=== PATIENT | male | born 1955 | race Caucasian/White ===

== ENCOUNTER 2016-12-25 17:17 | Emergency (ER) | payer MEDICARE, OTHER ==
[2016-12-25] MEDS ORDERED: DIPH,PERTUS(ACELL)TETVAC-LF 0.5 ML VIAL IM ONE (18:16)
--- NOTE | 2016-12-25 19:13 | ED ---
Wound/Laceration HPI - General Chief Complaint: Wound/Laceration Stated Complaint: rt hand, left pinkie finger, rt abdomen laceration Time Seen by Provider: 12/25/16 18:05 Source: patient Mode of arrival: ambulatory Limitations: no limitations - History of Present Illness Initial Comments: Patient is a 7-year-old male with chief complaint of left pinky finger laceration and right hand laceration after trying to catch his drone. Patient reports that he cut his hands over the blade of the wings. Patient denies any other symptoms. Patient reports that his tetanus is not up-to-date. Patient states that he has full range of motion of the hands and denies any foreign bodies within the fingers or lacerations. Patient denies any other symptoms at this time. Patient is right-handed. - Related Data Home Medications Medication Instructions Recorded Confirmed ALPRAZolam [Xanax] 1 mg PO BID PRN 12/25/16 12/25/16 Enalapril [Vasotec] 10 mg PO BID 12/25/16 12/25/16 Ezetimibe/Simvastatin [Vytorin 1 tab PO DAILY 12/25/16 12/25/16 10-80 mg Tablet] Hydrocodone/Acetaminophen [Boissevain 1 tab PO Q6H PRN 12/25/16 12/25/16 10-325] Insulin Glargine [Lantus] 70 unit SQ HS 12/25/16 12/25/16 Insulin Glulisine [Apidra] See Protocol SQ AC-TID 12/25/16 12/25/16 PARoxetine HCL [Paxil Cr] 25 mg PO DAILY 12/25/16 12/25/16 metFORMIN HCL [Glucophage] 1,000 mg PO BID 12/25/16 12/25/16 Previous Rx's Medication Instructions Recorded Cephalexin [Keflex] 500 mg PO Q8HR #21 cap 12/25/16 Allergies Allergy/AdvReac Type Severity Reaction Status Date / Time guinea pigs Allergy Itching Uncoded 12/25/16 18:44 Review of Systems ROS Statement: Those systems with pertinent positive or pertinent negative responses have been documented in the HPI. ROS Other: All systems not noted in ROS Statement are negative. Past Medical History Past Medical History: Diabetes Mellitus History of Any Multi-Drug Resistant Organisms: None Reported Past Surgical History: Joint Replacement, Orthopedic Surgery Additional Past Surgical History / Comment(s): eye surgery Past Psychological History: No Psychological Hx Reported Smoking Status: Never smoker Past Alcohol Use History: None Reported Past Drug Use History: None Reported General Exam - General Exam Comments Initial Comments: Patient is a well-appearing 7-year-old male. Patient does not appear to be in any acute distress. Limitations: no limitations General appearance: alert, in no apparent distress Head exam: Present: atraumatic, normocephalic, normal inspection Eye exam: Present: normal appearance, PERRL, EOMI. Absent: scleral icterus, conjunctival injection, periorbital swelling ENT exam: Present: normal exam, mucous membranes moist Neck exam: Present: normal inspection. Absent: tenderness, meningismus, lymphadenopathy Respiratory exam: Present: normal lung sounds bilaterally. Absent: respiratory distress, wheezes, rales, rhonchi, stridor Cardiovascular Exam: Present: regular rate, normal rhythm, normal heart sounds. Absent: systolic murmur, diastolic murmur, rubs, gallop, clicks GI/Abdominal exam: Present: soft, normal bowel sounds. Absent: distended, tenderness, guarding, rebound, rigid Right Forearm Wrist exam: Present: normal inspection, full ROM Hand Wrist exam: Present: full ROM. Absent: normal inspection, tenderness, swelling, abrasion Hand L/R Front: 1 - laceration (4 cm) Hand L/R Back: 1 - 2cm laceration 2 - 2cm laceration Neuro motor exam: Present: wrist extension intact, thumb opposition intact, thumb IP flexion intact, thumb adduction intact, fingers 2-5 abduction intact Neurosensory exam: Present: 2-point discrimination Vascular: Present: normal capillary refill Back exam: Present: normal inspection Neurological exam: Present: alert, oriented X3, CN II-XII intact Psychiatric exam: Present: normal affect, normal mood Skin exam: Present: warm, dry, intact, normal color. Absent: rash Course Vital Signs 12/25/16 12/25/16 17:23 19:23 Temperature 98.3 F 97.7 F Pulse Rate 96 89 Respiratory 16 18 Rate Blood Pressure 154/89 155/88 O2 Sat by Pulse 98 97 Oximetry Procedures - Laceration Laceration #1 Site: hand (right. 2 locations. medial and lateral dorsum of hand. Lateral dorsum is 2cm in length. medial dorsal is 4 cm in length. No tendon involement. ) Size (cm): 6 Description: linear Depth: simple, single layer Anesthetic Used: benzocaine 0.25% Anesthesia Technique: local infiltration Amount (mls): 5 Pre-repair: wound explored, irrigated extensively Type of Sutures: nylon Size of Sutures: 5-0 Number of Sutures: 6 Technique: simple, interrupted Patient Tolerated Procedure: well, no complications Laceration #2 Site: hand (left 5th digit. ) Size (cm): 2 Description: linear Depth: simple, single layer Anesthetic Used: benzocaine 0.25% Anesthesia Technique: local infiltration Amount (mls): 2 Pre-repair: wound explored, irrigated extensively Type of Sutures: nylon Size of Sutures: 5-0 Number of Sutures: 2 Technique: simple, interrupted Patient Tolerated Procedure: well, no complications Medical Decision Making - Medical Decision Making Patient is a 61 year old male with hand lacerations after catching his drone and was cut on the wings. PAtient given tetanus booster. Lacerations are superficial, no foreign body and no tendon involvement. PAtient soaked hand in soapy iodine wash, and sutures were applied. Patient will be placed on Keflex as his hands are dirty, and patient is diabetic. Patient understands treatment plan and will return for removal. Advised to follow up with pcp and monitor for infection. Disposition Clinical Impression: Laceration of right hand, Laceration of left hand Disposition: HOME SELF-CARE Condition: Good Instructions: Laceration (ED) Additional Instructions: Please return to the emergency room in 8-10 days to have sutures removed. Please leave wound covered for the first 24-48 hours and then leave open to air after that time. Please use clean soap and water to clean the suture area to prevent scabbing over the top of your sutures. Please watch for any signs of infection which may include but not limited to increased pain, swelling, redness , fever or chills. Please return to the emergency room if any signs of infection do occur. Please return to the emergency room for any other concerns or complications. Prescriptions: Cephalexin [Keflex] 500 mg PO Q8HR #21 cap Referrals: Jose Parker MD [Primary Care Provider] - 1-2 days Time of Disposition: 19:12
[2016-12-25 19:24] VITALS: BP 155/88; PULSE 89; RESP 18; TEMP 97.7
== END 2016-12-25 19:24 | disposition home or self-care (01) ==
LOC: EC 17:17
DX: S61.411A Laceration without foreign body of right hand, initial encounter (principal); S61.412A Laceration without foreign body of left hand, initial encounter; E11.9 Type 2 diabetes mellitus without complications; Z79.4 Long term (current) use of insulin; Z79.899 Other long term (current) drug therapy; Z91.048 Other nonmedicinal substance allergy status; W45.8XXA Other foreign body or object entering through skin, initial encounter; W22.8XXA Striking against or struck by other objects, initial encounter; Y93.89 Activity, other specified
CPT/HCPCS: 12004; 90471; 90715; 99283

== ENCOUNTER → 2023-04-30 | Outpatient (CLI) | payer MEDICARE, OTHER | END | disposition home or self-care (01) | LOC: RADPETMAIN 12:03 | PROVIDERS: ATTEND Internal Medicine Hematology & Oncology | DX: Z53.9 Procedure and treatment not carried out, unspecified reason (principal) ==

== ENCOUNTER → 2023-05-07 | Outpatient (CLI) | payer MEDICARE, OTHER ==
--- NOTE | 2023-05-08 22:42 | MR ---
EXAMINATION TYPE: MR Rectal wo con DATE OF EXAM: 05/07/2023 2:03 PM CLINICAL INDICATION:Male, 68 years old with history of C20 MALIGNANT NEOPLASM OF RECTUM; COMPARISON: Pet/CT same day TECHNIQUE: Multiplanar, multisequence imaging was performed on a 3T MR scanner with optimized small f ield of view imaging of the rectum. Orthogonal high resolution T2 weighted imaging was obtained thro ugh the rectal mass with additional sequences including T1 weighted images and diffusion weighted john ging. IV CONTRAST: None. FINDINGS: IMAGE QUALITY: Adequate PRIMARY TUMOR: MORPHOLOGY, LOCATION, AND CHARACTERISTICS: Distance to anal verge: 0.0 cm Distance to top of anal sphincter complex/anorectal junction: 0.0 cm Relationship to the anterior peritoneal reflection: below Craniocaudal length: 9.5 cm Circumferential location (o'clock position): [place] to be nearly annular, however at at the level of th e anus extends 9 o'clock to 2 o'clock. Morphology: Annular Mucinous: No MRI Rectal Cancer T Category: T3c (tumor penetrates >5-15 mm beyond muscularis propria). There is n o invasion of adjacent structures definitively visualized however it does abut the prostate gland ser ies 701 image 18. FOR LOW RECTAL TUMORS - Invasion of anal sphincter complex Invades internal sphincter, interspincteric space and extends into or through external sphincter Level of invasion: Distal anal canal EXTRAMURAL VENOUS INVASION (EMVI): Not definitively visualized AB possibly within the right aspect ne ar extension away from the rectal wall. CIRCUMFERENTIAL RESECTION MARGIN (for T3 only) Shortest distance of tumor to MRF (or anticipated CRM): 12.6 mm on the right series 701 image 27. (Not applicable if tumor at peritonealized portion of the rectum) Is there a separate tumor deposit, lymph node, or EMVI threatening (> 1 mm and < 2 mm) or invading (< 1 mm) the MRF (if yes, note location): No LYMPH NODES: Multiple lymph nodes are seen in the mesorectal fascia, one correlating with PET/CT yaneli uring 8 mm on the right demonstrates mildly increased FDG activity PET/CT and is suspicious. Addition al smaller lymph nodes are present some in the presacral space series 601 image 5. Mesorectal/superior rectal lymph nodes and/or tumor deposits: N3 - Presence of suspicious extra-mesorectal lymph nodes *Suspicious morphologic criteria: (1) round shape, (2) irregular borders, (3) heterogenous signal int ensity Superior most suspicious lymph node/deposit is located: Presacral series 401 image 15. Extra-mesorectal lymph nodes: any suspicious: Yes. Presacral lymph node mentioned above . (mesorectal, superior rectal, middle rectal, inferior rectal, sigmoid mesenteric, inferior mesenteric , lateral sacral, presacral, sacral promontory) Locoregional: internal iliac, obturator M1: external iliac, common iliac, inguinal, retroperitoneal IMPRESSION: T Stage: T3c (tumor penetrates >5-15 mm beyond muscularis propria). N Stage: N3 - Presence of suspicious extra-mesorectal lymph nodes CRM: Clear Sphincter Involvement: Yes Suspicious extramesorectal nodes: Yes ,
== END | disposition home or self-care (01) ==
LOC: RADMRIMAIN 04-28 09:57
PROVIDERS: ATTEND Internal Medicine Hematology & Oncology
DX: C20 Malignant neoplasm of rectum (principal)
CPT/HCPCS: 72195

== ENCOUNTER → 2023-05-08 | Outpatient (CLI) | payer MEDICARE, OTHER ==
--- NOTE | 2023-05-08 22:48 | PE ---
EXAMINATION TYPE: PET CT fusion skull to thigh DATE OF EXAM: 05/08/2023 CLINICAL INDICATION:Male, 68 years old with history of C20 rectal ca TECHNIQUE: Following the intravenous administration of 12.5 mCi of F-18 FDG, whole body images are performed from the skull base to the midthigh. Images are reviewed on the computer in the coronal, a xial, and sagittal planes. Reconstructed rotating images are created on independent workstation and reviewed on the computer. A non-contrast CT is performed in conjunction with the PET scan. Glucose level 56 mg/dL COMPARISON: CT None, PET/CT None, MRI rectal 05/07/2023. FINDINGS: Mediastinal SUV mean is 1.9. Hepatic parenchyma SUV mean is 1.3. SKULL BASE AND NECK: No suspicious radiotracer activity. CHEST, MEDIASTINUM, AND HILAR REGION: No suspicious radiotracer activity. ABDOMEN AND PELVIS: * Circumstantial rectal wall FDG activity max SUV 34. * Right mesorectal lymph node max SUV 2.1 measuring 8 mm in short axis. Additional other mesorectal lymph nodes are present are smaller * An area of uptake near the inferior vena cava near the diaphragm which may be within the liver, th is lesion is hard to localize given streak artifact. Max SUV 11.3. * Left adrenal nodule measuring 16 mm without increased about activity. Physiologic uptake within th e muscles of the back on the left. OSSEOUS STRUCTURES: No suspicious radiotracer activity. OTHER CT: Right aphakia. Atherosclerosis of the carotid bifurcations and coronary arteries. Aortic va lve leaflet calcifications are present. Streak artifact from the patient's arm limits evaluation with CT imaging. IMPRESSION: * Findings compatible with MRI with rectal adenocarcinoma with likely local metastatic disease to th e mesorectal lymph nodes * Area of abnormal radiotracer uptake within the upper abdomen near the IVC is hard to localize give n streak artifact on CT imaging finding could be within the liver. This has max SUV 11.3. Finding may represent metastatic focus. Consider MRI liver mass protocol.
== END | disposition home or self-care (01) ==
LOC: RADPETMAIN 11:35
PROVIDERS: ATTEND Internal Medicine Hematology & Oncology
DX: C20 Malignant neoplasm of rectum (principal)
CPT/HCPCS: 78815; A9552

== ENCOUNTER 2023-05-17 10:26 | Day surgery (SDC) | payer MEDICARE, OTHER ==
[~2023-05-17 10:26] MED LIST: ACETAMINOPHEN TAB 500 MG TAB PO PRN; DEXAMETHASONE SOD PHOSPHATE 4 MG/ML 1 ML VIAL IV ONE; HEPARIN SODIUM,PORCINE/PF 5,000 UNIT/0.5 ML SYRINGE SQ PRN; HYDROmorphone 0.5 MG/0.5 ML SYRINGE IVP PRN; LACTATED RINGERS 1,000 ML IV SCH; MIDAZOLAM 2 MG/2 ML VIAL IV PRN; ONDANSETRON 4 MG/2 ML VIAL IVP ONE; Pre Op ABX Message 1 EACH MISC MISCELLANE ONE
[2023-05-17 11:10] LABS: Glucose,Whole Blood 122 mg/dL (70-110)
[2023-05-17] MEDS ORDERED: fentaNYL (PF) 50 MCG/ML 2 ML AMP ONE (11:19)
[2023-05-17] MEDS ORDERED: PHENYLEPHRINE-0.9% NACL SYG 1,000 MCG/10 ML SYRINGE ONE (11:19)
[2023-05-17] MEDS ORDERED: MIDAZOLAM 2 MG/2 ML VIAL ONE (11:19)
[2023-05-17] MEDS ORDERED: PROPOFOL 10 MG/ML 20 ML VIAL IV ONE (11:19)
[2023-05-17] MEDS ORDERED: HEPARIN SODIUM,PORCINE 100 UNIT/ML 5 ML VIAL IV ONE (11:49)
[2023-05-17] MEDS ORDERED: BUPIVACAINE (PF) 0.25% 30 ML VIAL SQ ONE ×2 (11:50)
[2023-05-17] MEDS ORDERED: IOPAMIDOL-370 100ML BTL MISCELLANE ONE (11:57)
--- NOTE | 2023-05-17 12:09 | P.OP ---
Date of Procedure: 05/17/23 Preoperative Diagnosis: Colorectal cancer Postoperative Diagnosis: Colorectal cancer Procedure(s) Performed: Insertion of right subclavian Port-A-Cath Anesthesia: OSMAN Surgeon: Brandon Quiros Estimated Blood Loss (ml): 5 Pathology: none sent Condition: stable Disposition: PACU Description of Procedure: The patient was placed on the operating table in the supine position. The patient received IV sedation. The patient's chest was prepped and draped in the usual sterile fashion. A roll had been placed between the shoulder blades in a longitudinal fashion. After prepping and draping the skin was anesthetized 1% local Xylocaine. And then using the Seldinger technique the subclavian vein was cannulated. A wire was placed into the vein and fluoroscopy position the wire at the atrial caval junction. Next the dilator sheath was placed over top the wire and the wire was withdrawn. The catheter was positioned at the atriocaval position. The catheter was placed through the sheath after the dilator was withdrawn. The sheath was then withdrawn. Position of the catheter was confirmed with fluoroscopy. The Port-A-Cath was connected to the catheter. The Port-A-Cath was flushed with saline and then heparinized saline. The skin was closed interrupted 3-0 Monocryl suture. Dermabond was applied. Patient tolerated procedure well and was sent to recovery room stable condition.
[2023-05-17 12:19] VITALS: RESP 16; TEMP 97.3
[2023-05-17 12:32] LABS: Glucose,Whole Blood 112 mg/dL (70-110)
--- NOTE | 2023-05-17 13:02 | XR ---
EXAMINATION TYPE: XR chest 1V portable DATE OF EXAM: 05/17/2023 COMPARISON: None INDICATION: Right subclavian catheter TECHNIQUE: Single frontal view of the chest is obtained. FINDINGS: The heart size is normal. The pulmonary vasculature is normal. Some mild increased lung markings are normal left upper lung field. There is placement of a right-sided port with the tip in the proximal superior vena cava region. No p neumothorax is evident. IMPRESSION: 1. No pneumothorax post right sided port placement. Tip is in the proximal superior vena cava region.
--- NOTE | 2023-05-17 13:04 | FL ---
Fluoroscopy INDICATION: Pain FINDINGS: Fluoroscopy time: 19.2 seconds. Total dose area product (DAP) in uGy*m?, mGy*cm? (or similar): 1.9879 Images obtained: 4. IMPRESSIONS: 1. Documentation of fluoroscopy.
[2023-05-17 13:40] VITALS: BP 126/75; PULSE 67
== END 2023-05-17 14:09 | disposition home or self-care (01) ==
LOC: OR 10:26
PROVIDERS: ATTEND Surgery
DX: Z45.2 Encounter for adjustment and management of vascular access device (principal); C19 Malignant neoplasm of rectosigmoid junction; I10 Essential (primary) hypertension; E78.5 Hyperlipidemia, unspecified; E11.9 Type 2 diabetes mellitus without complications; E66.01 Morbid (severe) obesity due to excess calories; Z68.41 Body mass index [BMI] 40.0-44.9, adult; Z79.84 Long term (current) use of oral hypoglycemic drugs; Z79.85 Long-term (current) use of injectable non-insulin antidiabetic drugs; Z79.899 Other long term (current) drug therapy; Z91.048 Other nonmedicinal substance allergy status
CPT/HCPCS: 36561; 77001; 71045; C1788; J2250; J1642; J1100; J2405; J3010; J2370; J2704; Q9967; J1644

== ENCOUNTER → 2023-07-20 | Outpatient (CLI) | payer MEDICARE, OTHER ==
--- NOTE | 2023-07-21 10:06 | CA ---
Transthoracic Echo Report Name: Jimmy Edwards Age: 68 Gender: M : 1955 Exam Date: 07/20/2023 15:56 Exam Location: [facility] Ht (in): 72 Wt (lb): 300 Ordering Physician: Jose Parker MD Attending/Referring Phys: [employer] Operator Deyanira Robledo RDCS Procedure CPT: Indications: I10 HTN Cardiac Hx: Technical Quality: Fair Contrast 1: Total Dose (mL): Contrast 2: Total Dose (mL): MEASUREMENTS (Male / Female) Normal Values 2D ECHO LV Diastolic Diameter PLAX 5.1 cm 4.2 - 5.9 / 3.9 - 5.3 cm LV Systolic Diameter PLAX 3.7 cm IVS Diastolic Thickness 2.2 cm 0.6 - 1.0 / 0.6 - 0.9 cm LVPW Diastolic Thickness 2.2 cm 0.6 - 1.0 / 0.6 - 0.9 cm LV Relative Wall Thickness 0.8 RV Internal Dim ED PLAX 4.5 cm LVOT Diameter 2.0 cm LA Volume 126.1 cm??? 18 - 58 / 22 - 52 cm??? M-MODE Aortic Root Diameter MM 4.1 cm LA Systolic Diameter MM 6.1 cm LA Ao Ratio MM 1.5 AV Cusp Separation MM 2.0 cm DOPPLER AV Peak Velocity 424.0 cm/s AV Peak Gradient 71.9 mmHg AV Mean Velocity 315.1 cm/s AV Mean Gradient 43.5 mmHg AV Velocity Time Integral 90.5 cm LVOT Peak Velocity 125.6 cm/s LVOT Peak Gradient 6.3 mmHg LVOT Velocity Time Integral 30.4 cm LVOT Stroke Volume 91.3 cm??? LVOT Stroke Volume Index 36.1 ml/m??? LVOT Cardiac Index 2990.2 cm???/min???m??? AV Area Cont Eq vti 1.0 cm??? AV Area Cont Eq pk 0.9 cm??? MV Area PHT 2.9 cm??? Mitral E Point Velocity 102.5 cm/s Mitral A Point Velocity 116.9 cm/s Mitral E to A Ratio 0.9 MV Deceleration Time 257.3 ms TR Peak Velocity 251.2 cm/s TR Peak Gradient 25.3 mmHg Right Ventricular Systolic Press 32.1 mmHg FINDINGS Left Ventricle Severely increased left ventricular wall thickness. Left ventricular cavity size normal. Normal left ventricular systolic function with no obvious regional wall motion abnormalities. Left ventricular ejection fraction is estimated at 55 %. Right Ventricle Moderate right ventricular dilatation. Right ventricular systolic pressure within normal limits. Right Atrium Normal right atrial size. Left Atrium Severely increased left atrial volume. Moderately increased left atrial area. Mitral Valve Structurally normal mitral valve. Mitral valve thickened. Moderate mitral annular calcification. [id number]-etztnjry mitral regurgitation. Aortic Valve Severe aortic stenosis with a peak velocity of 4 m/s, peak gradient 72 mmHg, mean gradient 44 mmHg, and estimated aortic valve area of 1 cm???. Trace to mild aortic regurgitation. Tricuspid Valve Mild tricuspid regurgitation. Pulmonic Valve Trace pulmonic regurgitation. Pericardium No pericardial effusion. Aorta Normal size aortic root and proximal ascending aorta. CONCLUSIONS Normal LV systolic function. Aortic sclerosis with severe aortic stenosis and mean gradient of 44 mmHg Thickened mitral valve leaflets with [id number] mitral regurgitation Previewed by: Dr. Nura Mcgowan MD (Electronically Signed) Final Date: 21 July 2023 10:05
== END | disposition home or self-care (01) ==
LOC: RADECHMAIN 15:44
PROVIDERS: ATTEND Family Medicine
DX: I08.0 Rheumatic disorders of both mitral and aortic valves (principal); I10 Essential (primary) hypertension
CPT/HCPCS: 93306

== ENCOUNTER → 2023-08-10 | Outpatient (CLI) | payer MEDICARE, OTHER ==
--- NOTE | 2023-08-11 15:52 | MR ---
EXAMINATION TYPE: MR liver wo/w con DATE OF EXAM: 08/10/2023 9:52 AM CLINICAL INDICATION:Male, 68 years old with history of C20 RECTAL CANCER; Rectal CA, F/U COMPARISON: CT scan abdomen from PET/CT 05/08/2023.. TECHNIQUE: Multiplanar multi-sequence imaging was performed without contrast. Post contrast imaging was performed. Post IV contrast subtraction images were also submitted for review. IV Contrast: 14 cc Gadavist FINDINGS: LOWER CHEST: No gross irregularity. ABDOMEN Liver: There is a 2.9 x 2.7 x 3.5 cm lesion near the caudate lobe of the liver. MRI Artifact extends over this region of the liver and multiple sequences including T2 and DWI this is heterogenous postco ntrast enhancement. Additional lesion seen within the dome of the liver which is low T1 signal with peripheral enhancemen t on delayed imaging measuring up to 19.0 cm. Gallbladder and Bile ducts: No evidence for ductal dilation, or biliary stricture or evidence of chol edocholithiasis. The gallbladder is within normal limits. Pancreas: No ductal dilation. No evidence for solid mass. Spleen: Normal for size. Adrenal glands: Left adrenal nodule measuring 1.9 cm did not have FDG activity on prior PET/CT and de monstrates drop in signal on shift of phase imaging and is most compatible with lipid rich adrenal ad enoma. Kidneys: No evidence for obstructive uropathy. No suspicious renal masses. Multiple high T2 signal re nal cysts are present. Stomach and Bowel: No evidence for bowel wall thickening or evidence for obstruction.. Peritoneum: No evidence of pneumoperitoneum or free fluid. Vasculature: No aortic aneurysm. Musculoskeletal: The osseous structures appear intact. Lymph Nodes: No gross evidence for lymphadenopathy. Abdominal wall: Unremarkable. IMPRESSION: There are at least 2 hepatic lesions which are highly suspicious of metastatic disease. The first in the caudate lobe which is the area of concern on prior PET/CT. A second near the dome is also present . Retrospectively the second may be mildly FDG avid on prior PET/CT. Compared to background liver par enchyma.
== END | disposition home or self-care (01) ==
LOC: RADMRIMAIN 08:40
PROVIDERS: ATTEND Internal Medicine Hematology & Oncology
DX: C20 Malignant neoplasm of rectum (principal); K76.9 Liver disease, unspecified
CPT/HCPCS: 74183; A9585

== ENCOUNTER → 2023-09-23 | Day surgery (SDC) | payer MEDICARE, OTHER ==
[2023-09-23 11:28] VITALS: BP 139/72; PULSE 87; RESP 16; TEMP 98
--- NOTE | 2023-09-23 12:12 | IR ---
Fluoroscopic portogram([facility]). HISTORY: Device malfunction. The patient presented to the CVL with a Fofana needle within the port. Preliminary fluoroscopy demonst rated the catheter to be intact. The DAP is 0.5748 GYCM 2 IMPRESSION: 1. No obstruction or extravasation. See above.
== END ==
LOC: CATHCVL 10:58
PROVIDERS: ATTEND Radiology Diagnostic Radiology
DX: T82.594A Other mechanical complication of infusion catheter, initial encounter (principal); I10 Essential (primary) hypertension; E78.5 Hyperlipidemia, unspecified; E11.9 Type 2 diabetes mellitus without complications; D50.9 Iron deficiency anemia, unspecified; Z79.84 Long term (current) use of oral hypoglycemic drugs; Z79.811 Long term (current) use of aromatase inhibitors; Z79.899 Other long term (current) drug therapy; Z85.048 Personal history of other malignant neoplasm of rectum, rectosigmoid junction, and anus; Y83.8 Other surgical procedures as the cause of abnormal reaction of the patient, or of later complication, without mention of misadventure at the time of the procedure
CPT/HCPCS: 36598

== ENCOUNTER 2023-11-14 15:50 | Emergency (ER) | payer MEDICARE, OTHER ==
--- NOTE | 2023-11-14 16:47 | ED ---
General Adult HPI - General Chief complaint: Skin/Abscess/Foreign Body Stated complaint: left foot injury Time Seen by Provider: 11/14/23 16:12 Source: patient Mode of arrival: ambulatory Limitations: no limitations - History of Present Illness Initial comments: 68-year-old male with a past medical history significant for colon cancer on chemotherapy and type 2 diabetes presenting to the ED with a chief complaint of left foot wound. Patient states approximately 3 days ago accidentally stepped on the prong of electric plug and notes that this punctured the bottom of his foot. Due to history of being on chemotherapy and type 2 diabetes patient states that he wants to ensure that the wound is healing well and does not look infected. Denies increased pain. Denies swelling. There is unsure if it has been more red as he is unable to see the bottom of his foot. Additionally, patient notes he just finished a course of amoxicillin for paronychia of his bilateral great toes. States that redness and pain has improved on the left however states he is still having some redness and pain of the right however significantly improved after finishing amoxicillin. Denies fever or chills. No other complaints. Tetanus status unknown. - Related Data Home Medications Medication Instructions Recorded Confirmed Insulin Glargine [Lantus] 70 unit SQ HS 12/25/16 11/04/23 Insulin Glulisine [Apidra] See Protocol SQ AC-TID 12/25/16 11/04/23 metFORMIN HCL [Glucophage] 1,000 mg PO BID 12/25/16 11/04/23 Dulaglutide [Trulicity] 1.5 mg SQ WEEKLY 03/25/23 11/04/23 Losartan [Cozaar] 25 mg PO DAILY 05/21/23 11/04/23 Previous Rx's Medication Instructions Recorded Amoxic-Pot Clav 875-125Mg 1 tab PO Q12HR #14 tab 11/14/23 [Augmentin 875-125] Allergies Allergy/AdvReac Type Severity Reaction Status Date / Time guinea pigs Allergy Itching Uncoded 11/14/23 15:56 Review of Systems ROS Statement: Those systems with pertinent positive or pertinent negative responses have been documented in the HPI. ROS Other: All systems not noted in ROS Statement are negative. Past Medical History Past Medical History: Cancer, CVA/TIA, Diabetes Mellitus, Hypertension Additional Past Medical History / Comment(s): RECTAL CANCER. History of Any Multi-Drug Resistant Organisms: None Reported Past Surgical History: Joint Replacement, Orthopedic Surgery Additional Past Surgical History / Comment(s): eye surgery,knee replacement, broken fx and calcium deposits removed Past Anesthesia/Blood Transfusion Reactions: No Reported Reaction Past Psychological History: No Psychological Hx Reported Smoking Status: Former smoker General Exam Limitations: no limitations General appearance: alert, in no apparent distress Eye exam: Present: normal appearance Neck exam: Present: normal inspection Respiratory exam: Present: normal lung sounds bilaterally Cardiovascular Exam: Present: regular rate, normal rhythm GI/Abdominal exam: Present: soft Extremities exam: Present: other (Well-healing wound on the plantar surface of the left mid foot. No warmth, erythema, edema, or significant tenderness to the touch. Appears to be some erythema of the medial portion of the left great toe nontender to the touch. Some erythema of the medial aspect of the right great toe with TTP) Neurological exam: Present: alert, oriented X3 Skin exam: Present: warm, dry Course Vital Signs 11/14/23 15:52 Temperature 98 F Pulse Rate 101 H Respiratory 18 Rate Blood Pressure 167/88 O2 Sat by Pulse 99 Oximetry Medical Decision Making - Medical Decision Making Was pt. sent in by a medical professional or institution (, PA, CORPORATE PILOT, urgent care, hospital, or care home...) When possible be specific @ -No Did you speak to anyone other than the patient for history (EMS, parent, family, police, friend...)? What history was obtained from this source @ -No Did you review nursing and triage notes (agree or disagree)? Why? @ -I reviewed and agree with nursing and triage notes Were old charts reviewed (outside hosp., previous admission, EMS record, old EKG, old radiological studies, urgent care reports/EKG's, care home records)? Report findings @ -No old charts were reviewed Differential Diagnosis (chest pain, altered mental status, abdominal pain women, abdominal pain men, vaginal bleeding, weakness, fever, dyspnea, syncope, headache, dizziness, GI bleed, back pain, seizure, CVA, palpatations, mental health, musculoskeletal)? @ -Differential Musculoskeletal Muscular strain, contusion, ligament sprain, fracture, arthritis, septic arthritis, bursitis, cellulitis, muscle spasm, nerve compression, DVT, arterial occlusion, herpes zoster, electrolyte abnormality, tumor.... This is not meant to be in all inclusive list EKG interpreted by me (3pts min.). @ -None X-rays interpreted by me (1pt min.). @ -None done CT interpreted by me (1pt min.). @ -None done U/S interpreted by me (1pt. min.). @ -None done What testing was considered but not performed or refused? (CT, X-rays, U/S, labs)? Why? @ -None What meds were considered but not given or refused? Why? @ -None Did you discuss the management of the patient with other professionals (professionals i.e. DrAlessandra, PA, CORPORATE PILOT, lab, RT, psych nurse, social worker assistant, casing tier, teacher, customs patrol officer, supervisor case loading)? Give summary @ -No Was smoking cessation discussed for >3mins.? @ -No Was critical care preformed (if so, how long)? @ -No Were there social determinants of health that impacted care today? How? (Homele ssness, low income, unemployed, alcoholism, drug addiction, transportation, low edu. Level, literacy, decrease access to med. care, long-term, rehab)? @ -No Was there de-escalation of care discussed even if they declined (Discuss DNR or withdrawal of care, Hospice)? DNR status @ -No What co-morbidities impacted this encounter? (DM, HTN, Smoking, COPD, CAD, Cancer, CVA, ARF, Chemo, Hep., AIDS, mental health diagnosis, sleep apnea, morbid obesity)? @ -Colon cancer on chemotherapy, type 2 diabetes Was patient admitted / discharged? Hospital course, mention meds given and route, prescriptions, significant lab abnormalities, going to OR and other pertinent info. @ -Discharge 78-year-old male with past medical history significant for colon cancer on chemo and type 2 diabetes presenting to the ED to have the wound evaluated on the bilateral left foot. Wound appears to be well healing with no evidence of infection. Additionally notes history of treatment for bilateral paronychia of great toes. There does still appear to be some redness and tenderness to palpa tion of the right great toe however patient reports redness, swelling, pain significantly improved after treatment with amoxicillin. Tetanus updated. Patient provided prescription for Augmentin. At this time vital signs stable afebrile. Discharged home in stable condition. Discussed return precautions with patient who verbalized agreement. Undiagnosed new problem with uncertain prognosis? @ -No Drug Therapy requiring intensive monitoring for toxicity (Heparin, Nitro, Insulin, Cardizem)? @ -No Were any procedures done? @ -No Diagnosis/symptom? @ -Wound evaluation, paronychia bilateral great toes Acute, or Chronic, or Acute on Chronic? @ -Acute Uncomplicated (without systemic symptoms) or Complicated (systemic symptoms)? @ -Uncomplicated Side effects of treatment? @ -No Exacerbation, Progression, or Severe Exacerbation? @ -No Poses a threat to life or bodily function? How? (Chest pain, USA, [place], pneumonia, PE, COPD, DKA, ARF, appy, cholecystitis, CVA, Diverticulitis, Homicidal, Suicidal, threat to staff... and all critical care pts) @ -No Disposition Clinical Impression: Paronychia, Colon cancer Disposition: HOME SELF-CARE Condition: Good Instructions (If sedation given, give patient instructions): Puncture Wound (ED) Additional Instructions: Please return to the Emergency Department if symptoms worsen or any other concerns. Monitor for signs of infection. Please follow up with your primary care provider. Prescriptions: Amoxic-Pot Clav 875-125Mg [Augmentin 875-125] 1 tab PO Q12HR #14 tab Is patient prescribed a controlled substance at d/c from ED?: No Referrals: Jose Parker MD [Primary Care Provider] - 1-2 days Time of Disposition: 16:54
[2023-11-14] MEDS ORDERED: DIPH,PERTUS(ACELL)TETVAC-LF 0.5 ML VIAL IM ONE (16:55)
[2023-11-14] MEDS ORDERED: AMOXIC-POT CLAV 875MG STARTER PACK 2 TAB BTL PO STA (16:55)
[2023-11-14 17:24] VITALS: BP 121/83; PULSE 91; RESP 17; TEMP 98.2
== END 2023-11-14 17:23 | disposition home or self-care (01) ==
LOC: EC 15:50
DX: L03.032 Cellulitis of left toe (principal); C18.9 Malignant neoplasm of colon, unspecified; I10 Essential (primary) hypertension; E11.9 Type 2 diabetes mellitus without complications; Z87.891 Personal history of nicotine dependence; Z91.048 Other nonmedicinal substance allergy status; Z23 Encounter for immunization; Z79.85 Long-term (current) use of injectable non-insulin antidiabetic drugs; Z79.4 Long term (current) use of insulin; Z79.899 Other long term (current) drug therapy
CPT/HCPCS: 90471; 90715; 99283

== ENCOUNTER → 2023-11-25 | Outpatient (CLI) | payer MEDICARE, OTHER ==
--- NOTE | 2023-11-28 12:42 | PE ---
EXAMINATION TYPE: PET CT fusion skull to thigh DATE OF EXAM: 11/25/2023 COMPARISON: MRI liver 08/10/2023 Prior PET/CT: 05/08/2023 HISTORY: Rectal cancer TECHNIQUE: Following the intravenous administration of 12.3 mCi of F-18 FDG, whole body images are p erformed from the skull base to the midthigh. Images are reviewed on the computer in the coronal, ax ial, and sagittal planes. Reconstructed rotating images are created on independent workstation and r eviewed on the computer. A localization and attenuation correction CT is performed in conjunction w ith the PET scan. DLP: 1045.01 mGycm SCAN: Subsequent Blood glucose: 150 mg/dL Average Mediastinum SUV: 2.14 Average Liver SUV: 2.51 FINDINGS: NECK: No abnormal uptake THORAX: No abnormal uptake ABDOMEN: There is an area within the posterior right dome of the liver may be somewhat more focal upt sandip. This has an SUV value of 4.33. Image 109. Metastatic lesion is not excluded. Liver appears somew hat heterogenous. The previous uptake in the caudate lobe may be present, image 125, SUV 6.69. No additional suspicious focal areas identified. No additional suspicious uptake within the abdomen. PELVIS: Increased uptake in the perirectal region. Local recurrence or residual disease may be presen t. There is increased uptake within the left gluteal region appears to be related to muscular activity. OSSEOUS STRUCTURES: There is some mild heterogeneity present. Some focal uptake may be within the cherri tebral pedicle junction on the right of the mid thoracic spine, image 112, SUV average 3.77. LOCALIZATION CT: Suspicious corresponding abnormality is not identified. COMPARISON: Uptake within the caudate lobe is not identified on the current examination. Uptake withi n the perirectal region appears stable. IMPRESSION: 1. Persistent uptake in the perirectal region may be residual disease, similar to prior study. 2. Uptake within the caudate lobe of the liver appears diminished from comparison. 3. Difficult evaluation of the liver given heterogeneous appearance. Focal uptake however may be with in the dome of the liver which would be a change. 4. Possible osseous metastasis mid thoracic spine.
== END | disposition home or self-care (01) ==
LOC: RADPETMAIN 07:07
PROVIDERS: ATTEND Internal Medicine Hematology & Oncology
DX: C20 Malignant neoplasm of rectum (principal)
CPT/HCPCS: 78815; A9552

== ENCOUNTER → 2024-01-01 | Outpatient (CLI) | payer MEDICARE, OTHER ==
--- NOTE | 2024-01-01 09:19 | MR ---
MRI thoracic spine with and without contrast HISTORY: Rectal cancer. COMPARISON: None. TECHNIQUE: Multiecho multiplanar images thoracic spine were obtained with and without contrast FINDINGS: The exam is markedly limited due to involuntary patient motion secondary to the patient's back pain. There is no evidence of compression fracture or abnormality of the thoracic spinal cord. There is no thoracic spinal stenosis. There is a suggestion of small focal disc protrusions in the lower thoracic spine the precise level o f which cannot be determined given the limitations of this technique. The possibility of metastatic disease in the thoracic spine cannot be entirely excluded secondary to limitations. IMPRESSION: Markedly limited study secondary to involuntary patient motion as described. There are no compression fractures and the spinal cord in the thoracic region appears unremarkable. There are posterior disc protrusions in the lower thoracic spine which are poorly evaluated with this technique. Despite the l ack of pathologic extra, possibility of metastatic disease thoracic spine cannot be excluded secondar y to limitations of this technique. Repeat MRI thoracic spine with sedation might be useful for furth er evaluation.
== END | disposition home or self-care (01) ==
LOC: RADMRIMAIN 07:25
PROVIDERS: ATTEND Internal Medicine Hematology & Oncology
DX: M51.24 Other intervertebral disc displacement, thoracic region (principal); C20 Malignant neoplasm of rectum
CPT/HCPCS: 72157; A9585

== ENCOUNTER 2024-02-16 18:27 | Inpatient (IN) | payer MEDICARE, OTHER ==
--- NOTE | 2024-02-16 18:53 | ED ---
General Adult HPI - General Chief complaint: Recheck/Abnormal Lab/Rx Stated complaint: Low magnesium Time Seen by Provider: 02/16/24 18:37 Source: patient, RN notes reviewed Mode of arrival: wheelchair Limitations: no limitations - History of Present Illness Initial comments: Patient is a pleasant 69-year-old male present to the emergency department with concerns for abnormal lab work. Patient states he does have a history of low magnesium. Patient is on chemotherapy for colorectal cancer. Patient states he was at a different facility recently for possible procedure however they would not do it secondary to tachycardia. Patient denies any history of dysrhythmia. No chest pain. - Related Data Home Medications Medication Instructions Recorded Confirmed Insulin Glargine [Lantus] 70 unit SQ HS 12/25/16 12/07/23 Insulin Glulisine [Apidra] See Protocol SQ AC-TID 12/25/16 12/07/23 metFORMIN HCL [Glucophage] 1,000 mg PO BID 12/25/16 12/07/23 Dulaglutide [Trulicity] 1.5 mg SQ WEEKLY 03/25/23 12/07/23 Losartan [Cozaar] 25 mg PO DAILY 05/21/23 12/07/23 Previous Rx's Medication Instructions Recorded Amoxic-Pot Clav 875-125Mg 1 tab PO Q12HR #14 tab 11/14/23 [Augmentin 875-125] Allergies Allergy/AdvReac Type Severity Reaction Status Date / Time guinea pigs Allergy Itching Uncoded 12/07/23 13:06 Review of Systems ROS Statement: Those systems with pertinent positive or pertinent negative responses have been documented in the HPI. ROS Other: All systems not noted in ROS Statement are negative. Constitutional: Denies: fever Eyes: Denies: eye pain ENT: Denies: ear pain Respiratory: Denies: cough Cardiovascular: Denies: palpitations Endocrine: Reports: fatigue Gastrointestinal: Denies: abdominal pain Genitourinary: Denies: dysuria Past Medical History Past Medical History: Cancer, CVA/TIA, Diabetes Mellitus, Hypertension Additional Past Medical History / Comment(s): RECTAL CANCER. History of Any Multi-Drug Resistant Organisms: None Reported Past Surgical History: Joint Replacement, Orthopedic Surgery Additional Past Surgical History / Comment(s): eye surgery,knee replacement, broken fx and calcium deposits removed Past Anesthesia/Blood Transfusion Reactions: No Reported Reaction Past Psychological History: No Psychological Hx Reported Smoking Status: Former smoker General Exam Limitations: no limitations General appearance: alert, in no apparent distress Head exam: Present: normocephalic Eye exam: Present: normal appearance Neck exam: Present: normal inspection Respiratory exam: Present: normal lung sounds bilaterally Cardiovascular Exam: Present: tachycardia, irregular rhythm, systolic murmur Expanded Peripheral pulses: 2+: Radial (R), Radial (L), Dorsalis Pedis (R), Dorsalis Pedis (L) GI/Abdominal exam: Present: soft. Absent: tenderness Extremities exam: Present: normal inspection Neurological exam: Present: alert Psychiatric exam: Present: normal affect, normal mood Skin exam: Present: other (Diffuse erythematous maculopapular rash which patient does attribute to his chemotherapy) Course Vital Signs 02/16/24 02/16/24 18:31 19:25 Temperature 97.7 F Pulse Rate 121 H 141 H Respiratory 18 18 Rate Blood Pressure 119/85 116/73 O2 Sat by Pulse 96 92 L Oximetry EKG Findings - EKG Results: EKG: interpreted by JANE (LVH criteria.), normal axis, normal ST/T EKG shows: tachycardia, atrial fibrillation Medical Decision Making - Medical Decision Making Was pt. sent in by a medical professional or institution (, PA, CUSTOMER TECHNICAL SERVICES MANAGER, urgent care, hospital, or correction...) When possible be specific @ -Patient was sent from lab secondary to low magnesium Did you speak to anyone other than the patient for history (EMS, parent, family, police, friend...)? What history was obtained from this source @ - Did you review nursing and triage notes (agree or disagree)? Why? @ -I reviewed and agree with nursing and triage notes Were old charts reviewed (outside hosp., previous admission, EMS record, old EKG, old radiological studies, urgent care reports/EKG's, correction records)? Report findings @ -Previous labs reviewed Differential Diagnosis (chest pain, altered mental status, abdominal pain women, abdominal pain men, vaginal bleeding, weakness, fever, dyspnea, syncope, headache, dizziness, GI bleed, back pain, seizure, CVA, palpatations, mental health, musculoskeletal)? @ -Differential Palpitations Ventricular arrhythmias, atrial arrhythmias, myocardial infarction, anemia, thyrotoxicosis, electrolyte imbalance, hypokalemia, pulmonary embolism, pulmonary disease, drugs, alcohol, anxiety, stress.... This is not meant to be an all-inclusive list. EKG interpreted by me (3pts min.). @ -As above X-rays interpreted by me (1pt min.). @ -Chest x-ray shows some borderline cardiomegaly and mild increased interstitial change CT interpreted by me (1pt min.). @ -None done U/S interpreted by me (1pt. min.). @ -None done What testing was considered but not performed or refused? (CT, X-rays, U/S, labs)? Why? @ -None What meds were considered but not given or refused? Why? @ -None Did you discuss the management of the patient with other professionals (professionals i.e. , PA, CUSTOMER TECHNICAL SERVICES MANAGER, lab, RT, psych nurse, social sciences lecturer, chlorine cell tender, teacher, chairman and chief executive officer, caser in)? Give summary @ -Case discussed with [facility] physician, Dr. Griffith covering for Dr. Parker who will admit his patient Was smoking cessation discussed for >3mins.? @ -No Was critical care preformed (if so, how long)? @ -31 minutes critical care Were there social determinants of health that impacted care today? How? (Homelessness, low income, unemployed, alcoholism, drug addiction, transportation, low edu. Level, literacy, decrease access to med. care, alf, rehab)? @ -No Was there de-escalation of care discussed even if they declined (Discuss DNR or withdrawal of care, Hospice)? DNR status @ -No What co-morbidities impacted this encounter? (DM, HTN, Smoking, COPD, CAD, Cancer, CVA, ARF, Chemo, Hep., AIDS, mental health diagnosis, sleep apnea, morbid obesity)? @ -None Was patient admitted / discharged? Hospital course, mention meds given and route, prescriptions, significant lab abnormalities, going to OR and other pertinent info. @ -Patient updated on results and plan. Admission orders written. Patient will be admitted with cardiac consult. Magnesium and calcium replaced. Cardizem drip started. Cardiology will be placed on cons Undiagnosed new problem with uncertain prognosis? @ -No Drug Therapy requiring intensive monitoring for toxicity (Heparin, Nitro, Insulin, Cardizem)? @ -Cardizem drip Were any procedures done? @ -No Diagnosis/symptom? @ -New onset A-fib with RVR, hypomagnesemia Acute, or Chronic, or Acute on Chronic? @ -Acute, acute Uncomplicated (without systemic symptoms) or Complicated (systemic symptoms)? @ -Complicated with dysrhythmia Side effects of treatment? @ -No Exacerbation, Progression, or Severe Exacerbation? @ -No Poses a threat to life or bodily function? How? (Chest pain, USA, [place], pneumonia, PE, COPD, DKA, ARF, appy, cholecystitis, CVA, Diverticulitis, Homicidal, Suicidal, threat to staff... and all critical care pts) @ -Potential threat for cardiac dysfunction and life - Lab Data Result diagrams: 02/16/24 19:02/16/24 19: Lab Results 02/16/24 02/16/24 02/16/24 Range/Units 19:01 19: 19:01 WBC 6.1 (3.8-10.6) k/uL RBC 3.59 L (4.30-5.90) m/uL Hgb 10.7 L (13.0-17.5) gm/dL Hct 34.9 L (39.0-53.0) % MCV 97.1 (80.0-100.0) fL MCH 29.9 (25.0-35.0) pg MCHC 30.8 L (31.0-37.0) g/dL RDW 14.7 (11.5-15.5) % Plt Count 244 (150-450) k/uL MPV 8.1 Neutrophils % 56 % Lymphocytes % 29 % Monocytes % 7 % Eosinophils % 6 % Basophils % 0 % Neutrophils # 3.4 (1.3-7.7) k/uL Lymphocytes # 1.8 (1.0-4.8) k/uL Monocytes # 0.4 (0-1.0) k/uL Eosinophils # 0.3 (0-0.7) k/uL Basophils # 0.0 (0-0.2) k/uL Hypochromasia Slight PT 12.1 (10.0-12.5) sec INR 1.1 (<1.2) APTT 27.0 (22.0-30.0) sec Sodium 140 (137-145) mmol/L Potassium 4.0 (3.5-5.1) mmol/L Chloride 107 (98-107) mmol/L Carbon Dioxide 22 (22-30) mmol/L Anion Gap 11 mmol/L BUN 23 H (9-20) mg/dL Creatinine 1.04 (0.66-1.25) mg/dL Est GFR (CKD-EPI)AfAm 85 (>60 ml/min/1.73 sqM) Est GFR (CKD-EPI)NonAf 74 (>60 ml/min/1.73 sqM) Glucose 177 H (74-99) mg/dL Calcium 7.6 L (8.4-10.2) mg/dL Phosphorus 4.3 (2.5-4.5) mg/dL Magnesium 0.7 L* (1.6-2.3) mg/dL Total Bilirubin 0.6 (0.2-1.3) mg/dL AST 27 (17-59) U/L ALT 19 (4-49) U/L Alkaline Phosphatase 90 (38-126) U/L Total Protein 6.6 (6.3-8.2) g/dL Albumin 3.7 (3.5-5.0) g/dL TSH 1.240 (0.465-4.680) mIU/L Free T4 1.47 (0.78-2.19) ng/dL Free T3 pg/mL 3.8 (2.8-5.3) pg/ml Critical Care Time Critical Care Time: Yes Total Critical Care Time: 31 Disposition Clinical Impression: Atrial fibrillation with RVR, Hypomagnesemia Disposition: ADMITTED IP TO THIS HOSP Condition: Serious Is patient prescribed a controlled substance at d/c from ED?: No Time of Disposition: 20:05
[2024-02-16 19:16] LABS: Basophils % (A) 0 %; Eosinophils # (A) 0.3 k/uL (0-0.7); Eosinophils % (A) 6 %; HCT 34.9 % (39.0-53.0); HGB 10.7 gm/dL (13.0-17.5); Hypochromasia Slight; Lymphocytes # (A) 1.8 k/uL (1.0-4.8); Lymphocytes % (A) 29 %; MCH 29.9 pg (25.0-35.0); MCHC 30.8 g/dL (31.0-37.0); MCV 97.1 fL (80.0-100.0); Mean Platelet Volume 8.1; Monocytes # (A) 0.4 k/uL (0-1.0); Monocytes % (A) 7 %; Neutrophils # (A) 3.4 k/uL (1.3-7.7); Neutrophils % (A) 56 %; Platelet Count 244 k/uL (150-450); RBC 3.59 m/uL (4.30-5.90); RDW 14.7 % (11.5-15.5); WBC 6.1 k/uL (3.8-10.6)
[2024-02-16] MEDS: DILTIAZEM 125 MG in SODIUM CHLORIDE 0.9% 100 ML IV SCH (19:22)
[2024-02-16 19:25] LABS: ALT 19 U/L (4-49); AST 27 U/L (17-59); African American GFR (CKD) 85 (>60 ml/min/1.73 sqM); Albumin 3.7 g/dL (3.5-5.0); Alkaline Phosphatase 90 U/L (38-126); Anion Gap 11 mmol/L; Blood Urea Nitrogen 23 mg/dL (9-20); Calcium 7.6 mg/dL (8.4-10.2); Carbon Dioxide 22 mmol/L (22-30); Chloride 107 mmol/L (98-107); Glucose 177 mg/dL (74-99); Non-African American GFR(CKD) 74 (>60 ml/min/1.73 sqM); Phosphorus 4.3 mg/dL (2.5-4.5); Sodium 140 mmol/L (137-145); Total Bilirubin 0.6 mg/dL (0.2-1.3); Total Protein 6.6 g/dL (6.3-8.2)
[2024-02-16 19:42] LABS: INR 1.1 (<1.2); T4, Free (Free Thyroxine) 1.47 ng/dL (0.78-2.19)
[2024-02-16 19:43] LABS: Prothrombin Time 12.1 sec (10.0-12.5)
[2024-02-16 19:50] LABS: Magnesium 0.7 mg/dL (1.6-2.3)
[2024-02-16] MEDS: MAGNESIUM SULFATE-D5W PMX 1 GM in DEXTROSE/WATER 1 100ML.BAG IVPB ONE (19:57)
[2024-02-16] MEDS ORDERED: NALOXONE 0.4 MG/ML 1 ML VIAL IV PRN (20:05)
--- NOTE | 2024-02-16 20:43 | XR ---
EXAM: XR chest 1V portable CLINICAL INDICATION:Male, 69 years old with history of Dysrhythmia; [facility] COMPARISON: 05/17/2023 TECHNIQUE: Chest single view. FINDINGS: Lines/tubes/devices: Right chest [id number] with catheter tip over the region of the brachiocephal ic vein or uppermost SVC, unchanged. Cardiomediastinum: Cardiac silhouette appears mildly to moderately enlarged, stable. Mildly tortuous aorta. Unremarkable mediastinal silhouette. Vasculature: Mild pulmonary vascular congestion and interstitial prominence suggesting edema, not un like the prior study. Lungs/pleura: No focal airspace disease, pleural effusion, or pneumothorax. Bones/soft tissues: Bony thorax appears grossly intact as seen. Regional soft tissues appear unremarkable. IMPRESSION: Cardiomegaly with mild congestive changes.
[2024-02-16] MEDS: MAGNESIUM SULFATE-D5W PMX 1 GM in DEXTROSE/WATER 1 100ML.BAG IVPB SCH (21:39)
[2024-02-16] MEDS: CALCIUM CARB-VIT D 500 MG-5 MCG TAB PO SCH (21:50)
[2024-02-16] MEDS: FAMOTIDINE 20 MG TAB PO SCH (21:50)
[2024-02-16] MEDS: MAGNESIUM OXIDE 400 MG TAB PO SCH (23:18)
[2024-02-17] MEDS: metFORMIN 500 MG TAB PO SCH (08:18)
[2024-02-17] MEDS: DOXYCYCLINE 100 MG CAP PO SCH (08:18)
[2024-02-17] MEDS: HYDROCORTISONE 1% CREAM 30 GM TUBE TOPICAL PRN (08:19)
[2024-02-17 08:24] LABS: Glucose,Whole Blood 113 mg/dL (70-110)
[2024-02-17] MEDS ORDERED: DEXTROSE 50% SYRINGE 50 ML IVP PRN ×2 (08:28)
[2024-02-17 10:27] LABS: Basophils % (A) 0 %; Eosinophils # (A) 0.3 k/uL (0-0.7); Eosinophils % (A) 7 %; HCT 34.7 % (39.0-53.0); HGB 10.5 gm/dL (13.0-17.5); Hypochromasia Moderate; Lymphocytes # (A) 1.3 k/uL (1.0-4.8); Lymphocytes % (A) 29 %; MCH 29.7 pg (25.0-35.0); MCHC 30.2 g/dL (31.0-37.0); MCV 98.2 fL (80.0-100.0); Mean Platelet Volume 7.7; Monocytes # (A) 0.3 k/uL (0-1.0); Monocytes % (A) 7 %; Neutrophils # (A) 2.4 k/uL (1.3-7.7); Neutrophils % (A) 55 %; Platelet Count 223 k/uL (150-450); RBC 3.53 m/uL (4.30-5.90); RDW 14.7 % (11.5-15.5); WBC 4.4 k/uL (3.8-10.6)
[2024-02-17 10:28] LABS: INR 1.1 (<1.2); Partial Thromboplastin Time 27.5 sec (22.0-30.0); Prothrombin Time 11.8 sec (10.0-12.5)
[2024-02-17] MEDS: DILTIAZEM DRIP BOLUS FROM BAG 1 MG SOLN IV ONE (10:29)
[2024-02-17] MEDS: HEPARIN SOD,PORK IN 0.45% NACL 25,000 UNIT in 0.45% NACL 1 250ML.BAG IV SCH (10:29)
[2024-02-17] MEDS: HEPARIN SODIUM 1,000 UN/ML (10ML VL) IV ONE (10:29)
[2024-02-17] MEDS: METOPROLOL TARTRATE 25 MG TAB PO SCH ×2 (10:30→15:03)
[2024-02-17 10:36] LABS: ALT 16 U/L (4-49); AST 21 U/L (17-59); African American GFR (CKD) >90 (>60 ml/min/1.73 sqM); Albumin 3.4 g/dL (3.5-5.0); Alkaline Phosphatase 100 U/L (38-126); Anion Gap 4 mmol/L; Blood Urea Nitrogen 15 mg/dL (9-20); Calcium 7.5 mg/dL (8.4-10.2); Carbon Dioxide 30 mmol/L (22-30); Chloride 108 mmol/L (98-107); Glucose 146 mg/dL (74-99); Non-African American GFR(CKD) >90 (>60 ml/min/1.73 sqM); Phosphorus 3.4 mg/dL (2.5-4.5); Potassium 4.2 mmol/L (3.5-5.1); Sodium 142 mmol/L (137-145); Total Bilirubin 0.8 mg/dL (0.2-1.3); Total Protein 6.4 g/dL (6.3-8.2)
[2024-02-17] MEDS: HEPARIN SODIUM,PORCINE 5,000 UNIT/ML 1 ML VIAL SQ SCH (10:50)
[2024-02-17 11:31] LABS: Glucose,Whole Blood 160 mg/dL (70-110)
[2024-02-17] MEDS: INSULIN ASPART (NovoLOG) 100 UNIT/ML VIAL SQ SCH (12:33)
[2024-02-17] MEDS: MAGNESIUM SULFATE-D5W PMX 1 GM in DEXTROSE/WATER 1 100ML.BAG IVPB SCH (12:49)
--- NOTE | 2024-02-17 13:08 | P.HPIM ---
History of Present Illness H&P Date: 02/17/24 History of present illness; patient is a 69-year-old gentleman past medical history significant for colon cancer, diabetes mellitus, hypertension who presented to ER for abnormal labs. Patient was called by lab for abnormal magnesium level. Patient is being followed outpatient by hematology oncology and they ordered blood work. Patient denies any chest pain or shortness of breath. Denies any complaint of palpitation. There is no complaint of orthopnea or PND. Denies any fever or chills. Because of abnormal labs, patient was noted to the ER Initial lab work done in the ER showed WBC 6.1, hemoglobin 10.7, platelet count 244, sodium 140, potassium 4, BUN 20, creatinine 1.04 glucose 177, calcium 10.6, magnesium 0.7 EKG done in the ER showed heart rate of144, irregular in rate and rhythm, no ST segment elevation or depression seen, no T-wave inversions seen. Chest x-ray done in the ER showed cardiomegaly with mild congestive changes Patient admitted to internal medicine service REVIEW OF SYSTEMS: CONSTITUTIONAL: No fever, no malaise, no fatigue. HEENT: No recent visual problems or hearing problems. Denied any sore throat. CARDIOVASCULAR: No chest pain, orthopnea, PND, no palpitations, no syncope. PULMONARY: No shortness of breath, no cough, no hemoptysis. GASTROINTESTINAL: No diarrhea, no nausea, no vomiting, no abdominal pain. NEUROLOGICAL: No headaches, no weakness, no numbness. HEMATOLOGICAL: Denies any bleeding or petechiae. GENITOURINARY: Denies any burning micturition, frequency, or urgency. MUSCULOSKELETAL/RHEUMATOLOGICAL: Denies any joint pain, swelling, or any muscle pain. ENDOCRINE: Denies any polyuria or polydipsia. The rest of the 14-point review of systems is negative. PHYSICAL EXAMINATION: GENERAL: The patient is alert and oriented x3, not in any acute distress. Well developed, well nourished. HEENT: Pupils are round and equally reacting to light. EOMI. No scleral icterus. No conjunctival pallor. Normocephalic, atraumatic. No pharyngeal erythema. No thyromegaly. CARDIOVASCULAR: S1 and S2 present. No murmurs, rubs, or gallops. Irregular in rate and rhythm PULMONARY: Chest is clear to auscultation, no wheezing or crackles. ABDOMEN: Soft, nontender, nondistended, normoactive bowel sounds. No palpable organomegaly. MUSCULOSKELETAL: No joint swelling or deformity. EXTREMITIES: 1+ pitting edema of lower extremities bilaterally NEUROLOGICAL: Gross neurological examination did not reveal any focal deficits. SKIN: No rashes. Assessment and plan A-fib with RVR Hypomagnesemia Hypertension Colon cancer Monitor vital signs Monitor CBC Monitor CMP Continue telemetry monitoring Trend troponin Continue Cardizem drip Ordered 2D echo Monitor blood sugar levels, continue insulin regimen Replace magnesium levels Consult cardiology Labs and medication were reviewed.. Continue same treatment. Continue with symptomatic treatment. Resume home medication. Monitor labs and vitals. DVT and GI prophylaxis. Further recommendations as per clinical course of the patient Dictation was produced using [employer] dictation software. please excuse any grammatical, word or spelling errors. Past Medical History Past Medical History: Cancer, CVA/TIA, Diabetes Mellitus, Hypertension Additional Past Medical History / Comment(s): RECTAL CANCER. History of Any Multi-Drug Resistant Organisms: None Reported Past Surgical History: Joint Replacement, Orthopedic Surgery Additional Past Surgical History / Comment(s): eye surgery,knee replacement, broken fx and calcium deposits removed Past Anesthesia/Blood Transfusion Reactions: No Reported Reaction Past Psychological History: No Psychological Hx Reported Smoking Status: Former smoker Medications and Allergies Home Medications Medication Instructions Recorded Confirmed Type Insulin Glargine [Lantus] 65 - 70 unit SQ HS 12/25/16 02/16/24 History metFORMIN HCL [Glucophage] 1,000 mg PO BID 12/25/16 02/16/24 History Doxycycline Hyclate 100 mg PO BID 02/16/24 02/16/24 History Dulaglutide [Trulicity] 0.75 mg SQ TU 02/16/24 02/16/24 History Hydrocortisone 1% Lotion 1 applic TOPICAL TID PRN 02/16/24 02/16/24 History INSULIN ASPART (NovoLOG) [NovoLOG 10 - 20 unit SQ HS 02/16/24 02/16/24 History (formulary)] Losartan Potassium [Cozaar] 100 mg PO HS 02/16/24 02/16/24 History Allergies Allergy/AdvReac Type Severity Reaction Status Date / Time guinea pigs Allergy Itching Uncoded 02/16/24 20:34 Physical Exam Vitals: Vital Signs Temp Pulse Pulse Resp BP BP Pulse Ox 02/17/24 09:05 97 02/17/24 08:12 123 H 18 02/17/24 08:11 97.0 F L 123 H 18 111/90 97 02/17/24 06:00 115 H 21 122/94 98 02/17/24 02:00 101 H 18 113/87 96 02/17/24 00:00 118 H 18 107/97 97 02/16/24 22:00 126 H 15 109/87 99 02/16/24 21:00 110 H 18 117/98 97 02/16/24 20:00 137 H 18 111/74 93 L 02/16/24 19:25 141 H 18 116/73 92 L 02/16/24 18:31 97.7 F 121 H 18 119/85 96 Intake and Output 02/16/24 02/17/24 02/17/24 22:59 06:59 14:59 Other: Voiding Method Toilet Weight 131.542 kg Results CBC & Chem 7: 02/17/24 09:36 02/17/24 09:36 Labs: Abnormal Lab Results - Last 24 Hours (Table) 02/16/24 02/16/24 02/17/24 Range/Units 19:01 19:01 08:22 RBC 3.59 L (4.30-5.90) m/uL Hgb 10.7 L (13.0-17.5) gm/dL Hct 34.9 L (39.0-53.0) % MCHC 30.8 L (31.0-37.0) g/dL BUN 23 H (9-20) mg/dL Glucose 177 H (74-99) mg/dL POC Glucose (mg/dL) 113 H (70-110) mg/dL Calcium 7.6 L (8.4-10.2) mg/dL Magnesium 0.7 L* (1.6-2.3) mg/dL
[2024-02-17] MEDS ORDERED: MAGNESIUM SULFATE-D5W PMX 1 GM in DEXTROSE/WATER 1 100ML.BAG IVPB SCH (13:15)
--- NOTE | 2024-02-17 13:15 | CONS ---
CONSULTATION HISTORY OF PRESENT ILLNESS: Jimmy Edwards is a 69-year-old gentleman with a history of apparently colorectal cancer, for which he is currently on chemotherapy. He was at chemotherapy when he complained of generalized weakness, was found to be tachycardic and sent in here. He is in atrial fibrillation, rate is moderately rapid. He has diabetes, hypertension, hyperlipidemia, insulin-requiring diabetes. He is in a new onset atrial fibrillation at this time. He is on a Cardizem drip, hemodynamically stable, resting comfortably. His magnesium level was 0.4 when he arrived. He received intravenous and oral magnesium supplements and a repeat magnesium is 1.0 early this morning. He is getting additional magnesium supplements. His hemoglobin is 10.5, platelet count is 223. The patient at the time of my evaluation is resting comfortably. Denies any chest pain or shortness of breath. Heart rate is in the 120s. PAST MEDICAL HISTORY: 1. Type 2 diabetes, insulin-requiring. 2. History of colorectal cancer, on chemotherapy. 3. Hypertension. 4. History of cerebrovascular accident or transient ischemic attack in the past with good recovery. PAST SURGICAL HISTORY: The patient is status post orthopedic surgery and has had some ophthalmologic surgery as well. ALLERGIES: No known drug allergies. PHYSICAL EXAMINATION: VITAL SIGNS: Blood pressure is 118/70, pulse rate is 120, irregular. HEENT: Unremarkable. Fundus was not examined by me. NECK: Supple. JVD 1 cm. No carotid bruit. HEART: Reveals S1, S2 with irregular rhythm, short systolic murmur. LUNGS: Revealed decent air entry. ABDOMEN: Soft, nontender. LOWER EXTREMITIES: Reveal diminished pulses. CENTRAL NERVOUS SYSTEM: Normal. EKG revealed atrial fibrillation, moderately rapid ventricular rate, nonspecific ST-T changes. IMPRESSION: 1. New onset atrial fibrillation, rapid ventricular rate. 2. Colorectal cancer, on chemotherapy. 3. Diabetes mellitus. 4. Hypomagnesemia. RECOMMENDATIONS: Aggressive supplementation of magnesium is advised. Rate control. We will place him on an oral beta morales and also give him a bolus of Cardizem and drip and hopefully that will optimize rate control. We will assess LV function by echocardiogram. Based on clinical course, I will make further recommendations. Thank you very much for the consult. MMODL / IJN: [id number] /
[2024-02-17 16:34] LABS: Glucose,Whole Blood 179 mg/dL (70-110)
[2024-02-17] MEDS: HEPARIN SODIUM 1,000 UN/ML (10ML VL) IV PRN (18:07)
--- NOTE | 2024-02-17 20:17 | P.CONS ---
History of Present Illness - Reason for Consult Consult date: 02/17/24 colon cancer Requesting physician: Ethan Jasso - Chief Complaint abdnormal labs - History of Present Illness Patient is a 69 year old male with a significant history of colon cancer. He initially presented to his PCP with complaints of passage of blood per rectum. This actually had been ongoing intermittently for about a year. However over 2 months the patient had been having some increasing issues with constipation, and had also noted passage of "small black dots" in the stool. He was referred for GI workup and had a colonoscopy in 03/25/23. A mass was palpated in the distal rectum, close to the anus. There is some bleeding associated with the mass. The colonoscope could only be advanced to the lower colon due to poor prep. Presence of the mass was confirmed, and this was biopsied. This revealed invasive grade 2 adenocarcinoma. Patient was therefore referred here for further evaluation and recommendations. The patient had staging studies ordered with MRI pelvis, and PET scan. MRI revealed a T3 tumor that appeared to be abutting the prostate, but not invading it. There was evidence of viet involvement in the mesorectum, and at least 1 extra mesorectal node involvement in the presacral area. The PET scan showed uptake in the primary site and in a few mesorectal nodes. There was also an area of uptake related to the IVC just below the diaphragm. It was not clear if this was a liver lesion. The patient biomarker testing was negative for PD1, MSI and TMB. Patient had MRI of the liver schedule 2, to evaluate the area of uptake on PET scan. However he missed both those appts. On rescheduling, he ultimately had it done, showing 2 lesions in the liver, consistent with metastasis, in the dome and the caudate lobe. He was started on FOLFOX on 05/19/23, and is status post 12 cycles, completing the same on 12/15/23. He was started on Vectibix during cycle 11 of folfox and completed cycle 4 of single agent vectibix on 02/07/24. PET scan done after cycle 11 showed diminished uptake in the caudate lobe, and questionable uptake in the lesion in the dome. There was mention of possible uptake in the lower T-spine. MRI spine was inconclusive so, MRI with sedation was ordered to be done at [facility], which was negative for malignancy. He was then referred to [facility] to evaluate for surgical resection to primary tumor site. Review of notes from [facility] indicates that, in this situation, he would be considered a candidate for definitive resection, of the primary tumor as well as the liver metastasis. He was scheduled to undergo surgical resection but surgery was canceled due to irregular heart rate. He was seen in clinic on 02/16/24, and was again found to have irregular heart rate, at 100 BPM, but denied associated symptoms. He was referred to cardiology and magnesium was obtained. Magnesium resulted at 0.6 and patient was called instruc ting him to present to the ER for further evaluation. Upon presentation to the emergency room patient was found to be in A-fib with RVR with rate of 144, Cardizem drip was started. Chest x-ray revealed cardiomegaly with mild congestive changes. Magnesium was noted at 0.7, supplementation has been ordered. Potassium 4.0, sodium 140. Serial troponins negative. Coags WNL. Thyroid studies WNL. CBC revealed WBC 6.1, hemoglobin 10.7, platelets 244,000. Creatinine is 1.04, GFR 74. At today's visit patient is denying dizziness, palpitations, chest pain and shortness of breath. Patient does report having intermittent diarrhea with treatment. Had diarrhea yesterday but denies any diarrhea symptoms today. Has been having increased cough with sputum over the last couple weeks that is worse in the morning upon waking. Denies fever and chills. Review of Systems 10 point ROS is negative except as stated in the HPI Past Medical History Past Medical History: Cancer, CVA/TIA, Diabetes Mellitus, Hypertension Additional Past Medical History / Comment(s): RECTAL CANCER. History of Any Multi-Drug Resistant Organisms: None Reported Past Surgical History: Joint Replacement, Orthopedic Surgery Additional Past Surgical History / Comment(s): eye surgery,knee replacement, broken fx and calcium deposits removed Past Anesthesia/Blood Transfusion Reactions: No Reported Reaction Past Psychological History: No Psychological Hx Reported Smoking Status: Former smoker Medications and Allergies Home Medications Medication Instructions Recorded Confirmed Type Insulin Glargine [Lantus] 65 - 70 unit SQ HS 12/25/16 02/16/24 History metFORMIN HCL [Glucophage] 1,000 mg PO BID 12/25/16 02/16/24 History Doxycycline Hyclate 100 mg PO BID 02/16/24 02/16/24 History Dulaglutide [Trulicity] 0.75 mg SQ TU 02/16/24 02/16/24 History Hydrocortisone 1% Lotion 1 applic TOPICAL TID PRN 02/16/24 02/16/24 History INSULIN ASPART (NovoLOG) [NovoLOG 10 - 20 unit SQ HS 02/16/24 02/16/24 History (formulary)] Losartan Potassium [Cozaar] 100 mg PO HS 02/16/24 02/16/24 History Allergies Allergy/AdvReac Type Severity Reaction Status Date / Time guinea pigs Allergy Itching Uncoded 02/16/24 20:34 Physical Exam Vitals: Vital Signs Temp Pulse Pulse Resp BP BP Pulse Ox 02/17/24 12:24 103 H 02/17/24 10:42 91 18 106/89 92 L 02/17/24 09:05 97 02/17/24 08:12 123 H 18 02/17/24 08:11 97.0 F L 123 H 18 111/90 97 02/17/24 06:00 115 H 21 122/94 98 02/17/24 02:00 101 H 18 113/87 96 02/17/24 00:00 118 H 18 107/97 97 02/16/24 22:00 126 H 15 109/87 99 02/16/24 21:00 110 H 18 117/98 97 02/16/24 20:00 137 H 18 111/74 93 L 02/16/24 19:25 141 H 18 116/73 92 L 02/16/24 18:31 97.7 F 121 H 18 119/85 96 Intake and Output 02/16/24 02/17/24 02/17/24 22:59 06:59 14:59 Intake Total 200 Balance 200 Intake: Oral 200 Other: Voiding Method Toilet Weight 131.542 kg - Constitutional General appearance: no acute distress, obese - EENT Eyes: anicteric sclerae, EOMI ENT: hearing grossly normal - Respiratory Respiratory: bilateral: wheezing - Cardiovascular Rhythm: regular Heart sounds: normal: S1, S2 Abnormal Heart Sounds: systolic murmur - Gastrointestinal General gastrointestinal: soft, no tenderness - Integumentary Integumentary: no cyanotic, no jaundiced - Neurologic Neurologic: CNII-XII intact - Musculoskeletal Musculoskeletal: strength equal bilaterally - Psychiatric Psychiatric: A&O x's 3 Results CBC & Chem 7: 02/17/24 09:36 02/17/24 09:36 Labs: Abnormal Lab Results - Last 24 Hours (Table) 02/16/24 02/16/24 02/17/24 Range/Units 19:01 19:01 08:22 RBC 3.59 L (4.30-5.90) m/uL Hgb 10.7 L (13.0-17.5) gm/dL Hct 34.9 L (39.0-53.0) % MCHC 30.8 L (31.0-37.0) g/dL Chloride (98-107) mmol/L BUN 23 H (9-20) mg/dL Glucose 177 H (74-99) mg/dL POC Glucose (mg/dL) 113 H (70-110) mg/dL Calcium 7.6 L (8.4-10.2) mg/dL Magnesium 0.7 L* (1.6-2.3) mg/dL Albumin (3.5-5.0) g/dL 02/17/24 02/17/24 02/17/24 Range/Units 09:36 09:36 11:30 RBC 3.53 L (4.30-5.90) m/uL Hgb 10.5 L (13.0-17.5) gm/dL Hct 34.7 L (39.0-53.0) % MCHC 30.2 L (31.0-37.0) g/dL Chloride 108 H (98-107) mmol/L BUN (9-20) mg/dL Glucose 146 H (74-99) mg/dL POC Glucose (mg/dL) 160 H (70-110) mg/dL Calcium 7.5 L (8.4-10.2) mg/dL Magnesium 1.0 L (1.6-2.3) mg/dL Albumin 3.4 L (3.5-5.0) g/dL Chest x-ray: report reviewed Assessment and Plan (1) Colon adenocarcinoma Current Visit: Yes Status: Acute Priority: High Code(s): C18.9 - MALIGNANT NEOPLASM OF COLON, UNSPECIFIED SNOMED Code(s): 244744430 (2) Atrial fibrillation with RVR Current Visit: Yes Status: Acute Code(s): I48.91 - UNSPECIFIED ATRIAL FIBRILLATION SNOMED Code(s): 083368065880588 (3) Hypomagnesemia Current Visit: Yes Status: Acute Priority: High Code(s): E83.42 - HYPOMAGNESEMIA SNOMED Code(s): 011331359 Plan: Afib RVR: -Upon presentation patient was found to be in A-fib with RVR with rate of 144, Cardizem drip was started. -Rate now controlled. Patient asymptomatic -Defer to cardiology for management Hypomagnesemia: -Heart irregular in clinic on 02/16/24 -Magnesium noted at 0.6, and was refereed to the ER for further evaluation. Ma gnesium on admission was 0.7. Magnesium has been replaced. Repeat magnesium today 1.0 -Likely caused by treatment with vectibix. Oral supplementation was started at last clinic f./u. Will continue oral magnesium and closely monitor magnesium in outpt setting and make adjustment to supplementation as needed Colon adenocarcinoma: -Full oncological history in [facility] -Status post 12 cycles FOLFOX, completing the same on 12/15/23. He was started on Vectibix during cycle 11 of folfox and completed cycle 4 of single agent vectibix on 02/07/24. -PET scan done after cycle 11 showed diminished uptake in the caudate lobe, and questionable uptake in the lesion in the dome. There was mention of possible uptake in the lower T-spine. MRI spine was inconclusive so, MRI with sedation was ordered to be done at [facility], which was negative for malignancy. He was then referred to [facility] to evaluate for surgical resection to primary tumor site. Review of notes from [facility] indicates that, in this situation, he would be considered a candidate for definitive resection, of the primary tumor as well as the liver metastasis. He was scheduled to undergo surgical resection but surgery was canceled due to irregular heart rate. Once acute condition/afib controlled will refer back to [facility] for surgical reevaluation -Will postpone next treatment on 02/20 by 1 week. Has f/u scheduled with Dr. Benitez on 02/27. Will reevaluate prior to proceeding with next cycle Dr attests: I have performed H&P and developed impression and plan of care for patient, discussed with dictator. I agree with dictated note, documented as a scribe
[2024-02-17 20:20] LABS: Glucose,Whole Blood 141 mg/dL (70-110)
[2024-02-17] MEDS: LOSARTAN 50 MG TAB PO SCH (21:20)
[2024-02-17] MEDS: INSULIN DETEMIR (LEVEMIR) 100 UNIT/ML SYR SQ SCH (23:38)
[2024-02-17 23:40] LABS: Glucose,Whole Blood 158 mg/dL (70-110)
[2024-02-18 06:20] LABS: Glucose,Whole Blood 91 mg/dL (70-110)
[2024-02-18] MEDS: DILTIAZEM 125 MG in SODIUM CHLORIDE 0.9% 100 ML IV SCH (08:49)
[2024-02-18] MEDS: DILTIAZEM DRIP BOLUS FROM BAG 1 MG SOLN IV ONE (08:49)
[2024-02-18] MEDS: METOPROLOL TARTRATE 50 MG TAB PO SCH (08:54)
--- NOTE | 2024-02-18 10:22 | CA ---
Transthoracic Echo Report Name: Jimmy Edwards Age: 69 Gender: M : 1955 Exam Date: 02/17/2024 15:19 Exam Location: [facility] Ht (in): 72 Wt (lb): 290 Ordering Physician: Blaine Christianson MD Attending/Referring Phys: Dog Bather Deyanira Robledo RDCS Procedure CPT: Indications: PALPITATION Cardiac Hx: Technical Quality: Technically difficult study Contrast 1: Definity Total Dose (mL): 2 Contrast 2: Total Dose (mL): MEASUREMENTS (Male / Female) Normal Values 2D ECHO LV Diastolic Diameter PLAX 2.6 cm 4.2 - 5.9 / 3.9 - 5.3 cm LV Systolic Diameter PLAX 1.9 cm IVS Diastolic Thickness 2.0 cm 0.6 - 1.0 / 0.6 - 0.9 cm LVPW Diastolic Thickness 2.8 cm 0.6 - 1.0 / 0.6 - 0.9 cm LV Relative Wall Thickness 1.9 RV Internal Dim ED PLAX 4.6 cm LVOT Diameter 2.3 cm LA Volume 148.5 cm??? 18 - 58 / 22 - 52 cm??? LA Volume Index 56.3 cm???/m??? 16 - 28 cm???/m??? M-MODE Aortic Root Diameter MM 3.6 cm LA Systolic Diameter MM 5.5 cm LA Ao Ratio MM 1.6 AV Cusp Separation MM 1.1 cm DOPPLER AV Peak Velocity 307.5 cm/s AV Peak Gradient 37.8 mmHg AV Mean Velocity 225.5 cm/s AV Mean Gradient 23.4 mmHg AV Velocity Time Integral 74.7 cm LVOT Peak Velocity 66.8 cm/s LVOT Peak Gradient 1.8 mmHg LVOT Velocity Time Integral 19.3 cm LVOT Stroke Volume 81.4 cm??? LVOT Stroke Volume Index 32.6 ml/m??? LVOT Cardiac Index 2468.5 cm???/min???m??? AV Area Cont Eq vti 1.1 cm??? AV Area Cont Eq pk 0.9 cm??? MV Area PHT 3.3 cm??? Mitral E Point Velocity 121.7 cm/s Mitral A Point Velocity 1.0 cm/s Mitral E to A Ratio 120.6 MV Deceleration Time 230.3 ms MV E' Velocity 6.4 cm/s Mitral E to MV E' Ratio 19.1 TR Peak Velocity 220.4 cm/s TR Peak Gradient 19.4 mmHg Right Ventricular Systolic Press 24.4 mmHg FINDINGS Left Ventricle Moderate increased left ventricular wall thickness. Left ventricular cavity size normal. Reduced global left ventricular systolic function. Left ventricular ejection fraction is estimated at 35-40 %. Right Ventricle Moderate right ventricular dilatation. Right ventricular systolic pressure within normal limits. Right Atrium Right atrium not well visualized. Left Atrium Severely increased left atrial volume. Moderately increased left atrial area. Mitral Valve Structurally normal mitral valve. Mild mitral annular calcification. Mitral valve thickened. Mild mitral regurgitation. Aortic Valve Moderate aortic stenosis with a peak gradient of 38 mmHg and a mean gradient of 23 mmHg. Trace aortic regurgitation. Tricuspid Valve Structurally normal tricuspid valve. Mild tricuspid regurgitation. Pulmonic Valve Structurally normal pulmonic valve. Pericardium No pericardial effusion. Aorta Normal size aortic root and proximal ascending aorta. CONCLUSIONS Left ventricular ejection fraction is estimated at 35-40 %. Reduced LV systolic function mostly in basal segments. Moderate LVH Moderate LA dilatation with elevated LA pressures Moderate Aortic stenosis with mean gradient 23 mmHg RVSP 25 mmHg Previewed by: Dr Mayo Bautista (Electronically Signed) Final Date: 18 February 2024 10:21
[2024-02-18 11:53] LABS: Glucose,Whole Blood 87 mg/dL (70-110)
[2024-02-18 12:36] LABS: Basophils % (A) 0 %; Eosinophils # (A) 0.2 k/uL (0-0.7); Eosinophils % (A) 4 %; HCT 36.6 % (39.0-53.0); HGB 11.1 gm/dL (13.0-17.5); Hypochromasia Moderate; Lymphocytes # (A) 1.4 k/uL (1.0-4.8); Lymphocytes % (A) 24 %; MCH 29.8 pg (25.0-35.0); MCHC 30.2 g/dL (31.0-37.0); MCV 98.6 fL (80.0-100.0); Mean Platelet Volume 8.6; Monocytes # (A) 0.4 k/uL (0-1.0); Monocytes % (A) 7 %; Neutrophils # (A) 3.8 k/uL (1.3-7.7); Neutrophils % (A) 64 %; Platelet Count 228 k/uL (150-450); RBC 3.71 m/uL (4.30-5.90); RDW 14.4 % (11.5-15.5); WBC 5.9 k/uL (3.8-10.6)
[2024-02-18 12:58] LABS: ALT 17 U/L (4-49); AST 19 U/L (17-59); African American GFR (CKD) >90 (>60 ml/min/1.73 sqM); Albumin 3.3 g/dL (3.5-5.0); Alkaline Phosphatase 97 U/L (38-126); Anion Gap 6 mmol/L; Blood Urea Nitrogen 18 mg/dL (9-20); Calcium 8.4 mg/dL (8.4-10.2); Carbon Dioxide 29 mmol/L (22-30); Chloride 108 mmol/L (98-107); Glucose 83 mg/dL (74-99); INR 1.1 (<1.2); Non-African American GFR(CKD) >90 (>60 ml/min/1.73 sqM); Potassium 4.1 mmol/L (3.5-5.1); Sodium 143 mmol/L (137-145); Total Bilirubin 0.6 mg/dL (0.2-1.3); Total Protein 6.3 g/dL (6.3-8.2)
--- NOTE | 2024-02-18 13:07 | P.PN ---
Subjective Progress Note Date: 02/18/24 patient is a 69-year-old gentleman past medical history significant for colon cancer, diabetes mellitus, hypertension who presented to ER for abnormal labs. Patient was called by lab for abnormal magnesium level. Patient is being followed outpatient by hematology oncology and they ordered blood work. Patient denies any chest pain or shortness of breath. Denies any complaint of palpitation. There is no complaint of orthopnea or PND. Denies any fever or chills. Because of abnormal labs, patient was noted to the ER Initial lab work done in the ER showed WBC 6.1, hemoglobin 10.7, platelet count 244, sodium 140, potassium 4, BUN 20, creatinine 1.04 glucose 177, calcium 10.6, magnesium 0.7 EKG done in the ER showed heart rate of144, irregular in rate and rhythm, no ST segment elevation or depression seen, no T-wave inversions seen. Chest x-ray done in the ER showed cardiomegaly with mild congestive changes Patient admitted to internal medicine service 02/17. Patient seen and examined. Blood work done this morning showed WBC 5.9, hemoglobin 11.1, platelet count 228, sodium 143, potassium 4.1, BUN 18, creatinine 0.83, magnesium 1, magnesium replacement was ordered in the form of 4 g of magnesium sulfate. Denies any palpitations. Denies any chest pain. Patient went into A-fib with RVR overnight and had to be placed back on Cardizem drip, continues to be on heparin drip REVIEW OF SYSTEMS: CONSTITUTIONAL: No fever, no malaise,. CARDIOVASCULAR: No chest pain, no palpitations, no syncope. PULMONARY: No shortness of breath, no cough, GASTROINTESTINAL: No diarrhea, no nausea, no vomiting, no abdominal pain. NEUROLOGICAL: No headaches, no weakness, PHYSICAL EXAMINATION: GENERAL: The patient is alert and oriented x3, not in any acute distress. Well developed, well nourished. HEENT: Pupils are round and equally reacting to light. EOMI. No scleral icterus. No conjunctival pallor. Normocephalic, atraumatic. No pharyngeal erythema. No thyromegaly. CARDIOVASCULAR: S1 and S2 present. No murmurs, rubs, or gallops. PULMONARY: Chest is clear to auscultation, no wheezing or crackles. ABDOMEN: Soft, nontender, nondistended, normoactive bowel sounds. No palpable organomegaly. MUSCULOSKELETAL: No joint swelling or deformity. EXTREMITIES: No cyanosis, clubbing, or pedal edema. NEUROLOGICAL: Gross neurological examination did not reveal any focal deficits. SKIN: No rashes. Assessment and plan A-fib with RVR Hypomagnesemia Hypertension Colon cancer Monitor vital signs Monitor CBC Monitor CMP Continue telemetry monitoring Trend troponin Continue Cardizem drip Continue pharmacy to dose heparin Ordered 2D echo Monitor blood sugar levels, continue insulin regimen Magnesium replacement ordered Cardiology following Hematology oncology following Labs and medication were reviewed.. Continue same treatment. Continue with symptomatic treatment. Resume home medication. Monitor labs and vitals. DVT and GI prophylaxis. Further recommendations as per clinical course of the patient Dictation was produced using [employer] dictation software. please excuse any gr ammatical, word or spelling errors. Objective - Vital Signs Vital signs: Vital Signs Temp 97.6 F 02/18/24 08:45 Pulse 109 H 02/18/24 09:04 Resp 18 02/18/24 08:46 BP 129/89 02/18/24 08:45 Pulse Ox 96 02/18/24 08:45 FiO2 Intake & Output 02/17/24 02/18/24 02/18/24 18:59 06:59 18:59 Intake Total 518.333 174.667 238 Output Total 300 800 300 Balance 218.333 -625.333 -62 Weight 131.542 kg Intake: Intake, IV Titration 200.333 174.667 Amount Diltiazem 125 mg In 125 Sodium Chloride 0.9% 100 ml @ 7.5 MG/HR 7.5 mls/hr IV .[id number] [facility] Rx#: [id number] Heparin Sod,Pork in 0.45% 75.333 174.667 NaCl 25,000 unit In 0.45 % NaCl 1 250ml.bag @ 7. 602 UNITS/KG/HR 10 mls/hr IV .Q24H [facility] Rx#: [id number] Oral 318 238 Output: Urine 300 800 300 Other: Voiding Method Toilet Toilet Toilet # Voids 1 - Labs CBC & Chem 7: 02/18/24 11:28 02/18/24 11:28 Labs: Abnormal Lab Results - Last 24 Hours (Table) 02/17/24 02/17/24 02/17/24 Range/Units 09:36 09:36 11:30 RBC 3.53 L (4.30-5.90) m/uL Hgb 10.5 L (13.0-17.5) gm/dL Hct 34.7 L (39.0-53.0) % MCHC 30.2 L (31.0-37.0) g/dL APTT (22.0-30.0) sec Chloride 108 H (98-107) mmol/L Glucose 146 H (74-99) mg/dL POC Glucose (mg/dL) 160 H (70-110) mg/dL Calcium 7.5 L (8.4-10.2) mg/dL Magnesium 1.0 L (1.6-2.3) mg/dL Albumin 3.4 L (3.5-5.0) g/dL 02/17/24 02/17/24 02/17/24 Range/Units 16:33 20:18 23:37 RBC (4.30-5.90) m/uL Hgb (13.0-17.5) gm/dL Hct (39.0-53.0) % MCHC (31.0-37.0) g/dL APTT (22.0-30.0) sec Chloride (98-107) mmol/L Glucose (74-99) mg/dL POC Glucose (mg/dL) 179 H 141 H 158 H (70-110) mg/dL Calcium (8.4-10.2) mg/dL Magnesium (1.6-2.3) mg/dL Albumin (3.5-5.0) g/dL 02/18/24 Range/Units 00:00 RBC (4.30-5.90) m/uL Hgb (13.0-17.5) gm/dL Hct (39.0-53.0) % MCHC (31.0-37.0) g/dL APTT 32.0 H (22.0-30.0) sec Chloride (98-107) mmol/L Glucose (74-99) mg/dL POC Glucose (mg/dL) (70-110) mg/dL Calcium (8.4-10.2) mg/dL Magnesium (1.6-2.3) mg/dL Albumin (3.5-5.0) g/dL
[2024-02-18] MEDS: MAGNESIUM SULFATE-D5W PMX 1 GM in DEXTROSE/WATER 1 100ML.BAG IVPB SCH (13:17)
--- NOTE | 2024-02-18 14:34 | P.PN ---
Subjective Progress Note Date: 02/18/24 History of present illness: This is a 69-year-old male with past medical history of colorectal cancer in p rocess of chemotherapy. Patient presented with generalized weakness found to be tachycardic and was sent into the hospital. Patient was in atrial fibrillation with rate moderately rapid. He also has a history of diabetes, hypertension, hyperlipidemia. Patient was initially started on a Cardizem bolus followed by drip and oral beta-morales. His initial magnesium was 0.4 and is status post magnesium supplement. His initial heart rate was in the 120s at the time of evaluation. Patient is currently off the Cardizem drip due to low blood pressure but heart rate is in the 140s. Heart rate today is running in the 120s with blood pressure 129/89, pulse ox 96% on 2 L nasal cannula. Repeat blood work today reveals potassium of 4.1. Magnesium 1. IV magnesium replacement has been ordered for today. Echocardiogram reveals EF of 35 to 40%. Reduced LV systolic function mostly in the basal segments. Moderate LVH. Moderate LA dilatation with elevated LA pressures. Moderate aortic stenosis with mean gradient 23 mmHg. RVSP 25 mmHg. Physical examination: Gen: This is a 69-year-old male in no acute distress VS: reviewed HEENT: Head is atraumatic, normocephalic. Pupils equal, round. Sclerae is anicteric. LUNGS: Clear to auscultation. No wheezes or rhonchi. No intercostal retractions . HEART: Irregular rate and rhythm. Short systolic murmur. EXTREMITIES: No pedal edema. Diminished pulses bilaterally. NEUROLOGICAL: Patient is awake, alert and oriented x3. Assessment: New onset of atrial fibrillation with RVR, paroxysmal Colorectal cancer on chemotherapy Diabetes mellitus Hypomagnesemia Moderate aortic stenosis Plan: Continue home cardiac medications Increase Lopressor 50 mg twice daily Resume patient on Cardizem bolus 7.5 mg followed by drip at 7.5 mg/hour If heart rate is controlled by this afternoon, discontinue Cardizem drip Discontinue heparin drip and start patient on Eliquis 5 mg twice daily Further recommendations to follow based upon clinical course Nurse practitioner note has been reviewed, I agree with documented findings and plan of care. Patient was seen and examined. Objective - Vital Signs Vital signs: Vital Signs Temp 97.6 F 02/18/24 08:45 Pulse 107 H 02/18/24 12:02 Resp 18 02/18/24 13:00 BP 119/78 02/18/24 12:02 Pulse Ox 97 02/18/24 12:02 FiO2 Intake & Output 02/17/24 02/18/24 02/18/24 18:59 06:59 18:59 Intake Total 518.333 174.667 596 Output Total 300 800 750 Balance 218.333 -625.333 -154 Weight 131.542 kg Intake: Intake, IV Titration 200.333 174.667 Amount Diltiazem 125 mg In 125 Sodium Chloride 0.9% 100 ml @ 7.5 MG/HR 7.5 mls/hr IV .[id number] [facility] Rx#: [id number] Heparin Sod,Pork in 0.45% 75.333 174.667 NaCl 25,000 unit In 0.45 % NaCl 1 250ml.bag @ 7. 602 UNITS/KG/HR 10 mls/hr IV .Q24H [facility] Rx#: [id number] Oral 318 596 Output: Urine 300 800 750 Other: Voiding Method Toilet Toilet Toilet # Voids 1 1 # Bowel Movements 1 - Labs CBC & Chem 7: 02/18/24 11:28 02/18/24 11:28 Labs: Abnormal Lab Results - Last 24 Hours (Table) 02/17/24 02/17/24 02/17/24 Range/Units 16:33 20:18 23:37 RBC (4.30-5.90) m/uL Hgb (13.0-17.5) gm/dL Hct (39.0-53.0) % MCHC (31.0-37.0) g/dL APTT (22.0-30.0) sec Chloride (98-107) mmol/L POC Glucose (mg/dL) 179 H 141 H 158 H (70-110) mg/dL Magnesium (1.6-2.3) mg/dL Albumin (3.5-5.0) g/dL 02/18/24 02/18/24 02/18/24 Range/Units 00:00 11:28 11:28 RBC 3.71 L (4.30-5.90) m/uL Hgb 11.1 L (13.0-17.5) gm/dL Hct 36.6 L (39.0-53.0) % MCHC 30.2 L (31.0-37.0) g/dL APTT 32.0 H (22.0-30.0) sec Chloride 108 H (98-107) mmol/L POC Glucose (mg/dL) (70-110) mg/dL Magnesium 1.0 L (1.6-2.3) mg/dL Albumin 3.3 L (3.5-5.0) g/dL 02/18/24 Range/Units 11:28 RBC (4.30-5.90) m/uL Hgb (13.0-17.5) gm/dL Hct (39.0-53.0) % MCHC (31.0-37.0) g/dL APTT 47.1 H (22.0-30.0) sec Chloride (98-107) mmol/L POC Glucose (mg/dL) (70-110) mg/dL Magnesium (1.6-2.3) mg/dL Albumin (3.5-5.0) g/dL
[2024-02-18] MEDS: LOPERAMIDE 2 MG CAP PO PRN (16:50)
[2024-02-18 17:01] LABS: Glucose,Whole Blood 110 mg/dL (70-110)
[2024-02-18 19:59] LABS: Glucose,Whole Blood 150 mg/dL (70-110)
[2024-02-18] MEDS: APIXABAN 5 MG TAB PO SCH (20:23)
[2024-02-19 06:08] LABS: Glucose,Whole Blood 98 mg/dL (70-110)
[2024-02-19 11:40] LABS: Glucose,Whole Blood 122 mg/dL (70-110)
[2024-02-19] MEDS: ZINC OXIDE PASTE (Z-GUARD) 1 APPLIC TOPICAL PRN (13:35)
--- NOTE | 2024-02-19 14:50 | P.PN ---
Subjective Progress Note Date: 02/19/24 patient is a 69-year-old gentleman past medical history significant for colon cancer, diabetes mellitus, hypertension who presented to ER for abnormal labs. Patient was called by lab for abnormal magnesium level. Patient is being followed outpatient by hematology oncology and they ordered blood work. Patient denies any chest pain or shortness of breath. Denies any complaint of palpitation. There is no complaint of orthopnea or PND. Denies any fever or chills. Because of abnormal labs, patient was noted to the ER Initial lab work done in the ER showed WBC 6.1, hemoglobin 10.7, platelet count 244, sodium 140, potassium 4, BUN 20, creatinine 1.04 glucose 177, calcium 10.6, magnesium 0.7 EKG done in the ER showed heart rate of144, irregular in rate and rhythm, no ST segment elevation or depression seen, no T-wave inversions seen. Chest x-ray done in the ER showed cardiomegaly with mild congestive changes Patient admitted to internal medicine service 02/17. Patient seen and examined. Blood work done this morning showed WBC 5.9, hemoglobin 11.1, platelet count 228, sodium 143, potassium 4.1, BUN 18, creatinine 0.83, magnesium 1, magnesium replacement was ordered in the form of 4 g of magnesium sulfate. Denies any palpitations. Denies any chest pain. Patient went into A-fib with RVR overnight and had to be placed back on Cardizem drip, continues to be on heparin drip 02/18. Patient seen and examined. No acute events overnight. Denies any shortness of breath.. Denies any chest pain. Currently on 2 L of oxygen. Vital signs this morning were temperature 97.7, heart rate of 96, blood pressure 112/77 REVIEW OF SYSTEMS: CONSTITUTIONAL: No fever, no malaise,. CARDIOVASCULAR: No chest pain, no palpitations, no syncope. PULMONARY: No shortness of breath, no cough, GASTROINTESTINAL: No diarrhea, no nausea, no vomiting, no abdominal pain. NEUROLOGICAL: No headaches, no weakness, PHYSICAL EXAMINATION: GENERAL: The patient is alert and oriented x3, not in any acute distress. Well developed, well nourished. HEENT: Pupils are round and equally reacting to light. EOMI. No scleral icterus. No conjunctival pallor. Normocephalic, atraumatic. No pharyngeal erythema. No thyromegaly. CARDIOVASCULAR: S1 and S2 present. No murmurs, rubs, or gallops. PULMONARY: Chest is clear to auscultation, no wheezing or crackles. ABDOMEN: Soft, nontender, nondistended, normoactive bowel sounds. No palpable organomegaly. MUSCULOSKELETAL: No joint swelling or deformity. EXTREMITIES: No cyanosis, clubbing, or pedal edema. NEUROLOGICAL: Gross neurological examination did not reveal any focal deficits. SKIN: No rashes. Assessment and plan A-fib with RVR Hypomagnesemia Hypertension Colon cancer Monitor vital signs Monitor CBC Monitor CMP Continue telemetry monitoring Trend troponin Continue Cardizem drip Continue pharmacy to dose heparin 2D echo done showed LVEF of 35 to 40%. Reduced LV systolic function mostly in basal segments Monitor blood sugar levels, continue insulin regimen Continue magnesium oxide Cardiology following Hematology oncology following Labs and medication were reviewed.. Continue same treatment. Continue with symptomatic treatment. Resume home medication. Monitor labs and vitals. DVT and GI prophylaxis. Further recommendations as per clinical course of the patient Dictation was produced using [employer] dictation software. please excuse any grammatical, word or spelling errors. Objective - Vital Signs Vital signs: Vital Signs Temp 97.7 F 02/19/24 12:30 Pulse 96 02/19/24 12:30 Resp 18 02/19/24 12:30 BP 112/77 02/19/24 12:30 Pulse Ox 96 02/19/24 12:30 FiO2 Intake & Output 02/18/24 02/19/24 02/19/24 18:59 06:59 18:59 Intake Total 836 242.138 476 Output Total 1050 Balance -214 242.138 476 Intake: Intake, IV Titration 242.138 Amount Heparin Sod,Pork in 0.45% 242.138 NaCl 25,000 unit In 0.45 % NaCl 1 250ml.bag @ 7. 602 UNITS/KG/HR 10 mls/hr IV .Q24H [facility] Rx#: [id number] Oral 836 476 Output: Urine 1050 Other: Voiding Method Toilet Toilet # Voids 1 2 # Bowel Movements 1 0 - Labs CBC & Chem 7: 02/18/24 11:28 02/18/24 11:28 Labs: Abnormal Lab Results - Last 24 Hours (Table) 02/18/24 02/18/24 02/19/24 Range/Units 11:28 19:57 11:36 POC Glucose (mg/dL) 150 H 122 H (70-110) mg/dL Hemoglobin A1c 6.9 H (<=6.0) %
[2024-02-19] MEDS: DAPAGLIFLOZIN PROPANEDIOL 10 MG TABLET PO SCH (15:51)
[2024-02-19 16:40] LABS: Glucose,Whole Blood 113 mg/dL (70-110)
--- NOTE | 2024-02-19 19:18 | P.PN ---
Subjective Progress Note Date: 02/19/24 History of present illness: This is a 69-year-old male with past medical history of [facility]. Patient presented with generalized weakness found to be tachycardic and was sent into the hospital. Patient was in atrial fibrillation with rate moderately rapid. He also has a history of diabetes, hypertension, hyperlipidemia. Patient was initially started on a Cardizem bolus followed by drip and oral beta-morales. His initial magnesium was 0.4 and is status post magnesium supplement. His initial heart rate was in the 120s at the time of evaluation. Patient is currently off the Cardizem drip due to low blood pressure but heart rate is in the 140s. Heart rate today is running in the 120s with blood pressure 129/89, pulse ox 96% on 2 L nasal cannula. Repeat blood work today reveals potassium of 4.1. Magnesium 1. IV magnesium replacement has been ordered for today. Echocardiogram reveals EF of 35 to 40%. Reduced LV systolic function mostly in the basal segments. Moderate LVH. Moderate LA dilatation with elevated LA pressures. Moderate aortic stenosis with mean gradient 23 mmHg. RVSP 25 mmHg. February 19, 2024 BP 130/66, heart rate 118 bpm, continues to have paroxysms of atrial fibrillation with RVR. Labs shows hemoglobin of 11.1, potassium of 4.1, creatinine 0.8, HbA1c 6.9, magnesium is still low at 1. TSH was normal at 1.2 Physical examination: LUNGS: Diminished breath sounds, poor inspiratory effort HEART: Irregular rate and rhythm. Systolic murmur audible radiating to carotids EXTREMITIES: No pedal edema. NEUROLOGICAL: Patient is awake, alert and oriented x3. Assessment: New onset of atrial fibrillation with RVR, paroxysmal Moderate aortic stenosis Cardiomyopathy with LVEF 35 to 40% Colorectal cancer on chemotherapy Diabetes mellitus Hypomagnesemia Plan: Change metoprolol to 100 mg twice daily Add Entresto 24/26 mg twice daily. Discontinue losartan Add Farxiga 10 mg daily Continue Eliquis 5 mg twice daily, Monitor electrolytes. Replace magnesium. Keep magnesium near 2 Objective - Vital Signs Vital signs: Vital Signs Temp 97.8 F 02/19/24 16:20 Pulse 118 H 02/19/24 16:20 Resp 18 02/19/24 16:20 BP 130/66 02/19/24 16:20 Pulse Ox 94 L 02/19/24 16:20 FiO2 Intake & Output 02/19/24 02/19/24 02/20/24 06:59 18:59 06:59 Intake Total 242.138 834 Balance 242.138 834 Intake: Intake, IV Titration 242.138 Amount Heparin Sod,Pork in 0.45% 242.138 NaCl 25,000 unit In 0.45 % NaCl 1 250ml.bag @ 7. 602 UNITS/KG/HR 10 mls/hr IV .Q24H [facility] Rx#: [id number] Oral 834 Other: Voiding Method Toilet # Voids 2 2 # Bowel Movements 1 - Labs CBC & Chem 7: 02/18/24 11:28 02/18/24 11:28 Labs: Abnormal Lab Results - Last 24 Hours (Table) 02/18/24 02/19/24 02/19/24 Range/Units 19:57 11:36 16:38 POC Glucose (mg/dL) 150 H 122 H 113 H (70-110) mg/dL
[2024-02-19 19:58] LABS: Glucose,Whole Blood 97 mg/dL (70-110)
[2024-02-19] MEDS: METOPROLOL TARTRATE 50 MG TAB PO SCH (20:41)
[2024-02-19 21:28] LABS: Basophils % (A) 0 %; Eosinophils # (A) 0.2 k/uL (0-0.7); Eosinophils % (A) 3 %; HCT 38.2 % (39.0-53.0); HGB 11.7 gm/dL (13.0-17.5); Hypochromasia Slight; Lymphocytes # (A) 1.2 k/uL (1.0-4.8); Lymphocytes % (A) 20 %; MCH 29.6 pg (25.0-35.0); MCHC 30.5 g/dL (31.0-37.0); MCV 97.1 fL (80.0-100.0); Mean Platelet Volume 7.8; Monocytes # (A) 0.4 k/uL (0-1.0); Monocytes % (A) 7 %; Neutrophils # (A) 4.1 k/uL (1.3-7.7); Neutrophils % (A) 69 %; Platelet Count 236 k/uL (150-450); RBC 3.93 m/uL (4.30-5.90); RDW 14.3 % (11.5-15.5); WBC 5.9 k/uL (3.8-10.6)
[2024-02-20 06:02] LABS: Glucose,Whole Blood 71 mg/dL (70-110)
[2024-02-20] MEDS: SACUBITRIL/VALSARTAN 24 MG-26 MG TABLET PO SCH (08:59)
[2024-02-20 10:11] LABS: Basophils % (A) 0 %; Eosinophils # (A) 0.2 k/uL (0-0.7); Eosinophils % (A) 4 %; HCT 41.4 % (39.0-53.0); Hypochromasia Moderate; Lymphocytes # (A) 0.7 k/uL (1.0-4.8); Lymphocytes % (A) 12 %; MCH 28.5 pg (25.0-35.0); MCHC 29.1 g/dL (31.0-37.0); MCV 97.9 fL (80.0-100.0); Mean Platelet Volume 9.2; Monocytes # (A) 0.3 k/uL (0-1.0); Monocytes % (A) 5 %; Neutrophils # (A) 4.8 k/uL (1.3-7.7); Neutrophils % (A) 78 %; Platelet Count 255 k/uL (150-450); RBC 4.23 m/uL (4.30-5.90); RDW 14.3 % (11.5-15.5); WBC 6.1 k/uL (3.8-10.6)
--- NOTE | 2024-02-20 10:19 | P.PN ---
Subjective Progress Note Date: 02/20/24 History of present illness: This is a 69-year-old male with past medical history of colorectal cancer in p rocess of chemotherapy. Patient presented with generalized weakness found to be tachycardic and was sent into the hospital. Patient was in atrial fibrillation with rate moderately rapid. He also has a history of diabetes, hypertension, hyperlipidemia. Patient was initially started on a Cardizem bolus followed by drip and oral beta-morales. His initial magnesium was 0.4 and is status post magnesium supplement. His initial heart rate was in the 120s at the time of evaluation. Patient is currently off the Cardizem drip due to low blood pressure but heart rate is in the 140s. Heart rate today is running in the 120s with blood pressure 129/89, pulse ox 96% on 2 L nasal cannula. Repeat blood work today reveals potassium of 4.1. Magnesium 1. IV magnesium replacement has been ordered for today. Echocardiogram reveals EF of 35 to 40%. Reduced LV systolic function mostly in the basal segments. Moderate LVH. Moderate LA dilatation with elevated LA pressures. Moderate aortic stenosis with mean gradient 23 mmHg. RVSP 25 mmHg. February 19, 2024 BP 130/66, heart rate 118 bpm, continues to have paroxysms of atrial fibrillation with RVR. Labs shows hemoglobin of 11.1, potassium of 4.1, creatinine 0.8, HbA1c 6.9, magnesium is still low at 1. TSH was normal at 1.2 February 20, 2024 Patient is resting comfortably in bed. He was sleeping when I arrived to evaluate him. He is arousable with verbal stimuli. He denies any chest pain or chest pressure but reports feeling very fatigued. On telemetry he was noticed to be in atrial fibrillation with rapid ventricular response with average heart rate around 130s beats per minute. His systolic blood pressure is 100-110 mmHg. Today I increased his metoprolol to 100 mg twice daily. Physical examination: LUNGS: Diminished breath sounds, poor inspiratory effort HEART: Irregular rate and rhythm. Systolic murmur audible radiating to carotids EXTREMITIES: No pedal edema. NEUROLOGICAL: Patient is awake, alert and oriented x3. Assessment: New onset of atrial fibrillation with RVR, paroxysmal Moderate aortic stenosis Cardiomyopathy with LVEF 35 to 40% Colorectal cancer on chemotherapy Diabetes mellitus Hypomagnesemia Plan: Continue metoprolol to 100 mg twice daily Add Entresto 24/26 mg twice daily. Discontinue losartan Add Farxiga 10 mg daily Continue Eliquis 5 mg twice daily Start amiodarone IV drip for atrial fibrillation control due to low blood pressure and inability to add more AV viet blocking agent specially in the setting of cardiomyopathy Monitor electrolytes. Replace magnesium. Keep magnesium near 2 Objective - Vital Signs Vital signs: Vital Signs Temp 98.1 F 02/20/24 08:00 Pulse 125 H 02/20/24 08:00 Resp 20 02/20/24 08:00 BP 103/71 02/20/24 08:00 Pulse Ox 97 02/20/24 08:00 FiO2 Intake & Output 02/19/24 02/20/24 02/20/24 18:59 06:59 18:59 Intake Total 834 540 598 Balance 834 540 598 Intake: Oral 834 540 598 Other: Voiding Method Toilet # Voids 2 1 1 # Bowel Movements 1 1 - Labs CBC & Chem 7: 02/20/24 09:02 02/18/24 11:28 Labs: Abnormal Lab Results - Last 24 Hours (Table) 02/19/24 02/19/24 02/19/24 Range/Units 11:36 16:38 21:04 RBC 3.93 L (4.30-5.90) m/uL Hgb 11.7 L (13.0-17.5) gm/dL Hct 38.2 L (39.0-53.0) % MCHC 30.5 L (31.0-37.0) g/dL Lymphocytes # (1.0-4.8) k/uL POC Glucose (mg/dL) 122 H 113 H (70-110) mg/dL 02/20/24 Range/Units 09:02 RBC 4.23 L (4.30-5.90) m/uL Hgb 12.0 L (13.0-17.5) gm/dL Hct (39.0-53.0) % MCHC 29.1 L (31.0-37.0) g/dL Lymphocytes # 0.7 L (1.0-4.8) k/uL POC Glucose (mg/dL) (70-110) mg/dL
[2024-02-20 10:37] LABS: ALT 13 U/L (4-49); AST 17 U/L (17-59); African American GFR (CKD) >90 (>60 ml/min/1.73 sqM); Albumin 3.5 g/dL (3.5-5.0); Alkaline Phosphatase 93 U/L (38-126); Anion Gap 7 mmol/L; Blood Urea Nitrogen 18 mg/dL (9-20); Carbon Dioxide 25 mmol/L (22-30); Chloride 108 mmol/L (98-107); Glucose 127 mg/dL (74-99); Non-African American GFR(CKD) >90 (>60 ml/min/1.73 sqM); Potassium 4.1 mmol/L (3.5-5.1); Sodium 140 mmol/L (137-145); Total Bilirubin 0.8 mg/dL (0.2-1.3); Total Protein 6.5 g/dL (6.3-8.2)
[2024-02-20] MEDS: DEXTROSE 5% IN WATER 100 ML with AMIODARONE 150 MG IV ONE (11:00)
[2024-02-20] MEDS: AMIODARONE 360 MG in DEXTROSE 5% IN WATER 200 ML IV ONE (11:11)
[2024-02-20 11:33] LABS: Glucose,Whole Blood 187 mg/dL (70-110)
[2024-02-20 11:59] LABS: Magnesium 0.8 mg/dL (1.6-2.3)
[2024-02-20] MEDS ORDERED: Magnesium Replacement Protocol 1 EACH MISC MISCELLANE PRN (12:02)
[2024-02-20] MEDS: MAGNESIUM SULFATE-D5W PMX 1 GM in DEXTROSE/WATER 1 100ML.BAG IVPB SCH (12:18)
--- NOTE | 2024-02-20 13:16 | P.PN ---
Subjective Progress Note Date: 02/20/24 patient is a 69-year-old gentleman past medical history significant for colon cancer, diabetes mellitus, hypertension who presented to ER for abnormal labs. Patient was called by lab for abnormal magnesium level. Patient is being followed outpatient by hematology oncology and they ordered blood work. Patient denies any chest pain or shortness of breath. Denies any complaint of palpitation. There is no complaint of orthopnea or PND. Denies any fever or chills. Because of abnormal labs, patient was noted to the ER Initial lab work done in the ER showed WBC 6.1, hemoglobin 10.7, platelet count 244, sodium 140, potassium 4, BUN 20, creatinine 1.04 glucose 177, calcium 10.6, magnesium 0.7 EKG done in the ER showed heart rate of144, irregular in rate and rhythm, no ST segment elevation or depression seen, no T-wave inversions seen. Chest x-ray done in the ER showed cardiomegaly with mild congestive changes Patient admitted to internal medicine service 02/17. Patient seen and examined. Blood work done this morning showed WBC 5.9, hemoglobin 11.1, platelet count 228, sodium 143, potassium 4.1, BUN 18, creatinine 0.83, magnesium 1, magnesium replacement was ordered in the form of 4 g of magnesium sulfate. Denies any palpitations. Denies any chest pain. Patient went into A-fib with RVR overnight and had to be placed back on Cardizem drip, continues to be on heparin drip 02/18. Patient seen and examined. No acute events overnight. Denies any shortness of breath.. Denies any chest pain. Currently on 2 L of oxygen. Vital signs this morning were temperature 97.7, heart rate of 96, blood pressure 112/77 02/19. Patient seen and examined. Cardiology added Entresto and discontinue losartan, dose of Lopressor was increased to 100 mg twice daily and added Farxiga. Currently on amiodarone drip REVIEW OF SYSTEMS: CONSTITUTIONAL: No fever, no malaise,. CARDIOVASCULAR: No chest pain, no palpitations, no syncope. PULMONARY: No shortness of breath, no cough, GASTROINTESTINAL: No diarrhea, no nausea, no vomiting, no abdominal pain. NEUROLOGICAL: No headaches, no weakness, PHYSICAL EXAMINATION: GENERAL: The patient is alert and oriented x3, not in any acute distress. Well developed, well nourished. HEENT: Pupils are round and equally reacting to light. EOMI. No scleral icterus. No conjunctival pallor. Normocephalic, atraumatic. No pharyngeal erythema. No thyromegaly. CARDIOVASCULAR: S1 and S2 present. No murmurs, rubs, or gallops. PULMONARY: Chest is clear to auscultation, no wheezing or crackles. ABDOMEN: Soft, nontender, nondistended, normoactive bowel sounds. No palpable organomegaly. MUSCULOSKELETAL: No joint swelling or deformity. EXTREMITIES: No cyanosis, clubbing, or pedal edema. NEUROLOGICAL: Gross neurological examination did not reveal any focal deficits. SKIN: No rashes. Assessment and plan A-fib with RVR Hypomagnesemia Hypertension Colon cancer Monitor vital signs Monitor CBC Monitor CMP Continue telemetry monitoring Heparin discontinued, started on Eliquis Continue amiodarone drip Started on Entresto Continue Lopressor 100 mg twice daily Farxiga added 2D echo done showed LVEF of 35 to 40%. Reduced LV systolic function mostly in basal segments Monitor blood sugar levels, continue insulin regimen Continue magnesium oxide Cardiology following Hematology oncology following Labs and medication were reviewed.. Continue same treatment. Continue with symptomatic treatment. Resume home medication. Monitor labs and vitals. DVT and GI prophylaxis. Further recommendations as per clinical course of the patient Dictation was produced using [employer] dictation software. please excuse any grammatical, word or spelling errors. Objective - Vital Signs Vital signs: Vital Signs Temp 97.7 F 02/20/24 03:49 Pulse 94 02/20/24 03:49 Resp 18 02/20/24 03:49 BP 108/67 02/20/24 03:49 Pulse Ox 95 02/20/24 03:49 FiO2 Intake & Output 02/19/24 02/20/24 02/20/24 18:59 06:59 18:59 Intake Total 834 540 358 Balance 834 540 358 Intake: Oral 834 540 358 Other: Voiding Method Toilet # Voids 2 1 # Bowel Movements 1 - Labs CBC & Chem 7: 02/20/24 09:02 02/20/24 09:02 Labs: Abnormal Lab Results - Last 24 Hours (Table) 02/19/24 02/19/24 02/19/24 Range/Units 11:36 16:38 21:04 RBC 3.93 L (4.30-5.90) m/uL Hgb 11.7 L (13.0-17.5) gm/dL Hct 38.2 L (39.0-53.0) % MCHC 30.5 L (31.0-37.0) g/dL POC Glucose (mg/dL) 122 H 113 H (70-110) mg/dL
[2024-02-20] MEDS: AMIODARONE 450 MG in DEXTROSE 5% IN WATER 250 ML IV SCH (16:03)
[2024-02-20 16:49] LABS: Glucose,Whole Blood 133 mg/dL (70-110)
[2024-02-20 19:56] LABS: Glucose,Whole Blood 128 mg/dL (70-110)
[2024-02-21 06:08] LABS: Glucose,Whole Blood 84 mg/dL (70-110)
[2024-02-21] MEDS: AMIODARONE 200 MG TAB PO SCH (10:16)
[2024-02-21 10:28] LABS: Basophils % (A) 0 %; Eosinophils # (A) 0.2 k/uL (0-0.7); Eosinophils % (A) 5 %; HCT 40.4 % (39.0-53.0); Hypochromasia Slight; Lymphocytes % (A) 26 %; MCH 28.8 pg (25.0-35.0); MCHC 29.8 g/dL (31.0-37.0); MCV 96.6 fL (80.0-100.0); Mean Platelet Volume 8.1; Monocytes # (A) 0.3 k/uL (0-1.0); Monocytes % (A) 9 %; Neutrophils # (A) 2.1 k/uL (1.3-7.7); Neutrophils % (A) 59 %; Platelet Count 232 k/uL (150-450); RBC 4.18 m/uL (4.30-5.90); WBC 3.6 k/uL (3.8-10.6)
[2024-02-21 10:34] LABS: ALT 12 U/L (4-49); AST 18 U/L (17-59); African American GFR (CKD) >90 (>60 ml/min/1.73 sqM); Albumin 3.3 g/dL (3.5-5.0); Alkaline Phosphatase 87 U/L (38-126); Anion Gap 7 mmol/L; Blood Urea Nitrogen 17 mg/dL (9-20); Calcium 8.2 mg/dL (8.4-10.2); Carbon Dioxide 25 mmol/L (22-30); Chloride 107 mmol/L (98-107); Glucose 89 mg/dL (74-99); Magnesium 1.2 mg/dL (1.6-2.3); Non-African American GFR(CKD) >90 (>60 ml/min/1.73 sqM); Potassium 3.9 mmol/L (3.5-5.1); Sodium 139 mmol/L (137-145); Total Bilirubin 0.6 mg/dL (0.2-1.3); Total Protein 6.2 g/dL (6.3-8.2)
[2024-02-21 11:35] LABS: Glucose,Whole Blood 66 mg/dL (70-110)
[2024-02-21 11:54] LABS: Glucose,Whole Blood 78 mg/dL (70-110)
[2024-02-21 12:12] LABS: Glucose,Whole Blood 63 mg/dL (70-110)
[2024-02-21 12:32] LABS: Glucose,Whole Blood 68 mg/dL (70-110)
[2024-02-21 12:50] LABS: Glucose,Whole Blood 88 mg/dL (70-110)
--- NOTE | 2024-02-21 12:59 | P.PN ---
Subjective HISTORY OF PRESENT ILLNESS: 02/18/2024 History of present illness: This is a 69-year-old male with past medical history of colorectal cancer in pro cess of chemotherapy. Patient presented with generalized weakness found to be tachycardic and was sent into the hospital. Patient was in atrial fibrillation with rate moderately rapid. He also has a history of diabetes, hypertension, hyperlipidemia. Patient was initially started on a Cardizem bolus followed by drip and oral beta-morales. His initial magnesium was 0.4 and is status post magnesium supplement. His initial heart rate was in the 120s at the time of evaluation. Patient is currently off the Cardizem drip due to low blood pressure but heart rate is in the 140s. Heart rate today is running in the 120s with blood pressure 129/89, pulse ox 96% on 2 L nasal cannula. Repeat blood work today reveals potassium of 4.1. Magnesium 1. IV magnesium replacement has been ordered for today. Echocardiogram reveals EF of 35 to 40%. Reduced LV systolic function mostly in the basal segments. Moderate LVH. Moderate LA dilatation with elevated LA pressures. Moderate aortic stenosis with mean gradient 23 mmHg. RVSP 25 mmHg. February 19, 2024 BP 130/66, heart rate 118 bpm, continues to have paroxysms of atrial fibrillation with RVR. Labs shows hemoglobin of 11.1, potassium of 4.1, creatinine 0.8, HbA1c 6.9, magnesium is still low at 1. TSH was normal at 1.2 February 20, 2024 Patient is resting comfortably in bed. He was sleeping when I arrived to evaluate him. He is arousable with verbal stimuli. He denies any chest pain or chest pressure but reports feeling very fatigued. On telemetry he was noticed to be in atrial fibrillation with rapid ventricular response with average heart rate around 130s beats per minute. His systolic blood pressure is 100-110 mmHg. Today I increased his metoprolol to 100 mg twice daily. February 21, 2024 Patient examined this morning at the bedside. Patient denies any chest pain or pressure. He denies any shortness of breath. Denies any dizziness or lightheadedness. Denies any palpitations. Telemetry reveals sinus mechanism with a heart rate in the 50s. He is anticoagulated with Eliquis. He remains on IV amiodarone. PHYSICAL EXAM: VITAL SIGNS: Reviewed. GENERAL: Well-developed in no acute distress. NECK: Supple. No JVD or thyromegaly LUNGS: Respirations even and unlabored. Lungs essentially clear to auscultation bilaterally. HEART: Regular rate and rhythm. S1 and S2 heard. Systolic murmur noted. EXTREMITIES: Normal range of motion. No clubbing or cyanosis. Peripheral pulses intact. No lower extremity edema ASSESSMENT: New onset atrial fibrillation with RVR, paroxysmal Colorectal cancer on chemotherapy Moderate aortic stenosis Cardiomyopathy, ejection fraction 35 to 40%, ischemic versus nonischemic Diabetes mellitus Hypomagnesemia PLAN: Continue anticoagulation with Eliquis Discontinue IV amiodarone. Begin oral amiodarone 400 mg twice a day Decrease metoprolol to 75 mg twice a day as patient is bradycardic in sinus mechanism Continue telemetry monitoring Further recommendations pending patient course Nurse practitioner note has been reviewed by physician. Signing provider agrees with the documented findings, assessment, and plan of care documented by INDUSTRIAL RECRUITER as a scribe. Objective - Vital Signs Vital signs: Vital Signs Temp 97.8 F 02/21/24 11:57 Pulse 54 L 02/21/24 11:57 Resp 20 02/21/24 11:57 BP 119/68 02/21/24 11:57 Pulse Ox 100 02/21/24 11:57 FiO2 Intake & Output 02/20/24 02/21/24 02/21/24 18:59 06:59 18:59 Intake Total 834 245.005 Balance 834 245.005 Intake: Intake, IV Titration 245.005 Amount Amiodarone 450 mg In 245.005 Dextrose 5% in Water 250 ml @ 0.5 MG/MIN 16.667 mls/hr IV .Q15H [facility] Rx#: [id number] Oral 834 Other: Voiding Method Toilet Toilet # Voids 1 1 1 # Bowel Movements 1 1 - Labs CBC & Chem 7: 02/21/24 09:50 02/21/24 09:50 Labs: Abnormal Lab Results - Last 24 Hours (Table) 02/20/24 02/20/24 02/21/24 Range/Units 16:47 19:54 09:50 WBC 3.6 L (3.8-10.6) k/uL RBC 4.18 L (4.30-5.90) m/uL Hgb 12.0 L (13.0-17.5) gm/dL MCHC 29.8 L (31.0-37.0) g/dL POC Glucose (mg/dL) 133 H 128 H (70-110) mg/dL Calcium (8.4-10.2) mg/dL Magnesium (1.6-2.3) mg/dL Total Protein (6.3-8.2) g/dL Albumin (3.5-5.0) g/dL 02/21/24 02/21/24 02/21/24 Range/Units 09:50 11:33 12:10 WBC (3.8-10.6) k/uL RBC (4.30-5.90) m/uL Hgb (13.0-17.5) gm/dL MCHC (31.0-37.0) g/dL POC Glucose (mg/dL) 66 L 63 L (70-110) mg/dL Calcium 8.2 L (8.4-10.2) mg/dL Magnesium 1.2 L (1.6-2.3) mg/dL Total Protein 6.2 L (6.3-8.2) g/dL Albumin 3.3 L (3.5-5.0) g/dL 02/21/24 Range/Units 12:30 WBC (3.8-10.6) k/uL RBC (4.30-5.90) m/uL Hgb (13.0-17.5) gm/dL MCHC (31.0-37.0) g/dL POC Glucose (mg/dL) 68 L (70-110) mg/dL Calcium (8.4-10.2) mg/dL Magnesium (1.6-2.3) mg/dL Total Protein (6.3-8.2) g/dL Albumin (3.5-5.0) g/dL
[2024-02-21 13:06] LABS: Glucose,Whole Blood 81 mg/dL (70-110)
--- NOTE | 2024-02-21 14:29 | P.PN ---
Subjective Progress Note Date: 02/21/24 Principal diagnosis: colon adenocarcinoma, hypomagnesemia At today's visit patient is resting comfortably in bed. No acute events. Continues on magnesium replacement, magnesium improved today at 1.2. Counts stable. Diarrhea persisting with some improvement with Imodium, will also add questran for additional support. C. difficile testing ordered Objective - Vital Signs Vital signs: Vital Signs Temp 97.8 F 02/21/24 11:57 Pulse 54 L 02/21/24 11:57 Resp 20 02/21/24 11:57 BP 119/68 02/21/24 11:57 Pulse Ox 100 02/21/24 11:57 FiO2 Intake & Output 02/20/24 02/21/24 02/21/24 18:59 06:59 18:59 Intake Total 834 245.005 Balance 834 245.005 Intake: Intake, IV Titration 245.005 Amount Amiodarone 450 mg In 245.005 Dextrose 5% in Water 250 ml @ 0.5 MG/MIN 16.667 mls/hr IV .Q15H [facility] Rx#: [id number] Oral 834 Other: Voiding Method Toilet Toilet # Voids 1 1 # Bowel Movements 1 - Constitutional General appearance: Present: no acute distress, obese - EENT Eyes: Present: anicteric sclerae, EOMI ENT: Present: hearing grossly normal - Respiratory Details: Breathing is even and unlabored - Cardiovascular Details: Skin warm and dry - Gastrointestinal General gastrointestinal: Present: soft. Absent: tenderness - Integumentary Integumentary: Absent: cyanotic, jaundiced - Neurologic Neurologic: Present: CNII-XII intact - Musculoskeletal Musculoskeletal: Present: strength equal bilaterally - Psychiatric Psychiatric: Present: A&O x's 3 - Labs CBC & Chem 7: 02/21/24 09:50 02/21/24 09:50 Labs: Abnormal Lab Results - Last 24 Hours (Table) 02/20/24 02/20/24 02/21/24 Range/Units 16:47 19:54 09:50 WBC 3.6 L (3.8-10.6) k/uL RBC 4.18 L (4.30-5.90) m/uL Hgb 12.0 L (13.0-17.5) gm/dL MCHC 29.8 L (31.0-37.0) g/dL POC Glucose (mg/dL) 133 H 128 H (70-110) mg/dL Calcium (8.4-10.2) mg/dL Magnesium (1.6-2.3) mg/dL Total Protein (6.3-8.2) g/dL Albumin (3.5-5.0) g/dL 02/21/24 02/21/24 02/21/24 Range/Units 09:50 11:33 12:10 WBC (3.8-10.6) k/uL RBC (4.30-5.90) m/uL Hgb (13.0-17.5) gm/dL MCHC (31.0-37.0) g/dL POC Glucose (mg/dL) 66 L 63 L (70-110) mg/dL Calcium 8.2 L (8.4-10.2) mg/dL Magnesium 1.2 L (1.6-2.3) mg/dL Total Protein 6.2 L (6.3-8.2) g/dL Albumin 3.3 L (3.5-5.0) g/dL Assessment and Plan (1) Colon adenocarcinoma Current Visit: Yes Status: Acute Priority: High Code(s): C18.9 - MALIGNANT NEOPLASM OF COLON, UNSPECIFIED SNOMED Code(s): 665099430 (2) Atrial fibrillation with RVR Current Visit: Yes Status: Acute Code(s): I48.91 - UNSPECIFIED ATRIAL FIBRILLATION SNOMED Code(s): 285594009582380 (3) Hypomagnesemia Current Visit: Yes Status: Acute Priority: High Code(s): E83.42 - HYPOMAGNESEMIA SNOMED Code(s): 451578729 Plan: Afib RVR: -Upon presentation patient was found to be in A-fib with RVR with rate of 144, Cardizem drip was started. -Rate now controlled. Patient asymptomatic -Defer to cardiology for management Hypomagnesemia: -Heart irregular in clinic on 02/16/24 -Magnesium noted at 0.6, and was refereed to the ER for further evaluation. Magnesium on admission was 0.7. Magnesium has been replaced. Repeat magnesium today 1.2 -Likely caused by treatment with vectibix and diarrhea sx. Oral supplementation was started at last clinic f./u. Will continue oral magnesium and closely monitor magnesium in outpt setting and make adjustment to supplementation as needed -Diarrhea persisting, continue imodium prn, will add questran for additional support. C-diff testing ordered Colon adenocarcinoma: -Full oncological history in consult HPI -Status post 12 cycles FOLFOX, completing the same on 12/15/23. He was started on Vectibix during cycle 11 of folfox and completed cycle 4 of single agent vectibix on 02/07/24. -PET scan done after cycle 11 showed diminished uptake in the caudate lobe, and questionable uptake in the lesion in the dome. There was mention of possible uptake in the lower T-spine. MRI spine was inconclusive so, MRI with sedation was ordered to be done at [facility], which was negative for malignancy. He was then referred to [facility] to evaluate for surgical resection to primary tumor site. Review of notes from [facility] indicates that, in this situation, he would be considered a ca ndidate for definitive resection, of the primary tumor as well as the liver metastasis. He was scheduled to undergo surgical resection but surgery was canceled due to irregular heart rate. Once acute condition/afib controlled will refer back to [facility] for surgical reevaluation -Will postpone next treatment on 02/20 by 1 week. Has f/u scheduled with Dr. Benitez on 02/27. Will reevaluate prior to proceeding with next cycle attests: I have performed H&P and developed impression and plan of care for patient, discussed with dictator. I agree with dictated note, documented as a scribe
[2024-02-21 17:00] LABS: Glucose,Whole Blood 106 mg/dL (70-110)
[2024-02-21] MEDS: CHOLESTYRAMINE (WITH SUGAR) 4 GM PACKET PO SCH (17:20)
[2024-02-21 19:57] LABS: Glucose,Whole Blood 110 mg/dL (70-110)
[2024-02-21] MEDS: METOPROLOL TARTRATE 25 MG TAB PO SCH (21:39)
[2024-02-21] MEDS ORDERED: MAGNESIUM SULFATE-D5W PMX 1 GM in DEXTROSE/WATER 1 100ML.BAG IVPB SCH (23:00)
--- NOTE | 2024-02-21 23:04 | P.PN ---
Subjective patient is a 69-year-old gentleman past medical history significant for colon cancer, diabetes mellitus, hypertension who presented to ER for abnormal labs. Patient was called by lab for abnormal magnesium level. Patient is being followed outpatient by hematology oncology and they ordered blood work. Patient denies any chest pain or shortness of breath. Denies any complaint of palpitation. There is no complaint of orthopnea or PND. Denies any fever or chills. Because of abnormal labs, patient was noted to the ER Initial lab work done in the ER showed WBC 6.1, hemoglobin 10.7, platelet count 244, sodium 140, potassium 4, BUN 20, creatinine 1.04 glucose 177, calcium 10.6, magnesium 0.7 EKG done in the ER showed heart rate of144, irregular in rate and rhythm, no ST segment elevation or depression seen, no T-wave inversions seen. Chest x-ray done in the ER showed cardiomegaly with mild congestive changes Patient admitted to internal medicine service 02/17. Patient seen and examined. Blood work done this morning showed WBC 5.9, hemoglobin 11.1, platelet count 228, sodium 143, potassium 4.1, BUN 18, creatinine 0.83, magnesium 1, magnesium replacement was ordered in the form of 4 g of magnesium sulfate. Denies any palpitations. Denies any chest pain. Patient went into A-fib with RVR overnight and had to be placed back on Cardizem drip, continues to be on heparin drip 02/18. Patient seen and examined. No acute events overnight. Denies any shortness of breath.. Denies any chest pain. Currently on 2 L of oxygen. V ital signs this morning were temperature 97.7, heart rate of 96, blood pressure 112/77 02/19. Patient seen and examined. Cardiology added Entresto and discontinue losartan, dose of Lopressor was increased to 100 mg twice daily and added Farxiga. Currently on amiodarone drip 02/21/2024 Patient awake and alert feels comfortable and asking when he can go home. States he currently does not have symptom Patient initially presents because of abnormal lab of hypomagnesemia, magnesium level on admission was 0.8, today 1.2. Currently evaluated by chef passenger vessel for A-fib and is rate controlled with amiodarone 400 mg, metoprolol 75 mg, he is also on Farxiga, Entresto and Eliquis We are going to check the co-pay for his Tate[place] He is mildly hypoglycemic will lower the dose of Levemir 50 units down to 45 units Possible discharge 24 to 48 hours if he keeps improving Objective - Vital Signs Vital signs: Vital Signs Temp 97.8 F 02/21/24 11:57 Pulse 54 L 02/21/24 11:57 Resp 20 02/21/24 11:57 BP 119/68 02/21/24 11:57 Pulse Ox 100 02/21/24 11:57 FiO2 Intake & Output 02/20/24 02/21/24 02/21/24 18:59 06:59 18:59 Intake Total 834 245.005 240 Balance 834 245.005 240 Intake: Intake, IV Titration 245.005 Amount Amiodarone 450 mg In 245.005 Dextrose 5% in Water 250 ml @ 0.5 MG/MIN 16.667 mls/hr IV .Q15H [facility] Rx#: [id number] Oral 834 240 Other: Voiding Method Toilet Toilet # Voids 1 1 1 # Bowel Movements 1 1 - Exam GENERAL: The patient is alert and oriented x3, not in any acute distress. Well developed, well nourished. HEENT: Pupils are round and equally reacting to light. EOMI. No scleral icterus. No conjunctival pallor. Normocephalic, atraumatic. No pharyngeal erythema. No thyromegaly. CARDIOVASCULAR: S1 and S2 present. No murmurs, rubs, or gallops. PULMONARY: Chest is clear to auscultation, no wheezing , no crackles. ABDOMEN: Soft, nontender, nondistended, normoactive bowel sounds. No palpable organomegaly. MUSCULOSKELETAL: No joint swelling or deformity. EXTREMITIES: No cyanosis, clubbing, or pedal edema. NEUROLOGICAL: Gross neurological examination did not reveal any focal deficits. SKIN: No rashes. no petechiae. - Labs CBC & Chem 7: 02/21/24 09:50 02/21/24 09:50 Labs: Abnormal Lab Results - Last 24 Hours (Table) 02/20/24 02/20/24 02/21/24 Range/Units 16:47 19:54 09:50 WBC 3.6 L (3.8-10.6) k/uL RBC 4.18 L (4.30-5.90) m/uL Hgb 12.0 L (13.0-17.5) gm/dL MCHC 29.8 L (31.0-37.0) g/dL POC Glucose (mg/dL) 133 H 128 H (70-110) mg/dL Calcium (8.4-10.2) mg/dL Magnesium (1.6-2.3) mg/dL Total Protein (6.3-8.2) g/dL Albumin (3.5-5.0) g/dL 02/21/24 02/21/24 02/21/24 Range/Units 09:50 11:33 12:10 WBC (3.8-10.6) k/uL RBC (4.30-5.90) m/uL Hgb (13.0-17.5) gm/dL MCHC (31.0-37.0) g/dL POC Glucose (mg/dL) 66 L 63 L (70-110) mg/dL Calcium 8.2 L (8.4-10.2) mg/dL Magnesium 1.2 L (1.6-2.3) mg/dL Total Protein 6.2 L (6.3-8.2) g/dL Albumin 3.3 L (3.5-5.0) g/dL 02/21/24 Range/Units 12:30 WBC (3.8-10.6) k/uL RBC (4.30-5.90) m/uL Hgb (13.0-17.5) gm/dL MCHC (31.0-37.0) g/dL POC Glucose (mg/dL) 68 L (70-110) mg/dL Calcium (8.4-10.2) mg/dL Magnesium (1.6-2.3) mg/dL Total Protein (6.3-8.2) g/dL Albumin (3.5-5.0) g/dL Assessment and Plan Assessment: A-fib with RVR Ischemic cardiomyopathy with ejection fraction 35 to 40% Moderate aortic stenosis Hypomagnesemia Hypertension Colon cancer Diabetes mellitus with hypoglycemia Plan: Continue with Eliquis Continue with Farxiga and Entresto Continue with metoprolol and amiodarone Cardiology team recommendation We lowered the dose of Levemir from 50 units down to 45 units GI and DVT prophylaxis Possible discharge 24 to 48 hours
[2024-02-21] MEDS: MAGNESIUM SULFATE-D5W PMX 1 GM in DEXTROSE/WATER 1 100ML.BAG IVPB ONE (23:19)
[2024-02-22] MEDS: MAGNESIUM SULFATE-D5W PMX 1 GM in DEXTROSE/WATER 1 100ML.BAG IVPB ONE (00:30)
[2024-02-22 06:05] LABS: Glucose,Whole Blood 72 mg/dL (70-110)
[2024-02-22 11:44] LABS: Glucose,Whole Blood 65 mg/dL (70-110)
[2024-02-22 11:52] LABS: Glucose,Whole Blood 66 mg/dL (70-110)
[2024-02-22 11:59] LABS: Glucose,Whole Blood 176 mg/dL (70-110)
[2024-02-22 12:06] VITALS: PULSE 56; RESP 16
[2024-02-22 12:24] LABS: Glucose,Whole Blood 120 mg/dL (70-110)
--- NOTE | 2024-02-22 12:49 | P.PN ---
Subjective HISTORY OF PRESENT ILLNESS: 02/18/2024 History of present illness: This is a 69-year-old male with past medical history of colorectal cancer in pro cess of chemotherapy. Patient presented with generalized weakness found to be tachycardic and was sent into the hospital. Patient was in atrial fibrillation with rate moderately rapid. He also has a history of diabetes, hypertension, hyperlipidemia. Patient was initially started on a Cardizem bolus followed by drip and oral beta-morales. His initial magnesium was 0.4 and is status post magnesium supplement. His initial heart rate was in the 120s at the time of evaluation. Patient is currently off the Cardizem drip due to low blood pressure but heart rate is in the 140s. Heart rate today is running in the 120s with blood pressure 129/89, pulse ox 96% on 2 L nasal cannula. Repeat blood work today reveals potassium of 4.1. Magnesium 1. IV magnesium replacement has been ordered for today. Echocardiogram reveals EF of 35 to 40%. Reduced LV systolic function mostly in the basal segments. Moderate LVH. Moderate LA dilatation with elevated LA pressures. Moderate aortic stenosis with mean gradient 23 mmHg. RVSP 25 mmHg. February 19, 2024 BP 130/66, heart rate 118 bpm, continues to have paroxysms of atrial fibrillation with RVR. Labs shows hemoglobin of 11.1, potassium of 4.1, creatinine 0.8, HbA1c 6.9, magnesium is still low at 1. TSH was normal at 1.2 February 20, 2024 Patient is resting comfortably in bed. He was sleeping when I arrived to evaluate him. He is arousable with verbal stimuli. He denies any chest pain or chest pressure but reports feeling very fatigued. On telemetry he was noticed to be in atrial fibrillation with rapid ventricular response with average heart rate around 130s beats per minute. His systolic blood pressure is 100-110 mmHg. Today I increased his metoprolol to 100 mg twice daily. February 21, 2024 Patient examined this morning at the bedside. Patient denies any chest pain or pressure. He denies any shortness of breath. Denies any dizziness or lightheadedness. Denies any palpitations. Telemetry reveals sinus mechanism with a heart rate in the 50s. He is anticoagulated with Eliquis. He remains on IV amiodarone. February 22, 2024 Patient examined this morning at the bedside. Patient denies chest pain or pressure. He denies shortness of breath. He remains in sinus mechanism. Vital signs are stable. PHYSICAL EXAM: VITAL SIGNS: Reviewed. GENERAL: Well-developed in no acute distress. NECK: Supple. No JVD or thyromegaly LUNGS: Respirations even and unlabored. Lungs essentially clear to auscultation bilaterally. HEART: Regular rate and rhythm. S1 and S2 heard. Systolic murmur noted. EXTREMITIES: Normal range of motion. No clubbing or cyanosis. Peripheral pulses intact. No lower extremity edema ASSESSMENT: New onset atrial fibrillation with RVR, paroxysmal Colorectal cancer on chemotherapy Moderate aortic stenosis Cardiomyopathy, ejection fraction 35 to 40%, ischemic versus nonischemic Diabetes mellitus Hypomagnesemia PLAN: Continue anticoagulation with Eliquis Continue current dose of metoprolol Continue amiodarone. Taper at discharge: 400 mg twice a day for 1 week then decrease to 200 mg twice a day for 1 week, then decrease to 200 mg daily Continue telemetry monitoring Further recommendations pending patient course Nurse practitioner note has been reviewed by physician. Signing provider agrees with the documented findings, assessment, and plan of care documented by ZIPPER JOINER as a scribe. Objective - Vital Signs Vital signs: Vital Signs Temp 98 F 02/22/24 11:15 Pulse 56 L 02/22/24 11:15 Resp 16 02/22/24 11:15 BP 113/56 02/22/24 11:15 Pulse Ox 97 02/22/24 11:15 FiO2 Intake & Output 02/21/24 02/22/24 02/22/24 18:59 06:59 18:59 Intake Total 358 237 Balance 358 237 Intake: Oral 358 237 Other: Voiding Method Toilet Toilet # Voids 1 2 2 # Bowel Movements 1 1 - Labs CBC & Chem 7: 02/21/24 09:50 02/21/24 09:50 Labs: Abnormal Lab Results - Last 24 Hours (Table) 02/22/24 02/22/24 02/22/24 Range/Units 09:14 11:41 11:51 POC Glucose (mg/dL) 65 L 66 L (70-110) mg/dL Magnesium 1.2 L (1.6-2.3) mg/dL 02/22/24 02/22/24 Range/Units 11:58 12:22 POC Glucose (mg/dL) 176 H 120 H (70-110) mg/dL Magnesium (1.6-2.3) mg/dL
[2024-02-22] MEDS: MAGNESIUM SULFATE-D5W PMX 1 GM in DEXTROSE/WATER 1 100ML.BAG IVPB SCH (13:07)
[2024-02-22 14:22] VITALS: BMI 39.3
--- NOTE | 2024-02-22 15:14 | P.PN ---
Subjective Progress Note Date: 02/22/24 Principal diagnosis: colon adenocarcinoma, hypomagnesemia At today's visit patient is resting comfortably in bed. No acute events. Continues on magnesium replacement, magnesium 1.2 today. Diarrhea improved, had 3 epsiodes in the last 24 hours. Continues on questran and imodium. C. difficile testing ordered Objective - Vital Signs Vital signs: Vital Signs Temp 98 F 02/22/24 11:15 Pulse 56 L 02/22/24 11:15 Resp 16 02/22/24 11:15 BP 113/56 02/22/24 11:15 Pulse Ox 97 02/22/24 11:15 FiO2 Intake & Output 02/21/24 02/22/24 02/22/24 18:59 06:59 18:59 Intake Total 358 237 Balance 358 237 Intake: Oral 358 237 Other: Voiding Method Toilet Toilet # Voids 1 2 2 # Bowel Movements 1 1 - Constitutional General appearance: Present: no acute distress, obese - EENT Eyes: Present: anicteric sclerae, EOMI ENT: Present: hearing grossly normal - Respiratory Details: Breathing is even and unlabored - Cardiovascular Details: Well-perfused - Gastrointestinal General gastrointestinal: Present: tenderness. Absent: soft - Integumentary Integumentary: Absent: cyanotic - Neurologic Neurologic Comment(s): No focal deficit - Psychiatric Psychiatric: Present: A&O x's 3 - Labs CBC & Chem 7: 02/21/24 09:50 02/21/24 09:50 Labs: Abnormal Lab Results - Last 24 Hours (Table) 02/21/24 02/21/24 02/22/24 Range/Units 12:10 12:30 09:14 POC Glucose (mg/dL) 63 L 68 L (70-110) mg/dL Magnesium 1.2 L (1.6-2.3) mg/dL 02/22/24 02/22/24 Range/Units 11:41 11:51 POC Glucose (mg/dL) 65 L 66 L (70-110) mg/dL Magnesium (1.6-2.3) mg/dL Assessment and Plan (1) Colon adenocarcinoma Current Visit: Yes Status: Acute Priority: High Code(s): C18.9 - MALIGNANT NEOPLASM OF COLON, UNSPECIFIED SNOMED Code(s): 605960869 (2) Atrial fibrillation with RVR Current Visit: Yes Status: Acute Code(s): I48.91 - UNSPECIFIED ATRIAL FIBRILLATION SNOMED Code(s): 844478808353921 (3) Hypomagnesemia Current Visit: Yes Status: Acute Priority: High Code(s): E83.42 - HYPOMAGNESEMIA SNOMED Code(s): 275539667 Plan: Afib RVR: -Upon presentation patient was found to be in A-fib with RVR with rate of 144, Cardizem drip was started. -Rate now controlled. Patient asymptomatic -Defer to cardiology for management Hypomagnesemia: -Heart irregular in clinic on 02/16/24 -Magnesium noted at 0.6 in clinic, and was refereed to the ER for further evaluation. Magnesium on admission was 0.7. Magnesium Supplementation ordered. Repeat magnesium today 1.2 -Likely caused by treatment with vectibix and persisting diarrhea sx. Oral supplementation was started at last clinic f./u. Will continue oral magnesium and closely monitor magnesium in outpt setting. Will increase oral magnesium to 800mg TID upon discharge, and clinic lab encounter has been scheduled for 02/23. Will make adjustment to oral supplementation and will schedule IV magnesium in clinic as needed -Diarrhea has shown improvement, continues imodium prn and questran. C-diff testing ordered. Bowel regimen discussed in detail with patient and importance of controlling diarrhea symptoms to avoid electrolyte imbalances Colon adenocarcinoma: -Full oncological history in consult HPI -Status post 12 cycles FOLFOX, completing the same on 12/15/23. He was started on Vectibix during cycle 11 of folfox and completed cycle 4 of single agent vectibix on 02/07/24. -PET scan done after cycle 11 showed diminished uptake in the caudate lobe, and questionable uptake in the lesion in the dome. There was mention of possible uptake in the lower T-spine. MRI spine was inconclusive so, MRI with sedation was ordered to be done at [facility], which was negative for malignancy. He was then referred to [facility] to evaluate for surgical resection to primary tumor site. Review of notes from [facility] indicates that, in this situation, he would be considered a candidate for definitive resection, of the primary tumor as well as the liver metastasis. He was scheduled to undergo surgical resection but surgery was can celed due to irregular heart rate. Once acute condition/afib controlled will refer back to [facility] for surgical reevaluation -Will postpone next treatment on 02/20 by 1 week. Has f/u scheduled with Dr. Benitez on 02/27. Will reevaluate prior to proceeding with next cycle
[2024-02-22 16:39] LABS: Glucose,Whole Blood 116 mg/dL (70-110)
[2024-02-22 17:12] VITALS: BP 113/61; TEMP 97.9
[2024-02-22] MEDS ORDERED: INSULIN DETEMIR (LEVEMIR) 100 UNIT/ML SYR SQ SCH (21:00)
--- NOTE | 2024-02-22 23:20 | P.DS ---
Providers Date of admission: 02/16/24 20:06 Attending physician: Jose Parker Consults: 02/16/24 20:05 Consult Physician Routine Consulting Provider: Wallace Benitez Consult Reason/Comments: Oncological care Do you want consulting provider notified?: Yes Consult Physician Urgent Consulting Provider: Solis Sandy Consult Reason/Comments: a fib w rvr Do you want consulting provider notified?: Yes Primary care physician: Jose Parker Hospital Course: Diagnoses: A-fib with RVR, new onset Ischemic cardiomyopathy with ejection fraction 35 to 40% Moderate aortic stenosis Hypomagnesemia Hypertension Colon cancer Diabetes mellitus with hypoglycemia Hospital course: patient is a 69-year-old gentleman past medical history significant for colon cancer, diabetes mellitus, hypertension who presented to ER for abnormal labs. Patient was called by lab for abnormal magnesium level. Patient is being followed outpatient by hematology oncology and they ordered blood work. Patient denies any chest pain or shortness of breath. Denies any complaint of palpitation. Patient magnesium was 0.7 on admission, he received several doses that improved to 1.6 upon discharge and he was provided with a prescription and is going to follow-up with his PCP in 2 days to check his magnesium level, appointment made for the patient and he was informed and agreeable. Patient admitted with cardiology following closely for his moderate aortic stenosis cardiomyopathy with ejection fraction. Patient has new onset A-fib and his rate was controlled with amiodarone. Also he is on metoprolol 75 mg. He was started on Eliquis risk and benefit explained for him. Patient agreeable to the treatment plan. On the day of discharge patient denies any other symptoms and he is eager to go home Patient was cleared for discharge by cardiology team. Problems and management plan were discussed with the patient and he verbalized understanding and acceptance Patient was found stable and can be discharged home in guarded prognosis however he needs follow-up as an outpatient. Patient was instructed to follow up with PCP Dr. Parker/LILIAN Villalobos within one week and patient agrees appointment made for him and/for that he states he will follow-up Patient was instructed to follow-up with his fire extinguisher repairer LILIAN Queen, he thinks he has appointment tomorrow that he did test to follow-up patient was instructed to follow-up with plaster model and mold maker Dr. Simpson in 1 to 2 weeks and he agrees To call and make appointment Physical exam Gen: patient is a AAOx3, no distress CVS: S1-S2, RRR, no murmur Lungs: B/L CTA, no wheezing Abdomen: soft, no distention, no tenderness, positive bowel sounds Extremity: no leg edema or induration Time spent more than 35 minutes Patient Condition at Discharge: Serious Plan - Discharge Summary Discharge Rx Participant: Yes New Discharge Prescriptions: New Amiodarone [Cordarone] 400 mg PO DIRECTED #60 tab Dapagliflozin Propanediol [Farxiga] 10 mg PO DAILY #30 tab Metoprolol Tartrate [Lopressor] 75 mg PO BID 30 Days #200 tab Magnesium Oxide [Mag-Ox] 400 mg PO TID 7 Days #21 tab Apixaban [Eliquis] 5 mg PO BID #60 tab Loperamide [Imodium] 2 mg PO QID PRN #10 cap PRN Reason: Diarrhea Calcium Carb-Vit D 500Mg-5Mcg [Oscal 500+D 5 Mcg (200 Iu)] 1 each PO BID- W/MEALS #30 tab Famotidine [Pepcid] 20 mg PO BID #14 tab Sacubitril/Valsartan [Entresto 24 mg-26 mg Tablet] 1 each PO BID #60 tab Continue metFORMIN HCL [Glucophage] 1,000 mg PO BID Losartan Potassium [Cozaar] 100 mg PO HS Hydrocortisone 1% Lotion 1 applic TOPICAL TID PRN PRN Reason: Itching INSULIN ASPART (NovoLOG) [NovoLOG (formulary)] 10 - 20 unit SQ HS Dulaglutide [Trulicity] 0.75 mg SQ TU Doxycycline Hyclate 100 mg PO BID Changed Insulin Glargine [Lantus Vial] 45 unit SQ HS #0 Discharge Medication List metFORMIN HCL [Glucophage] 1,000 mg PO BID 12/25/16 [History] Doxycycline Hyclate 100 mg PO BID 02/16/24 [History] Dulaglutide [Trulicity] 0.75 mg SQ TU 02/16/24 [History] Hydrocortisone 1% Lotion 1 applic TOPICAL TID PRN 02/16/24 [History] INSULIN ASPART (NovoLOG) [NovoLOG (formulary)] 10 - 20 unit SQ HS 02/16/24 [History] Losartan Potassium [Cozaar] 100 mg PO HS 02/16/24 [History] Apixaban [Eliquis] 5 mg PO BID #60 tab 02/21/24 [Rx] Amiodarone [Cordarone] 400 mg PO DIRECTED #60 tab 02/22/24 [Rx] Calcium Carb-Vit D 500Mg-5Mcg [Oscal 500+D 5 Mcg (200 Iu)] 1 each PO BID-W/MEALS #30 tab 02/22/24 [Rx] Dapagliflozin Propanediol [Farxiga] 10 mg PO DAILY #30 tab 02/22/24 [Rx] Famotidine [Pepcid] 20 mg PO BID #14 tab 02/22/24 [Rx] Insulin Glargine [Lantus Vial] 45 unit SQ HS #0 02/22/24 [Rx] Loperamide [Imodium] 2 mg PO QID PRN #10 cap 02/22/24 [Rx] Magnesium Oxide [Mag-Ox] 400 mg PO TID 7 Days #21 tab 02/22/24 [Rx] Metoprolol Tartrate [Lopressor] 75 mg PO BID 30 Days #200 tab 02/22/24 [Rx] Sacubitril/Valsartan [Entresto 24 mg-26 mg Tablet] 1 each PO BID #60 tab 02/22/24 [Rx] Follow up Appointment(s)/Referral(s): Selena Simpson MD [STAFF PHYSICIAN] - 1 Week (please call office when open to make follow up appointment) Jose Parker MD [Primary Care Provider] - 02/24/24 1:00 pm (we recommend to check your electrolytes and magnesium level with your doctor in 2-3 days) Ambulatory/Diagnostic Orders: Magnesium [LAB.AMB] Time Frame: 3 Days, Location: None Selected Patient Instructions/Handouts: Heart Healthy Diet (DC) Activity/Diet/Wound Care/Special Instructions: heart healthy diet activity is restricted till you see your doctor we recommend to check your glucose 4 times a day before each meal and at bed time, keep the results in a log book and bring it ot your doctor on your appointment date if your glucose is less than 70 or more than 400 then call 911 and come to em ergency room Continue amiodarone. Taper at discharge: 400 mg twice a day for 1 week then decrease to 200 mg twice a day for 1 week, then decrease to 200 mg daily Discharge Disposition: HOME SELF-CARE
== END 2024-02-22 18:36 | disposition home or self-care (01) | DRG 309 ==
LOC: EC 18:27 → 3SCARD 20:06
PROVIDERS: ADMIT Family Medicine; ATTEND Family Medicine
PROC: 3E033RZ Introduction of Antiarrhythmic into Peripheral Vein, Percutaneous Approach (ICD-10-PCS; principal; 2024-02-16)
DX: I48.0 Paroxysmal atrial fibrillation (principal); C19 Malignant neoplasm of rectosigmoid junction; C78.7 Secondary malignant neoplasm of liver and intrahepatic bile duct; E11.649 Type 2 diabetes mellitus with hypoglycemia without coma; I95.9 Hypotension, unspecified; I35.0 Nonrheumatic aortic (valve) stenosis; I10 Essential (primary) hypertension; Z66 Do not resuscitate; Z79.4 Long term (current) use of insulin; E83.42 Hypomagnesemia; I25.5 Ischemic cardiomyopathy; E78.5 Hyperlipidemia, unspecified; R19.7 Diarrhea, unspecified; Z79.84 Long term (current) use of oral hypoglycemic drugs; Z79.85 Long-term (current) use of injectable non-insulin antidiabetic drugs; Z79.899 Other long term (current) drug therapy; Z86.73 Personal history of transient ischemic attack (TIA), and cerebral infarction without residual deficits; Z96.659 Presence of unspecified artificial knee joint; Z87.891 Personal history of nicotine dependence
CPT/HCPCS: 36415; 71045; 80053; 83036; 83735; 84100; 84439; 84443; 84481; 84484; 85025; 85610; 85730; 87324; 93005; 93306; 94760; 96365; 96366; 96367; 96368; 99291

== ENCOUNTER → 2024-09-21 | Outpatient (CLI) | payer MEDICARE, OTHER ==
--- NOTE | 2024-09-22 16:20 | PE ---
EXAMINATION TYPE: PET CT fusion skull to thigh DATE OF EXAM: 09/21/2024 COMPARISON: No recent pertinent CT Prior PET/CT: 11/25/2023 HISTORY: Colorectal cancer TECHNIQUE: Following the intravenous administration of 13.55 mCi of F-18 FDG, whole body images are performed from the skull base to the midthigh. Images are reviewed on the computer in the coronal, a xial, and sagittal planes. Reconstructed rotating images are created on independent workstation and reviewed on the computer. A localization and attenuation correction CT is performed in conjunction with the PET scan. DLP: 1378.01 mGycm SCAN: Subsequent Blood glucose: 171 mg/dL Average Mediastinum SUV: 1.95 Average Liver SUV: 1.81 FINDINGS: NECK: No abnormal uptake THORAX: No abnormal uptake ABDOMEN: Some minimal residual uptake may be within the caudate lobe, example image 133, SUV 3.96. Th is is smaller than comparison, previous SUV is 8.01. PELVIS: Focal uptake in the rectal region remains present. This has an SUV of 9.65, example image 251 . Residual neoplasm may be present. This is significantly diminished from comparison, previous SUV 12 .6 and more extensive and current visualization. Diffuse uptake is within the gluteal muscles. This extends into the left paraspinal muscles. OSSEOUS STRUCTURES: No suspicious uptake. LOCALIZATION CT: Some soft tissue densities in the subcutaneous tissues anterior right mid pelvis, ex ample image 203 sequence 3. No suspicious perirectal nodes. COMPARISON: Radiotracer uptake within the caudate lobe and within the perirectal region is diminished over the interval. Volume likewise appears diminished over the interval. No suspicious uptake within osseous structures is evident on the current exam. IMPRESSION: 1. Improving appearance of radiotracer uptake. 2. Residual may be within caudate lobe of the liver and in the perirectal regions both of which are d iminished in volume of involvement and SUV. [facility], , 09/22/2024 4:18 PM
== END | disposition home or self-care (01) ==
LOC: RADPETMAIN 08:37
PROVIDERS: ATTEND Internal Medicine Hematology & Oncology
DX: C20 Malignant neoplasm of rectum (principal); K66.8 Other specified disorders of peritoneum
CPT/HCPCS: 78815; A9552

== ENCOUNTER 2025-03-07 13:31 | Inpatient (IN) | payer MEDICARE, OTHER ==
--- NOTE | 2025-03-07 13:56 | ED ---
General Adult HPI - General Chief complaint: Recheck/Abnormal Lab/Rx Stated complaint: abn labs Time Seen by Provider: 03/07/25 13:36 Source: patient, RN/MD, RN notes reviewed Mode of arrival: wheelchair Limitations: no limitations - History of Present Illness Initial comments: Patient is a 70-year-old male present to the emergency department with concerns for dehydration. Patient did see practitioner Bernice washington with oncology and was sent to emergency department. Patient has been having diarrhea for the past 1 to 2 weeks. Patient has decreased appetite and decreased oral intake. Patient was found in office to have hyperglycemia, hypokalemia and hyponatremia. Patient also had ANGELA. Patient admits to feeling dry and dehydrated. Patient is on dual therapy for metastatic rectal cancer - Related Data Home Medications Medication Instructions Recorded Confirmed metFORMIN HCL [Glucophage] 1,000 mg PO BID 12/25/16 03/07/25 Doxycycline Hyclate 100 mg PO BID 02/16/24 03/07/25 Amiodarone [Cordarone] 200 mg PO DAILY 03/07/25 03/07/25 Capecitabine 500mg 2,500 mg PO DIRECTED 03/07/25 03/07/25 Cholestyramine (with Sugar) 4 gm PO Q6H PRN 03/07/25 03/07/25 [Cholestyramine Packet] Hydrocortisone Lotion [Hytone 2.5% 1 applic TOPICAL QID 03/07/25 03/07/25 Lotion] Insulin Aspart [NovoLOG Flexpen] 10 - 20 units SQ TID-W/MEALS 03/07/25 03/07/25 Insulin Glargine (Lantus) [Lantus 50 unit SQ HS 03/07/25 03/07/25 Vial] Loperamide [Imodium] 2 - 4 mg PO QID PRN MDD 16mg 03/07/25 03/07/25 Metoprolol Tartrate [Lopressor] 25 mg PO BID 03/07/25 03/07/25 Sacubitril/Valsartan [Entresto 24 1 tab PO BID 03/07/25 03/07/25 mg-26 mg Tablet] Previous Rx's Medication Instructions Recorded Apixaban [Eliquis] 5 mg PO BID #60 tab 02/21/24 Magnesium Oxide [Mag-Ox] 400 mg PO TID 7 Days #21 tab 02/22/24 Allergies Allergy/AdvReac Type Severity Reaction Status Date / Time guinea pigs Allergy Itching Uncoded 03/07/25 14:34 Review of Systems ROS Statement: Those systems with pertinent positive or pertinent negative responses have been documented in the HPI. ROS Other: All systems not noted in ROS Statement are negative. Constitutional: Denies: fever, chills Eyes: Denies: eye pain ENT: Denies: ear pain Cardiovascular: Denies: chest pain Gastrointestinal: Reports: as per HPI, abdominal pain, nausea, diarrhea Genitourinary: Denies: dysuria Musculoskeletal: Denies: back pain Past Medical History Past Medical History: Cancer, CVA/TIA, Diabetes Mellitus, Hypertension Additional Past Medical History / Comment(s): RECTAL CANCER. History of Any Multi-Drug Resistant Organisms: None Reported Past Surgical History: Joint Replacement, Orthopedic Surgery Additional Past Surgical History / Comment(s): eye surgery,knee replacement, b roken fx and calcium deposits removed Past Anesthesia/Blood Transfusion Reactions: No Reported Reaction Past Psychological History: No Psychological Hx Reported Smoking Status: Former smoker Past Alcohol Use History: None Reported Past Drug Use History: None Reported General Exam Limitations: no limitations General appearance: alert, in no apparent distress Head exam: Present: normocephalic Eye exam: Present: normal appearance ENT exam: Present: mucous membranes dry Neck exam: Present: normal inspection Respiratory exam: Present: normal lung sounds bilaterally Cardiovascular Exam: Present: tachycardia, irregular rhythm GI/Abdominal exam: Present: soft. Absent: tenderness Extremities exam: Present: normal inspection Neurological exam: Present: alert Psychiatric exam: Present: normal affect, normal mood Skin exam: Present: rash (Diffuse maculopapular rash that patient attributes to chemotherapy) Course Vital Signs 03/07/25 03/07/25 03/07/25 13:41 13:52 14:45 Temperature 98.1 F Pulse Rate 53 L 120 H 116 H Respiratory 16 20 18 Rate Blood Pressure 125/103 112/62 120/74 O2 Sat by Pulse 98 95 96 Oximetry EKG Findings - EKG Results: EKG: interpreted by ERMD (Left axis. LVH. Nonspecific ST-T) EKG shows: tachycardia, atrial fibrillation Medical Decision Making - Medical Decision Making Was pt. sent in by a medical professional or institution (, PA, DOCUMENTATION CLERK, urgent care, hospital, or alf...) When possible be specific @ -Patient was sent in by Bernice washington with the oncology office Did you speak to anyone other than the patient for history (EMS, parent, family, police, friend...)? What history was obtained from this source @ -I did speak with Bernice washington prior to transfer for outpatient to the emergency department Did you review nursing and triage notes (agree or disagree)? Why? @ -I reviewed and agree with nursing and triage notes Were old charts reviewed (outside hosp., previous admission, EMS record, old EKG, old radiological studies, urgent care reports/EKG's, alf records)? Report findings @ -Previous labs reviewed including creatinine as discussed with outpatient labs previous creatinine was 1.2 Differential Diagnosis (chest pain, altered mental status, abdominal pain women, abdominal pain men, vaginal bleeding, weakness, fever, dyspnea, syncope, headache, dizziness, GI bleed, back pain, seizure, CVA, palpatations, mental health, musculoskeletal)? @ -Differential Weakness: Hypoglycemia, shock, sepsis, hyponatremia, anemia, infection, DC, ETOH, adverse medicine reaction, overdose, stroke, this is not meant to be an all-inclusive list. EKG interpreted by me (3pts min.). @ -As above X-rays interpreted by me (1pt min.). @ -Chest x-ray shows no acute process CT interpreted by me (1pt min.). @ -None done U/S interpreted by me (1pt. min.). @ -None done What testing was considered but not performed or refused? (CT, X-rays, U/S, labs)? Why? @ -None What meds were considered but not given or refused? Why? @ -None Did you discuss the management of the patient with other professionals (professionals i.e. , PA, DOCUMENTATION CLERK, lab, RT, psych nurse, certified social workers in health care, electric accounting machine operator, teacher, security officer supervisor, assistant case manager)? Give summary @ -Dr. Parker to admit his patient Was smoking cessation discussed for >3mins.? @ -No Was critical care preformed (if so, how long)? @ -No Were there social determinants of health that impacted care today? How? (Homelessness, low income, unemployed, alcoholism, drug addiction, transportation, low edu. Level, literacy, decrease access to med. care, intermediate, rehab)? @ -No Was there de-escalation of care discussed even if they declined (Discuss DNR or withdrawal of care, Hospice)? DNR status @ -No What co-morbidities impacted this encounter? (DM, HTN, Smoking, COPD, CAD, Cancer, CVA, ARF, Chemo, Hep., AIDS, mental health diagnosis, sleep apnea, morbid obesity)? @ -History of diabetes. History of metastatic rectal cancer Was patient admitted / discharged? Hospital course, mention meds given and route, prescriptions, significant lab abnormalities, going to OR and other pertinent info. @ -Patient presents with concerns for dehydration. Patient on chemotherapy for metastatic rectal cancer. Patient is having diarrhea and dehydrated. Blood sugar high. Patient will be admitted with continued fluids and continued monitoring. Admission orders written. Patient updated. Consults placed Undiagnosed new problem with uncertain prognosis? @ -No Drug Therapy requiring intensive monitoring for toxicity (Heparin, Nitro, Insulin, Cardizem)? @ -No Were any procedures done? @ -No Diagnosis/symptom? @ -Dehydration, hyperglycemia, acute kidney injury Acute, or Chronic, or Acute on Chronic? @ -Acute, acute, acute Uncomplicated (without systemic symptoms) or Complicated (systemic symptoms)? @ -Complicated with hyperglycemia and underlying metastatic rectal cancer Side effects of treatment? @ -No Exacerbation, Progression, or Severe Exacerbation? @ -No Poses a threat to life or bodily function? How? (Chest pain, USA, DC, pneumonia, PE, COPD, DKA, ARF, appy, cholecystitis, CVA, Diverticulitis, Homicidal, S uicidal, threat to staff... and all critical care pts) @ -Threat to renal function - Lab Data Result diagrams: 03/07/25 13:52 03/07/25 13:52 Lab Results 03/07/25 03/07/25 03/07/25 Range/Units 13:52 13:52 13:52 WBC 6.07 (4.50-10.00) 10*3/uL RBC 2.90 L (4.40-5.60) 10*6/uL Hgb 8.5 L (13.0-17.0) g/dL Hct 25.0 L (39.6-50.0) % MCV 86.2 (80.0-97.0) fL MCH 29.3 (27.0-32.0) pg MCHC 34.0 (32.0-37.0) g/dL Plt Count 427 (140-440) 10*3/uL MPV 10.0 (9.5-12.2) fL Immature Gran % (Auto) 9.1 % Immature Gran # 0.55 H (0.00-0.04) 10*3/uL PT 13.6 H (10.0-12.5) sec INR 1.3 H (<1.2) APTT 26.0 (22.0-30.0) sec Sodium 129 L (137-145) mmol/L Potassium 4.1 (3.5-5.1) mmol/L Chloride 97 L (98-107) mmol/L Carbon Dioxide 25 (22-30) mmol/L Anion Gap 7 mmol/L BUN 62 H (9-20) mg/dL Creatinine 2.16 H (0.66-1.25) mg/dL Est GFR (CKD-EPI)AfAm 35 (>60 ml/min/1.73 sqM) Est GFR (CKD-EPI)NonAf 30 (>60 ml/min/1.73 sqM) Glucose 435 H (74-99) mg/dL Plasma Lactic Acid Denzel (0.7-2.0) mmol/L Calcium 7.6 L (8.4-10.2) mg/dL Magnesium 2.8 H (1.6-2.3) mg/dL Total Bilirubin 0.4 (0.2-1.3) mg/dL AST 14 L (17-59) U/L ALT 14 (4-49) U/L Alkaline Phosphatase 90 (38-126) U/L Total Protein 5.5 L (6.3-8.2) g/dL Albumin 2.7 L (3.5-5.0) g/dL Acetone, Qual Negative (Negative) 03/07/25 Range/Units 13:52 WBC (4.50-10.00) 10*3/uL RBC (4.40-5.60) 10*6/uL Hgb (13.0-17.0) g/dL Hct (39.6-50.0) % MCV (80.0-97.0) fL MCH (27.0-32.0) pg MCHC (32.0-37.0) g/dL Plt Count (140-440) 10*3/uL MPV (9.5-12.2) fL Immature Gran % (Auto) % Immature Gran # (0.00-0.04) 10*3/uL PT (10.0-12.5) sec INR (<1.2) APTT (22.0-30.0) sec Sodium (137-145) mmol/L Potassium (3.5-5.1) mmol/L Chloride (98-107) mmol/L Carbon Dioxide (22-30) mmol/L Anion Gap mmol/L BUN (9-20) mg/dL Creatinine (0.66-1.25) mg/dL Est GFR (CKD-EPI)AfAm (>60 ml/min/1.73 sqM) Est GFR (CKD-EPI)NonAf (>60 ml/min/1.73 sqM) Glucose (74-99) mg/dL Plasma Lactic Acid Denzel 1.5 (0.7-2.0) mmol/L Calcium (8.4-10.2) mg/dL Magnesium (1.6-2.3) mg/dL Total Bilirubin (0.2-1.3) mg/dL AST (17-59) U/L ALT (4-49) U/L Alkaline Phosphatase (38-126) U/L Total Protein (6.3-8.2) g/dL Albumin (3.5-5.0) g/dL Acetone, Qual (Negative) Disposition Clinical Impression: Acute kidney injury Disposition: ADMITTED IP TO THIS [facility] Is patient prescribed a controlled substance at d/c from ED?: No Referrals: Jose Parker MD [Primary Care Provider] - 1-2 days Time of Disposition: 15:32
[2025-03-07] MEDS: SODIUM CHLORIDE 0.9% 1,000 ML IV SCH (14:13)
[2025-03-07] MEDS: FAMOTIDINE 20 MG/2 ML VIAL IV STA (14:14)
[2025-03-07 14:18] LABS: HGB 8.5 g/dL (13.0-17.0); MCH 29.3 pg (27.0-32.0); MCV 86.2 fL (80.0-97.0); Platelet Count 427 10*3/uL (140-440); RDW 19.2 % (11.5-14.5); WBC 6.07 10*3/uL (4.50-10.00)
[2025-03-07 14:32] LABS: INR 1.3 (<1.2); Prothrombin Time 13.6 sec (10.0-12.5)
[2025-03-07 14:51] LABS: ALT 14 U/L (4-49); AST 14 U/L (17-59); African American GFR (CKD) 35 (>60 ml/min/1.73 sqM); Albumin 2.7 g/dL (3.5-5.0); Alkaline Phosphatase 90 U/L (38-126); Anion Gap 7 mmol/L; Blood Urea Nitrogen 62 mg/dL (9-20); Calcium 7.6 mg/dL (8.4-10.2); Carbon Dioxide 25 mmol/L (22-30); Chloride 97 mmol/L (98-107); Glucose 435 mg/dL (74-99); Magnesium 2.8 mg/dL (1.6-2.3); Non-African American GFR(CKD) 30 (>60 ml/min/1.73 sqM); Potassium 4.1 mmol/L (3.5-5.1); Sodium 129 mmol/L (137-145); Total Bilirubin 0.4 mg/dL (0.2-1.3); Total Protein 5.5 g/dL (6.3-8.2)
--- NOTE | 2025-03-07 14:57 | XR ---
EXAMINATION TYPE: XR chest 2V DATE OF EXAM: 03/07/2025 2:54 PM COMPARISON: Chest radiographs from 02/16/2024, PET/CT 09/21/2024 TECHNIQUE: XR chest 2V Frontal and lateral views of the chest. CLINICAL INDICATION:Male, 70 years old with history of Weakness; FINDINGS: Lungs/Pleura: There is no evidence of pleural effusion, focal consolidation, or pneumothorax. Pulmonary vascularity: Unremarkable. Heart/mediastinum: Cardiomediastinal silhouette is prominent in size. Atherosclerotic calcifications are seen in the aorta. Musculoskeletal: Multiple level degenerative disc disease changes seen throughout the spine. Other findings: None Lines/Tubes: Right subclavian approach Mediport catheter with distal tip in the high SVC. IMPRESSION: Chronic changes without evidence for acute process. [facility], , 03/07/2025 2:55 PM
[2025-03-07] MEDS ORDERED: DEXTROSE 50% SYRINGE 50 ML IVP PRN ×2 (15:27)
[2025-03-07] MEDS ORDERED: ONDANSETRON 4 MG/2 ML VIAL IVP PRN (15:32)
[2025-03-07] MEDS ORDERED: ACETAMINOPHEN TAB 325 MG TAB PO PRN (15:32)
[2025-03-07] MEDS ORDERED: NALOXONE 0.4 MG/ML 1 ML VIAL IV PRN (15:32)
[2025-03-07] MEDS ORDERED: MAGNESIUM OXIDE 400 MG TAB PO SCH (16:00)
[2025-03-07 16:03] LABS: Band Neutrophils % 24 %; Lymphocytes # (M) 1.52 k/uL (1.0-4.8); Monocytes # (M) 0.36 k/uL (0-1.0); Neutrophils # (M) 4.18 k/uL (1.3-7.7); Neutrophils % (M) 45 %; Nucleated Red Blood Cells 0 /100 WBC (0-0); Total Cells Counted 100
[2025-03-07 17:32] LABS: Glucose,Whole Blood 411 mg/dL (70-110)
[2025-03-07] MEDS: metFORMIN 500 MG TAB PO SCH (18:16)
[2025-03-07] MEDS: INSULIN LISPRO (HumaLOG) 100 UNIT/ML 10 mL VL SQ SCH (18:17)
[2025-03-07] MEDS: HYDROCORTISONE 1% CREAM 30 GM TUBE TOPICAL SCH (18:18)
[2025-03-07 20:12] LABS: Glucose,Whole Blood 276 mg/dL (70-110)
[2025-03-07] MEDS: APIXABAN 5 MG TAB PO SCH (20:19)
[2025-03-07] MEDS: SACUBITRIL/VALSARTAN 24 MG-26 MG TABLET PO SCH (20:19)
[2025-03-07] MEDS: METOPROLOL TARTRATE 25 MG TAB PO SCH (20:19)
[2025-03-07] MEDS ORDERED: ZINC OXIDE PASTE (Z-GUARD) 1 APPLIC TOPICAL PRN (22:37)
[2025-03-08 04:39] LABS: ALT 11 U/L (4-49); AST 14 U/L (17-59); African American GFR (CKD) 43 (>60 ml/min/1.73 sqM); Albumin 2.4 g/dL (3.5-5.0); Albumin/Globulin Ratio 0.9; Alkaline Phosphatase 80 U/L (38-126); Anion Gap 6 mmol/L; Blood Urea Nitrogen 48 mg/dL (9-20); Calcium 7.6 mg/dL (8.4-10.2); Carbon Dioxide 24 mmol/L (22-30); Chloride 103 mmol/L (98-107); Globulin 2.7 g/dL; Glucose 102 mg/dL (74-99); Magnesium 2.2 mg/dL (1.6-2.3); Non-African American GFR(CKD) 37 (>60 ml/min/1.73 sqM); Potassium 3.3 mmol/L (3.5-5.1); Sodium 133 mmol/L (137-145); Total Bilirubin 0.3 mg/dL (0.2-1.3); Total Protein 5.1 g/dL (6.3-8.2)
[2025-03-08] MEDS: CHOLESTYRAMINE (WITH SUGAR) 4 GM PACKET PO PRN (05:07)
[2025-03-08 07:16] LABS: Glucose,Whole Blood 159 mg/dL (70-110)
[2025-03-08] MEDS ORDERED: Potassium Replacement Protocol 1 EACH MISC MISCELLANE PRN (08:02)
[2025-03-08 08:20] LABS: HCT 23.7 % (39.6-50.0); HGB 7.6 g/dL (13.0-17.0); MCH 28.9 pg (27.0-32.0); MCHC 32.1 g/dL (32.0-37.0); MCV 90.1 FL (80.0-97.0); Mean Platelet Volume 10.5 FL (9.5-12.2); NRBC Per 100 WBC 0.05 X 10*3/uL (0.00-0.01); Platelet Count 436 X 10*3/uL (140-440); RBC 2.63 X 10*6/uL (4.40-5.60); RDW 19.9 % (11.5-14.5); WBC 7.14 X 10*3/uL (4.50-10.00)
[2025-03-08] MEDS: AMIODARONE 200 MG TAB PO SCH (08:54)
[2025-03-08] MEDS: PANTOPRAZOLE 40 MG/10 ML VIAL IV SCH (08:55)
[2025-03-08] MEDS: POTASSIUM CHLORIDE ER 20 MEQ TAB.ER PO SCH ×2 (08:56→13:26)
--- NOTE | 2025-03-08 09:02 | P.HPIM ---
History of Present Illness H&P Date: 03/08/25 This is a 70-year-old male who presented to the emergency department with complaints of dehydration. Patient had been seen by oncology and was sent to the emergency department for further evaluation. Patient reportedly has been having diarrhea for the last 1 to 2 weeks along with a decreased appetite and decreased oral intake. Admission labs show ANGELA, hyperglycemia, hypokalemia and hyponatremia. Patient is currently going under treatment for metastatic rectal cancer. Patient seen this morning sitting up in bed resting comfortably. He reports he is feeling slightly better. He still does not have much of an appetite. Further medical history as noted below. Review of Systems Constitutional: Reports poor appetite, Denies chills, Denies fever Cardiovascular: Denies chest pain, Denies dyspnea on exertion Respiratory: Denies cough, Denies dyspnea Gastrointestinal: Reports diarrhea, Denies vomiting Musculoskeletal: Denies arm numbness/tingling, Denies leg numbness/tingling Neurological: Denies headaches, Denies weakness Past Medical History Past Medical History: Atrial Fibrillation, Cancer, CVA/TIA, Diabetes Mellitus, Hypertension Additional Past Medical History / Comment(s): RECTAL CANCER. History of Any Multi-Drug Resistant Organisms: None Reported Past Surgical History: Joint Replacement, Orthopedic Surgery Additional Past Surgical History / Comment(s): eye surgery,knee replacement, broken fx and calcium deposits removed Past Anesthesia/Blood Transfusion Reactions: No Reported Reaction Past Psychological History: No Psychological Hx Reported Smoking Status: Former smoker Past Alcohol Use History: None Reported Additional Past Alcohol Use History / Comment(s): quit 20 yrs ago Past Drug Use History: None Reported Medications and Allergies Home Medications Medication Instructions Recorded Confirmed Type metFORMIN HCL [Glucophage] 1,000 mg PO BID 12/25/16 03/07/25 History Doxycycline Hyclate 100 mg PO BID 02/16/24 03/07/25 History Apixaban [Eliquis] 5 mg PO BID #60 tab 02/21/24 03/07/25 Rx Magnesium Oxide [Mag-Ox] 400 mg PO TID 7 Days #21 tab 02/22/24 03/07/25 Rx Amiodarone [Cordarone] 200 mg PO DAILY 03/07/25 03/07/25 History Capecitabine 500mg 2,500 mg PO DIRECTED 03/07/25 03/07/25 History Cholestyramine (with Sugar) 4 gm PO Q6H PRN 03/07/25 03/07/25 History [Cholestyramine Packet] Hydrocortisone Lotion [Hytone 2.5% 1 applic TOPICAL QID 03/07/25 03/07/25 History Lotion] Insulin Aspart [NovoLOG Flexpen] 10 - 20 units SQ TID-W/MEALS 03/07/25 03/07/25 History Insulin Glargine (Lantus) [Lantus 50 unit SQ HS 03/07/25 03/07/25 History Vial] Loperamide [Imodium] 2 - 4 mg PO QID PRN MDD 16mg 03/07/25 03/07/25 History Metoprolol Tartrate [Lopressor] 25 mg PO BID 03/07/25 03/07/25 History Sacubitril/Valsartan [Entresto 24 1 tab PO BID 03/07/25 03/07/25 History mg-26 mg Tablet] Allergies Allergy/AdvReac Type Severity Reaction Status Date / Time guinea pigs Allergy Itching Uncoded 03/07/25 14:34 Physical Exam Vitals: Vital Signs Temp Pulse Pulse Resp BP BP Pulse Ox 03/08/25 07:47 104/64 03/08/25 07:14 98 F 110 H 18 97/53 98 03/08/25 02:07 98.6 F 75 14 121/78 98 03/07/25 22:09 18 03/07/25 22:00 97.9 F 66 16 108/66 100 03/07/25 21:27 98.1 F 100 18 108/69 99 03/07/25 20:47 109 H 18 91/72 100 03/07/25 18:15 116 H 20 104/82 97 03/07/25 16:40 97.9 F 117 H 20 101/81 99 03/07/25 16:00 116 H 22 101/89 96 03/07/25 14:45 116 H 18 120/74 96 03/07/25 13:52 120 H 20 112/62 95 03/07/25 13:41 98.1 F 53 L 16 125/103 98 Intake and Output 03/07/25 03/08/25 03/08/25 22:59 06:59 14:59 Intake Total 940 Output Total 250 Balance 690 Intake: Oral 940 Output: Urine 250 Other: Voiding Method Urinal # Bowel Movements 2 Weight 120.202 kg - Constitutional General appearance: cooperative, no acute distress - EENT Eyes: PERRLA - Neck Neck: no lymphadenopathy, normal ROM, no rigidity - Respiratory Respiratory: bilateral: CTA - Cardiovascular Heart sounds: normal: S1, S2 - Gastrointestinal General gastrointestinal: hyperactive bowel sounds, soft - Integumentary Integumentary: normal, normal turgor - Psychiatric Psychiatric: A&O x's 3 Results CBC & Chem 7: 03/08/25 03:34 03/08/25 03:34 Labs: Abnormal Lab Results - Last 24 Hours (Table) 03/07/25 03/07/25 03/07/25 Range/Units 13:52 13:52 13:52 RBC 2.90 L (4.40-5.60) 10*6/uL Hgb 8.5 L (13.0-17.0) g/dL Hct 25.0 L (39.6-50.0) % RDW (11.5-14.5) % Immature Gran # 0.55 H (0.00-0.04) 10*3/uL NRBC/100 WBC Diff (0.00-0.01) X 10*3/uL PT 13.6 H (10.0-12.5) sec INR 1.3 H (<1.2) Sodium 129 L (137-145) mmol/L Potassium (3.5-5.1) mmol/L Chloride 97 L (98-107) mmol/L BUN 62 H (9-20) mg/dL Creatinine 2.16 H (0.66-1.25) mg/dL Glucose 435 H (74-99) mg/dL POC Glucose (mg/dL) (70-110) mg/dL Hemoglobin A1c (<=6.0) % Calcium 7.6 L (8.4-10.2) mg/dL Magnesium 2.8 H (1.6-2.3) mg/dL AST 14 L (17-59) U/L Total Protein 5.5 L (6.3-8.2) g/dL Albumin 2.7 L (3.5-5.0) g/dL 03/07/25 03/07/25 03/08/25 Range/Units 17:30 20:11 03:34 RBC (4.40-5.60) 10*6/uL Hgb (13.0-17.0) g/dL Hct (39.6-50.0) % RDW (11.5-14.5) % Immature Gran # (0.00-0.04) 10*3/uL NRBC/100 WBC Diff (0.00-0.01) X 10*3/uL PT (10.0-12.5) sec INR (<1.2) Sodium (137-145) mmol/L Potassium (3.5-5.1) mmol/L Chloride (98-107) mmol/L BUN (9-20) mg/dL Creatinine (0.66-1.25) mg/dL Glucose (74-99) mg/dL POC Glucose (mg/dL) 411 H 276 H (70-110) mg/dL Hemoglobin A1c 10.0 H (<=6.0) % Calcium (8.4-10.2) mg/dL Magnesium (1.6-2.3) mg/dL AST (17-59) U/L Total Protein (6.3-8.2) g/dL Albumin (3.5-5.0) g/dL 03/08/25 03/08/25 03/08/25 Range/Units 03:34 03:34 07:07 RBC 2.63 L (4.40-5.60) 10*6/uL Hgb 7.6 L (13.0-17.0) g/dL Hct 23.7 L (39.6-50.0) % RDW 19.9 H (11.5-14.5) % Immature Gran # (0.00-0.04) 10*3/uL NRBC/100 WBC Diff 0.05 H (0.00-0.01) X 10*3/uL PT (10.0-12.5) sec INR (<1.2) Sodium 133 L (137-145) mmol/L Potassium 3.3 L (3.5-5.1) mmol/L Chloride (98-107) mmol/L BUN 48 H (9-20) mg/dL Creatinine 1.82 H (0.66-1.25) mg/dL Glucose 102 H (74-99) mg/dL POC Glucose (mg/dL) 159 H (70-110) mg/dL Hemoglobin A1c (<=6.0) % Calcium 7.6 L (8.4-10.2) mg/dL Magnesium (1.6-2.3) mg/dL AST 14 L (17-59) U/L Total Protein 5.1 L (6.3-8.2) g/dL Albumin 2.4 L (3.5-5.0) g/dL Thrombosis Risk Factor Assmnt - Choose All That Apply Any of the Below Risk Factors Present?: No Other Risk Factors: Yes Each Risk Factor Represents 2 Points: Age 61-74 years Other congenital or acquired thrombophilia - If yes, enter type in comment: No Thrombosis Risk Factor Assessment Total Risk Factor Score: 2 Thrombosis Risk Factor Assessment Level: Low Risk Assessment and Plan (1) Diabetes Current Visit: Yes Status: Acute Code(s): E11.9 - TYPE 2 DIABETES MELLITUS WITHOUT COMPLICATIONS SNOMED Code(s): 35499140 (2) Acute kidney injury Current Visit: Yes Status: Acute Code(s): N17.9 - ACUTE KIDNEY FAILURE, UNSPECIFIED SNOMED Code(s): 91084936 (3) Colon adenocarcinoma Current Visit: No Status: Acute Priority: High Code(s): C18.9 - MALIGNANT NEOPLASM OF COLON, UNSPECIFIED SNOMED Code(s): 474018796 (4) History of atrial fibrillation Current Visit: Yes Status: Acute Code(s): Z86.79 - PERSONAL HISTORY OF OTHER DISEASES OF THE CIRCULATORY SYSTEM SNOMED Code(s): 431978504 (5) Hypertension Current Visit: Yes Status: Acute Code(s): I10 - ESSENTIAL (PRIMARY) HYPERTENSION SNOMED Code(s): 72475584 (6) Dehydration Current Visit: Yes Status: Acute Code(s): E86.0 - DEHYDRATION SNOMED Code(s): 68654331 Plan: Check CBC and CMP in the morning. Continue home medications. Will decrease home dose of Lantus until patient is eating more. Appreciate input from oncology. Replace potassium per protocol. Patient seen and evaluated by nurse practitioner, physician in agreement with plan.
[2025-03-08 09:07] LABS: Basophils # (M) 0 X 10*3/uL (0.00-0.10); Eosinophils # (M) 0.07 X 10*3/uL (0.04-0.35); Lymphocytes # (M) 0.64 X 10*3/uL (0.90-5.00); Monocytes # (M) 0.93 X 10*3/uL (0.20-1.00); Myelocytes % 1 % (0-0); Neutrophils # (M) 5.43 X 10*3/uL (1.80-7.70); Neutrophils % (M) 76 %; Nucleated Red Blood Cells 2 /100 WBCS
[2025-03-08 12:54] LABS: Glucose,Whole Blood 186 mg/dL (70-110)
[2025-03-08] MEDS: LOPERAMIDE 2 MG CAP PO PRN (12:56)
[2025-03-08 17:36] LABS: Glucose,Whole Blood 325 mg/dL (70-110)
--- NOTE | 2025-03-08 18:03 | P.CONS ---
History of Present Illness - Reason for Consult Consult date: 03/08/25 rectal carcinoma Requesting physician: Ethan Jasso - Chief Complaint ANGELA - History of Present Illness Mr Edwards is a 70 yo male pt of Dr. Benitez with a Hx of rectal carcinoma. Initially present to PCP with c/o BRBPR x 1 year intermittently, progressive for few months prior to presentation. He had new onset constipation. He was referred for GI workup and had a colonoscopy in 03/25/23. A mass was palpated in the distal rectum, close to the anus. There is some bleeding associated with the mass. The colonoscope could only be advanced to the left colon due to poor prep. Presence of the mass was confirmed, and this was biopsied. This revealed invasive grade 2 adenocarcinoma. Staging MRI revealed a T3 tumor that appeared to be abutting the prostate, but not invading it. There was evidence of viet involvement in the mesorectum, and at least 1 extra mesorectal node involvement in the presacral area. The PET scan showed uptake in the primary site and in a few mesorectal nodes. There was also an area of uptake related to the IVC just below the diaphragm. It was not clear if this was a liver lesion. Biomarker testing was negative. MRI of the liver scheduled 2, to evaluate the area of uptake on PET scan, he missed both appts. He was started on FOLFOX on 05/19/23, completing 12 cycles 12/15/23 The patient did not get the MRI of the liver as scheduled because of missing appointments, or rescheduling, he ultimately had it done, showing 2 lesions in the liver, consistent with metastasis, in the dome and the caudate lobe. Vectibix was added with cycle 10 onwards. FOLFOX was stopped after 12 cycles, and Vectibix continued as a single agent. PET scan done after cycle 11 showed diminished uptake in the caudate lobe, and questionable uptake in the lesion in the dome. There was mention of possible uptake in the lower T-spine. He had a treatment delay after cycle 6, because of development of significant cellulitis involving the groin, as well as other infected skin lesions on his lower extremities. He was admitted to the hospital for about 6 days with IV antibiotics. Resumed treatment after completion of his antibiotics and clearance of the infection. He was eventually referred to [facility] to evaluate for surgical resection. He was felt to be a candidate for liver and primary site resection as long as an area of uptake in the thoracic spine was not malignant. Patient had MRI done here that was not felt to be definitive, due to motion artifact. Therefore repeat MRI of the spine was done at [facility] on 01/23/24. This was negative for evidence of malignancy. Seen by colorectal surgery, but during his evaluation was found to be in atrial fibrillation with RVR. According to the physician note, he also admitted to use of methamphetamine. Continued on Vectibix, stated that he would work on quitting methamphetamine use, as well as Suboxone. He was referred to psychiatry, to 2 different offices, but one did not take his insurance, while the other did not provide the requested services. The patient however stated he quit methamphetamines in early 05/15, however he continued on the Suboxone. He was found to have severe aortic stenosis by Car diology, which would make him high risk for surgery. It was suggested to him that he should follow-up with cardiology at [facility] for an opinion, if he is planning on having surgery. It was also confirmed by colorectal surgery that the patient will need a permanent ostomy. Due to the above, the patient was unsure about proceeding with surgery and did not follow up with [facility] since 05/16/24. He was started on Xeloda, 1 week on 1 week off, on 04/17/24. He was taking incorrectly-only one pill twice a day, instead of the calculated dose of 5 pills twice a day. He was subsequently cleared by Cardiology, with a diagnosis of increased, but acceptable, risk. PET scan in 10/15 showed no evidence of progression. The patient was supposed to have an appointment with CRS at [facility] on 10/26/24, but apparently did not go to that appointment because he lost his wallet. The patient did go for his appointment in Nov. He had MRI rectal protocol, and CT of the abdomen performed. MRI findings showed stable-appearing lymph nodes, with continued treatment response at the primary site. The CT of the liver showed stable lesions in the dome, and the caudate lobe, but 2 new suspicious lesions. He is currently admitted with anorexia, abd distension, diarrhea, ANGELA. Denies fever, chills, N,V, chest pain, SOB, abd pain, bleeding. On admit mild/moderate anemia mostly consistent with treatment, BUN 48, creatinine 1.82, potassium 3.3, sodium 133. Patient is being supplemented with electrolytes, being given IV fluids. He states diarrhea better since admit. Review of Systems 10 point ROS is neg except as stated in HPI Past Medical History Past Medical History: Atrial Fibrillation, Cancer, CVA/TIA, Diabetes Mellitus, Hypertension Additional Past Medical History / Comment(s): RECTAL CANCER. History of Any Multi-Drug Resistant Organisms: None Reported Past Surgical History: Joint Replacement, Orthopedic Surgery Additional Past Surgical History / Comment(s): eye surgery,knee replacement, broken fx and calcium deposits removed Past Anesthesia/Blood Transfusion Reactions: No Reported Reaction Past Psychological History: No Psychological Hx Reported Smoking Status: Former smoker Past Alcohol Use History: None Reported Additional Past Alcohol Use History / Comment(s): quit 20 yrs ago Past Drug Use History: None Reported Medications and Allergies Home Medications Medication Instructions Recorded Confirmed Type metFORMIN HCL [Glucophage] 1,000 mg PO BID 12/25/16 03/07/25 History Doxycycline Hyclate 100 mg PO BID 02/16/24 03/07/25 History Apixaban [Eliquis] 5 mg PO BID #60 tab 02/21/24 03/07/25 Rx Magnesium Oxide [Mag-Ox] 400 mg PO TID 7 Days #21 tab 02/22/24 03/07/25 Rx Amiodarone [Cordarone] 200 mg PO DAILY 03/07/25 03/07/25 History Capecitabine 500mg 2,500 mg PO DIRECTED 03/07/25 03/07/25 History Cholestyramine (with Sugar) 4 gm PO Q6H PRN 03/07/25 03/07/25 History [Cholestyramine Packet] Hydrocortisone Lotion [Hytone 2.5% 1 applic TOPICAL QID 03/07/25 03/07/25 History Lotion] Insulin Aspart [NovoLOG Flexpen] 10 - 20 units SQ TID-W/MEALS 03/07/25 03/07/25 History Insulin Glargine (Lantus) [Lantus 50 unit SQ HS 03/07/25 03/07/25 History Vial] Loperamide [Imodium] 2 - 4 mg PO QID PRN MDD 16mg 03/07/25 03/07/25 History Metoprolol Tartrate [Lopressor] 25 mg PO BID 03/07/25 03/07/25 History Sacubitril/Valsartan [Entresto 24 1 tab PO BID 03/07/25 03/07/25 History mg-26 mg Tablet] Allergies Allergy/AdvReac Type Severity Reaction Status Date / Time guinea pigs Allergy Itching Uncoded 03/07/25 14:34 Physical Exam Vitals: Vital Signs Temp Pulse Pulse Resp BP BP Pulse Ox 03/08/25 07:47 104/64 03/08/25 07:14 98 F 110 H 18 97/53 98 03/08/25 02:07 98.6 F 75 14 121/78 98 03/07/25 22:09 18 03/07/25 22:00 97.9 F 66 16 108/66 100 03/07/25 21:27 98.1 F 100 18 108/69 99 03/07/25 20:47 109 H 18 91/72 100 03/07/25 18:15 116 H 20 104/82 97 03/07/25 16:40 97.9 F 117 H 20 101/81 99 03/07/25 16:00 116 H 22 101/89 96 03/07/25 14:45 116 H 18 120/74 96 03/07/25 13:52 120 H 20 112/62 95 03/07/25 13:41 98.1 F 53 L 16 125/103 98 Intake and Output 03/07/25 03/08/25 03/08/25 22:59 06:59 14:59 Intake Total 940 Output Total 250 Balance 690 Intake: Oral 940 Output: Urine 250 Other: Voiding Method Urinal Urinal # Bowel Movements 2 Weight 120.202 kg - Constitutional General appearance: cooperative, no acute distress, obese - EENT Eyes: anicteric sclerae, EOMI ENT: hearing grossly normal, normal oropharynx - Neck Neck: no lymphadenopathy - Respiratory Respiratory: bilateral: CTA - Cardiovascular Rhythm: regular Heart sounds: normal: S1, S2 Abnormal Heart Sounds: no systolic murmur, no diastolic murmur, no rub, no S3 Gallop, no S4 Gallop, no click, no other leg Peripheral Edema: bilateral: None - Gastrointestinal General gastrointestinal: no absent bowel sounds, no decreased bowel sounds, distended, no hepatomegaly, no hyperactive bowel sounds, normal bowel sounds, no organomegaly, no rigid, no scaphoid, soft, no splenomegaly, tenderness, no umbilical hernia, no ventral hernia - Neurologic Neurologic: CNII-XII intact - Musculoskeletal Musculoskeletal: generalized weakness, strength equal bilaterally - Psychiatric Psychiatric: A&O x's 3, appropriate affect, intact judgment & insight Results CBC & Chem 7: 03/08/25 03:34 03/08/25 16:11 Labs: Abnormal Lab Results - Last 24 Hours (Table) 03/07/25 03/07/25 03/07/25 Range/Units 13:52 13:52 13:52 RBC 2.90 L (4.40-5.60) 10*6/uL Hgb 8.5 L (13.0-17.0) g/dL Hct 25.0 L (39.6-50.0) % RDW (11.5-14.5) % Immature Gran # 0.55 H (0.00-0.04) 10*3/uL Lymphocytes # (Manual) (0.90-5.00) X 10*3/uL NRBC/100 WBC Diff (0.00-0.01) X 10*3/uL PT 13.6 H (10.0-12.5) sec INR 1.3 H (<1.2) Sodium 129 L (137-145) mmol/L Potassium (3.5-5.1) mmol/L Chloride 97 L (98-107) mmol/L BUN 62 H (9-20) mg/dL Creatinine 2.16 H (0.66-1.25) mg/dL Glucose 435 H (74-99) mg/dL POC Glucose (mg/dL) (70-110) mg/dL Hemoglobin A1c (<=6.0) % Calcium 7.6 L (8.4-10.2) mg/dL Magnesium 2.8 H (1.6-2.3) mg/dL AST 14 L (17-59) U/L Total Protein 5.5 L (6.3-8.2) g/dL Albumin 2.7 L (3.5-5.0) g/dL 03/07/25 03/07/25 03/08/25 Range/Units 17:30 20:11 03:34 RBC (4.40-5.60) 10*6/uL Hgb (13.0-17.0) g/dL Hct (39.6-50.0) % RDW (11.5-14.5) % Immature Gran # (0.00-0.04) 10*3/uL Lymphocytes # (Manual) (0.90-5.00) X 10*3/uL NRBC/100 WBC Diff (0.00-0.01) X 10*3/uL PT (10.0-12.5) sec INR (<1.2) Sodium (137-145) mmol/L Potassium (3.5-5.1) mmol/L Chloride (98-107) mmol/L BUN (9-20) mg/dL Creatinine (0.66-1.25) mg/dL Glucose (74-99) mg/dL POC Glucose (mg/dL) 411 H 276 H (70-110) mg/dL Hemoglobin A1c 10.0 H (<=6.0) % Calcium (8.4-10.2) mg/dL Magnesium (1.6-2.3) mg/dL AST (17-59) U/L Total Protein (6.3-8.2) g/dL Albumin (3.5-5.0) g/dL 03/08/25 03/08/25 03/08/25 Range/Units 03:34 03:34 07:07 RBC 2.63 L (4.40-5.60) 10*6/uL Hgb 7.6 L (13.0-17.0) g/dL Hct 23.7 L (39.6-50.0) % RDW 19.9 H (11.5-14.5) % Immature Gran # (0.00-0.04) 10*3/uL Lymphocytes # (Manual) 0.64 L (0.90-5.00) X 10*3/uL NRBC/100 WBC Diff 0.05 H (0.00-0.01) X 10*3/uL PT (10.0-12.5) sec INR (<1.2) Sodium 133 L (137-145) mmol/L Potassium 3.3 L (3.5-5.1) mmol/L Chloride (98-107) mmol/L BUN 48 H (9-20) mg/dL Creatinine 1.82 H (0.66-1.25) mg/dL Glucose 102 H (74-99) mg/dL POC Glucose (mg/dL) 159 H (70-110) mg/dL Hemoglobin A1c (<=6.0) % Calcium 7.6 L (8.4-10.2) mg/dL Magnesium (1.6-2.3) mg/dL AST 14 L (17-59) U/L Total Protein 5.1 L (6.3-8.2) g/dL Albumin 2.4 L (3.5-5.0) g/dL Chest x-ray: report reviewed Assessment and Plan (1) Acute kidney injury Current Visit: Yes Status: Acute Priority: High Code(s): N17.9 - ACUTE KIDNEY FAILURE, UNSPECIFIED SNOMED Code(s): 62966980 (2) Diarrhea due to drug Current Visit: Yes Status: Acute Priority: High Code(s): K52.1 - TOXIC GASTROENTERITIS AND COLITIS SNOMED Code(s): 994821974 (3) Dehydration Current Visit: Yes Status: Acute Code(s): E86.0 - DEHYDRATION SNOMED Code(s): 14286298 (4) Colon adenocarcinoma Current Visit: No Status: Chronic Priority: Medium Code(s): C18.9 - MALIGNANT NEOPLASM OF COLON, UNSPECIFIED SNOMED Code(s): 418224515 Plan: Acute kidney injury related to dehydration secondary to diarrhea - Agree with IV fluids. -Patient reports stool is improved, continue antidiarrheals as needed. - Advance diet as tolerated. -Hold oral Xeloda while inpatient. Rectal carcinoma -Diagnosis and treatment as stated in HPI - Hold treatment while inpatient, until symptoms have resolved and renal function back to baseline - Follow-up appointment in the discharge plan Doctor attests: I performed a history and physical examination of this patient, developed impression and plan of care. Discussed with dictator. I agree with dictators note, documented as a scribe.
[2025-03-08 20:15] LABS: Glucose,Whole Blood 253 mg/dL (70-110)
[2025-03-08] MEDS: INSULIN GLARGINE (LANTUS) 100 UNIT/ML SYR SQ SCH (21:44)
[2025-03-09 07:07] LABS: Glucose,Whole Blood 119 mg/dL (70-110)
[2025-03-09 08:29] LABS: ALT 10 U/L (10-49); AST 11 U/L (14-35); Albumin 2.4 g/dL (3.8-4.9); Albumin/Globulin Ratio 0.92 Ratio (1.60-3.17); Alkaline Phosphatase 72 U/L (41-126); BUN/Creat Ratio 23.53 Ratio (12.00-20.00); Blood Urea Nitrogen 35.3 mg/dL (9.0-27.0); Calcium 7.5 mg/dL (8.7-10.3); Carbon Dioxide 20.4 mmol/L (21.6-31.8); Chloride 109 mmol/L (96-109); Globulin 2.6 g/dL (1.6-3.3); Glucose 126 mg/dL (70-110); Potassium 3.9 mmol/L (3.5-5.5); Sodium 138 mmol/L (135-145); Total Bilirubin <0.2 mg/dL (0.3-1.2)
[2025-03-09 08:46] LABS: HCT 23.4 % (39.6-50.0); HGB 7.3 g/dL (13.0-17.0); MCH 28.4 pg (27.0-32.0); MCHC 31.2 g/dL (32.0-37.0); MCV 91.1 FL (80.0-97.0); Mean Platelet Volume 10.1 FL (9.5-12.2); NRBC Per 100 WBC 0.04 X 10*3/uL (0.00-0.01); Platelet Count 478 X 10*3/uL (140-440); RBC 2.57 X 10*6/uL (4.40-5.60); RDW 20.8 % (11.5-14.5); WBC 7.06 X 10*3/uL (4.50-10.00)
[2025-03-09] MEDS: VANCOMYCIN 125 MG CAPSULE PO SCH (10:38)
[2025-03-09 12:21] LABS: Glucose,Whole Blood 238 mg/dL (70-110)
--- NOTE | 2025-03-09 13:41 | XR ---
EXAMINATION TYPE: XR chest 2V DATE OF EXAM: 03/09/2025 1:35 PM COMPARISON: Chest radiographs from 03/07/2025 TECHNIQUE: XR chest 2V Frontal and lateral views of the chest. CLINICAL INDICATION:Male, 70 years old with history of wheezing dyspnea; FINDINGS: Lungs/Pleura: There is no evidence of pleural effusion, focal consolidation, or pneumothorax. Pulmonary vascularity: Unremarkable. Heart/mediastinum: Cardiomediastinal silhouette is prominent in size. Musculoskeletal: No acute osseous pathology. Multilevel degenerative disc disease. Other: right chest Mediport catheter with subclavian approach. Stable position of distal tip in the h igh SVC. IMPRESSION: Chronic changes without evidence for acute process. [facility], , 03/09/2025 1:38 PM
[2025-03-09] MEDS: LACTATED RINGERS 1,000 ML IV SCH (14:15)
[2025-03-09 14:28] VITALS: BMI 35.9
--- NOTE | 2025-03-09 15:18 | P.PN ---
Subjective Progress Note Date: 03/09/25 This is a 70-year-old male who comes in with complaints of diarrhea ongoing for the last 2 to 3 weeks. He is currently being treated by oncology for metastatic rectal cancer. He was found to be C. difficile positive and has been started on oral vancomycin. ID was consulted for further management of antibiotic therapy. Patient was receiving IV fluids noted to have rales on examination a chest x- ray was completed which reveals chronic changes with no acute findings. BNP is mildly elevated at 3500. Because of the continued diarrhea we will continue the patient IV fluids with LR at 100 although he will need to be monitored closely for volume overload as his EF is 35%. With cell count 7.06, hemoglobin 7.3, sodium of 138, BUN of 35.3 creatinine of 1.5. Review of Systems Constitutional: Denied any fatigue denied any fever. Cardio vascular: denied any chest pain, palpitations Gastrointestinal: denied any nausea, vomiting, Reports diarrhea Pulmonary: Denied any shortness of breath cough Neurologic denied any new focal deficits All inpatient medications were reviewed and appropriate changes in these medications as dictated in the interval history and assessment and plan. PHYSICAL EXAMINATION: GENERAL: The patient is alert and oriented x2-3, not in any acute distress. Well developed, well nourished. Obese HEENT: Pupils are round and equally reacting to light. EOMI. No scleral icterus. No conjunctival pallor. Normocephalic, atraumatic. No pharyngeal erythema. No thyromegaly. CARDIOVASCULAR: S1 and S2 present. No murmurs, rubs, or gallops. PULMONARY: Chest is clear to auscultation, no wheezing or crackles. ABDOMEN: Soft, nontender, nondistended, normoactive bowel sounds. No palpable organomegaly. MUSCULOSKELETAL: No joint swelling or deformity. EXTREMITIES: No cyanosis, clubbing, or pedal edema. NEUROLOGICAL: Gross neurological examination did not reveal any focal deficits. SKIN: No rashes. Assessment and Plan Diarrhea secondary to acute c.dif colitis Acute kidney injury, prerenal from dehydration Metastatic rectal cancer paroxysmal atrial fibrillation Hypertension Diabetes Mellitus type 2 Hx ischemic cardiomyopathy EF 35-40%. Hypovolemic hyponatremia GI prophylaxis DVT prophylaxis: Eliquis Plan Add oral vancomycin and ID consultation Continue fluids LR at 100, cautious hydration as EF 35%. Continue questran and imodium Oncology following Repeat labs in the AM PT/OT consultation The impression and plan of care has been dictated by Betsy Perez Nurse Practitioner as directed. Dr. Michael MD I have performed a history and physical examination and medical decision making of this patient, discussed the same with the dictator, and agree with the dictators assessment and plan as written, documented as a scribe. Based on total visit time, I have performed more than 50% of this visit. Objective - Vital Signs Vital signs: Vital Signs Temp 98.2 F 03/09/25 12:57 Pulse 93 03/09/25 12:57 Resp 18 03/09/25 12:57 BP 101/57 03/09/25 12:57 Pulse Ox 99 03/09/25 12:57 FiO2 Intake & Output 03/08/25 03/09/25 03/09/25 18:59 06:59 18:59 Intake Total 1460 Output Total 500 Balance 960 Weight 120.202 kg Intake: Oral 1460 Output: Urine 500 Other: Voiding Method Urinal Bedside Commode Bedside Commode Urinal Urinal # Voids 2 2 # Bowel Movements 1 1 - Labs CBC & Chem 7: 03/09/25 04:33 03/09/25 04:33 Labs: Abnormal Lab Results - Last 24 Hours (Table) 03/08/25 03/08/25 03/08/25 Range/Units 17:33 20:13 21:44 RBC (4.40-5.60) X 10*6/uL Hgb (13.0-17.0) g/dL Hct (39.6-50.0) % MCHC (32.0-37.0) g/dL RDW (11.5-14.5) % Plt Count (140-440) X 10*3/uL NRBC/100 WBC Diff (0.00-0.01) X 10*3/uL Carbon Dioxide (21.6-31.8) mmol/L BUN (9.0-27.0) mg/dL Est GFR (CKD-EPI) (>=60) BUN/Creatinine Ratio (12.00-20.00) Ratio Glucose (70-110) mg/dL POC Glucose (mg/dL) 325 H 253 H (70-110) mg/dL Calcium (8.7-10.3) mg/dL Total Bilirubin (0.3-1.2) mg/dL AST (14-35) U/L Total Protein (6.2-8.2) g/dL Albumin (3.8-4.9) g/dL Albumin/Globulin Ratio (1.60-3.17) Ratio C. difficile (EIA) Intrp Positive A (Negative) 03/09/25 03/09/25 03/09/25 Range/Units 04:33 04:33 07:01 RBC 2.57 L (4.40-5.60) X 10*6/uL Hgb 7.3 L (13.0-17.0) g/dL Hct 23.4 L (39.6-50.0) % MCHC 31.2 L (32.0-37.0) g/dL RDW 20.8 H (11.5-14.5) % Plt Count 478 H (140-440) X 10*3/uL NRBC/100 WBC Diff 0.04 H (0.00-0.01) X 10*3/uL Carbon Dioxide 20.4 L (21.6-31.8) mmol/L BUN 35.3 H (9.0-27.0) mg/dL Est GFR (CKD-EPI) 50 L (>=60) BUN/Creatinine Ratio 23.53 H (12.00-20.00) Ratio Glucose 126 H (70-110) mg/dL POC Glucose (mg/dL) 119 H (70-110) mg/dL Calcium 7.5 L (8.7-10.3) mg/dL Total Bilirubin <0.2 L (0.3-1.2) mg/dL AST 11 L (14-35) U/L Total Protein 5.0 L (6.2-8.2) g/dL Albumin 2.4 L (3.8-4.9) g/dL Albumin/Globulin Ratio 0.92 L (1.60-3.17) Ratio C. difficile (EIA) Intrp (Negative) 03/09/25 Range/Units 12:15 RBC (4.40-5.60) X 10*6/uL Hgb (13.0-17.0) g/dL Hct (39.6-50.0) % MCHC (32.0-37.0) g/dL RDW (11.5-14.5) % Plt Count (140-440) X 10*3/uL NRBC/100 WBC Diff (0.00-0.01) X 10*3/uL Carbon Dioxide (21.6-31.8) mmol/L BUN (9.0-27.0) mg/dL Est GFR (CKD-EPI) (>=60) BUN/Creatinine Ratio (12.00-20.00) Ratio Glucose (70-110) mg/dL POC Glucose (mg/dL) 238 H (70-110) mg/dL Calcium (8.7-10.3) mg/dL Total Bilirubin (0.3-1.2) mg/dL AST (14-35) U/L Total Protein (6.2-8.2) g/dL Albumin (3.8-4.9) g/dL Albumin/Globulin Ratio (1.60-3.17) Ratio C. difficile (EIA) Intrp (Negative) Assessment and Plan Time with Patient: Less than 30
[2025-03-09 17:27] LABS: Glucose,Whole Blood 262 mg/dL (70-110)
--- NOTE | 2025-03-09 18:50 | P.PN ---
Subjective Progress Note Date: 03/09/25 At todays f/u, diarrhea persisting. C-diff testing positive. Vancomycin started. Pt afebrile. Kidney function improving Objective - Vital Signs Vital signs: Vital Signs Temp 98.7 F 03/09/25 07:39 Pulse 78 03/09/25 07:39 Resp 17 03/09/25 07:39 BP 116/81 03/09/25 07:39 Pulse Ox 96 03/09/25 07:39 FiO2 Intake & Output 03/08/25 03/09/25 03/09/25 18:59 06:59 18:59 Intake Total 1460 Output Total 500 Balance 960 Intake: Oral 1460 Output: Urine 500 Other: Voiding Method Urinal Bedside Commode Bedside Commode Urinal Urinal # Voids 2 2 # Bowel Movements 1 1 - Constitutional General appearance: Present: average body habitus, no acute distress - EENT Eyes: Present: anicteric sclerae, EOMI ENT: Present: hearing grossly normal - Respiratory Details: breathing is even and unlabored - Cardiovascular Details: skin warm and dry - Gastrointestinal General gastrointestinal: Present: soft. Absent: tenderness - Integumentary Integumentary: Present: rash - Psychiatric Psychiatric: Present: A&O x's 3 - Labs CBC & Chem 7: 03/09/25 04:33 03/09/25 04:33 Labs: Abnormal Lab Results - Last 24 Hours (Table) 03/08/25 03/08/25 03/08/25 Range/Units 17:33 20:13 21:44 RBC (4.40-5.60) X 10*6/uL Hgb (13.0-17.0) g/dL Hct (39.6-50.0) % MCHC (32.0-37.0) g/dL RDW (11.5-14.5) % Plt Count (140-440) X 10*3/uL NRBC/100 WBC Diff (0.00-0.01) X 10*3/uL Carbon Dioxide (21.6-31.8) mmol/L BUN (9.0-27.0) mg/dL Est GFR (CKD-EPI) (>=60) BUN/Creatinine Ratio (12.00-20.00) Ratio Glucose (70-110) mg/dL POC Glucose (mg/dL) 325 H 253 H (70-110) mg/dL Calcium (8.7-10.3) mg/dL Total Bilirubin (0.3-1.2) mg/dL AST (14-35) U/L Total Protein (6.2-8.2) g/dL Albumin (3.8-4.9) g/dL Albumin/Globulin Ratio (1.60-3.17) Ratio C. difficile (EIA) Intrp Positive A (Negative) 03/09/25 03/09/25 03/09/25 Range/Units 04:33 04:33 07:01 RBC 2.57 L (4.40-5.60) X 10*6/uL Hgb 7.3 L (13.0-17.0) g/dL Hct 23.4 L (39.6-50.0) % MCHC 31.2 L (32.0-37.0) g/dL RDW 20.8 H (11.5-14.5) % Plt Count 478 H (140-440) X 10*3/uL NRBC/100 WBC Diff 0.04 H (0.00-0.01) X 10*3/uL Carbon Dioxide 20.4 L (21.6-31.8) mmol/L BUN 35.3 H (9.0-27.0) mg/dL Est GFR (CKD-EPI) 50 L (>=60) BUN/Creatinine Ratio 23.53 H (12.00-20.00) Ratio Glucose 126 H (70-110) mg/dL POC Glucose (mg/dL) 119 H (70-110) mg/dL Calcium 7.5 L (8.7-10.3) mg/dL Total Bilirubin <0.2 L (0.3-1.2) mg/dL AST 11 L (14-35) U/L Total Protein 5.0 L (6.2-8.2) g/dL Albumin 2.4 L (3.8-4.9) g/dL Albumin/Globulin Ratio 0.92 L (1.60-3.17) Ratio C. difficile (EIA) Intrp (Negative) 03/09/25 Range/Units 12:15 RBC (4.40-5.60) X 10*6/uL Hgb (13.0-17.0) g/dL Hct (39.6-50.0) % MCHC (32.0-37.0) g/dL RDW (11.5-14.5) % Plt Count (140-440) X 10*3/uL NRBC/100 WBC Diff (0.00-0.01) X 10*3/uL Carbon Dioxide (21.6-31.8) mmol/L BUN (9.0-27.0) mg/dL Est GFR (CKD-EPI) (>=60) BUN/Creatinine Ratio (12.00-20.00) Ratio Glucose (70-110) mg/dL POC Glucose (mg/dL) 238 H (70-110) mg/dL Calcium (8.7-10.3) mg/dL Total Bilirubin (0.3-1.2) mg/dL AST (14-35) U/L Total Protein (6.2-8.2) g/dL Albumin (3.8-4.9) g/dL Albumin/Globulin Ratio (1.60-3.17) Ratio C. difficile (EIA) Intrp (Negative) Assessment and Plan (1) C. difficile diarrhea Current Visit: Yes Status: Acute Priority: High Code(s): A04.72 - ENTEROCOLITIS D/T CLOSTRIDIUM DIFFICILE, NOT SPCF RECUR SNOMED Code(s): 6934593711197 (2) Acute kidney injury Current Visit: Yes Status: Acute Priority: High Code(s): N17.9 - ACUTE KIDNEY FAILURE, UNSPECIFIED SNOMED Code(s): 21121119 (3) Dehydration Current Visit: Yes Status: Acute Priority: High Code(s): E86.0 - DEHYDRATION SNOMED Code(s): 26195553 (4) Colon adenocarcinoma Current Visit: Yes Status: Chronic Priority: Medium Code(s): C18.9 - MALIGNANT NEOPLASM OF COLON, UNSPECIFIED SNOMED Code(s): 711267294 Plan: Acute kidney injury related to dehydration secondary to diarrhea -Patient reports stool has improved, but diarrhea is persisting. - Advance diet as tolerated. Transportation Economics Teacher consulted - Hold oral Xeloda while inpatient. C-diff: -Stool positive for C-diff -Vancomycin started Rectal carcinoma -Diagnosis and treatment as stated in HPI - Hold treatment while inpatient, until symptoms have resolved and renal function back to baseline - Follow-up appointment in the discharge plan Doctor attests: I performed a history and physical examination of this patient, developed impression and plan of care. Discussed with dictator. I agree with dictators note, documented as a scribe.
[2025-03-09 20:19] LABS: Glucose,Whole Blood 231 mg/dL (70-110)
--- NOTE | 2025-03-09 23:24 | P.CONS ---
History of Present Illness - Reason for Consult Consult date: 03/09/25 C. difficile Requesting physician: Betsy Perez - Chief Complaint Diarrhea x 1 week - History of Present Illness Patient is a 70-year-old male with a past medical history significant for atrial fibrillation rectal cancer CVA TIA diabetes mellitus and hypertension presenting to the hospital 2 days ago for evaluation of and concern for dehydration patient was evaluated in the oncology clinic for the patient was complaining of diarrhea that has been going on for 1 to 2 weeks with multiple episode of loose stool almost 15/day no blood or mucus in the stool he did have decreased appetite and decreased oral intake and the patient was noticed to be hypokalemic and hyponatremic in the oncology office. Patient was sent to the ER on presentation to the hospital the patient was afebrile and no fever have been called subsequently patient was tachycardic but not hypotensive or hypoxic no need for supplemental oxygen patient did have white count of 7.06 with a left shift BUN and creatinine has been elevated patient did tested positive for C. difficile patient did have a chest x-ray chronic changes without evidence for acute process patient was started on oral vancomycin infectious disease was consulted for further management of antibiotic therapy Review of Systems Positive point and negatives has been mentioned in the HPI, complete review of systems was performed and all other systems are negative Past Medical History Past Medical History: Atrial Fibrillation, Cancer, CVA/TIA, Diabetes Mellitus, Hypertension Additional Past Medical History / Comment(s): RECTAL CANCER. History of Any Multi-Drug Resistant Organisms: None Reported Past Surgical History: Joint Replacement, Orthopedic Surgery Additional Past Surgical History / Comment(s): eye surgery,knee replacement, broken fx and calcium deposits removed Past Anesthesia/Blood Transfusion Reactions: No Reported Reaction Past Psychological History: No Psychological Hx Reported Smoking Status: Former smoker Past Alcohol Use History: None Reported Additional Past Alcohol Use History / Comment(s): quit 20 yrs ago Past Drug Use History: None Reported Medications and Allergies Home Medications Medication Instructions Recorded Confirmed Type metFORMIN HCL [Glucophage] 1,000 mg PO BID 12/25/16 03/07/25 History Doxycycline Hyclate 100 mg PO BID 02/16/24 03/07/25 History Apixaban [Eliquis] 5 mg PO BID #60 tab 02/21/24 03/07/25 Rx Magnesium Oxide [Mag-Ox] 400 mg PO TID 7 Days #21 tab 02/22/24 03/07/25 Rx Amiodarone [Cordarone] 200 mg PO DAILY 03/07/25 03/07/25 History Capecitabine 500mg 2,500 mg PO DIRECTED 03/07/25 03/07/25 History Cholestyramine (with Sugar) 4 gm PO Q6H PRN 03/07/25 03/07/25 History [Cholestyramine Packet] Hydrocortisone Lotion [Hytone 2.5% 1 applic TOPICAL QID 03/07/25 03/07/25 History Lotion] Insulin Aspart [NovoLOG Flexpen] 10 - 20 units SQ TID-W/MEALS 03/07/25 03/07/25 History Insulin Glargine (Lantus) [Lantus 50 unit SQ HS 03/07/25 03/07/25 History Vial] Loperamide [Imodium] 2 - 4 mg PO QID PRN MDD 16mg 03/07/25 03/07/25 History Metoprolol Tartrate [Lopressor] 25 mg PO BID 03/07/25 03/07/25 History Sacubitril/Valsartan [Entresto 24 1 tab PO BID 03/07/25 03/07/25 History mg-26 mg Tablet] Allergies Allergy/AdvReac Type Severity Reaction Status Date / Time guinea pigs Allergy Itching Uncoded 03/07/25 14:34 Physical Exam Vitals: Vital Signs Temp Pulse Resp BP BP Pulse Ox 03/09/25 07:39 98.7 F 78 17 116/81 96 03/09/25 01:10 98.3 F 122 H 16 105/66 96 03/08/25 21:23 92/58 03/08/25 20:00 97.9 F 88 18 87/53 92 L 03/08/25 19:05 97.9 F 88 19 87/53 03/08/25 14:00 98.7 F 101 H 19 111/53 97 Intake and Output 03/08/25 03/09/25 03/09/25 22:59 06:59 14:59 Intake Total 1460 Output Total 500 Balance 960 Intake: Oral 1460 Output: Urine 500 Other: Voiding Method Bedside Commode Bedside Commode Urinal Urinal # Voids 2 2 # Bowel Movements 1 1 GENERAL DESCRIPTION: Elderly male lying in bed, no distress. No tachypnea or accessory muscle of respiration use. HEENT: Shows Pallor , no scleral icterus. Oral mucous membrane is dry. NECK: Trachea central, no thyromegaly. LUNGS: Unlabored breathing. Clear to auscultation anteriorly. No wheeze or crackle. HEART: S1, S2, regular rate and rhythm. No loud murmur ABDOMEN: Soft, mild distention but no tenderness EXTREMITIES: No edema of feet. SKIN: No rash, no masses palpable. NEUROLOGICAL: The patient is awake, alert, oriented x3, mood and affect normal. Results CBC & Chem 7: 03/09/25 04:33 03/09/25 04:33 Labs: Abnormal Lab Results - Last 24 Hours (Table) 03/08/25 03/08/25 03/08/25 Range/Units 11:34 12:49 17:33 RBC (4.40-5.60) X 10*6/uL Hgb (13.0-17.0) g/dL Hct (39.6-50.0) % MCHC (32.0-37.0) g/dL RDW (11.5-14.5) % Plt Count (140-440) X 10*3/uL NRBC/100 WBC Diff (0.00-0.01) X 10*3/uL Potassium 3.3 L (3.5-5.1) mmol/L Carbon Dioxide (21.6-31.8) mmol/L BUN (9.0-27.0) mg/dL Est GFR (CKD-EPI) (>=60) BUN/Creatinine Ratio (12.00-20.00) Ratio Glucose (70-110) mg/dL POC Glucose (mg/dL) 186 H 325 H (70-110) mg/dL Calcium (8.7-10.3) mg/dL Total Bilirubin (0.3-1.2) mg/dL AST (14-35) U/L Total Protein (6.2-8.2) g/dL Albumin (3.8-4.9) g/dL Albumin/Globulin Ratio (1.60-3.17) Ratio C. difficile (EIA) Intrp (Negative) 03/08/25 03/08/25 03/09/25 Range/Units 20:13 21:44 04:33 RBC 2.57 L (4.40-5.60) X 10*6/uL Hgb 7.3 L (13.0-17.0) g/dL Hct 23.4 L (39.6-50.0) % MCHC 31.2 L (32.0-37.0) g/dL RDW 20.8 H (11.5-14.5) % Plt Count 478 H (140-440) X 10*3/uL NRBC/100 WBC Diff 0.04 H (0.00-0.01) X 10*3/uL Potassium (3.5-5.1) mmol/L Carbon Dioxide (21.6-31.8) mmol/L BUN (9.0-27.0) mg/dL Est GFR (CKD-EPI) (>=60) BUN/Creatinine Ratio (12.00-20.00) Ratio Glucose (70-110) mg/dL POC Glucose (mg/dL) 253 H (70-110) mg/dL Calcium (8.7-10.3) mg/dL Total Bilirubin (0.3-1.2) mg/dL AST (14-35) U/L Total Protein (6.2-8.2) g/dL Albumin (3.8-4.9) g/dL Albumin/Globulin Ratio (1.60-3.17) Ratio C. difficile (EIA) Intrp Positive A (Negative) 03/09/25 03/09/25 Range/Units 04:33 07:01 RBC (4.40-5.60) X 10*6/uL Hgb (13.0-17.0) g/dL Hct (39.6-50.0) % MCHC (32.0-37.0) g/dL RDW (11.5-14.5) % Plt Count (140-440) X 10*3/uL NRBC/100 WBC Diff (0.00-0.01) X 10*3/uL Potassium (3.5-5.1) mmol/L Carbon Dioxide 20.4 L (21.6-31.8) mmol/L BUN 35.3 H (9.0-27.0) mg/dL Est GFR (CKD-EPI) 50 L (>=60) BUN/Creatinine Ratio 23.53 H (12.00-20.00) Ratio Glucose 126 H (70-110) mg/dL POC Glucose (mg/dL) 119 H (70-110) mg/dL Calcium 7.5 L (8.7-10.3) mg/dL Total Bilirubin <0.2 L (0.3-1.2) mg/dL AST 11 L (14-35) U/L Total Protein 5.0 L (6.2-8.2) g/dL Albumin 2.4 L (3.8-4.9) g/dL Albumin/Globulin Ratio 0.92 L (1.60-3.17) Ratio C. difficile (EIA) Intrp (Negative) Assessment and Plan (1) C. difficile colitis Current Visit: Yes Status: Acute Code(s): A04.72 - ENTEROCOLITIS D/T CLOSTRIDIUM DIFFICILE, NOT SPCF RECUR SNOMED Code(s): 361773879 Plan: 1patient presented hospital with diarrhea and abdominal pain and this patient has been diagnosed with a C. difficile colitis patient did have history of rectal cancer on chemotherapy likely predisposing factor for his C. difficile colitis 2-patient will be treated with oral vancomycin and Questran as needed for symptomatic relief and will watch his clinical course closely 3-Avoid antimotility agent 4-contact isolation We will follow on clinical condition and cultures to further adjust medication if needed Thank you for this consultation we will follow the patient along with you Dictation was produced using [employer] dictation software. please excuse any g rammatical, word or spelling errors. Time with Patient: Greater than 30
[2025-03-10 07:33] LABS: Glucose,Whole Blood 183 mg/dL (70-110)
[2025-03-10 12:36] LABS: Glucose,Whole Blood 236 mg/dL (70-110)
--- NOTE | 2025-03-10 13:06 | P.PN ---
Subjective Progress Note Date: 03/10/25 This is a 70-year-old male who comes in with complaints of diarrhea ongoing for the last 2 to 3 weeks. He is currently being treated by oncology for metastatic rectal cancer. He was found to be C. difficile positive and has been started on oral vancomycin. ID was consulted for further management of antibiotic therapy. Patient was receiving IV fluids noted to have rales on examination a chest x- ray was completed which reveals chronic changes with no acute findings. BNP is mildly elevated at 3500. Because of the continued diarrhea we will continue the patient IV fluids with LR at 100 although he will need to be monitored closely for volume overload as his EF is 35%. With cell count 7.06, hemoglobin 7.3, sodium of 138, BUN of 35.3 creatinine of 1.5. 03/10. Patient seen and examined. Patient had 1 episode of diarrhea this morning. Denies any nausea or vomiting. REVIEW OF SYSTEMS: CONSTITUTIONAL: No fever, no malaise,. CARDIOVASCULAR: No chest pain, no palpitations, no syncope. PULMONARY: No shortness of breath, no cough, GASTROINTESTINAL: No diarrhea, no nausea, no vomiting, no abdominal pain. NEUROLOGICAL: No headaches, no weakness, PHYSICAL EXAMINATION: GENERAL: The patient is alert and oriented x3, chronically ill looking HEENT: Pupils are round and equally reacting to light. EOMI. No scleral icterus. No conjunctival pallor. Normocephalic, atraumatic. No pharyngeal erythema. No thyromegaly. CARDIOVASCULAR: S1 and S2 present. No murmurs, rubs, or gallops. PULMONARY: Chest is clear to auscultation, no wheezing or crackles. ABDOMEN: Soft, nontender, nondistended, normoactive bowel sounds. No palpable organomegaly. MUSCULOSKELETAL: No joint swelling or deformity. EXTREMITIES: No cyanosis, clubbing, or pedal edema. NEUROLOGICAL: Gross neurological examination did not reveal any focal deficits. SKIN: No rashes. Assessment and plan Diarrhea secondary to acute c.dif colitis Acute kidney injury, prerenal from dehydration Metastatic rectal cancer paroxysmal atrial fibrillation Hypertension Diabetes Mellitus type 2 Hx ischemic cardiomyopathy EF 35-40%. Hypovolemic hyponatremia Monitor vital signs Monitor CBC Monitor CMP Continue oral vancomycin Continue Questran and Imodium Continue Eliquis, amiodarone Oncology following ID following Labs and medication were reviewed.. Continue same treatment. Continue with symptomatic treatment. Resume home medication. Monitor labs and vitals. DVT and GI prophylaxis. Further recommendations as per clinical course of the patient Dictation was produced using [employer] dictation software. please excuse any grammatical, word or spelling errors. Objective - Vital Signs Vital signs: Vital Signs Temp 98.7 F 03/10/25 08:00 Pulse 61 03/10/25 08:00 Resp 18 03/10/25 08:00 BP 104/66 03/10/25 08:00 Pulse Ox 94 L 03/10/25 08:00 FiO2 Intake & Output 03/09/25 03/10/25 03/10/25 18:59 06:59 18:59 Intake Total 1320 590 Output Total 500 520 Balance 820 70 Weight 120.202 kg Intake: Oral 1320 590 Output: Urine 500 520 Other: Voiding Method Bedside Commode Urinal Urinal Urinal # Voids 1 3 # Bowel Movements 3 3 - Labs CBC & Chem 7: 03/09/25 04:33 03/09/25 04:33 Labs: Abnormal Lab Results - Last 24 Hours (Table) 03/09/25 03/09/25 03/09/25 Range/Units 12:15 17:24 20:18 POC Glucose (mg/dL) 238 H 262 H 231 H (70-110) mg/dL 03/10/25 Range/Units 07:27 POC Glucose (mg/dL) 183 H (70-110) mg/dL Microbiology - Last 24 Hours (Table) 03/08/25 21:44 Stool Culture - Preliminary Stool
--- NOTE | 2025-03-10 14:31 | P.PN ---
Subjective Progress Note Date: 03/10/25 Principal diagnosis: Reason for follow-up is C. difficile colitis Patient is a 70-year-old male with a past medical history significant for atrial fibrillation rectal cancer CVA TIA diabetes mellitus and hypertension presenting to the hospital for evaluation of and concern for dehydration has been diagnosed with a CT of colitis prompting this consultation. On today's evaluation that is 03/10/2025, patient did not have any fever and denies any chills, patient is breathing comfortably on room air, patient with no chest pain or cough patient abdominal pain is currently controlled no nausea vomiting diarrhea slowed down. No new lab has been obtained today Objective - Vital Signs Vital signs: Vital Signs Temp 98 F 03/10/25 13:09 Pulse 110 H 03/10/25 13:09 Resp 18 03/10/25 13:09 BP 100/60 03/10/25 13:09 Pulse Ox 95 03/10/25 13:09 FiO2 Intake & Output 03/09/25 03/10/25 03/10/25 18:59 06:59 18:59 Intake Total 1320 590 Output Total 500 520 Balance 820 70 Weight 120.202 kg Intake: Oral 1320 590 Output: Urine 500 520 Other: Voiding Method Bedside Commode Urinal Urinal Urinal # Voids 1 3 # Bowel Movements 3 3 - Exam GENERAL DESCRIPTION: An elderly male lying in bed in no distress RESPIRATORY SYSTEM: Unlabored breathing , decreased breath sounds at bases HEART: S1 S2 regular rate and rhythm , ABDOMEN: Soft , mild distention but no tenderness EXTREMITIES: No edema feet - Labs CBC & Chem 7: 03/09/25 04:33 03/09/25 04:33 Labs: Abnormal Lab Results - Last 24 Hours (Table) 03/09/25 03/09/25 03/10/25 Range/Units 17:24 20:18 07:27 POC Glucose (mg/dL) 262 H 231 H 183 H (70-110) mg/dL 03/10/25 Range/Units 12:25 POC Glucose (mg/dL) 236 H (70-110) mg/dL Microbiology - Last 24 Hours (Table) 03/08/25 21:44 Stool Culture - Preliminary Stool Assessment and Plan (1) C. difficile colitis Current Visit: Yes Status: Acute Code(s): A04.72 - ENTEROCOLITIS D/T CLOSTRIDIUM DIFFICILE, NOT SPCF RECUR SNOMED Code(s): 514804950 Plan: 1patient presented hospital with diarrhea and abdominal pain and this patient has been diagnosed with a C. difficile colitis patient did have history of rectal cancer on chemotherapy likely predisposing factor for his C. difficile co litis 2-we will discontinue Lomotil continue with oral vancomycin and Questran as needed for symptomatic relief and will watch his clinical course closely 3contact isolation Dictation was produced using [employer] dictation software. please excuse any grammatical, word or spelling errors. Time with Patient: Less than 30
[2025-03-10 17:29] LABS: Glucose,Whole Blood 148 mg/dL (70-110)
[2025-03-10] MEDS: METOPROLOL TARTRATE 25 MG TAB PO STA (18:53)
[2025-03-10 20:11] LABS: Glucose,Whole Blood 210 mg/dL (70-110)
[2025-03-11 05:42] LABS: Basophils # (A) 0.02 10*3/uL (0.00-0.10); Basophils % (A) 0.4 %; Eosinophils # (A) 0.03 10*3/uL (0.04-0.35); Eosinophils % (A) 0.5 %; HCT 23.4 % (39.6-50.0); HGB 7.7 g/dL (13.0-17.0); Lymphocytes # (A) 1.27 10*3/uL (0.90-5.00); Lymphocytes % (A) 22.8 %; MCH 29.4 pg (27.0-32.0); MCHC 32.9 g/dL (32.0-37.0); MCV 89.3 fL (80.0-97.0); Mean Platelet Volume 9.9 fL (9.5-12.2); Monocytes # (A) 0.67 10*3/uL (0.20-1.00); Monocytes % (A) 12.1 %; Neutrophils # (A) 3.32 10*3/uL (1.80-7.70); Neutrophils % (A) 59.7 %; RBC 2.62 10*6/uL (4.40-5.60); RDW 21.2 % (11.5-14.5); WBC 5.56 10*3/uL (4.50-10.00)
[2025-03-11 05:45] LABS: ALT 9 U/L (4-49); AST 13 U/L (17-59); African American GFR (CKD) 69 (>60 ml/min/1.73 sqM); Albumin 2.2 g/dL (3.5-5.0); Albumin/Globulin Ratio 0.8; Alkaline Phosphatase 57 U/L (38-126); Anion Gap 5 mmol/L; Blood Urea Nitrogen 19 mg/dL (9-20); Calcium 7.1 mg/dL (8.4-10.2); Carbon Dioxide 20 mmol/L (22-30); Chloride 110 mmol/L (98-107); Globulin 2.6 g/dL; Glucose 194 mg/dL (74-99); Non-African American GFR(CKD) 59 (>60 ml/min/1.73 sqM); Potassium 4.4 mmol/L (3.5-5.1); Sodium 135 mmol/L (137-145); Total Bilirubin 0.4 mg/dL (0.2-1.3); Total Protein 4.8 g/dL (6.3-8.2)
[2025-03-11 05:50] LABS: Platelet Count 338 10*3/uL (140-440)
[2025-03-11 12:08] LABS: Glucose,Whole Blood 188 mg/dL (70-110)
--- NOTE | 2025-03-11 14:20 | P.PN ---
Subjective Progress Note Date: 03/11/25 This is a 70-year-old male who comes in with complaints of diarrhea ongoing for the last 2 to 3 weeks. He is currently being treated by oncology for metastatic rectal cancer. He was found to be C. difficile positive and has been started on oral vancomycin. ID was consulted for further management of antibiotic therapy. Patient was receiving IV fluids noted to have rales on examination a chest x- ray was completed which reveals chronic changes with no acute findings. BNP is mildly elevated at 3500. Because of the continued diarrhea we will continue the patient IV fluids with LR at 100 although he will need to be monitored closely for volume overload as his EF is 35%. With cell count 7.06, hemoglobin 7.3, sodium of 138, BUN of 35.3 creatinine of 1.5. 03/10. Patient seen and examined. Patient had 1 episode of diarrhea this morning. Denies any nausea or vomiting. 03/11. Patient seen and examined. Labs reviewed, WBC 5.53, hemoglobin 7.7, sodium 135, potassium 4.4, BUN 19, creatinine 1.24. Still having diarrhea REVIEW OF SYSTEMS: CONSTITUTIONAL: No fever, no malaise,. CARDIOVASCULAR: No chest pain, no palpitations, no syncope. PULMONARY: No shortness of breath, no cough, GASTROINTESTINAL: No diarrhea, no nausea, no vomiting, no abdominal pain. NEUROLOGICAL: No headaches, no weakness, PHYSICAL EXAMINATION: GENERAL: The patient is alert and oriented x3, chronically ill looking HEENT: Pupils are round and equally reacting to light. EOMI. No scleral icterus. No conjunctival pallor. Normocephalic, atraumatic. No pharyngeal erythema. No thyromegaly. CARDIOVASCULAR: S1 and S2 present. No murmurs, rubs, or gallops. PULMONARY: Chest is clear to auscultation, no wheezing or crackles. ABDOMEN: Soft, nontender, nondistended, normoactive bowel sounds. No palpable organomegaly. MUSCULOSKELETAL: No joint swelling or deformity. EXTREMITIES: No cyanosis, clubbing, or pedal edema. NEUROLOGICAL: Gross neurological examination did not reveal any focal deficits. SKIN: No rashes. Assessment and plan Diarrhea secondary to acute c.dif colitis Acute kidney injury, prerenal from dehydration Metastatic rectal cancer paroxysmal atrial fibrillation Hypertension Diabetes Mellitus type 2 Hx ischemic cardiomyopathy EF 35-40%. Hypovolemic hyponatremia Monitor vital signs Monitor CBC Monitor CMP Continue oral vancomycin Continue Questran Continue Eliquis, amiodarone Oncology following ID following Labs and medication were reviewed.. Continue same treatment. Continue with symptomatic treatment. Resume home medication. Monitor labs and vitals. DVT and GI prophylaxis. Further recommendations as per clinical course of the patient Dictation was produced using [employer] dictation software. please excuse any grammatical, word or spelling errors. Objective - Vital Signs Vital signs: Vital Signs Temp 97.9 F 03/11/25 07:21 Pulse 85 03/11/25 07:21 Resp 16 03/11/25 08:00 BP 138/97 03/11/25 07:21 Pulse Ox 98 03/11/25 07:21 FiO2 Intake & Output 03/10/25 03/11/25 03/11/25 18:59 06:59 18:59 Intake Total 1320 840 Balance 1320 840 Intake: Oral 1320 840 Other: Voiding Method Urinal # Voids 400 5 # Bowel Movements 2 5 - Labs CBC & Chem 7: 03/11/25 04:52 03/11/25 04:52 Labs: Abnormal Lab Results - Last 24 Hours (Table) 03/10/25 03/10/25 03/10/25 Range/Units 12:25 17:24 20:10 RBC (4.40-5.60) 10*6/uL Hgb (13.0-17.0) g/dL Hct (39.6-50.0) % RDW (11.5-14.5) % Immature Gran # (0.00-0.04) 10*3/uL Eosinophils # (0.04-0.35) 10*3/uL Sodium (137-145) mmol/L Chloride (98-107) mmol/L Carbon Dioxide (22-30) mmol/L Glucose (74-99) mg/dL POC Glucose (mg/dL) 236 H 148 H 210 H (70-110) mg/dL Calcium (8.4-10.2) mg/dL AST (17-59) U/L Total Protein (6.3-8.2) g/dL Albumin (3.5-5.0) g/dL 03/11/25 03/11/25 Range/Units 04:52 04:52 RBC 2.62 L (4.40-5.60) 10*6/uL Hgb 7.7 L (13.0-17.0) g/dL Hct 23.4 L (39.6-50.0) % RDW 21.2 H (11.5-14.5) % Immature Gran # 0.25 H (0.00-0.04) 10*3/uL Eosinophils # 0.03 L (0.04-0.35) 10*3/uL Sodium 135 L (137-145) mmol/L Chloride 110 H (98-107) mmol/L Carbon Dioxide 20 L (22-30) mmol/L Glucose 194 H (74-99) mg/dL POC Glucose (mg/dL) (70-110) mg/dL Calcium 7.1 L (8.4-10.2) mg/dL AST 13 L (17-59) U/L Total Protein 4.8 L (6.3-8.2) g/dL Albumin 2.2 L (3.5-5.0) g/dL Microbiology - Last 24 Hours (Table) 03/08/25 21:44 Stool Culture - Preliminary Stool
--- NOTE | 2025-03-11 15:40 | P.PN ---
Subjective Progress Note Date: 03/11/25 Principal diagnosis: Reason for follow-up is C. difficile colitis Patient is a 70-year-old male with a past medical history significant for atrial fibrillation rectal cancer CVA TIA diabetes mellitus and hypertension presenting to the hospital for evaluation of and concern for dehydration has been diagnosed with a CT of colitis prompting this consultation. On today's evaluation that is 03/11/2025, Patient is afebrile patient is currently on room air and denies having any shortness of breath, the patient denies any chest pain or cough, the patient denies any nausea vomiting or abdominal pain and diarrhea slowed down. Patient white count is 5.56, creatinine is 1.24 Objective - Vital Signs Vital signs: Vital Signs Temp 97.9 F 03/11/25 07:21 Pulse 85 03/11/25 07:21 Resp 16 03/11/25 08:00 BP 138/97 03/11/25 07:21 Pulse Ox 98 03/11/25 07:21 FiO2 Intake & Output 03/10/25 03/11/25 03/11/25 18:59 06:59 18:59 Intake Total 1320 840 Balance 1320 840 Intake: Oral 1320 840 Other: Voiding Method Urinal # Voids 400 5 # Bowel Movements 2 5 - Exam GENERAL DESCRIPTION: An elderly male lying in bed in no distress RESPIRATORY SYSTEM: Unlabored breathing , decreased breath sounds at bases HEART: S1 S2 regular rate and rhythm , ABDOMEN: Soft , mild distention but no tenderness EXTREMITIES: No edema feet - Labs CBC & Chem 7: 03/11/25 04:52 03/11/25 04:52 Labs: Abnormal Lab Results - Last 24 Hours (Table) 03/10/25 03/10/25 03/11/25 Range/Units 17:24 20:10 04:52 RBC 2.62 L (4.40-5.60) 10*6/uL Hgb 7.7 L (13.0-17.0) g/dL Hct 23.4 L (39.6-50.0) % RDW 21.2 H (11.5-14.5) % Immature Gran # 0.25 H (0.00-0.04) 10*3/uL Eosinophils # 0.03 L (0.04-0.35) 10*3/uL Sodium (137-145) mmol/L Chloride (98-107) mmol/L Carbon Dioxide (22-30) mmol/L Glucose (74-99) mg/dL POC Glucose (mg/dL) 148 H 210 H (70-110) mg/dL Calcium (8.4-10.2) mg/dL AST (17-59) U/L Total Protein (6.3-8.2) g/dL Albumin (3.5-5.0) g/dL 03/11/25 03/11/25 Range/Units 04:52 12:07 RBC (4.40-5.60) 10*6/uL Hgb (13.0-17.0) g/dL Hct (39.6-50.0) % RDW (11.5-14.5) % Immature Gran # (0.00-0.04) 10*3/uL Eosinophils # (0.04-0.35) 10*3/uL Sodium 135 L (137-145) mmol/L Chloride 110 H (98-107) mmol/L Carbon Dioxide 20 L (22-30) mmol/L Glucose 194 H (74-99) mg/dL POC Glucose (mg/dL) 188 H (70-110) mg/dL Calcium 7.1 L (8.4-10.2) mg/dL AST 13 L (17-59) U/L Total Protein 4.8 L (6.3-8.2) g/dL Albumin 2.2 L (3.5-5.0) g/dL Microbiology - Last 24 Hours (Table) 03/08/25 21:44 Stool Culture - Preliminary Stool Assessment and Plan (1) C. difficile colitis Current Visit: Yes Status: Acute Code(s): A04.72 - ENTEROCOLITIS D/T CLOSTRIDIUM DIFFICILE, NOT SPCF RECUR SNOMED Code(s): 119893154 Plan: 1patient presented hospital with diarrhea and abdominal pain and this patient has been diagnosed with a C. difficile colitis patient did have history of recta l cancer on chemotherapy likely predisposing factor for his C. difficile colitis 2-patient slowly clinical problem to continue oral vancomycin to attend a course of therapy and Questran as needed for symptomatic relief 3contact isolation Dictation was produced using [employer] software. please excuse any grammatical, word or spelling errors. Time with Patient: Less than 30
[2025-03-11 17:11] LABS: Glucose,Whole Blood 234 mg/dL (70-110)
[2025-03-11 20:25] LABS: Glucose,Whole Blood 186 mg/dL (70-110)
[2025-03-12 07:36] LABS: Glucose,Whole Blood 110 mg/dL (70-110)
[2025-03-12 08:21] VITALS: RESP 18
[2025-03-12] MEDS ORDERED: CAPECITABINE PO SCH (09:00)
[2025-03-12 12:31] LABS: Glucose,Whole Blood 224 mg/dL (70-110)
[2025-03-12 13:07] VITALS: BP 98/66; PULSE 117; TEMP 98.8
--- NOTE | 2025-03-13 14:10 | P.PN ---
Subjective Progress Note Date: 03/12/25 Principal diagnosis: Reason for follow-up is C. difficile colitis Patient is a 70-year-old male with a past medical history significant for atrial fibrillation rectal cancer CVA TIA diabetes mellitus and hypertension presenting to the hospital for evaluation of and concern for dehydration has been diagnosed with a CT of colitis prompting this consultation. On today's evaluation that is 03/12/2025, patient has been afebrile, patient is breathing comfortably and is currently on room air, patient denies having any chest pain and cough, patient denies nausea vomiting or abdominal pain and diarrhea has slowed on to have soft bowel movement. No new lab has been obtained today Objective - Vital Signs Vital signs: Vital Signs Temp 97.6 F 03/12/25 08:00 Pulse 116 H 03/12/25 08:00 Resp 18 03/12/25 08:00 BP 98/67 03/12/25 08:00 Pulse Ox 97 03/12/25 08:00 FiO2 Intake & Output 03/11/25 03/12/25 03/12/25 18:59 06:59 18:59 Intake Total 590 240 Balance 590 240 Intake: Oral 590 240 Other: Voiding Method Urinal # Voids 5 2 # Bowel Movements 7 2 - Exam GENERAL DESCRIPTION: An elderly male lying in bed in no distress RESPIRATORY SYSTEM: Unlabored breathing , decreased breath sounds at bases HEART: S1 S2 regular rate and rhythm , ABDOMEN: Soft , mild distention but no tenderness EXTREMITIES: No edema feet - Labs CBC & Chem 7: 03/11/25 04:52 03/11/25 04:52 Labs: Abnormal Lab Results - Last 24 Hours (Table) 03/11/25 03/11/25 03/12/25 Range/Units 17:10 20:23 12:30 POC Glucose (mg/dL) 234 H 186 H 224 H (70-110) mg/dL Microbiology - Last 24 Hours (Table) 03/08/25 21:44 Stool Culture - Final Stool Assessment and Plan (1) C. difficile colitis Status: Acute Code(s): A04.72 - ENTEROCOLITIS D/T CLOSTRIDIUM DIFFICILE, NOT SPCF RECUR SNOMED Code(s): 344692784 Plan: 1patient presented hospital with diarrhea and abdominal pain and this patient has been diagnosed with a C. difficile colitis patient did have history of rectal cancer on chemotherapy likely predisposing factor for his C. difficile colitis 2-patient has shown improvement in the patient did have resolution of his diarrhea he will finish therapy with a 10-day course of oral vancomycin and Questran as needed discussed with the SOCIAL MEDIA COMMUNITY MANAGER for covering admitting team Dictation was produced using [employer] dictation software. please excuse any grammatical, word or spelling errors. Time with Patient: Less than 30
== END 2025-03-12 15:42 | disposition home health service (06) | DRG 372 ==
LOC: EC 13:31 → 5NMEDONC 15:32 → 3SCARD 16:18 → 5NMEDONC 21:00
PROVIDERS: ADMIT Family Medicine; ATTEND Family Medicine
DX: A04.72 Enterocolitis due to Clostridium difficile, not specified as recurrent (principal); C20 Malignant neoplasm of rectum; K52.1 Toxic gastroenteritis and colitis; E87.1 Hypo-osmolality and hyponatremia; N17.9 Acute kidney failure, unspecified; E86.0 Dehydration; D63.0 Anemia in neoplastic disease; I48.0 Paroxysmal atrial fibrillation; E11.65 Type 2 diabetes mellitus with hyperglycemia; I10 Essential (primary) hypertension; Z79.4 Long term (current) use of insulin; E86.1 Hypovolemia; T45.1X5A Adverse effect of antineoplastic and immunosuppressive drugs, initial encounter; E87.6 Hypokalemia; Z79.84 Long term (current) use of oral hypoglycemic drugs; Z79.899 Other long term (current) drug therapy; Z91.048 Other nonmedicinal substance allergy status; Z87.891 Personal history of nicotine dependence; Z79.01 Long term (current) use of anticoagulants; Z86.73 Personal history of transient ischemic attack (TIA), and cerebral infarction without residual deficits
CPT/HCPCS: 36415; 71046; 80053; 82009; 83036; 83605; 83735; 83880; 84132; 85025; 85027; 85610; 85730; 87045; 87046; 87324; 93005; 94760; 96361; 96374; 99285

== ENCOUNTER 2025-03-28 09:23 | Emergency (ER) | payer MEDICARE ==
--- NOTE | 2025-03-28 10:44 | ED ---
SOB HPI - General Chief Complaint: Shortness of Breath Stated Complaint: SOB Time Seen by Provider: 03/28/25 10:44 Source: patient, RN notes reviewed, old records reviewed Mode of arrival: wheelchair Limitations: no limitations - History of Present Illness Initial Comments: 70-year-old male presenting to the ER for evaluation of shortness of breath. Patient with a past medical history significant of atrial fibrillation on Eliquis, rectal cancer, diabetes mellitus, hypertension. Patient is not currently on chemotherapy but is scheduled to start soon. He is following up with oncology, . Patient reports over the past year and a half he has had progressively worsening shortness of breath. He states recently he has been having an increase in exertional dyspnea. He is unable to walk 5 to 10 feet without feeling extremely short of breath. He denies home O2 use, orthopnea. He does admit to intermittent bilateral peripheral edema but is unsure of history of heart failure. He denies any chest pain, dizziness, lightheadedness, fevers or chills. Patient is requesting home oxygen. Patient states he was sent by chemotherapy nurse as he complained of shortness of breath to her. Patient was ambulated and found to have low oxygen levels which prompted emergency department visit. - Related Data Home Medications Medication Instructions Recorded Confirmed metFORMIN HCL [Glucophage] 1,000 mg PO BID 12/25/16 03/07/25 Amiodarone [Cordarone] 200 mg PO DAILY 03/07/25 03/07/25 Capecitabine 500mg 2,500 mg PO DIRECTED 03/07/25 03/07/25 Cholestyramine (with Sugar) 4 gm PO Q6H PRN 03/07/25 03/07/25 [Cholestyramine Packet] Hydrocortisone Lotion [Hytone 2.5% 1 applic TOPICAL QID 03/07/25 03/07/25 Lotion] Insulin Aspart [NovoLOG Flexpen] 10 - 20 units SQ TID-W/MEALS 03/07/25 03/07/25 Insulin Glargine (Lantus) [Lantus 50 unit SQ HS 03/07/25 03/07/25 Vial] Metoprolol Tartrate [Lopressor] 25 mg PO BID 03/07/25 03/07/25 Sacubitril/Valsartan [Entresto 24 1 tab PO BID 03/07/25 03/07/25 mg-26 mg Tablet] Previous Rx's Medication Instructions Recorded Apixaban [Eliquis] 5 mg PO BID #60 tab 02/21/24 Magnesium Oxide [Mag-Ox] 400 mg PO TID 7 Days #21 tab 02/22/24 Pantoprazole [Protonix] 40 mg PO DAILY #15 tab 03/12/25 Vancomycin HCl [Vancocin HCl] 125 mg PO Q6H 10 Days #40 cap 03/12/25 Allergies Allergy/AdvReac Type Severity Reaction Status Date / Time guinea pigs Allergy Itching Uncoded 03/28/25 13:14 Review of Systems ROS Statement: Those systems with pertinent positive or pertinent negative responses have been documented in the HPI. ROS Other: All systems not noted in ROS Statement are negative. Past Medical History Past Medical History: Atrial Fibrillation, Cancer, CVA/TIA, Diabetes Mellitus, Hypertension Additional Past Medical History / Comment(s): RECTAL CANCER. History of Any Multi-Drug Resistant Organisms: None Reported Past Surgical History: Joint Replacement, Orthopedic Surgery Additional Past Surgical History / Comment(s): eye surgery,knee replacement, broken fx and calcium deposits removed Past Anesthesia/Blood Transfusion Reactions: No Reported Reaction Past Psychological History: No Psychological Hx Reported Smoking Status: Former smoker Past Alcohol Use History: None Reported Past Drug Use History: None Reported General Exam Limitations: no limitations General appearance: alert, in no apparent distress Respiratory exam: Present: normal lung sounds bilaterally. Absent: respiratory distress, wheezes, rales, rhonchi, stridor Cardiovascular Exam: Present: regular rate, normal rhythm, normal heart sounds. Absent: systolic murmur, diastolic murmur, rubs, gallop, clicks GI/Abdominal exam: Present: soft, normal bowel sounds. Absent: distended, tenderness, guarding, rebound, rigid Extremities exam: Present: full ROM, normal capillary refill, pedal edema (Bilateral pretibial 1+ pitting edema. Skin breakdown noted to anterior left lainez with surrounding erythema.) Neurological exam: Present: alert, oriented X3, CN II-XII intact Skin exam: Present: warm, dry, intact, normal color. Absent: rash Course Vital Signs 03/28/25 03/28/25 03/28/25 09:29 10:30 10:40 Temperature 97.9 F Pulse Rate 71 65 Respiratory 20 19 Rate Blood Pressure 143/79 118/83 O2 Sat by Pulse 92 L 89 L 88 L Oximetry 03/28/25 11:00 Temperature 97.8 F Pulse Rate 69 Respiratory 22 Rate Blood Pressure 138/90 O2 Sat by Pulse 95 Oximetry - Reevaluation(s) Reevaluation #1: 03/28/25 11:54 Patient left AMA Medical Decision Making - Medical Decision Making Was pt. sent in by a medical professional or institution (, PA, JIG WORKER, urgent care, hospital, or longterm...) When possible be specific @ -No Did you speak to anyone other than the patient for history (EMS, parent, family, police, friend...)? What history was obtained from this source @ -No Did you review nursing and triage notes (agree or disagree)? Why? @ -I reviewed and agree with nursing and triage notes Were old charts reviewed (outside hosp., previous admission, EMS record, old EKG, old radiological studies, urgent care reports/EKG's, longterm records)? Report findings @ -ER visit and admission from 03-09-2025. Patient admitted for ANGELA. BUN at that time 3530, troponin undetectable. HGB 7.7. Differential Diagnosis (chest pain, altered mental status, abdominal pain women, abdominal pain men, vaginal bleeding, weakness, fever, dyspnea, syncope, headache, dizziness, GI bleed, back pain, seizure, CVA, palpatations, mental health, musculoskeletal)? @ -Differential Dyspnea:Coronary syndrome, arrhythmia, tamponade, asthma, COPD, pulmonary embolism, pneumonia, pneumothorax, pulmonary effusion, anaphylaxis, diabetic ketoacidosis, flailed chest, pulmonary contusion, diaphragmatic rupture, anemia, neuromuscular, this is not meant to be an all-inclusive list. EKG interpreted by me (3pts min.). @ -As above X-rays interpreted by me (1pt min.). @ -CXR interpreted by me remarkable for pulmonary vascular congestion. CT interpreted by me (1pt min.). @ -None done U/S interpreted by me (1pt. min.). @ -None done What testing was considered but not performed or refused? (CT, X-rays, U/S, labs)? Why? @ -None What meds were considered but not given or refused? Why? @ -IV fluids held given concern of CHF Did you discuss the management of the patient with other professionals (professionals i.e. , PA, JIG WORKER, lab, RT, psych nurse, social service coordinator, investigative research specialist, teacher, public records officer, caser shoe parts)? Give summary @ -No Was smoking cessation discussed for >3mins.? @ -No Was critical care preformed (if so, how long)? @ -No Were there social determinants of health that impacted care today? How? (Homelessness, low income, unemployed, alcoholism, drug addiction, transportation, low edu. Level, literacy, decrease access to med. care, senior living, rehab)? @ -No Was there de-escalation of care discussed even if they declined (Discuss DNR or withdrawal of care, Hospice)? DNR status @ -No What co-morbidities impacted this encounter? (DM, HTN, Smoking, COPD, CAD, Cancer, CVA, ARF, Chemo, Hep., AIDS, mental health diagnosis, sleep apnea, m orbid obesity)? @ -Atrial fibrillation on Eliquis, rectal cancer, history of TIA/CVA, diabetes mellitus, hypertension Was patient admitted / discharged? Hospital course, mention meds given and route, prescriptions, significant lab abnormalities, going to OR and other pertinent info. @ -Patient left AGAINST MEDICAL ADVICE. 70-year-old male presented the ER for evaluation of shortness of breath. Upon arrival, patient with an oxygen saturation of 92% on room air vitals otherwise acceptable limits. Patient's oxygen saturations were dropping to 88% during conversation for which patient was placed on 2 L nasal cannula oxygen with improvement. My evaluation, patient resting comfortably in exam room with mild signs of respiratory distress. He is requesting discharge upon initial examination. Workup in the ER remarkable for a hemoglobin of 6.7(7.7 on 03 11 25.) ANGELA with a BUN of 26, creatinine 1.37 and GFR 52. Troponin <0.012. BNP 10,700. Viral swabs negative. Chest x-ray concerning of CHF exacerbation. Given hypoxia and acute setting of CHF, admi ssion was highly recommended to patient and discussed at length for cardiology consultation and diuresis. Patient was adamant of leaving. Patient displayed medical decision-making capabilities and risks of leaving AGAINST MEDICAL ADVICE including but not limited to was discussed with patient. Patient verbally expressed understanding of these risks and refused admission stating "I need to go home". Patient was provided 40 mg IV Lasix. Case discussed with ED attending, . Undiagnosed new problem with uncertain prognosis? @ -No Drug Therapy requiring intensive monitoring for toxicity (Heparin, Nitro, Insulin, Cardizem)? @ -No Were any procedures done? @ -No Diagnosis/symptom? @ -AMA/CHF/hypoxia/anemia/cellulitis Acute, or Chronic, or Acute on Chronic? @ -Acute complicated Uncomplicated (without systemic symptoms) or Complicated (systemic symptoms)? @ -Complicated Side effects of treatment? @ -No Exacerbation, Progression, or Severe Exacerbation? @ -No Poses a threat to life or bodily function? How? (Chest pain, USA, NV, pneumonia, PE, COPD, DKA, ARF, appy, cholecystitis, CVA, Diverticulitis, Homicidal, Suicidal, threat to staff... and all critical care pts) @ -Yes, hypoxia can be fatal - Lab Data Result diagrams: 03/28/25 10:38 03/28/25 10:38 Lab Results 03/28/25 03/28/25 03/28/25 Range/Units 10:38 10:38 10:38 WBC 6.10 (4.50-10.00) 10*3/uL RBC 2.31 L (4.40-5.60) 10*6/uL Hgb 6.7 L* (13.0-17.0) g/dL Hct 21.2 L (39.6-50.0) % MCV 91.8 (80.0-97.0) fL MCH 29.0 (27.0-32.0) pg MCHC 31.6 L (32.0-37.0) g/dL Plt Count 280 (140-440) 10*3/uL MPV 10.1 (9.5-12.2) fL Immature Gran % (Auto) 0.2 % Neutrophils % 70.3 % Lymphocytes % 17.7 % Monocytes % 7.4 % Eosinophils % 3.6 % Basophils % 0.8 % Immature Gran # 0.01 (0.00-0.04) 10*3/uL Neutrophils # 4.29 (1.80-7.70) 10*3/uL Lymphocytes # 1.08 (0.90-5.00) 10*3/uL Monocytes # 0.45 (0.20-1.00) 10*3/uL Eosinophils # 0.22 (0.04-0.35) 10*3/uL Basophils # 0.05 (0.00-0.10) 10*3/uL PT 12.0 (10.0-12.5) sec INR 1.1 (<1.2) APTT 27.7 (22.0-30.0) sec Sodium 137 (137-145) mmol/L Potassium 4.9 (3.5-5.1) mmol/L Chloride 102 (98-107) mmol/L Carbon Dioxide 27 (22-30) mmol/L Anion Gap 8 mmol/L BUN 26 H (9-20) mg/dL Creatinine 1.37 H (0.66-1.25) mg/dL Est GFR (CKD-EPI)AfAm 61 (>60 ml/min/1.73 sqM) Est GFR (CKD-EPI)NonAf 52 (>60 ml/min/1.73 sqM) Glucose 211 H (74-99) mg/dL Plasma Lactic Acid Denzel (0.7-2.0) mmol/L Calcium 8.6 (8.4-10.2) mg/dL Total Bilirubin 0.5 (0.2-1.3) mg/dL AST 17 (17-59) U/L ALT 11 (4-49) U/L Alkaline Phosphatase 88 (38-126) U/L Troponin I (0.000-0.034) ng/mL NT-Pro-B Natriuret Pep 78731 pg/mL Total Protein 6.4 (6.3-8.2) g/dL Albumin 3.0 L (3.5-5.0) g/dL Influenza Type A (PCR) (Not Detectd) Influenza Type B (PCR) (Not Detectd) RSV (PCR) (Not Detectd) SARS-CoV-2 (PCR) (Not Detectd) 03/28/25 03/28/25 03/28/25 Range/Units 10:38 10:38 10:38 WBC (4.50-10.00) 10*3/uL RBC (4.40-5.60) 10*6/uL Hgb (13.0-17.0) g/dL Hct (39.6-50.0) % MCV (80.0-97.0) fL MCH (27.0-32.0) pg MCHC (32.0-37.0) g/dL Plt Count (140-440) 10*3/uL MPV (9.5-12.2) fL Immature Gran % (Auto) % Neutrophils % % Lymphocytes % % Monocytes % % Eosinophils % % Basophils % % Immature Gran # (0.00-0.04) 10*3/uL Neutrophils # (1.80-7.70) 10*3/uL Lymphocytes # (0.90-5.00) 10*3/uL Monocytes # (0.20-1.00) 10*3/uL Eosinophils # (0.04-0.35) 10*3/uL Basophils # (0.00-0.10) 10*3/uL PT (10.0-12.5) sec INR (<1.2) APTT (22.0-30.0) sec Sodium (137-145) mmol/L Potassium (3.5-5.1) mmol/L Chloride (98-107) mmol/L Carbon Dioxide (22-30) mmol/L Anion Gap mmol/L BUN (9-20) mg/dL Creatinine (0.66-1.25) mg/dL Est GFR (CKD-EPI)AfAm (>60 ml/min/1.73 sqM) Est GFR (CKD-EPI)NonAf (>60 ml/min/1.73 sqM) Glucose (74-99) mg/dL Plasma Lactic Acid Denzel 1.5 (0.7-2.0) mmol/L Calcium (8.4-10.2) mg/dL Total Bilirubin (0.2-1.3) mg/dL AST (17-59) U/L ALT (4-49) U/L Alkaline Phosphatase (38-126) U/L Troponin I <0.012 (0.000-0.034) ng/mL NT-Pro-B Natriuret Pep pg/mL Total Protein (6.3-8.2) g/dL Albumin (3.5-5.0) g/dL Influenza Type A (PCR) Not Detected (Not Detectd) Influenza Type B (PCR) Not Detected (Not Detectd) RSV (PCR) Not Detected (Not Detectd) SARS-CoV-2 (PCR) Not Detected (Not Detectd) - EKG Data -: EKG Interpreted by Me EKG Comments: EKG taken at 9: 44 showing a sinus rhythm. No ST segment elevations or depr essions. No T wave inversions. Ventricular rate 65, IA interval 181, QRS duration 98, QT/QTc 453/465. - Radiology Data Radiology results: report reviewed, image reviewed Disposition Clinical Impression: CHF (congestive heart failure), Hypoxia, Left against medical advice Disposition: LEFT AGAINST MEDICAL ADVICE Condition: Undetermined Referrals: Jose Parker MD [Primary Care Provider] - 1-2 days Time of Disposition: 11:58
--- NOTE | 2025-03-28 11:00 | XR ---
EXAMINATION TYPE: XR chest 2V DATE OF EXAM: 03/28/2025 10:52 AM COMPARISON: Chest radiographs from 03/09/2025, PET CT 09/21/2024 TECHNIQUE: XR chest 2V Frontal and lateral views of the chest. CLINICAL INDICATION:Male, 70 years old with history of difficulty breathing; FINDINGS: Lungs/Pleura: There is no evidence of pleural effusion, focal consolidation, or pneumothorax. Pulmonary vascularity: Pulmonary vascular congestion. Heart/mediastinum: Cardiomediastinal silhouette is enlarged and stable. Musculoskeletal: No acute osseous pathology. Multilevel degenerative disc disease. Other: right chest Mediport catheter with subclavian approach. Stable position of distal tip in the h igh SVC. IMPRESSION: Cardiomegaly with pulmonary vascular congestion. Correlate for CHF exacerbation. [facility], , 03/28/2025 10:58 AM
[2025-03-28 11:04] LABS: Basophils # (A) 0.05 10*3/uL (0.00-0.10); Basophils % (A) 0.8 %; Eosinophils # (A) 0.22 10*3/uL (0.04-0.35); Eosinophils % (A) 3.6 %; HCT 21.2 % (39.6-50.0); Lymphocytes # (A) 1.08 10*3/uL (0.90-5.00); Lymphocytes % (A) 17.7 %; MCHC 31.6 g/dL (32.0-37.0); MCV 91.8 fL (80.0-97.0); Mean Platelet Volume 10.1 fL (9.5-12.2); Monocytes # (A) 0.45 10*3/uL (0.20-1.00); Monocytes % (A) 7.4 %; Neutrophils # (A) 4.29 10*3/uL (1.80-7.70); Neutrophils % (A) 70.3 %; Platelet Count 280 10*3/uL (140-440); RBC 2.31 10*6/uL (4.40-5.60); RDW 20.3 % (11.5-14.5)
[2025-03-28 11:06] LABS: ALT 11 U/L (4-49); AST 17 U/L (17-59); African American GFR (CKD) 61 (>60 ml/min/1.73 sqM); Alkaline Phosphatase 88 U/L (38-126); Anion Gap 8 mmol/L; Blood Urea Nitrogen 26 mg/dL (9-20); Calcium 8.6 mg/dL (8.4-10.2); Carbon Dioxide 27 mmol/L (22-30); Chloride 102 mmol/L (98-107); Glucose 211 mg/dL (74-99); Non-African American GFR(CKD) 52 (>60 ml/min/1.73 sqM); Potassium 4.9 mmol/L (3.5-5.1); Sodium 137 mmol/L (137-145); Total Bilirubin 0.5 mg/dL (0.2-1.3); Total Protein 6.4 g/dL (6.3-8.2)
[2025-03-28 11:07] LABS: HGB 6.7 g/dL (13.0-17.0)
[2025-03-28 11:13] LABS: NT-Pro-B-Type Natriuretic Pept 10700 pg/mL
[2025-03-28 11:24] LABS: INR 1.1 (<1.2); Partial Thromboplastin Time 27.7 sec (22.0-30.0)
[2025-03-28 11:29] LABS: Influenza A Not Detected (Not Detectd); Influenza B Not Detected (Not Detectd); RSV Not Detected (Not Detectd)
[2025-03-28] MEDS: FUROSEMIDE 10 MG/ML 4 ML VIAL IV STA (11:42)
[2025-03-28 11:57] VITALS: BP 138/90; PULSE 69; RESP 22; TEMP 97.8
== END 2025-03-28 11:43 | disposition home or self-care (01) ==
LOC: EC 09:23
DX: R09.02 Hypoxemia (principal); I11.0 Hypertensive heart disease with heart failure; I48.91 Unspecified atrial fibrillation; E11.9 Type 2 diabetes mellitus without complications; Z53.29 Procedure and treatment not carried out because of patient's decision for other reasons; Z85.048 Personal history of other malignant neoplasm of rectum, rectosigmoid junction, and anus; Z87.891 Personal history of nicotine dependence; Z91.014 Allergy to mammalian meats
CPT/HCPCS: 36415; 93005; 83880; 80053; 83605; 84484; 85025; 85610; 85730; 87636; 71046; 99285; 96374; J1938

== ENCOUNTER 2025-03-28 13:11 | Inpatient (IN) | payer MEDICARE ==
[2025-03-28] MEDS ORDERED: ACETAMINOPHEN TAB 325 MG TAB PO PRN (13:58)
[2025-03-28] MEDS ORDERED: NALOXONE 0.4 MG/ML 1 ML VIAL IV PRN (13:58)
--- NOTE | 2025-03-28 14:06 | ED ---
SOB HPI - General Chief Complaint: Shortness of Breath Stated Complaint: LISA Time Seen by Provider: 03/28/25 14:05 Source: patient, RN notes reviewed, old records reviewed Mode of arrival: wheelchair Limitations: no limitations - History of Present Illness Initial Comments: 70-year-old male presented to the ER for evaluation of shortness of breath. Patient left this facility AMA hours prior after admission was recommended for further evaluation of CHF. Patient states he needed to go home to take care of his cat prior to be admitted. Patient is agreeable for admission at this time. He denies any new complaints from prior visit. He initially presented for shortness of breath worsening over the past year and a half worse in the past couple of days. Increasing exertional dyspnea and peripheral edema. No home oxygen use. Patient also notes redness to left anterior lainez started over the past couple of days. He denies any fevers, chills, chest pain, dizziness, lightheadedness. No other complaints. - Related Data Home Medications Medication Instructions Recorded Confirmed metFORMIN HCL [Glucophage] 1,000 mg PO BID 12/25/16 03/28/25 Amiodarone [Cordarone] 200 mg PO DAILY 03/07/25 03/28/25 Capecitabine 500mg 2,500 mg PO DIRECTED 03/07/25 03/28/25 Hydrocortisone Lotion [Hytone 2.5% 1 applic TOPICAL QID 03/07/25 03/28/25 Lotion] Insulin Aspart [NovoLOG Flexpen] 10 - 20 units SQ TID-W/MEALS 03/07/25 03/28/25 Insulin Glargine (Lantus) [Lantus 50 unit SQ HS 03/07/25 03/28/25 Vial] Metoprolol Tartrate [Lopressor] 25 mg PO BID 03/07/25 03/28/25 Sacubitril/Valsartan [Entresto 24 1 tab PO BID 03/07/25 03/28/25 mg-26 mg Tablet] Doxycycline Monohydrate 100 mg PO BID 03/28/25 03/28/25 Loperamide [Imodium] 2 - 4 mg PO QID PRN 03/28/25 03/28/25 Previous Rx's Medication Instructions Recorded Apixaban [Eliquis] 5 mg PO BID #60 tab 02/21/24 Magnesium Oxide [Mag-Ox] 400 mg PO TID 7 Days #21 tab 02/22/24 Pantoprazole [Protonix] 40 mg PO DAILY #15 tab 03/12/25 Allergies Allergy/AdvReac Type Severity Reaction Status Date / Time guinea pigs Allergy Itching Uncoded 03/28/25 15:04 Review of Systems ROS Statement: Those systems with pertinent positive or pertinent negative responses have been documented in the HPI. ROS Other: All systems not noted in ROS Statement are negative. Past Medical History Past Medical History: Atrial Fibrillation, Cancer, CVA/TIA, Diabetes Mellitus, Hypertension Additional Past Medical History / Comment(s): RECTAL CANCER. History of Any Multi-Drug Resistant Organisms: None Reported Past Surgical History: Joint Replacement, Orthopedic Surgery Additional Past Surgical History / Comment(s): eye surgery,knee replacement, broken fx and calcium deposits removed Past Anesthesia/Blood Transfusion Reactions: No Reported Reaction Past Psychological History: No Psychological Hx Reported Smoking Status: Former smoker Past Alcohol Use History: None Reported Past Drug Use History: None Reported General Exam Limitations: no limitations General appearance: alert, in no apparent distress Respiratory exam: Present: normal lung sounds bilaterally. Absent: respiratory distress, wheezes, rales, rhonchi, stridor Cardiovascular Exam: Present: regular rate, normal rhythm, normal heart sounds. Absent: systolic murmur, diastolic murmur, rubs, gallop, clicks Extremities exam: Present: full ROM, normal capillary refill, pedal edema (Bilateral pretibial 1+ pitting edema. There is skin breakdown and erythema noted to left anterior lainez.) Neurological exam: Present: alert, oriented X3, CN II-XII intact Skin exam: Present: warm, dry, intact, normal color. Absent: rash Course Vital Signs 03/28/25 03/28/25 03/28/25 13:13 15:31 15:38 Temperature 97.8 F Pulse Rate 78 75 69 Respiratory 18 16 20 Rate Blood Pressure 164/74 119/78 119/78 O2 Sat by Pulse 97 99 99 Oximetry - Reevaluation(s) Reevaluation #1: 03/28/25 14:[address] Parker who accepts admission Medical Decision Making - Medical Decision Making Was pt. sent in by a medical professional or institution (, PA, GLUE MACHINE OPERATOR, urgent care, hospital, or prison...) When possible be specific @ -No Did you speak to anyone other than the patient for history (EMS, parent, family, police, friend...)? What history was obtained from this source @ -No Did you review nursing and triage notes (agree or disagree)? Why? @ -I reviewed and agree with nursing and triage notes Were old charts reviewed (outside hosp., previous admission, EMS record, old EKG, old radiological studies, urgent care reports/EKG's, prison records)? Report findings @ -ER visit from 03 28 25 patient seen for shortness of breath and admission was recommended at that time for further evaluation of CHF and anemia. Patient left AMA. Differential Diagnosis (chest pain, altered mental status, abdominal pain women, abdominal pain men, vaginal bleeding, weakness, fever, dyspnea, syncope, headache, dizziness, GI bleed, back pain, seizure, CVA, palpatations, mental health, musculoskeletal)? @ -Differential Dyspnea: Coronary syndrome, arrhythmia, tamponade, asthma, COPD, pulmonary embolism, pneumonia, pneumothorax, pulmonary effusion, anaphylaxis, diabetic ketoacidosis, flailed chest, pulmonary contusion, diaphragmatic rupture, anemia, neuromuscular, this is not meant to be an all- inclusive list. EKG interpreted by me (3pts min.). @ -As above X-rays interpreted by me (1pt min.). @ -None done CT interpreted by me (1pt min.). @ -None done U/S interpreted by me (1pt. min.). @ -None done What testing was considered but not performed or refused? (CT, X-rays, U/S, labs)? Why? @ -Laboratory studies including CBC, CMP, BNP, troponin, EKG, chest x-ray and viral swabs considered however patient had these completed hours as he was seen here for evaluation of shortness of breath and left AMA. Patient denying any new complaints since leaving AMA. What meds were considered but not given or refused? Why? @ -None Did you discuss the management of the patient with other professionals (professionals i.e. , PA, GLUE MACHINE OPERATOR, lab, RT, psych nurse, social media strategist, silvering applicator, teacher, corporate trust officer, adult protective caseworker)? Give summary @ -Yes, case discussed with Dr. Parker who accepts admission. Was smoking cessation discussed for >3mins.? @ -No Was critical care preformed (if so, how long)? @ -No Were there social determinants of health that impacted care today? How? (Homelessness, low income, unemployed, alcoholism, drug addiction, transportation, low edu. Level, literacy, decrease access to med. care, intermediate, rehab)? @ -No Was there de-escalation of care discussed even if they declined (Discuss DNR or withdrawal of care, Hospice)? DNR status @ -No What co-morbidities impacted this encounter? (DM, HTN, Smoking, COPD, CAD, Cancer, CVA, ARF, Chemo, Hep., AIDS, mental health diagnosis, sleep apnea, morbid obesity)? @ -Atrial fibrillation on Eliquis, rectal cancer, history of TIA/CVA, diabetes mellitus, hypertension Was patient admitted / discharged? Hospital course, mention meds given and route, prescriptions, significant lab abnormalities, going to OR and other pertinent info. @ -Admitted. 70-year-old male presenting to the ER for evaluation of shortness of breath. Patient left this facility AMA hours prior as he needed to go home to take care of his cat. He returns agreeable for admission. Upon arrival vitals within stable limits. Oxygen saturation 97% on room air. On my evaluation, patient resting comfortably on stretcher mild signs of respiratory distress. Patient placed on 2 L nasal cannula oxygen for comfort and hypoxia reported in prior visit. Exam remarkable for 1+ bilateral pretibial pitting edema. Left anterior lainez is erythematous concerning of cellulitis for which pa tient will be started on cefazolin, blood cultures obtained. Laboratory studies reviewed from 03/28/25 at 10:44 significant for hemoglobin of 6.7, troponin undetectable, BNP 10,700, viral swabs negative. ANGELA with a BUN of 26, creatinine 1.37 with a GFR 52. CXR showing pulmonary vascular congestion concerning of CHF. Patient will be admitted to PCP, Dr. Parker for further evaluation of CHF. Patient transfused 1 unit of PRBCs, patient denying active bleeding. Patient provided 40 mg IVP Lasix prior to leaving AMA. Hold fluid bolus given concern of CHF.Maintenance was at 20 cc/h for ANGELA as patient appears to be in CHF exacerbation. Cardiology and oncology on consult. Patient admitted in stable condition for further evaluation and treatment. Case discussed with ED attending, Dr. Grace. Undiagnosed new problem with uncertain prognosis? @ -No Drug Therapy requiring intensive monitoring for toxicity (Heparin, Nitro, Insulin, Cardizem)? @ -No Were any procedures done? @ -No Diagnosis/symptom? @ -CHF/anemia/cellulitis/ANGELA Acute, or Chronic, or Acute on Chronic? @ -Acute Uncomplicated (without systemic symptoms) or Complicated (systemic symptoms)? @ -Complicated Side effects of treatment? @ -No Exacerbation, Progression, or Severe Exacerbation? @ -No Poses a threat to life or bodily function? How? (Chest pain, USA, MD, pneumonia, PE, COPD, DKA, ARF, appy, cholecystitis, CVA, Diverticulitis, Homicidal, Suicidal, threat to staff... and all critical care pts) @ -Yes, hypoxia can lead to endorgan dysfunction Disposition Clinical Impression: CHF (congestive heart failure), Cellulitis, Anemia, Acute kidney injury Disposition: ADMITTED IP TO THIS [facility] Condition: Stable Time of Disposition: 14:06
[2025-03-28] MEDS: SODIUM CHLORIDE 0.9% 1,000 ML IV SCH (16:10)
[2025-03-28] MEDS: ceFAZolin 2 GM in DEXTROSE 5% IN WATER 50 ML IVPB ONE (16:10)
[2025-03-29] MEDS ORDERED: LOPERAMIDE 2 MG CAP PO PRN (01:05)
[2025-03-29 01:18] LABS: Glucose,Whole Blood 154 mg/dL (70-110)
[2025-03-29 02:05] LABS: Basophils # (A) 0.05 10*3/uL (0.00-0.10); Eosinophils # (A) 0.47 10*3/uL (0.04-0.35); Eosinophils % (A) 9.4 %; HGB 7.6 g/dL (13.0-17.0); Lymphocytes # (A) 1.54 10*3/uL (0.90-5.00); Lymphocytes % (A) 30.8 %; MCH 28.8 pg (27.0-32.0); MCHC 31.7 g/dL (32.0-37.0); MCV 90.9 fL (80.0-97.0); Mean Platelet Volume 9.8 fL (9.5-12.2); Monocytes # (A) 0.57 10*3/uL (0.20-1.00); Monocytes % (A) 11.4 %; Neutrophils # (A) 2.35 10*3/uL (1.80-7.70); Platelet Count 229 10*3/uL (140-440); RBC 2.64 10*6/uL (4.40-5.60)
[2025-03-29] MEDS: INSULIN LISPRO (HumaLOG) 100 UNIT/ML 10 mL VL SQ SCH (07:57)
[2025-03-29 07:58] LABS: Glucose,Whole Blood 135 mg/dL (70-110)
--- NOTE | 2025-03-29 08:40 | P.HPIM ---
History of Present Illness H&P Date: 03/29/25 This is a 70-year-old male who presented to the emergency department with complaints of shortness of breath. Patient reports increasing shortness of breath for the last week. Shortness of breath has been worse with activity and patient has been unable to lay flat at home. Patient denies any chest pain. He does report increasing peripheral edema. Cardiology has been consulted. An echo has been ordered. Patient does have a history of rectal cancer. Further medical history as noted below. Review of Systems Constitutional: Denies chills, Denies fever Cardiovascular: Reports dyspnea on exertion, Reports edema, Denies chest pain Respiratory: Reports dyspnea, Denies cough Gastrointestinal: Denies nausea, Denies vomiting Musculoskeletal: Denies arm numbness/tingling, Denies leg numbness/tingling Neurological: Denies headaches, Denies weakness Past Medical History Past Medical History: Atrial Fibrillation, Cancer, CVA/TIA, Diabetes Mellitus, Hypertension Additional Past Medical History / Comment(s): RECTAL CANCER. History of Any Multi-Drug Resistant Organisms: None Reported Past Surgical History: Joint Replacement, Orthopedic Surgery Additional Past Surgical History / Comment(s): eye surgery,knee replacement, broken fx and calcium deposits removed Past Anesthesia/Blood Transfusion Reactions: No Reported Reaction Past Psychological History: No Psychological Hx Reported Smoking Status: Former smoker Past Alcohol Use History: None Reported Past Drug Use History: None Reported Medications and Allergies Home Medications Medication Instructions Recorded Confirmed Type metFORMIN HCL [Glucophage] 1,000 mg PO BID 12/25/16 03/28/25 History Apixaban [Eliquis] 5 mg PO BID #60 tab 02/21/24 03/28/25 Rx Magnesium Oxide [Mag-Ox] 400 mg PO TID 7 Days #21 tab 02/22/24 03/28/25 Rx Amiodarone [Cordarone] 200 mg PO DAILY 03/07/25 03/28/25 History Capecitabine 500mg 2,500 mg PO DIRECTED 03/07/25 03/28/25 History Hydrocortisone Lotion [Hytone 2.5% 1 applic TOPICAL QID 03/07/25 03/28/25 History Lotion] Insulin Aspart [NovoLOG Flexpen] 10 - 20 units SQ TID-W/MEALS 03/07/25 03/28/25 History Insulin Glargine (Lantus) [Lantus 50 unit SQ HS 03/07/25 03/28/25 History Vial] Metoprolol Tartrate [Lopressor] 25 mg PO BID 03/07/25 03/28/25 History Sacubitril/Valsartan [Entresto 24 1 tab PO BID 03/07/25 03/28/25 History mg-26 mg Tablet] Pantoprazole [Protonix] 40 mg PO DAILY #15 tab 03/12/25 03/28/25 Rx Doxycycline Monohydrate 100 mg PO BID 03/28/25 03/28/25 History Loperamide [Imodium] 2 - 4 mg PO QID PRN 03/28/25 03/28/25 History Allergies Allergy/AdvReac Type Severity Reaction Status Date / Time guinea pigs Allergy Itching Uncoded 03/28/25 15:04 Physical Exam Vitals: Vital Signs Temp Pulse Resp BP Pulse Ox 03/29/25 06:00 59 L 18 129/71 97 03/29/25 03:37 97.5 F L 63 16 141/85 96 03/29/25 00:18 56 L 21 146/80 96 03/28/25 19:21 98.1 F 62 19 128/79 98 03/28/25 18:00 98.0 F 64 20 128/80 97 03/28/25 17:49 98.0 F 75 19 123/100 97 03/28/25 17:30 98.3 F 72 20 121/60 99 03/28/25 17:17 97.8 F 68 20 96/64 100 03/28/25 15:38 69 20 119/78 99 03/28/25 15:31 75 16 119/78 99 03/28/25 13:13 97.8 F 78 18 164/74 97 Intake and Output 03/28/25 03/29/25 03/29/25 22:59 06:59 14:59 Intake Total 310 Balance 310 Intake: Blood Product 310 Rc As-1 Unit 310 [id number] - Constitutional General appearance: cooperative, no acute distress - EENT Eyes: PERRLA - Neck Neck: no lymphadenopathy, normal ROM, no rigidity - Respiratory Respiratory: bilateral: diminished - Cardiovascular Heart sounds: normal: S1, S2 - Gastrointestinal General gastrointestinal: soft, no tenderness - Integumentary Integumentary: normal, normal turgor - Musculoskeletal Musculoskeletal: generalized weakness - Psychiatric Psychiatric: A&O x's 3 Results CBC & Chem 7: 03/29/25 01:47 Labs: Abnormal Lab Results - Last 24 Hours (Table) 03/28/25 03/29/25 03/29/25 Range/Units 14:43 01:16 01:47 RBC 2.64 L (4.40-5.60) 10*6/uL Hgb 7.6 L (13.0-17.0) g/dL Hct 24.0 L (39.6-50.0) % MCHC 31.7 L (32.0-37.0) g/dL RDW 20.0 H (11.5-14.5) % Eosinophils # 0.47 H (0.04-0.35) 10*3/uL POC Glucose (mg/dL) 154 H (70-110) mg/dL Crossmatch See Detail 03/29/25 Range/Units 07:57 RBC (4.40-5.60) 10*6/uL Hgb (13.0-17.0) g/dL Hct (39.6-50.0) % MCHC (32.0-37.0) g/dL RDW (11.5-14.5) % Eosinophils # (0.04-0.35) 10*3/uL POC Glucose (mg/dL) 135 H (70-110) mg/dL Crossmatch Assessment and Plan (1) CHF (congestive heart failure) Current Visit: Yes Status: Acute Code(s): I50.9 - HEART FAILURE, UNSPECIFIED SNOMED Code(s): 56583234 (2) Diabetes Current Visit: No Status: Acute Code(s): E11.9 - TYPE 2 DIABETES MELLITUS WITHOUT COMPLICATIONS SNOMED Code(s): 29228691 (3) History of atrial fibrillation Current Visit: No Status: Acute Code(s): Z86.79 - PERSONAL HISTORY OF OTHER DISEASES OF THE CIRCULATORY SYSTEM SNOMED Code(s): 607669948 (4) Hypertension Current Visit: No Status: Acute Code(s): I10 - ESSENTIAL (PRIMARY) HYPERTENSION SNOMED Code(s): 21745918 (5) Colon adenocarcinoma Current Visit: No Status: Chronic Priority: Medium Code(s): C18.9 - MALIGNANT NEOPLASM OF COLON, UNSPECIFIED SNOMED Code(s): 081097695 Plan: Continue home medications. Check CBC and CMP in the morning. Appreciate cardiology input. Await results of echo. Patient seen and evaluated by nurse practitioner, physician in agreement with plan.
[2025-03-29] MEDS: PANTOPRAZOLE 40 MG TABLET PO SCH (08:43)
[2025-03-29] MEDS: APIXABAN 5 MG TAB PO SCH (08:43)
[2025-03-29] MEDS: AMIODARONE 200 MG TAB PO SCH (08:43)
[2025-03-29] MEDS: SACUBITRIL/VALSARTAN 24 MG-26 MG TABLET PO SCH (08:43)
[2025-03-29] MEDS: metFORMIN 500 MG TAB PO SCH (08:43)
[2025-03-29] MEDS: METOPROLOL TARTRATE 25 MG TAB PO SCH (08:43)
[2025-03-29] MEDS: MAGNESIUM OXIDE 400 MG TAB PO SCH (08:43)
[2025-03-29] MEDS ORDERED: DIPHENOX-ATROP 2.5-0.025 MG 1 EACH TAB PO SCH (11:15)
--- NOTE | 2025-03-29 11:34 | P.CRDCN ---
History of Present Illness History of present illness: HISTORY OF PRESENT ILLNESS: This is a 70-year-old male with a past medical history significant for paroxysmal atrial fibrillation, aortic stenosis, hypertension, hyperlipidemia, rectal cancer and former nicotine dependence. Patient follows in the office with Dr. Simpson. We have been asked to see the patient in consultation for CHF. Patient examined at the bedside. Patient presented to the hospital with a chief complaint of shortness of breath. He reports feeling short of breath for the past few days. He initially presented to the hospital on 03/28/2025 but then left AMA to take care of his cat and then returned back to the hospital to be admitted. He denies any chest pain or pressure. Vital signs are stable. Patient states he has not had chemotherapy in 3 to 4 weeks because he ended up getting hospitalized. He states he is not sure what his overall plan is with his cancer. DIAGNOSTICS: - EKG reveals sinus mechanism with no signs of acute ischemia. - Chest xray from 03/28/2025 revealed cardiomegaly with pulmonary vascular congestion - Laboratory data: WBC 5.0. Hemoglobin 7.6. Platelet count 229. Sodium 137. Potassium 4.9. BUN 26. Creatinine 1.37. Troponin negative x 1. proBNP 10,700. - Current home cardiac medications include amiodarone 200 mg daily, Eliquis 5 mg twice a day, metoprolol tartrate 25 mg twice a day, Entresto 24-26 mg twice a day. - Most recent echocardiogram obtained in January 2024 revealed ejection fraction 35 to 40%, moderate LVH, moderate aortic stenosis with peak gradient of 38 mmHg and mean gradient 23 mmHg, RVSP 25 mmHg - Patient underwent Lexiscan stress test in April 2024 which was negative for ischemia REVIEW OF SYSTEMS: At the time of my exam: CONSTITUTIONAL: Denies fever or chills. HEENT: Denies blurred vision, vision changes, or eye pain. Denies hemoptysis CARDIOVASCULAR: Denies chest pain. Denies orthopnea. Denies PND. Denies palpitations RESPIRATORY: Denies shortness of breath. GASTROINTESTINAL: Denies abdominal pain. Denies nausea or vomiting. HEMATOLOGIC: Denies bleeding disorders. GENITOURINARY: Denies any blood in urine. SKIN: Denies pruitis. Denies rash. PHYSICAL EXAM: VITAL SIGNS: Reviewed. GENERAL: Well-developed in no acute distress. HEENT: Head is normocephalic. Pupils are equal, round. Sclerae anicteric. Mucous membranes of the mouth are moist. Neck supple. No JVD or thyromegaly LUNGS: Respirations even and unlabored. Lungs essentially clear to auscultation bilaterally. HEART: Regular rate and rhythm. S1 and S2 heard. Systolic murmur noted ABDOMEN: Soft. Nondistended. Nontender. EXTREMITIES: Normal range of motion. No clubbing or cyanosis. Peripheral pulses intact. Trace bilateral lower extremity edema NEUROLOGIC: Awake and alert. Oriented x 3. ASSESSMENT: Shortness of breath Acute on chronic heart failure with reduced EF, 35 to 40% Rectal cancer, currently on chemotherapy Moderate aortic stenosis Paroxysmal atrial fibrillation Anemia Hypertension Hyperlipidemia Former nicotine dependence PLAN: Obtain EKG Obtain 2D echo to assess cardiac structure and function Resume home cardiac medications Begin IV Lasix 40 mg every 12 hours Daily weights, accurate intake and output, monitoring of kidney function Consider aortic valve valvuloplasty Further recommendations pending patient course Nurse practitioner note has been reviewed by physician. Signing provider agrees with the documented findings, assessment, and plan of care documented by INK PRINTER as a scribe. Past Medical History Past Medical History: Atrial Fibrillation, Cancer, CVA/TIA, Diabetes Mellitus, Hypertension Additional Past Medical History / Comment(s): RECTAL CANCER. History of Any Multi-Drug Resistant Organisms: None Reported Past Surgical History: Joint Replacement, Orthopedic Surgery Additional Past Surgical History / Comment(s): eye surgery,knee replacement, broken fx and calcium deposits removed Past Anesthesia/Blood Transfusion Reactions: No Reported Reaction Past Psychological History: No Psychological Hx Reported Smoking Status: Former smoker Past Alcohol Use History: None Reported Past Drug Use History: None Reported Medications and Allergies Home Medications Medication Instructions Recorded Confirmed Type metFORMIN HCL [Glucophage] 1,000 mg PO BID 12/25/16 03/28/25 History Apixaban [Eliquis] 5 mg PO BID #60 tab 02/21/24 03/28/25 Rx Magnesium Oxide [Mag-Ox] 400 mg PO TID 7 Days #21 tab 02/22/24 03/28/25 Rx Amiodarone [Cordarone] 200 mg PO DAILY 03/07/25 03/28/25 History Capecitabine 500mg 2,500 mg PO DIRECTED 03/07/25 03/28/25 History Hydrocortisone Lotion [Hytone 2.5% 1 applic TOPICAL QID 03/07/25 03/28/25 History Lotion] Insulin Aspart [NovoLOG Flexpen] 10 - 20 units SQ TID-W/MEALS 03/07/25 03/28/25 History Insulin Glargine (Lantus) [Lantus 50 unit SQ HS 03/07/25 03/28/25 History Vial] Metoprolol Tartrate [Lopressor] 25 mg PO BID 03/07/25 03/28/25 History Sacubitril/Valsartan [Entresto 24 1 tab PO BID 03/07/25 03/28/25 History mg-26 mg Tablet] Pantoprazole [Protonix] 40 mg PO DAILY #15 tab 03/12/25 03/28/25 Rx Doxycycline Monohydrate 100 mg PO BID 03/28/25 03/28/25 History Loperamide [Imodium] 2 - 4 mg PO QID PRN 03/28/25 03/28/25 History Allergies Allergy/AdvReac Type Severity Reaction Status Date / Time guinea pigs Allergy Itching Uncoded 03/28/25 15:04 Physical Exam Vitals: Vital Signs Temp Pulse Resp BP Pulse Ox 03/29/25 08:42 63 22 139/82 98 03/29/25 06:00 59 L 18 129/71 97 03/29/25 03:37 97.5 F L 63 16 141/85 96 03/29/25 00:18 56 L 21 146/80 96 03/28/25 19:21 98.1 F 62 19 128/79 98 03/28/25 18:00 98.0 F 64 20 128/80 97 03/28/25 17:49 98.0 F 75 19 123/100 97 03/28/25 17:30 98.3 F 72 20 121/60 99 03/28/25 17:17 97.8 F 68 20 96/64 100 03/28/25 15:38 69 20 119/78 99 03/28/25 15:31 75 16 119/78 99 03/28/25 13:13 97.8 F 78 18 164/74 97 Intake and Output 03/28/25 03/29/25 03/29/25 22:59 06:59 14:59 Intake Total 310 Balance 310 Intake: Blood Product 310 Rc As-1 Unit 310 [id number] Results 03/29/25 01:47 CBC 03/29/25 Range/Units 01:47 WBC 5.00 (4.50-10.00) 10*3/uL RBC 2.64 L (4.40-5.60) 10*6/uL Hgb 7.6 L (13.0-17.0) g/dL Hct 24.0 L (39.6-50.0) % Plt Count 229 (140-440) 10*3/uL Current Medications Generic Name Dose Route Start Last Admin Trade Name Freq PRN Reason Stop Dose Admin Acetaminophen 650 mg 03/28/25 13:58 Acetaminophen Tab 325 Mg Tab PO Q6HR PRN Mild Pain or Fever > 100.5 Amiodarone HCl 200 mg 03/29/25 09:00 03/29/25 08:43 Amiodarone 200 Mg Tab PO 200 mg DAILY OJNO Administration Apixaban 5 mg 03/29/25 09:00 03/29/25 08:43 Apixaban 5 Mg Tab PO 5 mg BID JONO Administration Protocol Furosemide 40 mg 03/29/25 09:45 Furosemide 10 Mg/Ml 4 Ml Vial IV Q12HR [facility] Sodium Chloride 1,000 mls @ 20 mls/hr 03/28/25 16:15 03/28/25 16:10 Saline 0.9% IV 20 mls/hr .Q24H JONO Administration Insulin Glargine 50 unit 03/29/25 21:00 Insulin Glargine (Lantus) 100 Unit/Ml Syr SQ HS JONO Insulin Human Lispro 0 unit 03/29/25 07:30 03/29/25 07:57 Insulin Lispro (Humalog) 100 Unit/Ml 10 Ml Vl SQ Not Given ACHS [facility] Protocol Loperamide HCl 2 - 4 mg 03/29/25 01:05 Loperamide 2 Mg Cap PO QID PRN Diarrhea Magnesium Oxide 400 mg 03/29/25 09:00 03/29/25 08:43 Magnesium Oxide 400 Mg Tab PO 400 mg TID JONO Administration Metformin HCl 1,000 mg 03/29/25 09:00 03/29/25 08:43 Metformin 500 Mg Tab PO 1,000 mg BID JONO Administration Metoprolol Tartrate 25 mg 03/29/25 09:00 03/29/25 08:43 Metoprolol Tartrate 25 Mg Tab PO 25 mg BID JONO Administration Naloxone HCl 0.2 mg 03/28/25 13:58 Naloxone 0.4 Mg/Ml 1 Ml Vial IV Q2M PRN Opioid Reversal Nystatin 500,000 unit 03/29/25 13:00 Nystatin 100,000 Unit/Ml Susp 500,000 Unit/5 Ml Cup PO QID [facility] Protocol Pantoprazole Sodium 40 mg 03/29/25 09:00 03/29/25 08:43 Pantoprazole 40 Mg Tablet PO 40 mg DAILY JONO Administration Petrolatum 1 applic 03/29/25 12:00 Petrolatum, White Oint 50 Gm Tube TOPICAL BID [facility] Protocol Sacubitril/Valsartan 1 each 03/29/25 09:00 03/29/25 08:43 Sacubitril/Valsartan 24 Mg-26 Mg Tablet PO 1 each BID JONO Administration Silver Sulfadiazine 1 applic 03/29/25 11:15 Silver Sulfadiazine Cream 400 Gm 1 Applic Applic TOPICAL BID [facility] Protocol Intake and Output 03/28/25 03/29/25 03/29/25 22:59 06:59 14:59 Intake Total 310 Balance 310 Intake: Blood Product 310 Rc As-1 Unit 310 [id number] 03/29/25 01:47
[2025-03-29] MEDS: FUROSEMIDE 10 MG/ML 4 ML VIAL IV SCH (11:35)
[2025-03-29 12:03] LABS: African American GFR (CKD) 59 (>60 ml/min/1.73 sqM); Anion Gap 8 mmol/L; Blood Urea Nitrogen 21 mg/dL (9-20); Calcium 8.7 mg/dL (8.4-10.2); Carbon Dioxide 29 mmol/L (22-30); Chloride 100 mmol/L (98-107); Glucose 138 mg/dL (74-99); Non-African American GFR(CKD) 51 (>60 ml/min/1.73 sqM); Potassium 4.5 mmol/L (3.5-5.1); Sodium 137 mmol/L (137-145)
[2025-03-29 12:11] LABS: NT-Pro-B-Type Natriuretic Pept 6770 pg/mL
--- NOTE | 2025-03-29 13:02 | CA ---
Transthoracic Echo Report Name: Jimmy Edwards Age: 70 Gender: M : 1955 Exam Date: 03/29/2025 09:09 Exam Location: [place] [facility] Ht (in): 71 Wt (lb): 292 Ordering Physician: Jose Parker MD Attending/Referring Phys: Nsh Teacher Linh Moeller RDCS Procedure CPT: Indications: chf pulmonary edema Cardiac Hx: Cancer, Chemo Technical Quality: Fair Contrast 1: Total Dose (mL): Contrast 2: Total Dose (mL): MEASUREMENTS (Male / Female) Normal Values 2D ECHO LV Diastolic Diameter PLAX 6.6 cm 4.2 - 5.9 / 3.9 - 5.3 cm LV Systolic Diameter PLAX 4.9 cm IVS Diastolic Thickness 1.1 cm 0.6 - 1.0 / 0.6 - 0.9 cm LVPW Diastolic Thickness 1.4 cm 0.6 - 1.0 / 0.6 - 0.9 cm LV Relative Wall Thickness 0.4 RV Internal Dim ED PLAX 3.2 cm LVOT Diameter 2.0 cm LA Systolic Diameter LX 5.1 cm 3.0 - 4.0 / 2.7 - 3.8 cm LV Diastolic Volume MOD BP 125.1 cm??? 67 - 155 / 56 - 104 cm??? LV Systolic Volume MOD BP 67.9 cm??? 22 - 58 / 19 - 49 cm??? LV Ejection Fraction MOD BP 45.8 % >= 55 % LV Cardiac Index MOD BP 1522.3 cm???/min???m??? LV Diastolic Volume MOD 4C 140.9 cm??? LV Systolic Volume MOD 4C 60.5 cm??? LV Ejection Fraction MOD 4C 57.1 % LV Cardiac Index MOD 4C 2138.2 cm???/min???m??? LV Diastolic Length 4C 9.2 cm LV Systolic Length 4C 7.4 cm LV Diastolic Volume MOD 2C 110.8 cm??? LV Systolic Volume MOD 2C 73.8 cm??? LV Ejection Fraction MOD 2C 33.4 % LV Cardiac Index MOD 2C 983.4 cm???/min???m??? LV Diastolic Length 2C 9.3 cm LV Systolic Length 2C 7.7 cm M-MODE Aortic Root Diameter MM 4.0 cm LA Systolic Diameter MM 4.8 cm LA Ao Ratio MM 1.2 AV Cusp Separation MM 0.7 cm DOPPLER AV Peak Velocity 444.7 cm/s AV Peak Gradient 79.1 mmHg AV Mean Velocity 349.2 cm/s AV Mean Gradient 52.5 mmHg AV Velocity Time Integral 120.8 cm LVOT Peak Velocity 104.6 cm/s LVOT Peak Gradient 4.4 mmHg LVOT Velocity Time Integral 34.6 cm LVOT Stroke Volume 108.5 cm??? LVOT Stroke Volume Index 43.8 ml/m??? LVOT Cardiac Index 2884.1 cm???/min???m??? AV Area Cont Eq vti 0.9 cm??? AV Area Cont Eq pk 0.7 cm??? Mitral E Point Velocity 121.8 cm/s Mitral A Point Velocity 91.5 cm/s Mitral E to A Ratio 1.3 MV Deceleration Time 303.5 ms MV E' Velocity 5.5 cm/s Mitral E to MV E' Ratio 22.1 TR Peak Velocity 329.4 cm/s TR Peak Gradient 43.4 mmHg Right Atrial Pressure 10.0 mmHg Pulmonary Artery Systolic Pressu 53.4 mmHg Right Ventricular Systolic Press 53.4 mmHg FINDINGS Left Ventricle Left ventricular ejection fraction is estimated at 50 %. Moderately increased left ventricular diastolic diameter. Mildly increased left ventricular systolic volume. Mildly decreased left ventricular ejection fraction. Right Ventricle Mild right ventricular dilatation. Moderate pulmonary hypertension. Right Atrium Mild right atrial dilatation. Left Atrium Moderately increased left atrial diameter. Mitral Valve Structurally normal mitral valve. Moderate mitral regurgitation. No mitral stenosis. Aortic Valve Aortic valve not well visualized. Severe aortic stenosis with a peak velocity of 4.44m/s, peak gradient 78 mmHg, mean gradient 52 mmHg. Mild aortic regurgitation. Tricuspid Valve Structurally normal tricuspid valve. Mild tricuspid regurgitation. No tricuspid stenosis. Pulmonic Valve Structurally normal pulmonic valve. Trace pulmonic regurgitation. No pulmonic stenosis. Pericardium No pericardial or pleural effusion. Aorta Mild aortic dilatation at the level of the sinuses of valsalva (root). CONCLUSIONS Fairly well-preserved LV systolic function with mild concentric LVH. Moderate pulmonary hypertension. Severe aortic stenosis. Mitral annular calcification with moderate mitral regurgitation. Mild to moderate tricuspid regurgitation. No pericardial effusion Previewed by: Dr. Selena Simpson MD (Electronically Signed) Final Date: 29 Mar 2025 13:01
[2025-03-29] MEDS: PETROLATUM, WHITE OINT 50 GM TUBE TOPICAL SCH (13:33)
[2025-03-29] MEDS: SILVER sulfADIAZINE Cream 400 GM 1 APPLIC APPLIC TOPICAL SCH (13:33)
[2025-03-29 13:45] LABS: Glucose,Whole Blood 150 mg/dL (70-110)
[2025-03-29 17:47] LABS: Glucose,Whole Blood 156 mg/dL (70-110)
[2025-03-29] MEDS: NYSTATIN 100,000 UNIT/ML SUSP 500,000 UNIT/5 ML CUP PO SCH (19:31)
[2025-03-29 19:58] LABS: Glucose,Whole Blood 197 mg/dL (70-110)
[2025-03-29] MEDS: INSULIN GLARGINE (LANTUS) 100 UNIT/ML SYR SQ SCH (20:54)
--- NOTE | 2025-03-29 23:50 | P.CONS ---
History of Present Illness - Reason for Consult Consult date: 03/29/25 recal carcinoma Requesting physician: Citlali Valladares - Chief Complaint SOB - History of Present Illness Mr Edwards is a 70 yo male pt of Dr. Benitez with a Hx of rectal carcinoma. Initially present to PCP with c/o BRBPR x 1 year intermittently, progressive for few months prior to presentation. He had new onset constipation. He was referred for GI workup and had a colonoscopy in 03/25/23. A mass was palpated in the distal rectum, close to the anus. There is some bleeding associated with the mass. The colonoscope could only be advanced to the left colon due to poor prep. Presence of the mass was confirmed, and this was biopsied. This revealed invasive grade 2 adenocarcinoma. Staging MRI revealed a T3 tumor that appeared to be abutting the prostate, but not invading it. There was evidence of viet involvement in the mesorectum, and at least 1 extra mesorectal node involvement in the presacral area. The PET scan showed uptake in the primary site and in a few mesorectal nodes. There was also an area of uptake related to the IVC just below the diaphragm. It was not clear if this was a liver lesion. Biomarker testing was negative. MRI of the liver scheduled 2, to evaluate the area of uptake on PET scan, he missed both appts. He was started on FOLFOX on 05/19/23, completing 12 cycles 12/15/23 The patient did not get the MRI of the liver as scheduled because of missing appointments, or rescheduling, he ultimately had it done, showing 2 lesions in the liver, consistent with metastasis, in the dome and the caudate lobe. Vectibix was added with cycle 10 onwards. FOLFOX was stopped after 12 cycles, and Vectibix continued as a single agent. PET scan done after cycle 11 showed diminished uptake in the caudate lobe, and questionable uptake in the les ion in the dome. There was mention of possible uptake in the lower T-spine. He had a treatment delay after cycle 6, because of development of significant cellulitis involving the groin, as well as other infected skin lesions on his lower extremities. He was admitted to the hospital for about 6 days with IV antibiotics. Resumed treatment after completion of his antibiotics and clearance of the infection. He was eventually referred to [facility] to evaluate for surgical resection. He was felt to be a candidate for liver and primary site resection as long as an area of uptake in the thoracic spine was not malignant. Patient had MRI done here that was not felt to be definitive, due to motion artifact. Therefore repeat MRI of the spine was done at [facility] on 01/23/24. This was negative for evidence of malignancy. Seen by colorectal surgery, but during his evaluation was found to be in atrial fibrillation with RVR. According to the physician note, he also admitted to use of methamphetamine. Continued on Vectibix, stated that he would work on quitting methamphetamine use, as well as Suboxone. He was referred to psychiatry, to 2 different offices, but one did not take his insurance, while the other did not provide the requested services. The patient however stated he quit methamphetamines in early 05/15, however he continued on the Suboxone. He was found to have severe aortic stenosis by [facility] rdiology, which would make him high risk for surgery. It was suggested to him that he should follow-up with cardiology at [facility] for an opinion, if he is planning on having surgery. It was also confirmed by colorectal surgery that the patient will need a permanent ostomy. Due to the above, the patient was unsure about proceeding with surgery and did not follow up with [facility] since 05/16/24. He was started on Xeloda, 1 week on 1 week off, on 04/17/24. He was taking incorrectly-only one pill twice a day, instead of the calculated dose of 5 pills twice a day. He was subsequently cleared by Cardiology, with a diagnosis of increased, but acceptable, risk. PET scan in 10/15 showed no evidence of progr ession. The patient was supposed to have an appointment with CRS at [facility] on 10/26/24, but apparently did not go to that appointment because he lost his wallet. The patient did go for his appointment in Nov. He had MRI rectal protocol, and CT of the abdomen performed. MRI findings showed stable-appearing lymph nodes, with continued treatment response at the primary site. The CT of the liver showed stable lesions in the dome, and the caudate lobe, but 2 new suspicious lesions. Xeloda decreased to 2000 mg twice a day due to skin toxicity, he subsequently increased it back to 2500 twice a day after his symptoms improved. He was evaluated by Surgical Oncology regarding the radiologic findings and was felt to be having progression. He was therefore not deemed to be a surgical candidate at this time. His regimen was changed to Xeloda/irinotecan/Vectibix 01/2025. He had cycle 1 but was admitted to [facility] for intractable diarrhea, dehydration, ANGELA and electrolyte abnormalities. He was found to be C. difficile positive. He improved with treatment and was discharged on 03/09/25 Pt currently admitted with c/o SOB, occ productive cough with thick, whitish sputum. Has BLE swelling with a rash/lesions on the LLE. He denies fever, N,V, appetite is fair, no chest pain, abd pain or distension, he does have to medicate to keep diarrhea under control (from chemo), no other acute c/o. He was in ER yesterday and received a unit of PRBCs Review of Systems 10 point ROS is neg except as stated in HPI Past Medical History Past Medical History: Atrial Fibrillation, Cancer, CVA/TIA, Diabetes Mellitus, Hypertension Additional Past Medical History / Comment(s): RECTAL CANCER. History of Any Multi-Drug Resistant Organisms: None Reported Past Surgical History: Joint Replacement, Orthopedic Surgery Additional Past Surgical History / Comment(s): eye surgery,knee replacement, broken fx and calcium deposits removed Past Anesthesia/Blood Transfusion Reactions: No Reported Reaction Past Psychological History: No Psychological Hx Reported Smoking Status: Former smoker Past Alcohol Use History: None Reported Past Drug Use History: None Reported Medications and Allergies Home Medications Medication Instructions Recorded Confirmed Type metFORMIN HCL [Glucophage] 1,000 mg PO BID 12/25/16 03/28/25 History Apixaban [Eliquis] 5 mg PO BID #60 tab 02/21/24 03/28/25 Rx Magnesium Oxide [Mag-Ox] 400 mg PO TID 7 Days #21 tab 02/22/24 03/28/25 Rx Amiodarone [Cordarone] 200 mg PO DAILY 03/07/25 03/28/25 History Capecitabine 500mg 2,500 mg PO DIRECTED 03/07/25 03/28/25 History Hydrocortisone Lotion [Hytone 2.5% 1 applic TOPICAL QID 03/07/25 03/28/25 History Lotion] Insulin Aspart [NovoLOG Flexpen] 10 - 20 units SQ TID-W/MEALS 03/07/25 03/28/25 History Insulin Glargine (Lantus) [Lantus 50 unit SQ HS 03/07/25 03/28/25 History Vial] Metoprolol Tartrate [Lopressor] 25 mg PO BID 03/07/25 03/28/25 History Sacubitril/Valsartan [Entresto 24 1 tab PO BID 03/07/25 03/28/25 History mg-26 mg Tablet] Pantoprazole [Protonix] 40 mg PO DAILY #15 tab 03/12/25 03/28/25 Rx Doxycycline Monohydrate 100 mg PO BID 03/28/25 03/28/25 History Loperamide [Imodium] 2 - 4 mg PO QID PRN 03/28/25 03/28/25 History Allergies Allergy/AdvReac Type Severity Reaction Status Date / Time guinea pigs Allergy Itching Uncoded 03/28/25 15:04 Physical Exam Vitals: Vital Signs Temp Pulse Resp BP Pulse Ox 03/29/25 06:00 59 L 18 129/71 97 03/29/25 03:37 97.5 F L 63 16 141/85 96 03/29/25 00:18 56 L 21 146/80 96 03/28/25 19:21 98.1 F 62 19 128/79 98 03/28/25 18:00 98.0 F 64 20 128/80 97 03/28/25 17:49 98.0 F 75 19 123/100 97 03/28/25 17:30 98.3 F 72 20 121/60 99 03/28/25 17:17 97.8 F 68 20 96/64 100 03/28/25 15:38 69 20 119/78 99 03/28/25 15:31 75 16 119/78 99 03/28/25 13:13 97.8 F 78 18 164/74 97 Intake and Output 03/28/25 03/29/25 03/29/25 22:59 06:59 14:59 Intake Total 310 Balance 310 Intake: Blood Product 310 Rc As-1 Unit 310 [id number] - Constitutional General appearance: cooperative, no acute distress, obese - EENT Eyes: anicteric sclerae, EOMI ENT: hearing grossly normal, thrush - Neck Neck: no lymphadenopathy - Respiratory Respiratory: bilateral: diminished - Cardiovascular Rhythm: regular Abnormal Heart Sounds: systolic murmur (harsh) leg Peripheral Edema: bilateral: 1+ - Gastrointestinal General gastrointestinal: no absent bowel sounds, no decreased bowel sounds, distended, no hepatomegaly, hyperactive bowel sounds, no normal bowel sounds, no organomegaly, no rigid, no scaphoid, soft, no splenomegaly, no tenderness, no umbilical hernia, no ventral hernia - Integumentary dry flaky skin Integumentary: cellulitis (suspect LLE) - Neurologic Neurologic: CNII-XII intact - Musculoskeletal Musculoskeletal: generalized weakness, strength equal bilaterally - Psychiatric Psychiatric: A&O x's 3, appropriate affect, intact judgment & insight Results CBC & Chem 7: 03/29/25 01:47 03/29/25 11:22 Labs: Abnormal Lab Results - Last 24 Hours (Table) 03/28/25 03/29/25 03/29/25 Range/Units 14:43 01:16 01:47 RBC 2.64 L (4.40-5.60) 10*6/uL Hgb 7.6 L (13.0-17.0) g/dL Hct 24.0 L (39.6-50.0) % MCHC 31.7 L (32.0-37.0) g/dL RDW 20.0 H (11.5-14.5) % Eosinophils # 0.47 H (0.04-0.35) 10*3/uL POC Glucose (mg/dL) 154 H (70-110) mg/dL Crossmatch See Detail 03/29/25 Range/Units 07:57 RBC (4.40-5.60) 10*6/uL Hgb (13.0-17.0) g/dL Hct (39.6-50.0) % MCHC (32.0-37.0) g/dL RDW (11.5-14.5) % Eosinophils # (0.04-0.35) 10*3/uL POC Glucose (mg/dL) 135 H (70-110) mg/dL Crossmatch Assessment and Plan (1) Anemia Current Visit: Yes Status: Chronic Priority: Medium Code(s): D64.9 - ANEMIA, UNSPECIFIED SNOMED Code(s): 182093090 (2) Colorectal carcinoma Current Visit: Yes Status: Chronic Priority: Medium Code(s): C19 - MALIGNANT NEOPLASM OF RECTOSIGMOID JUNCTION SNOMED Code(s): 9104790792 Plan: Anemia -Patient hemoglobin 7.6, status post 1 unit of packed red blood cells for hemoglobin of 6.7. Patient baseline hemoglobin is usually 10-11 range. Anemia workup ordered Congestive heart failure. - Patient's BNP was 10,700 when he was in the ER yesterday for a unit of blood. He left to go home and take care of his pet and return to the emergency department. On recheck BMP is 6770. -Cardiology has been consulted and patient is being worked up Colorectal cancer - Diagnosis and treatment as reported in HPI - Patient does take antidiarrheals for side effect of treatment - Treatment will be delayed until patient has recovered from his acute condition Left lower extremity skin rash - Ordered Silvadene for the same
[2025-03-30 06:07] LABS: Glucose,Whole Blood 116 mg/dL (70-110)
[2025-03-30 08:28] LABS: HCT 23.9 % (39.6-50.0); HGB 7.5 g/dL (13.0-17.0); MCH 28.7 pg (27.0-32.0); MCHC 31.4 g/dL (32.0-37.0); MCV 91.6 FL (80.0-97.0); Mean Platelet Volume 10.4 FL (9.5-12.2); NRBC Per 100 WBC 0 X 10*3/uL (0.00-0.01); Platelet Count 290 X 10*3/uL (140-440); RBC 2.61 X 10*6/uL (4.40-5.60); RDW 19.9 % (11.5-14.5); WBC 4.99 X 10*3/uL (4.50-10.00)
[2025-03-30 09:21] LABS: % Iron Saturation 5.69 (15.00-50.00); ALT 8 U/L (10-49); AST 13 U/L (14-35); Albumin 2.9 g/dL (3.8-4.9); Albumin/Globulin Ratio 0.91 Ratio (1.60-3.17); Alkaline Phosphatase 93 U/L (41-126); BUN/Creat Ratio 14.36 Ratio (12.00-20.00); Blood Urea Nitrogen 20.1 mg/dL (9.0-27.0); Calcium 8.5 mg/dL (8.7-10.3); Carbon Dioxide 28.7 mmol/L (21.6-31.8); Chloride 98 mmol/L (96-109); Globulin 3.2 g/dL (1.6-3.3); Glucose 118 mg/dL (70-110); Iron 16 UG/DL (65-175); Potassium 4.6 mmol/L (3.5-5.5); Sodium 139 mmol/L (135-145); Total Bilirubin 0.3 mg/dL (0.3-1.2); Total Iron Binding Capacity 281 UG/DL (228-460); Total Protein 6.1 g/dL (6.2-8.2)
[2025-03-30 09:22] LABS: Ferritin 38.7 ng/mL (22.0-322.0)
[2025-03-30 09:48] LABS: Reticulocyte % 2.45 % (0.10-1.80)
--- NOTE | 2025-03-30 11:20 | P.PN ---
Subjective HISTORY OF PRESENT ILLNESS: This is a 70-year-old male with a past medical history significant for paroxysmal atrial fibrillation, aortic stenosis, hypertension, hyperlipidemia, rectal cancer and former nicotine dependence. Patient follows in the office with Dr. Simpson. We have been asked to see the patient in consultation for CHF. Patient examined at the bedside. Patient presented to the hospital with a chief complaint of shortness of breath. He reports feeling short of breath for the past few days. He initially presented to the hospital on 03/28/2025 but then left AMA to take care of his cat and then returned back to the hospital to be admitted. He denies any chest pain or pressure. Vital signs are stable. Patient states he has not had chemotherapy in 3 to 4 weeks because he ended up getting hospitalized. He states he is not sure what his overall plan is with his cancer. DIAGNOSTICS: - EKG reveals sinus mechanism with no signs of acute ischemia. - Chest xray from 03/28/2025 revealed cardiomegaly with pulmonary vascular conge stion - Laboratory data: WBC 5.0. Hemoglobin 7.6. Platelet count 229. Sodium 137. Potassium 4.9. BUN 26. Creatinine 1.37. Troponin negative x 1. proBNP 10,700. - Current home cardiac medications include amiodarone 200 mg daily, Eliquis 5 mg twice a day, metoprolol tartrate 25 mg twice a day, Entresto 24-26 mg twice a day. - Most recent echocardiogram obtained in January 2024 revealed ejection fraction 35 to 40%, moderate LVH, moderate aortic stenosis with peak gradient of 38 mmHg and mean gradient 23 mmHg, RVSP 25 mmHg - Patient underwent Lexiscan stress test in April 2024 which was negative for ischemia 03/30/2025 Patient examined this morning at the bedside. Patient currently denies chest pain or pressure. Denies shortness of breath. He remains on IV diuretics. Telemetry reveals atrial fibrillation with controlled ventricular rate. Echocardiogram completed revealing ejection fraction 50%, moderate pulm hypertension, moderate mitral regurgitation, severe aortic stenosis with peak gradient 78 mmHg and mean gradient 52 mmHg, mild aortic regurgitation, mild tricuspid regurgitation. PHYSICAL EXAM: VITAL SIGNS: Reviewed. GENERAL: Well-developed in no acute distress. HEENT: Head is normocephalic. Pupils are equal, round. Sclerae anicteric. Mucous membranes of the mouth are moist. Neck supple. No JVD or thyromegaly LUNGS: Respirations even and unlabored. Lungs essentially clear to auscultation bilaterally. HEART: Regular rate and rhythm. S1 and S2 heard. Systolic murmur noted ABDOMEN: Soft. Nondistended. Nontender. EXTREMITIES: Normal range of motion. No clubbing or cyanosis. Peripheral pulses intact. Trace bilateral lower extremity edema NEUROLOGIC: Awake and alert. Oriented x 3. ASSESSMENT: Shortness of breath Acute on chronic heart failure with reduced EF, 35 to 40% Rectal cancer, currently on chemotherapy Severe aortic stenosis Paroxysmal atrial fibrillation Anemia Hypertension Hyperlipidemia Former nicotine dependence PLAN: Continue current cardiac medications Discontinue IV Lasix. Begin oral Lasix 40 mg in the morning and 20 mg in the afternoon Patient may be discharged home today from a cardiac standpoint and follow-up in the office with Dr. Calvin Simpson will arrange for outpatient aortic valve valvuloplasty Nurse practitioner note has been reviewed by physician. Signing provider agrees with the documented findings, assessment, and plan of care documented by CUT OUT MARKER as a scribe. Objective - Vital Signs Vital signs: Vital Signs Temp 97.9 F 03/30/25 07:46 Pulse 92 03/30/25 07:46 Resp 16 03/30/25 07:46 BP 123/70 03/30/25 07:46 Pulse Ox 95 03/30/25 07:46 FiO2 Intake & Output 03/29/25 03/30/25 03/30/25 18:59 06:59 18:59 Intake Total 841 Output Total 4000 1600 300 Balance -4000 -759 -300 Weight 133.356 kg 123.4 kg Intake: Oral 841 Output: Urine 4000 1600 300 Other: # Bowel Movements 1 - Labs CBC & Chem 7: 03/30/25 03:34 03/30/25 03:34 Labs: Abnormal Lab Results - Last 24 Hours (Table) 03/29/25 03/29/25 03/29/25 Range/Units 11:22 13:43 17:46 RBC (4.40-5.60) X 10*6/uL Hgb (13.0-17.0) g/dL Hct (39.6-50.0) % MCHC (32.0-37.0) g/dL RDW (11.5-14.5) % BUN 21 H (9-20) mg/dL Creatinine 1.41 H (0.66-1.25) mg/dL Glucose 138 H (74-99) mg/dL POC Glucose (mg/dL) 150 H 156 H (70-110) mg/dL 03/29/25 03/30/25 03/30/25 Range/Units 19:56 03:34 06:05 RBC 2.61 L (4.40-5.60) X 10*6/uL Hgb 7.5 L (13.0-17.0) g/dL Hct 23.9 L (39.6-50.0) % MCHC 31.4 L (32.0-37.0) g/dL RDW 19.9 H (11.5-14.5) % BUN (9-20) mg/dL Creatinine (0.66-1.25) mg/dL Glucose (74-99) mg/dL POC Glucose (mg/dL) 197 H 116 H (70-110) mg/dL Microbiology - Last 24 Hours (Table) 03/28/25 14:43 Blood Culture - Preliminary Blood
[2025-03-30] MEDS: SODIUM FERRIC GLUCONAT-SUCROSE 125 MG in SODIUM CHLORIDE 0.9% 100 ML IVPB SCH (11:34)
[2025-03-30 12:37] LABS: Glucose,Whole Blood 155 mg/dL (70-110)
--- NOTE | 2025-03-30 14:28 | P.GSCN ---
History of Present Illness Consult date: 03/30/25 History of present illness: CHIEF COMPLAINT: Shortness of breath HISTORY OF PRESENT ILLNESS: This is a 70-year-old male who presented to the hospital with shortness of breath and CHF exacerbation. Patient initially left AGAINST MEDICAL ADVICE to go home to feed his cats and then presented back for admission. Patient was given IV Lasix for CHF exacerbation. Seen by cardiology service. Patient has a known history of rectal cancer and had been on chemotherapy. He has had no chemotherapy for about 1 month. Patient had been following at [facility] for his rectal cancer but apparently he was not a good surgical candidate and no surgery completed on the rectal tumor. Patient reports his last colonoscopy was in December 2024. Last colonoscopy done here was in March 2023 that did report the rectal mass. Patient reports that he has had blood from his rectum for about a year and likely from the rectal mass. Patient also with known history of severe aortic stenosis and atrial fibrillation on Eliquis. He is iron deficient. He did have a hemoglobin of 6.7 on admission did receive a unit of blood hemoglobin is currently at 7.5. He was tachycardic on admission as well. Patient reports his rectal bleeding has not worsened. PAST MEDICAL HISTORY: See below PAST SURGICAL HISTORY: See below MEDICATIONS: See below ALLERGIES: See below SOCIAL HISTORY: No illicit drug use. REVIEW OF SYSTEMS: CONSTITUTIONAL: Denies fever or chills. HEENT: Denies blurred vision, vision changes, or eye pain. Denies hemoptysis CARDIOVASCULAR: Denies chest pain or pressure. RESPIRATORY: No shortness of breath. GASTROINTESTINAL: See HPI for pertinent findings HEMATOLOGIC: Denies bleeding disorders. GENITOURINARY: Denies any blood in urine or increased urinary frequency. SKIN: Denies pruitis. Denies rash. PHYSICAL EXAM: VITAL SIGNS: Reviewed GENERAL: Well-developed in no acute distress. HEENT: No sclera icterus. Extraocular movements grossly intact. Moist buccal mucosa. Head is atraumatic, normocephalic. No nasal drainage. ABDOMEN: Soft. Nondistended. Nontender NEUROLOGIC: Alert and oriented. Cranial nerves II through XII grossly intact. LABORATORY DATA: WBC is 4.99 Hgb 6.7 up to 7.5 platelets 290 Sodium 139 potassium 4.6 creatinine 1.4 Iron 16 TIBC 281 B12 624 folate 9.10 IMAGING: Echo EF 50%. Moderate pulmonary hypertension. Severe aortic stenosis. Moderate mitral regurgitation. Mild to moderate tricuspid regurgitation ASSESSMENT: 1. Anemia requiring blood transfusion 2. History of Rectal cancer 3. GI bleed likely due to bleeding from rectal mass and being on Eliquis 4. Iron deficiency anemia PLAN: - Case discussed with oncology service. Patient scheduled for sigmoidoscopy on Wednesday with Dr. Juarez. Sigmoidoscopy can also be completed outpatient - Will give patient a GoLytely bowel prep on Wednesday in preparation for sigmoidoscopy - Continue to hold Eliquis - Continue to monitor hemoglobin Physician Security Program Manager note has been reviewed by physician. Signing provider agrees with the documented findings, assessment, and plan of care. Attestation Patient seen and examined at bedside. History of rectal cancer with finding of GI bleed. He states that he has had blood in his bowel movements for about a year. He has had recent drop in hemoglobin requiring transfusion. He is receiving his surgical oncologic care at [facility]. He has been receiving chemotherapy with the oncology service here [facility], however has not received a treatment in a month secondary to recent issues with shortness of breath and multiple medical comorbidities. Recommendation by oncology service for sigmoidoscopy. If patient is to stay through the weekend, we can prep the patient and perform sigmoidoscopy on 04/02/2025. Hold anticoagulation at this time. Mona Dillard DO Past Medical History Past Medical History: Atrial Fibrillation, Cancer, CVA/TIA, Diabetes Mellitus, Hypertension Additional Past Medical History / Comment(s): RECTAL CANCER. History of Any Multi-Drug Resistant Organisms: None Reported Past Surgical History: Joint Replacement, Orthopedic Surgery Additional Past Surgical History / Comment(s): eye surgery,knee replacement, broken fx and calcium deposits removed Past Anesthesia/Blood Transfusion Reactions: No Reported Reaction Past Psychological History: No Psychological Hx Reported Smoking Status: Former smoker Past Alcohol Use History: None Reported Past Drug Use History: None Reported Medications and Allergies Home Medications Medication Instructions Recorded Confirmed Type metFORMIN HCL [Glucophage] 1,000 mg PO BID 12/25/16 03/28/25 History Apixaban [Eliquis] 5 mg PO BID #60 tab 02/21/24 03/28/25 Rx Magnesium Oxide [Mag-Ox] 400 mg PO TID 7 Days #21 tab 02/22/24 03/28/25 Rx Amiodarone [Cordarone] 200 mg PO DAILY 03/07/25 03/28/25 History Capecitabine 500mg 2,500 mg PO DIRECTED 03/07/25 03/28/25 History Hydrocortisone Lotion [Hytone 2.5% 1 applic TOPICAL QID 03/07/25 03/28/25 History Lotion] Insulin Aspart [NovoLOG Flexpen] 10 - 20 units SQ TID-W/MEALS 03/07/25 03/28/25 History Insulin Glargine (Lantus) [Lantus 50 unit SQ HS 03/07/25 03/28/25 History Vial] Metoprolol Tartrate [Lopressor] 25 mg PO BID 03/07/25 03/28/25 History Sacubitril/Valsartan [Entresto 24 1 tab PO BID 03/07/25 03/28/25 History mg-26 mg Tablet] Pantoprazole [Protonix] 40 mg PO DAILY #15 tab 03/12/25 03/28/25 Rx Doxycycline Monohydrate 100 mg PO BID 03/28/25 03/28/25 History Loperamide [Imodium] 2 - 4 mg PO QID PRN 03/28/25 03/28/25 History Furosemide [Lasix] 20 mg PO DAILY@1600 #30 tab 03/30/25 Rx Furosemide [Lasix] 40 mg PO DAILY #30 tab 03/30/25 Rx Nystatin 100,000 Unit/ml Susp 500,000 unit PO QID 7 Days #140 ml 03/30/25 Rx [Mycostatin Oral Susp] SILVER sulfADIAZINE Cream 1 applic TOPICAL DAILY #1 each 03/30/25 Rx [Silvadene 1% Cream] Allergies Allergy/AdvReac Type Severity Reaction Status Date / Time guinea pigs Allergy Itching Uncoded 03/28/25 15:04 Surgical - Exam Osteopathic Statement: *. No significant issues noted on an osteopathic structural exam other than those noted in the History and Physical/Consult. Vital Signs Temp Pulse Resp BP Pulse Ox 97.8 F 78 18 164/74 97 03/28/25 13:13 03/28/25 13:13 03/28/25 13:13 03/28/25 13:13 03/28/25 13:13 Results - Labs 03/30/25 03:34 03/30/25 03:34 Abnormal Lab Results - Last 24 Hours (Table) 03/29/25 03/29/2503/30/25 Range/Units 17:46 19:56 03:34 RBC (4.40-5.60) X 10*6/uL Hgb (13.0-17.0) g/dL Hct (39.6-50.0) % MCHC (32.0-37.0) g/dL RDW (11.5-14.5) % Retic Count (0.10-1.80) % Anion Gap 12.30 H (4.00-12.00) mmol/L Est GFR (CKD-EPI) 54 L (>=60) Glucose 118 H (70-110) mg/dL POC Glucose (mg/dL) 156 H 197 H (70-110) mg/dL Calcium 8.5 L (8.7-10.3) mg/dL Iron 16 L (65-175) UG/DL % Saturation 5.69 L (15.00-50.00) Transferrin 201.0 L (204.0-354.0) mg/dL AST 13 L (14-35) U/L ALT 8 L (10-49) U/L Total Protein 6.1 L (6.2-8.2) g/dL Albumin 2.9 L (3.8-4.9) g/dL Albumin/Globulin Ratio 0.91 L (1.60-3.17) Ratio 03/30/25 03/30/25 03/30/25 Range/Units 03:34 03:34 06:05 RBC 2.61 L (4.40-5.60) X 10*6/uL Hgb 7.5 L (13.0-17.0) g/dL Hct 23.9 L (39.6-50.0) % MCHC 31.4 L (32.0-37.0) g/dL RDW 19.9 H (11.5-14.5) % Retic Count 2.45 H (0.10-1.80) % Anion Gap (4.00-12.00) mmol/L Est GFR (CKD-EPI) (>=60) Glucose (70-110) mg/dL POC Glucose (mg/dL) 116 H (70-110) mg/dL Calcium (8.7-10.3) mg/dL Iron (65-175) UG/DL % Saturation (15.00-50.00) Transferrin (204.0-354.0) mg/dL AST (14-35) U/L ALT (10-49) U/L Total Protein (6.2-8.2) g/dL Albumin (3.8-4.9) g/dL Albumin/Globulin Ratio (1.60-3.17) Ratio 03/30/25 Range/Units 12:36 RBC (4.40-5.60) X 10*6/uL Hgb (13.0-17.0) g/dL Hct (39.6-50.0) % MCHC (32.0-37.0) g/dL RDW (11.5-14.5) % Retic Count (0.10-1.80) % Anion Gap (4.00-12.00) mmol/L Est GFR (CKD-EPI) (>=60) Glucose (70-110) mg/dL POC Glucose (mg/dL) 155 H (70-110) mg/dL Calcium (8.7-10.3) mg/dL Iron (65-175) UG/DL % Saturation (15.00-50.00) Transferrin (204.0-354.0) mg/dL AST (14-35) U/L ALT (10-49) U/L Total Protein (6.2-8.2) g/dL Albumin (3.8-4.9) g/dL Albumin/Globulin Ratio (1.60-3.17) Ratio Microbiology - Last 24 Hours (Table) 03/28/25 14:43 Blood Culture - Preliminary Blood Diabetes panel 03/30/25 Range/Units 03:34 Sodium 139 (135-145) mmol/L Potassium 4.6 (3.5-5.5) mmol/L Chloride 98 (96-109) mmol/L Carbon Dioxide 28.7 (21.6-31.8) mmol/L BUN 20.1 (9.0-27.0) mg/dL Creatinine 1.4 (0.6-1.5) mg/dL Glucose 118 H (70-110) mg/dL Calcium 8.5 L (8.7-10.3) mg/dL AST 13 L (14-35) U/L ALT 8 L (10-49) U/L Alkaline Phosphatase 93 (41-126) U/L Total Protein 6.1 L (6.2-8.2) g/dL Albumin 2.9 L (3.8-4.9) g/dL Calcium panel 03/30/25 Range/Units 03:34 Calcium 8.5 L (8.7-10.3) mg/dL Albumin 2.9 L (3.8-4.9) g/dL Pituitary panel 03/30/25 Range/Units 03:34 Sodium 139 (135-145) mmol/L Potassium 4.6 (3.5-5.5) mmol/L Chloride 98 (96-109) mmol/L Carbon Dioxide 28.7 (21.6-31.8) mmol/L BUN 20.1 (9.0-27.0) mg/dL Creatinine 1.4 (0.6-1.5) mg/dL Glucose 118 H (70-110) mg/dL Calcium 8.5 L (8.7-10.3) mg/dL Adrenal panel 03/30/25 Range/Units 03:34 Sodium 139 (135-145) mmol/L Potassium 4.6 (3.5-5.5) mmol/L Chloride 98 (96-109) mmol/L Carbon Dioxide 28.7 (21.6-31.8) mmol/L BUN 20.1 (9.0-27.0) mg/dL Creatinine 1.4 (0.6-1.5) mg/dL Glucose 118 H (70-110) mg/dL Calcium 8.5 L (8.7-10.3) mg/dL Total Bilirubin 0.3 (0.3-1.2) mg/dL AST 13 L (14-35) U/L ALT 8 L (10-49) U/L Alkaline Phosphatase 93 (41-126) U/L Total Protein 6.1 L (6.2-8.2) g/dL Albumin 2.9 L (3.8-4.9) g/dL
[2025-03-30] MEDS: FUROSEMIDE 20 MG TAB PO SCH (17:01)
[2025-03-30 17:26] LABS: Glucose,Whole Blood 158 mg/dL (70-110)
[2025-03-30 19:13] LABS: Glucose,Whole Blood 152 mg/dL (70-110)
--- NOTE | 2025-03-30 20:03 | P.PN ---
Subjective Progress Note Date: 03/30/25 Pt reporting significantly improved since admit. Does report intermittent rectal bleeding which has been ongoing issue but states he thinks it worsened yesterday. Hgb today stable at 7.5. Will hold eleiquis and consult surgery for sigmoidoscopy. Objective - Vital Signs Vital signs: Vital Signs Temp 98 F 03/30/25 14:00 Pulse 58 L 03/30/25 14:00 Resp 16 03/30/25 14:00 BP 133/71 03/30/25 14:00 Pulse Ox 96 03/30/25 14:00 FiO2 Intake & Output 03/29/25 03/30/25 03/30/25 18:59 06:59 18:59 Intake Total 841 318 Output Total 4000 1600 600 Balance -6395 -842 -917 Weight 133.356 kg 123.4 kg Intake: Oral 841 318 Output: Urine 4000 1600 600 Other: # Bowel Movements 1 - Constitutional General appearance: Present: no acute distress - EENT Eyes: Present: anicteric sclerae, EOMI ENT: Present: hearing grossly normal - Respiratory Details: breathing is even and unlabored - Cardiovascular Details: skin warm and dry - Gastrointestinal General gastrointestinal: Present: soft. Absent: tenderness - Integumentary Integumentary: Present: pale. Absent: cyanotic - Psychiatric Psychiatric: Present: A&O x's 3 - Labs CBC & Chem 7: 03/30/25 03:34 03/30/25 03:34 Labs: Abnormal Lab Results - Last 24 Hours (Table) 03/29/25 03/30/25 03/30/25 Range/Units 19:56 03:34 03:34 RBC 2.61 L (4.40-5.60) X 10*6/uL Hgb 7.5 L (13.0-17.0) g/dL Hct 23.9 L (39.6-50.0) % MCHC 31.4 L (32.0-37.0) g/dL RDW 19.9 H (11.5-14.5) % Retic Count (0.10-1.80) % Anion Gap 12.30 H (4.00-12.00) mmol/L Est GFR (CKD-EPI) 54 L (>=60) Glucose 118 H (70-110) mg/dL POC Glucose (mg/dL) 197 H (70-110) mg/dL Calcium 8.5 L (8.7-10.3) mg/dL Iron 16 L (65-175) UG/DL % Saturation 5.69 L (15.00-50.00) Transferrin 201.0 L (204.0-354.0) mg/dL AST 13 L (14-35) U/L ALT 8 L (10-49) U/L Total Protein 6.1 L (6.2-8.2) g/dL Albumin 2.9 L (3.8-4.9) g/dL Albumin/Globulin Ratio 0.91 L (1.60-3.17) Ratio 03/30/25 03/30/25 03/30/25 Range/Units 03:34 06:05 12:36 RBC (4.40-5.60) X 10*6/uL Hgb (13.0-17.0) g/dL Hct (39.6-50.0) % MCHC (32.0-37.0) g/dL RDW (11.5-14.5) % Retic Count 2.45 H (0.10-1.80) % Anion Gap (4.00-12.00) mmol/L Est GFR (CKD-EPI) (>=60) Glucose (70-110) mg/dL POC Glucose (mg/dL) 116 H 155 H (70-110) mg/dL Calcium (8.7-10.3) mg/dL Iron (65-175) UG/DL % Saturation (15.00-50.00) Transferrin (204.0-354.0) mg/dL AST (14-35) U/L ALT (10-49) U/L Total Protein (6.2-8.2) g/dL Albumin (3.8-4.9) g/dL Albumin/Globulin Ratio (1.60-3.17) Ratio 03/30/25 Range/Units 17:24 RBC (4.40-5.60) X 10*6/uL Hgb (13.0-17.0) g/dL Hct (39.6-50.0) % MCHC (32.0-37.0) g/dL RDW (11.5-14.5) % Retic Count (0.10-1.80) % Anion Gap (4.00-12.00) mmol/L Est GFR (CKD-EPI) (>=60) Glucose (70-110) mg/dL POC Glucose (mg/dL) 158 H (70-110) mg/dL Calcium (8.7-10.3) mg/dL Iron (65-175) UG/DL % Saturation (15.00-50.00) Transferrin (204.0-354.0) mg/dL AST (14-35) U/L ALT (10-49) U/L Total Protein (6.2-8.2) g/dL Albumin (3.8-4.9) g/dL Albumin/Globulin Ratio (1.60-3.17) Ratio Microbiology - Last 24 Hours (Table) 03/28/25 14:43 Blood Culture - Preliminary Blood Assessment and Plan (1) CHF (congestive heart failure) Current Visit: Yes Status: Acute Code(s): I50.9 - HEART FAILURE, UNSPECIFIED SNOMED Code(s): 19838318 (2) Cellulitis Current Visit: Yes Status: Acute Code(s): L03.90 - CELLULITIS, UNSPECIFIED SNOMED Code(s): 542292872 (3) Anemia Current Visit: Yes Status: Chronic Priority: Medium Code(s): D64.9 - ANEMIA, UNSPECIFIED SNOMED Code(s): 382683357 (4) Colorectal carcinoma Current Visit: Yes Status: Chronic Priority: Medium Code(s): C19 - MALIGNANT NEOPLASM OF RECTOSIGMOID JUNCTION SNOMED Code(s): 9317607018 Plan: Anemia -Patient hemoglobin 7.5, status post 1 unit of packed red blood cells for hemo globin of 6.7. Patient baseline hemoglobin is usually 10-11 range. -Anemia workup ordered. CAROLYN noted, parenteral iron ordered -Reporting worsening rectal bleeding. Will hold Eliquis -General surgery consulted. Spoke with surgery team, will plan for sigmoidoscopy Wednesday Congestive heart failure. - Patient's BNP was 10,700 when he was in the ER yesterday for a unit of blood. He left to go home and take care of his pet and return to the emergency department. On recheck BMP is 6770. -Cardiology following. Continues on lasix Colorectal cancer - Diagnosis and treatment as reported in HPI - Patient does take antidiarrheals for side effect of treatment - Treatment will be delayed until patient has recovered from his acute condition Left lower extremity skin rash - Ordered Silvadene for the same Doctor attests: I performed a history and physical examination of this patient, developed impression and plan of care. Discussed with dictator. I agree with dictators note, documented as a scribe.
--- NOTE | 2025-03-30 22:51 | P.PN ---
Subjective Progress Note Date: 03/30/25 This is a 70-year-old male who presented to the emergency department with complaints of shortness of breath. Patient reports increasing shortness of breath for the last week. Shortness of breath has been worse with activity and patient has been unable to lay flat at home. Patient denies any chest pain. He does report increasing peripheral edema. Cardiology has been consulted. An echo has been ordered. Patient does have a history of rectal cancer. Further medical history as noted below. 03/30/2025 Patient evaluated today on the medical floor. Has been transitioned to oral lasix. He does continue with lower extremity edema. Echocardiogram reveals EF 50%, moderate pulmonary hypertension, moderate MR, severe aortic stenosis, mild to mod TR. Eliquis on hold. General surgery to perform sigmoidoscopy on Wednesday due to his history of rectal tumor and rectal bleeding. Eliquis held. Hemoglobin 7.5 Review of Systems Constitutional: Denied any fatigue denied any fever. Cardio vascular: denied any chest pain, palpitations Gastrointestinal: denied any nausea, vomiting, diarrhea. Has rectal bleeding. Pulmonary: Denied any shortness of breath cough Neurologic denied any new focal deficits All inpatient medications were reviewed and appropriate changes in these medications as dictated in the interval history and assessment and plan. PHYSICAL EXAMINATION: GENERAL: The patient is alert and oriented x3, not in any acute distress. Well developed, well nourished. HEENT: Pupils are round and equally reacting to light. EOMI. No scleral icterus. No conjunctival pallor. Normocephalic, atraumatic. No pharyngeal erythema. No thyromegaly. CARDIOVASCULAR: S1 and S2 present. No murmurs, rubs, or gallops. PULMONARY: Chest is clear to auscultation, no wheezing or crackles. ABDOMEN: Soft, nontender, nondistended, normoactive bowel sounds. No palpable organomegaly. MUSCULOSKELETAL: No joint swelling or deformity. EXTREMITIES: No cyanosis, clubbing, or pedal edema. Mild peripheral edema. NEUROLOGICAL: Gross neurological examination did not reveal any focal deficits. SKIN: No rashes. Assessment Rectal bleeding and acute blood loss anemia Hx of rectal cancer Acute on chronic heart failure with reduced EF, 35 to 40% Diabetes Mellitus type 2 Atrial fibrillation, paroxysmal Severe aortic stenosis Moderate pulmonary hypertension Hypertension Underlying iron deficiency anemia Hyperlipidemia Former smoker plan Transition to oral lasix Eliquis held Sigmoidoscopy on Wednesday with general surgery Monitor hemoglobin Transfuse for hemoglobin less than 7 The impression and plan of care has been dictated by Betsy Perez, Nurse Practitioner as directed. Dr. Michael MD I have performed a history and physical examination and medical decision making of this patient, discussed the same with the dictator, and agree with the dictators assessment and plan as written, documented as a scribe. Based on total visit time, I have performed more than 50% of this visit. Objective - Vital Signs Vital signs: Vital Signs Temp 97.9 F 03/30/25 19:10 Pulse 68 03/30/25 19:10 Resp 17 03/30/25 19:10 BP 134/57 03/30/25 19:10 Pulse Ox 98 03/30/25 19:10 FiO2 Intake & Output 03/30/25 03/30/25 03/31/25 06:59 18:59 06:59 Intake Total 841 318 240 Output Total 1600 600 Balance -759 -282 240 Weight 123.4 kg Intake: Oral 841 318 240 Output: Urine 1600 600 Other: # Bowel Movements 1 - Labs CBC & Chem 7: 03/30/25 03:34 03/30/25 03:34 Labs: Abnormal Lab Results - Last 24 Hours (Table) 03/30/25 03/30/25 03/30/25 Range/Units 03:34 03:34 03:34 RBC 2.61 L (4.40-5.60) X 10*6/uL Hgb 7.5 L (13.0-17.0) g/dL Hct 23.9 L (39.6-50.0) % MCHC 31.4 L (32.0-37.0) g/dL RDW 19.9 H (11.5-14.5) % Retic Count 2.45 H (0.10-1.80) % Anion Gap 12.30 H (4.00-12.00) mmol/L Est GFR (CKD-EPI) 54 L (>=60) Glucose 118 H (70-110) mg/dL POC Glucose (mg/dL) (70-110) mg/dL Calcium 8.5 L (8.7-10.3) mg/dL Iron 16 L (65-175) UG/DL % Saturation 5.69 L (15.00-50.00) Transferrin 201.0 L (204.0-354.0) mg/dL AST 13 L (14-35) U/L ALT 8 L (10-49) U/L Total Protein 6.1 L (6.2-8.2) g/dL Albumin 2.9 L (3.8-4.9) g/dL Albumin/Globulin Ratio 0.91 L (1.60-3.17) Ratio 03/30/25 03/30/25 03/30/25 Range/Units 06:05 12:36 17:24 RBC (4.40-5.60) X 10*6/uL Hgb (13.0-17.0) g/dL Hct (39.6-50.0) % MCHC (32.0-37.0) g/dL RDW (11.5-14.5) % Retic Count (0.10-1.80) % Anion Gap (4.00-12.00) mmol/L Est GFR (CKD-EPI) (>=60) Glucose (70-110) mg/dL POC Glucose (mg/dL) 116 H 155 H 158 H (70-110) mg/dL Calcium (8.7-10.3) mg/dL Iron (65-175) UG/DL % Saturation (15.00-50.00) Transferrin (204.0-354.0) mg/dL AST (14-35) U/L ALT (10-49) U/L Total Protein (6.2-8.2) g/dL Albumin (3.8-4.9) g/dL Albumin/Globulin Ratio (1.60-3.17) Ratio 03/30/25 Range/Units 19:11 RBC (4.40-5.60) X 10*6/uL Hgb (13.0-17.0) g/dL Hct (39.6-50.0) % MCHC (32.0-37.0) g/dL RDW (11.5-14.5) % Retic Count (0.10-1.80) % Anion Gap (4.00-12.00) mmol/L Est GFR (CKD-EPI) (>=60) Glucose (70-110) mg/dL POC Glucose (mg/dL) 152 H (70-110) mg/dL Calcium (8.7-10.3) mg/dL Iron (65-175) UG/DL % Saturation (15.00-50.00) Transferrin (204.0-354.0) mg/dL AST (14-35) U/L ALT (10-49) U/L Total Protein (6.2-8.2) g/dL Albumin (3.8-4.9) g/dL Albumin/Globulin Ratio (1.60-3.17) Ratio Microbiology - Last 24 Hours (Table) 03/28/25 14:43 Blood Culture - Preliminary Blood Assessment and Plan Time with Patient: Less than 30
[2025-03-31 06:11] LABS: Glucose,Whole Blood 50 mg/dL (70-110)
[2025-03-31 06:38] LABS: Glucose,Whole Blood 55 mg/dL (70-110)
[2025-03-31 06:53] LABS: Glucose,Whole Blood 67 mg/dL (70-110)
[2025-03-31] MEDS: FUROSEMIDE 40 MG TAB PO SCH (08:52)
--- NOTE | 2025-03-31 10:29 | P.PN ---
Progress Note - Text Progress Note Date: 03/31/25 No acute events overnight. Patient resting comfortable. PHYSICAL EXAM: VITAL SIGNS: Reviewed GENERAL: Well-developed in no acute distress. HEENT: No sclera icterus. Extraocular movements grossly intact. Moist buccal mucosa. Head is atraumatic, normocephalic. No nasal drainage. ABDOMEN: Soft. Nondistended. Nontender NEUROLOGIC: Alert and oriented. Cranial nerves II through XII grossly intact. ASSESSMENT: 1. Anemia requiring blood transfusion 2. History of Rectal cancer 3. GI bleed likely due to bleeding from rectal mass and being on Eliquis 4. Iron deficiency anemia PLAN: - Case discussed with oncology service. Patient scheduled for sigmoidoscopy on Wednesday. Sigmoidoscopy can also be completed outpatient - Will give patient a GoLytely bowel prep on Wednesday in preparation for sigmoidoscopy - Continue to hold Eliquis - Continue to monitor hemoglobin Rupert Juarez DO [facility] [phone]
[2025-03-31 10:42] LABS: Basophils # (A) 0.04 X 10*3/uL (0.00-0.10); Basophils % (A) 0.9 %; Eosinophils # (A) 0.38 X 10*3/uL (0.04-0.35); Eosinophils % (A) 8.2 %; HCT 24.6 % (39.6-50.0); HGB 7.4 g/dL (13.0-17.0); Immature Grans, Automated 0 %; Lymphocytes # (A) 1.41 X 10*3/uL (0.90-5.00); Lymphocytes % (A) 30.5 %; MCH 27.7 pg (27.0-32.0); MCHC 30.1 g/dL (32.0-37.0); MCV 92.1 FL (80.0-97.0); Mean Platelet Volume 10.5 FL (9.5-12.2); Monocytes # (A) 0.58 X 10*3/uL (0.20-1.00); Monocytes % (A) 12.6 %; NRBC Per 100 WBC 0 X 10*3/uL (0.00-0.01); Neutrophils # (A) 2.21 X 10*3/uL (1.80-7.70); Neutrophils % (A) 47.8 %; Platelet Count 302 X 10*3/uL (140-440); RBC 2.67 X 10*6/uL (4.40-5.60); WBC 4.62 X 10*3/uL (4.50-10.00)
[2025-03-31 12:09] LABS: Glucose,Whole Blood 159 mg/dL (70-110)
--- NOTE | 2025-03-31 14:24 | P.PN ---
Subjective Progress Note Date: 03/31/25 This is a 70-year-old male who presented to the emergency department with complaints of shortness of breath. Patient reports increasing shortness of breath for the last week. Shortness of breath has been worse with activity and patient has been unable to lay flat at home. Patient denies any chest pain. He does report increasing peripheral edema. Cardiology has been consulted. An echo has been ordered. Patient does have a history of rectal cancer. Further medical history as noted below. 03/30/2025 Patient evaluated today on the medical floor. Has been transitioned to oral lasix. He does continue with lower extremity edema. Echocardiogram reveals EF 50%, moderate pulmonary hypertension, moderate MR, severe aortic stenosis, mild to mod TR. Eliquis on hold. General surgery to perform sigmoidoscopy on Wednesday due to his history of rectal tumor and rectal bleeding. Eliquis held. Hemoglobin 7.5 03/31/2025 Patient evaluated in the medical floor. He continues on oral Lasix twice daily. He is still reporting some rectal bleeding. He will go for sigmoidoscopy on Wednesday. Otherwise no acute complaints. Hemoglobin 7.4. Review of Systems Constitutional: Denied any fatigue denied any fever. Cardio vascular: denied any chest pain, palpitations Gastrointestinal: denied any nausea, vomiting, diarrhea. Has rectal bleeding. Pulmonary: Denied any shortness of breath cough Neurologic denied any new focal deficits All inpatient medications were reviewed and appropriate changes in these me dications as dictated in the interval history and assessment and plan. PHYSICAL EXAMINATION: GENERAL: The patient is alert and oriented x3, not in any acute distress. Well developed, well nourished. HEENT: Pupils are round and equally reacting to light. EOMI. No scleral icterus. No conjunctival pallor. Normocephalic, atraumatic. No pharyngeal erythema. No thyromegaly. CARDIOVASCULAR: S1 and S2 present. No murmurs, rubs, or gallops. PULMONARY: Chest is clear to auscultation, no wheezing or crackles. ABDOMEN: Soft, nontender, nondistended, normoactive bowel sounds. No palpable organomegaly. MUSCULOSKELETAL: No joint swelling or deformity. EXTREMITIES: No cyanosis, clubbing, or pedal edema. Mild peripheral edema. NEUROLOGICAL: Gross neurological examination did not reveal any focal deficits. SKIN: No rashes. Assessment Rectal bleeding and acute blood loss anemia Hx of rectal cancer Acute on chronic heart failure with reduced EF, 35 to 40% Diabetes Mellitus type 2 Atrial fibrillation, paroxysmal Severe aortic stenosis Moderate pulmonary hypertension Hypertension Underlying iron deficiency anemia Hyperlipidemia Former smoker plan Transition to oral lasix Elighanshyam held Sigmoidoscopy on Wednesday with general surgery Monitor hemoglobin Transfuse for hemoglobin less than 7 The impression and plan of care has been dictated by Betsy Perez, Nurse Practitioner as directed. Dr. Michael MD I have performed a history and physical examination and medical decision making of this patient, discussed the same with the dictator, and agree with the dictators assessment and plan as written, documented as a scribe. Based on total visit time, I have performed more than 50% of this visit. Objective - Vital Signs Vital signs: Vital Signs Temp 97.6 F 03/31/25 07:32 Pulse 59 L 03/31/25 07:32 Resp 18 03/31/25 07:32 BP 158/76 03/31/25 07:32 Pulse Ox 100 03/31/25 07:32 FiO2 Intake & Output 03/30/25 03/31/25 03/31/25 18:59 06:59 18:59 Intake Total 318 240 Output Total 600 Balance -282 240 Weight 120.7 kg Intake: Oral 318 240 Output: Urine 600 - Labs CBC & Chem 7: 03/31/25 05:45 03/30/25 03:34 Labs: Abnormal Lab Results - Last 24 Hours (Table) 03/30/25 03/30/25 03/31/25 Range/Units 17:24 19:11 05:45 RBC 2.67 L (4.40-5.60) X 10*6/uL Hgb 7.4 L (13.0-17.0) g/dL Hct 24.6 L (39.6-50.0) % MCHC 30.1 L (32.0-37.0) g/dL RDW 19.0 H (11.5-14.5) % Eosinophils # 0.38 H (0.04-0.35) X 10*3/uL POC Glucose (mg/dL) 158 H 152 H (70-110) mg/dL 03/31/25 03/31/25 03/31/25 Range/Units 06:07 06:33 06:51 RBC (4.40-5.60) X 10*6/uL Hgb (13.0-17.0) g/dL Hct (39.6-50.0) % MCHC (32.0-37.0) g/dL RDW (11.5-14.5) % Eosinophils # (0.04-0.35) X 10*3/uL POC Glucose (mg/dL) 50 L 55 L 67 L (70-110) mg/dL 03/31/25 Range/Units 12:07 RBC (4.40-5.60) X 10*6/uL Hgb (13.0-17.0) g/dL Hct (39.6-50.0) % MCHC (32.0-37.0) g/dL RDW (11.5-14.5) % Eosinophils # (0.04-0.35) X 10*3/uL POC Glucose (mg/dL) 159 H (70-110) mg/dL Microbiology - Last 24 Hours (Table) 03/28/25 14:43 Blood Culture - Preliminary Blood Assessment and Plan Time with Patient: Less than 30
[2025-03-31 16:06] LABS: Glucose,Whole Blood 94 mg/dL (70-110)
[2025-03-31 17:13] LABS: Glucose,Whole Blood 110 mg/dL (70-110)
[2025-03-31 20:02] LABS: Glucose,Whole Blood 134 mg/dL (70-110)
[2025-04-01 06:05] LABS: Glucose,Whole Blood 84 mg/dL (70-110)
[2025-04-01 09:57] LABS: Basophils # (A) 0.05 X 10*3/uL (0.00-0.10); Eosinophils # (A) 0.59 X 10*3/uL (0.04-0.35); Eosinophils % (A) 11.4 %; HCT 27.2 % (39.6-50.0); HGB 8.1 g/dL (13.0-17.0); Lymphocytes # (A) 1.78 X 10*3/uL (0.90-5.00); Lymphocytes % (A) 34.4 %; MCH 27.6 pg (27.0-32.0); MCHC 29.8 g/dL (32.0-37.0); MCV 92.5 FL (80.0-97.0); Mean Platelet Volume 10.2 FL (9.5-12.2); Monocytes # (A) 0.63 X 10*3/uL (0.20-1.00); Monocytes % (A) 12.2 %; NRBC Per 100 WBC 0 X 10*3/uL (0.00-0.01); Neutrophils # (A) 2.12 X 10*3/uL (1.80-7.70); Neutrophils % (A) 40.8 %; Platelet Count 335 X 10*3/uL (140-440); RBC 2.94 X 10*6/uL (4.40-5.60); RDW 18.7 % (11.5-14.5); WBC 5.18 X 10*3/uL (4.50-10.00)
[2025-04-01 09:58] LABS: Blood Urea Nitrogen 15.9 mg/dL (9.0-27.0); Calcium 8.5 mg/dL (8.7-10.3); Carbon Dioxide 29.3 mmol/L (21.6-31.8); Chloride 98 mmol/L (96-109); Glucose 88 mg/dL (70-110); Potassium 3.8 mmol/L (3.5-5.5); Sodium 139 mmol/L (135-145)
[2025-04-01] MEDS: PEG 3350 (236 GM/BTL) + LYTES 4,000 ML BOTTLE PO ONE ×2 (10:19→13:54)
[2025-04-01 12:13] LABS: Glucose,Whole Blood 109 mg/dL (70-110)
--- NOTE | 2025-04-01 13:27 | P.PN ---
Progress Note - Text Progress Note Date: 04/01/25 No acute events overnight. Patient resting comfortable. PHYSICAL EXAM: VITAL SIGNS: Reviewed GENERAL: Well-developed in no acute distress. HEENT: No sclera icterus. Extraocular movements grossly intact. Moist buccal mucosa. Head is atraumatic, normocephalic. No nasal drainage. ABDOMEN: Soft. Nondistended. Nontender NEUROLOGIC: Alert and oriented. Cranial nerves II through XII grossly intact. ASSESSMENT: 1. Anemia requiring blood transfusion 2. History of Rectal cancer 3. GI bleed likely due to bleeding from rectal mass and being on Eliquis 4. Iron deficiency anemia PLAN: - Case discussed with oncology service. Patient scheduled for sigmoidoscopy tomorrow. - Dayanytely bowel prep today - CLD, NPO/midnight - Continue to hold Eliquis - Continue to monitor hemoglobin Rupert Juarez DO [facility] [phone]
[2025-04-01] MEDS: METOPROLOL TARTRATE 25 MG TAB PO STA (13:57)
[2025-04-01 17:19] LABS: Glucose,Whole Blood 163 mg/dL (70-110)
[2025-04-01 20:05] LABS: Glucose,Whole Blood 132 mg/dL (70-110)
[2025-04-01] MEDS: METOPROLOL TARTRATE 50 MG TAB PO SCH (21:34)
--- NOTE | 2025-04-01 23:07 | P.PN ---
Subjective Progress Note Date: 04/01/25 This is a 70-year-old male who presented to the emergency department with complaints of shortness of breath. Patient reports increasing shortness of breath for the last week. Shortness of breath has been worse with activity and patient has been unable to lay flat at home. Patient denies any chest pain. He does report increasing peripheral edema. Cardiology has been consulted. An echo has been ordered. Patient does have a history of rectal cancer. Further medical history as noted below. 03/30/2025 Patient evaluated today on the medical floor. Has been transitioned to oral lasix. He does continue with lower extremity edema. Echocardiogram reveals EF 50%, moderate pulmonary hypertension, moderate MR, severe aortic stenosis, mild to mod TR. Eliquis on hold. General surgery to perform sigmoidoscopy on Wednesday due to his history of rectal tumor and rectal bleeding. Eliquis held. Hemoglobin 7.5 03/31/2025 Patient evaluated in the medical floor. He continues on oral Lasix twice daily. He is still reporting some rectal bleeding. He will go for sigmoidoscopy on Wednesday. Otherwise no acute complaints. Hemoglobin 7.4. 04/01/2025 Patient evaluated today in follow up with no acute complaints at this time. He remains on oral lasix. Hemoglobin today 8.1, BUN 15.9, creatinine 1.5. Review of Systems Constitutional: Denied any fatigue denied any fever. Cardio vascular: denied any chest pain, palpitations Gastrointestinal: denied any nausea, vomiting, diarrhea. Has rectal bleeding. Pulmonary: Denied any shortness of breath cough Neurologic denied any new focal deficits All inpatient medications were reviewed and appropriate changes in these medications as dictated in the interval history and assessment and plan. PHYSICAL EXAMINATION: GENERAL: The patient is alert and oriented x3, not in any acute distress. Well developed, well nourished. HEENT: Pupils are round and equally reacting to light. EOMI. No scleral icterus. No conjunctival pallor. Normocephalic, atraumatic. No pharyngeal erythema. No thyromegaly. CARDIOVASCULAR: S1 and S2 present. No murmurs, rubs, or gallops. PULMONARY: Chest is clear to auscultation, no wheezing or crackles. ABDOMEN: Soft, nontender, nondistended, normoactive bowel sounds. No palpable organomegaly. MUSCULOSKELETAL: No joint swelling or deformity. EXTREMITIES: No cyanosis, clubbing, or pedal edema. Mild peripheral edema. NEUROLOGICAL: Gross neurological examination did not reveal any focal deficits. SKIN: No rashes. Assessment Rectal bleeding and acute blood loss anemia GI bleeding from cancer/eliquis use Hx of rectal cancer Acute on chronic heart failure with reduced EF, 35 to 40% Diabetes Mellitus type 2 Atrial fibrillation, paroxysmal Severe aortic stenosis Moderate pulmonary hypertension Hypertension Underlying iron deficiency anemia Hyperlipidemia Former smoker plan Transition to oral lasix Eliquis held Sigmoidoscopy on Wednesday with general surgery Monitor hemoglobin Transfuse for hemoglobin less than 7 The impression and plan of care has been dictated by Betsy Perez, Nurse Practitioner as directed. Dr. Michael MD I have performed a history and physical examination and medical decision making of this patient, discussed the same with the dictator, and agree with the dictators assessment and plan as written, documented as a scribe. Based on total visit time, I have performed more than 50% of this visit. Objective - Vital Signs Vital signs: Vital Signs Temp 98.3 F 04/01/25 02:00 Pulse 68 04/01/25 02:00 Resp 17 04/01/25 02:00 BP 118/62 04/01/25 02:00 Pulse Ox 96 04/01/25 02:00 FiO2 Intake & Output 03/31/25 04/01/25 04/01/25 18:59 06:59 18:59 Intake Total 540 Balance 540 Weight 120.9 kg Intake: Oral 540 - Labs CBC & Chem 7: 04/01/25 03:16 04/01/25 03:16 Labs: Abnormal Lab Results - Last 24 Hours (Table) 03/31/25 03/31/25 03/31/25 Range/Units 05:45 12:07 20:01 RBC 2.67 L (4.40-5.60) X 10*6/uL Hgb 7.4 L (13.0-17.0) g/dL Hct 24.6 L (39.6-50.0) % MCHC 30.1 L (32.0-37.0) g/dL RDW 19.0 H (11.5-14.5) % Eosinophils # 0.38 H (0.04-0.35) X 10*3/uL POC Glucose (mg/dL) 159 H 134 H (70-110) mg/dL Microbiology - Last 24 Hours (Table) 03/28/25 14:43 Blood Culture - Preliminary Blood Assessment and Plan Time with Patient: Less than 30
[2025-04-02 05:41] LABS: Methylmalonic Acid 0.34 umol/L (<0.40)
[2025-04-02 05:58] LABS: Glucose,Whole Blood 103 mg/dL (70-110)
[2025-04-02 08:13] VITALS: RESP 16
[2025-04-02 08:42] LABS: Basophils # (A) 0.04 X 10*3/uL (0.00-0.10); Basophils % (A) 0.9 %; HCT 29.8 % (39.6-50.0); Lymphocytes # (A) 1.72 X 10*3/uL (0.90-5.00); Lymphocytes % (A) 38.9 %; MCH 27.9 pg (27.0-32.0); MCHC 30.2 g/dL (32.0-37.0); MCV 92.3 FL (80.0-97.0); Mean Platelet Volume 9.9 FL (9.5-12.2); Monocytes # (A) 0.61 X 10*3/uL (0.20-1.00); Monocytes % (A) 13.8 %; NRBC Per 100 WBC 0 X 10*3/uL (0.00-0.01); Neutrophils # (A) 1.64 X 10*3/uL (1.80-7.70); Neutrophils % (A) 37.2 %; Platelet Count 374 X 10*3/uL (140-440); RBC 3.23 X 10*6/uL (4.40-5.60); WBC 4.42 X 10*3/uL (4.50-10.00)
[2025-04-02 10:00] LABS: African American GFR (CKD) 61 (>60 ml/min/1.73 sqM); Anion Gap 6 mmol/L; Blood Urea Nitrogen 14 mg/dL (9-20); Carbon Dioxide 34 mmol/L (22-30); Chloride 99 mmol/L (98-107); Glucose 126 mg/dL (74-99); Non-African American GFR(CKD) 53 (>60 ml/min/1.73 sqM); Potassium 3.8 mmol/L (3.5-5.1); Sodium 139 mmol/L (137-145)
--- NOTE | 2025-04-02 11:27 | P.PN ---
Subjective This is a 70-year-old male with a past medical history significant for paroxysmal atrial fibrillation, aortic stenosis, hypertension, hyperlipidemia, rectal cancer and former nicotine dependence. Patient follows in the office with Dr. Simpson. We have been asked to see the patient in consultation for CHF. Patient examined at the bedside. Patient presented to the hospital with a chief complaint of shortness of breath. He reports feeling short of breath for the past few days. He initially presented to the hospital on 03/28/2025 but then left AMA to take care of his cat and then returned back to the hospital to be admitted. He denies any chest pain or pressure. Vital signs are stable. Patient states he has not had chemotherapy in 3 to 4 weeks because he ended up getting hospitalized. He states he is not sure what his overall plan is with his cancer. DIAGNOSTICS: - EKG reveals sinus mechanism with no signs of acute ischemia. - Chest xray from 03/28/2025 revealed cardiomegaly with pulmonary vascular congestion - Laboratory data: WBC 5.0. Hemoglobin 7.6. Platelet count 229. Sodium 137. Potassium 4.9. BUN 26. Creatinine 1.37. Troponin negative x 1. proBNP 10,700. - Current home cardiac medications include amiodarone 200 mg daily, Eliquis 5 mg twice a day, metoprolol tartrate 25 mg twice a day, Entresto 24-26 mg twice a day. - Most recent echocardiogram obtained in January 2024 revealed ejection fraction 35 to 40%, moderate LVH, moderate aortic stenosis with peak gradient of 38 mmHg and mean gradient 23 mmHg, RVSP 25 mmHg - Patient underwent Lexiscan stress test in April 2024 which was negative for ischemia 03/30/2025 Patient examined this morning at the bedside. Patient currently denies chest pain or pressure. Denies shortness of breath. He remains on IV diuretics. Telemetry reveals atrial fibrillation with controlled ventricular rate. Echocardiogram completed revealing ejection fraction 50%, moderate pulm hyper tension, moderate mitral regurgitation, severe aortic stenosis with peak gradient 78 mmHg and mean gradient 52 mmHg, mild aortic regurgitation, mild tricuspid regurgitation. 04/02/2025 Patient seen and examined resting comfortably sitting up in bed in no acute distress. Blood pressure 128/69 heart rate 69 afebrile maintaining oxygen saturation on nasal cannula. Laboratory data reviewed, sodium 139, potassium 3.8, creatinine 1.36. He is maintaining sinus mechanism on telemetry. There was an episode overnight of A-fib with RVR heart rate in the 150s. He was given oral metoprolol and his dose was increased to 50 mg twice daily. He is also maintained on amiodarone. Eliquis currently on hold pending sigmoidoscopy this morning. PHYSICAL EXAM: VITAL SIGNS: Reviewed. GENERAL: Well-developed in no acute distress. HEENT: Head is normocephalic. Pupils are equal, round. Sclerae anicteric. Mucous membranes of the mouth are moist. Neck supple. No JVD or thyromegaly LUNGS: Respirations even and unlabored. Lungs essentially clear to auscultation bilaterally. HEART: Regular rate and rhythm. S1 and S2 heard. Systolic murmur noted ABDOMEN: Soft. Nondistended. Nontender. EXTREMITIES: Normal range of motion. No clubbing or cyanosis. Peripheral pulses intact. Trace bilateral lower extremity edema NEUROLOGIC: Awake and alert. Oriented x 3. ASSESSMENT: Shortness of breath Acute on chronic heart failure with reduced EF, 35 to 40% Rectal cancer, currently on chemotherapy Severe aortic stenosis Paroxysmal atrial fibrillation Anemia Hypertension Hyperlipidemia Former nicotine dependence PLAN: Continue current cardiac medications, resume eliquis after his procedure when guided by surgery team. We will continue to follow as needed, please call with further questions or concerns. Dr. Simpson will arrange for outpatient aortic valve valvuloplasty once his cancer treatment is optimized Nurse practitioner note has been reviewed by physician. Signing provider agrees with the documented findings, assessment, and plan of care documented by CHOPPED STRAND OPERATOR as a scribe. Objective - Vital Signs Vital signs: Vital Signs Temp 98.2 F 04/02/25 07:04 Pulse 69 04/02/25 07:04 Resp 16 04/02/25 07:04 BP 128/69 04/02/25 07:04 Pulse Ox 99 04/02/25 07:04 FiO2 Intake & Output 04/01/25 04/02/25 04/02/25 18:59 06:59 18:59 Weight 116.2 kg Other: Voiding Method Toilet - Labs CBC & Chem 7: 04/02/25 04:58 04/02/25 09:22 Labs: Abnormal Lab Results - Last 24 Hours (Table) 04/01/25 04/01/25 04/02/25 Range/Units 17:18 20:03 04:58 WBC 4.42 L (4.50-10.00) X 10*3/uL RBC 3.23 L (4.40-5.60) X 10*6/uL Hgb 9.0 L (13.0-17.0) g/dL Hct 29.8 L (39.6-50.0) % MCHC 30.2 L (32.0-37.0) g/dL RDW 19.0 H (11.5-14.5) % Neutrophils # 1.64 L (1.80-7.70) X 10*3/uL Eosinophils # 0.40 H (0.04-0.35) X 10*3/uL Carbon Dioxide (22-30) mmol/L Creatinine (0.66-1.25) mg/dL Glucose (74-99) mg/dL POC Glucose (mg/dL) 163 H 132 H (70-110) mg/dL 04/02/25 Range/Units 09:22 WBC (4.50-10.00) X 10*3/uL RBC (4.40-5.60) X 10*6/uL Hgb (13.0-17.0) g/dL Hct (39.6-50.0) % MCHC (32.0-37.0) g/dL RDW (11.5-14.5) % Neutrophils # (1.80-7.70) X 10*3/uL Eosinophils # (0.04-0.35) X 10*3/uL Carbon Dioxide 34 H (22-30) mmol/L Creatinine 1.36 H (0.66-1.25) mg/dL Glucose 126 H (74-99) mg/dL POC Glucose (mg/dL) (70-110) mg/dL
[2025-04-02] MEDS ORDERED: PROPOFOL 10 MG/ML 20 ML VIAL IV ONE (11:49)
[2025-04-02] MEDS: IV FLUID CONTINUATION 1,000 ML IV ONE ×2 (11:49→12:04)
--- NOTE | 2025-04-02 12:06 | P.PN ---
Progress Note - Text Progress Note Date: 04/02/25 Patient had flexible sigmoidoscopy. Biopsy was performed of friable rectal mass. Formal Operative note to follow Rupert Juarez DO [facility] [phone]
[2025-04-02 12:20] LABS: Glucose,Whole Blood 116 mg/dL (70-110)
--- NOTE | 2025-04-02 15:10 | P.OP ---
Date of Procedure: 04/02/25 Preoperative Diagnosis: History of Rectal Cancer Postoperative Diagnosis: Rectal Mass Procedure(s) Performed: Flexible Sigmoidoscopy with Biopsy Anesthesia: MIN Surgeon: Rupert Juarez Pathology: other (Rectal Mass Biopsy) Condition: stable Disposition: PACU Description of Procedure: After informed consent was obtained, the patient was placed in the left lateral position and the patient was sedated. Monitoring was provided throughout the entire procedure. Digital rectal exam was performed revealing normal sphincter tone and no external hemorrhoids. The colonoscope was inserted into rectum and advanced under direct visualization, without difficulty, to about 50 cm. The quality of the preparation was good. The colonoscope was then withdrawn while carefully examining the mucosa. The colonic and rectal mucosa appeared normal with normal vascularity and haustral markings. No polyps, AVM/s or diverticula were seen. There was a friable rectal mass observed. Cold biopsies were performed of the mass. The endoscope was removed and the procedure terminated. The patient tolerated the procedure well without complications.
[2025-04-02 15:48] VITALS: BP 125/63; PULSE 67; TEMP 98.3
--- NOTE | 2025-04-04 19:01 | P.DS ---
Providers Date of admission: 03/28/25 13:46 Attending physician: Lulu Rodriguez Consults: 03/28/25 14:03 Consult Physician Urgent Consulting Provider: Wallace Benitez Consult Reason/Comments: rectal ca Do you want consulting provider notified?: Yes 03/30/25 10:37 Consult Physician Routine Consulting Provider: Chapito Mirza Consult Reason/Comments: iron def anemia, r/o GI bleed Do you want consulting provider notified?: Yes Primary care physician: Jose Parker Hospital Course: Final Diagnosis Rectal bleeding and acute blood loss anemia GI bleeding from cancer/eliquis use Hx of rectal cancer Acute on chronic heart failure with reduced EF, 35 to 40% Diabetes Mellitus type 2 Atrial fibrillation, paroxysmal Severe aortic stenosis Moderate pulmonary hypertension Hypertension Underlying iron deficiency anemia Hyperlipidemia Former smoker Discharge Disposition Patient is stable for discharge home. Patient to follow up with oncology, general surgery and cardiology. Repeat labs 2 to 3 days. Follow up with Dr Parker in the office. Hospital Course This is a 70-year-old male who presented to the emergency department with complaints of shortness of breath. Patient reports increasing shortness of breath for the last week. Shortness of breath has been worse with activity and patient has been unable to lay flat at home. Patient denies any chest pain. He does report increasing peripheral edema. Cardiology has been consulted. Patient does have a history of rectal cancer. Patient was given IV lasix. Echocardiogram reveals EF 50%, moderate pulmonary hypertension, moderate MR, severe aortic stenosis, mild to mod TR. Eliquis on hold. General surgery to perform sigmoidoscopy on Wednesday due to his history of rectal tumor and rectal bleeding. Patient did receive 1 unit of PRBC. Flexible sigmoidoscopy reveals friable rectal mass which was biopsied and pathology pending. He was transitioned to oral lasix. He has been resumed on eliquis and reports no further episode of rectal bleeding. He initially required home oxygen and his saturations have improved and he no longer requires oxygen on discharge. Please see medication reconciliation for a list of current medications. Thank you for allowing us to participate in the care of this patient. The impression and plan of care has been dictated by Betsy Perez Nurse Practitioner as directed. Dr. Michael MD I have performed a history and physical examination and medical decision making of this patient, discussed the same with the dictator, and agree with the dictators assessment and plan as written, documented as a scribe. Based on total visit time, I have performed more than 50% of this visit. Patient Condition at Discharge: Stable Plan - Discharge Summary Discharge Rx Participant: Yes New Discharge Prescriptions: New Furosemide [Lasix] 40 mg PO DAILY #30 tab SILVER sulfADIAZINE Cream [Silvadene 1% Cream] 1 applic TOPICAL DAILY #1 each Furosemide [Lasix] 20 mg PO DAILY@1600 #30 tab Nystatin 100,000 Unit/ml Susp [Mycostatin Oral Susp] 500,000 unit PO QID 7 Days #140 ml Continue metFORMIN HCL [Glucophage] 1,000 mg PO BID Magnesium Oxide [Mag-Ox] 400 mg PO TID 7 Days #21 tab Metoprolol Tartrate [Lopressor] 25 mg PO BID Insulin Aspart [NovoLOG Flexpen] 10 - 20 units SQ TID-W/MEALS Amiodarone [Cordarone] 200 mg PO DAILY Capecitabine 500mg 2,500 mg PO DIRECTED Pantoprazole [Protonix] 40 mg PO DAILY #15 tab Apixaban [Eliquis] 5 mg PO BID #60 tab Sacubitril/Valsartan [Entresto 24 mg-26 mg Tablet] 1 tab PO BID Hydrocortisone Lotion [Hytone 2.5% Lotion] 1 applic TOPICAL QID Insulin Glargine (Lantus) [Lantus Vial] 50 unit SQ HS Loperamide [Imodium] 2 - 4 mg PO QID PRN PRN Reason: Diarrhea Doxycycline Monohydrate 100 mg PO BID Discharge Medication List metFORMIN HCL [Glucophage] 1,000 mg PO BID 12/25/16 [History] Apixaban [Eliquis] 5 mg PO BID #60 tab 02/21/24 [Rx] Magnesium Oxide [Mag-Ox] 400 mg PO TID 7 Days #21 tab 02/22/24 [Rx] Amiodarone [Cordarone] 200 mg PO DAILY 03/07/25 [History] Capecitabine 500mg 2,500 mg PO DIRECTED 03/07/25 [History] Hydrocortisone Lotion [Hytone 2.5% Lotion] 1 applic TOPICAL QID 03/07/25 [History] Insulin Aspart [NovoLOG Flexpen] 10 - 20 units SQ TID-W/MEALS 03/07/25 [History] Insulin Glargine (Lantus) [Lantus Vial] 50 unit SQ HS 03/07/25 [History] Metoprolol Tartrate [Lopressor] 25 mg PO BID 03/07/25 [History] Sacubitril/Valsartan [Entresto 24 mg-26 mg Tablet] 1 tab PO BID 03/07/25 [History] Pantoprazole [Protonix] 40 mg PO DAILY #15 tab 03/12/25 [Rx] Doxycycline Monohydrate 100 mg PO BID 03/28/25 [History] Loperamide [Imodium] 2 - 4 mg PO QID PRN 03/28/25 [History] Furosemide [Lasix] 20 mg PO DAILY@1600 #30 tab 03/30/25 [Rx] Furosemide [Lasix] 40 mg PO DAILY #30 tab 03/30/25 [Rx] Nystatin 100,000 Unit/ml Susp [Mycostatin Oral Susp] 500,000 unit PO QID 7 Days #140 ml 03/30/25 [Rx] SILVER sulfADIAZINE Cream [Silvadene 1% Cream] 1 applic TOPICAL DAILY #1 each 03/30/25 [Rx] Follow up Appointment(s)/Referral(s): Wallace Benitez [STAFF PHYSICIAN] - 04/10/25 11:00 am Selena Simpson MD [STAFF PHYSICIAN] - 04/18/25 2:30 pm Jose Parker MD [Primary Care Provider] - 1-2 days Rupert Juarez DO [Medical Doctor] - 04/17/25 9:15 am Ambulatory/Diagnostic Orders: Basic Metabolic Panel [LAB.AMB] Time Frame: 3 Days, Location: None Selected Complete Blood Count w/diff [LAB.AMB] Location: None Selected Patient Instructions/Handouts: Heart Failure (DC) Activity/Diet/Wound Care/Special Instructions: Patient will be discharging home with home oxygen Repeat labs 2 to 3 days Continue oral lasix Discharge Disposition: HOME SELF-CARE
== END 2025-04-02 16:30 | disposition home or self-care (01) | DRG 291 ==
LOC: EC 13:11 → 5NMEDONC 13:45 → OBSVTOIN 13:46 → 6NMEDSUR 21:58
PROVIDERS: ADMIT Internal Medicine; ATTEND Internal Medicine
PROC: 30233N1 Transfusion of Nonautologous Red Blood Cells into Peripheral Vein, Percutaneous Approach (ICD-10-PCS; principal; 2025-03-28)
PROC: 0DBP8ZX Excision of Rectum, Via Natural or Artificial Opening Endoscopic, Diagnostic (ICD-10-PCS; 2025-04-02)
DX: I11.0 Hypertensive heart disease with heart failure (principal); I50.23 Acute on chronic systolic (congestive) heart failure; D62 Acute posthemorrhagic anemia; L03.116 Cellulitis of left lower limb; C78.7 Secondary malignant neoplasm of liver and intrahepatic bile duct; E86.0 Dehydration; N17.9 Acute kidney failure, unspecified; L03.314 Cellulitis of groin; K62.5 Hemorrhage of anus and rectum; C19 Malignant neoplasm of rectosigmoid junction; I27.20 Pulmonary hypertension, unspecified; I48.0 Paroxysmal atrial fibrillation; E11.9 Type 2 diabetes mellitus without complications; I35.0 Nonrheumatic aortic (valve) stenosis; Z79.4 Long term (current) use of insulin; Z79.01 Long term (current) use of anticoagulants; E78.5 Hyperlipidemia, unspecified; F15.90 Other stimulant use, unspecified, uncomplicated; K59.00 Constipation, unspecified; Z79.84 Long term (current) use of oral hypoglycemic drugs; Z79.899 Other long term (current) drug therapy; Z86.73 Personal history of transient ischemic attack (TIA), and cerebral infarction without residual deficits; Z96.659 Presence of unspecified artificial knee joint; Z87.891 Personal history of nicotine dependence
CPT/HCPCS: 36430; 45331; 80048; 80053; 82607; 82728; 82746; 82747; 83540; 83550; 83880; 83921; 85025; 85027; 85045; 86850; 86900; 86901; 86920; 87040; 88305; 93005; 93306; 96365; 96375; 99285

== ENCOUNTER 2025-05-07 15:05 | Inpatient (IN) | payer MEDICARE ==
--- NOTE | 2025-05-07 15:56 | ED ---
General Adult HPI - General Chief complaint: Recheck/Abnormal Lab/Rx Stated complaint: blood in stool Time Seen by Provider: 05/07/25 15:17 Source: patient, RN notes reviewed Mode of arrival: ambulatory Limitations: no limitations - History of Present Illness Initial comments: Patient is a 70-year-old male presenting to the emergency department with shona ojeda for bleeding. Patient has had rectal bleeding for the past 2 years. Patient was diagnosed with rectal cancer over a year ago. There was discussion regarding possible surgery however never happened. Patient went today for radiation therapy and blood pressure was low. Patient was sent to emergency department for possible blood transfusion. Patient states rectal bleeding is fairly chronic for him and usually gets it daily. Patient has had 1 or 2 small episodes today. Patient does have some mild rectal discomfort which is also chronic. - Related Data Home Medications Medication Instructions Recorded Confirmed metFORMIN HCL [Glucophage] 1,000 mg PO BID@0000,1600 12/25/16 05/07/25 Amiodarone [Cordarone] 200 mg PO DAILY@159903/07/25 05/07/25 Capecitabine 500mg 2,500 mg PO DIRECTED 03/07/25 05/07/25 Hydrocortisone Lotion [Hytone 2.5% 1 applic TOPICAL QID 03/07/25 05/07/25 Lotion] Metoprolol Tartrate [Lopressor] 25 mg PO BID@0000,159903/07/25 05/07/25 Sacubitril/Valsartan [Entresto 24 1 tab PO BID@0000,159903/07/25 05/07/25 mg-26 mg Tablet] Doxycycline Monohydrate 100 mg PO BID@0000,159903/28/25 05/07/25 Loperamide [Imodium] 2 - 4 mg PO QID PRN 03/28/25 05/07/25 Apixaban [Eliquis] 5 mg PO BID@0000,159905/07/25 05/07/25 Cholestyramine (with Sugar) 4 gm PO BID PRN 05/07/25 05/07/25 [Cholestyramine Packet] Furosemide [Lasix] 40 mg PO DAILY@0000 05/07/25 05/07/25 Ondansetron [Zofran] 4 mg PO Q4H PRN 05/07/25 05/07/25 Pantoprazole [Protonix] 40 mg PO DAILY@1600 05/07/25 05/07/25 Vancomycin HCl [Vancocin HCl] 125 mg PO DAILY@1600 05/07/25 05/07/25 Previous Rx's Medication Instructions Recorded Magnesium Oxide [Mag-Ox] 400 mg PO TID 7 Days #21 tab 02/22/24 Furosemide [Lasix] 20 mg PO DAILY@1600 #30 tab 03/30/25 SILVER sulfADIAZINE Cream 1 applic TOPICAL DAILY #1 each 03/30/25 [Silvadene 1% Cream] Allergies Allergy/AdvReac Type Severity Reaction Status Date / Time guinea pigs Allergy Itching Uncoded 05/07/25 16:52 Review of Systems ROS Statement: Those systems with pertinent positive or pertinent negative responses have been documented in the HPI. ROS Other: All systems not noted in ROS Statement are negative. Constitutional: Denies: fever Eyes: Denies: eye pain Respiratory: Denies: cough Endocrine: Reports: fatigue Gastrointestinal: Reports: hematochezia. Denies: abdominal pain Genitourinary: Denies: dysuria Musculoskeletal: Denies: back pain Past Medical History Past Medical History: Atrial Fibrillation, Cancer, CVA/TIA, Diabetes Mellitus, Hypertension Additional Past Medical History / Comment(s): RECTAL CANCER. History of Any Multi-Drug Resistant Organisms: None Reported Past Surgical History: Joint Replacement, Orthopedic Surgery Additional Past Surgical History / Comment(s): eye surgery,knee replacement, broken fx and calcium deposits removed Past Anesthesia/Blood Transfusion Reactions: No Reported Reaction Past Psychological History: No Psychological Hx Reported Smoking Status: Former smoker Past Alcohol Use History: None Reported Past Drug Use History: None Reported General Exam Limitations: no limitations General appearance: alert, in no apparent distress Head exam: Present: normocephalic Eye exam: Present: normal appearance Neck exam: Present: normal inspection Respiratory exam: Present: normal lung sounds bilaterally Cardiovascular Exam: Present: regular rate, normal rhythm, systolic murmur (Patient states chronic) GI/Abdominal exam: Present: soft. Absent: tenderness Rectal exam: Present: bloody stool Extremities exam: Present: normal inspection Neurological exam: Present: alert Psychiatric exam: Present: normal affect, normal mood Skin exam: Present: normal color Course Vital Signs 05/07/25 05/07/25 15:06 16:12 Temperature 98.4 F Pulse Rate 64 73 Respiratory 18 16 Rate Blood Pressure 121/64 124/54 O2 Sat by Pulse 95 99 Oximetry Medical Decision Making - Medical Decision Making Was pt. sent in by a medical professional or institution (, LADI, LAMP INSPECTOR, urgent care, hospital, or [facility]...) When possible be specific @ -Patient was sent by radiation oncology Did you speak to anyone other than the patient for history (EMS, parent, family, police, friend...)? What history was obtained from this source @ -No Did you review nursing and triage notes (agree or disagree)? Why? @ -I reviewed and agree with nursing and triage notes Were old charts reviewed (outside hosp., previous admission, EMS record, old EKG, old radiological studies, urgent care reports/EKG's, [facility] records)? Report findings @ -Previous hemoglobin and magnesium levels reviewed Differential Diagnosis (chest pain, altered mental status, abdominal pain women, abdominal pain men, vaginal bleeding, weakness, fever, dyspnea, syncope, headache, dizziness, GI bleed, back pain, seizure, CVA, palpatations, mental health, musculoskeletal)? @ -Differential GI Bleed: Esophageal varices, aortoenteric fistula, Aaliyah-Castellon, gastritis, peptic ulcer disease, diverticulosis, inflammatory bowel disease, hemorrhoids, fissure, colitis, malignancy, Meckel's diverticulum, this is not meant to be an all-inclusive list. EKG interpreted by me (3pts min.). @ -As above X-rays interpreted by me (1pt min.). @ -None done CT interpreted by me (1pt min.). @ -None done U/S interpreted by me (1pt. min.). @ -None done What testing was considered but not performed or refused? (CT, X-rays, U/S, labs)? Why? @ -None What meds were considered but not given or refused? Why? @ -None Did you discuss the management of the patient with other professionals (professionals i.e. , LADI, LAMP INSPECTOR, lab, RT, psych nurse, health care social worker, advice clerk, teacher, hydrographical technical officer, case therapist)? Give summary @ -Case was discussed with practitioner Bernice washington with recommendation of providing 1 unit of blood. Agreement originally for discharge however magnesium level returned low Was smoking cessation discussed for >3mins.? @ -No Was critical care preformed (if so, how long)? @ -No Were there social determinants of health that impacted care today? How? (Homelessness, low income, unemployed, alcoholism, drug addiction, transpo rtation, low edu. Level, literacy, decrease access to med. care, [facility], rehab)? @ -No Was there de-escalation of care discussed even if they declined (Discuss DNR or withdrawal of care, Hospice)? DNR status @ -No What co-morbidities impacted this encounter? (DM, HTN, Smoking, COPD, CAD, Cancer, CVA, ARF, Chemo, Hep., AIDS, mental health diagnosis, sleep apnea, morbid obesity)? @ -Rectal cancer Was patient admitted / discharged? Hospital course, mention meds given and route, prescriptions, significant lab abnormalities, going to OR and other pertinent info. @ -Patient presents with chronic bleeding from rectal cancer. Hemoglobin is low and blood transfusion ordered. Patient does have low magnesium level and this will be replaced. Patient will be held overnight with repeat testing in t he morning. Patient updated. Undiagnosed new problem with uncertain prognosis? @ -No Drug Therapy requiring intensive monitoring for toxicity (Heparin, Nitro, Insulin, Cardizem)? @ -No Were any procedures done? @ -No Diagnosis/symptom? @ -Anemia Acute, or Chronic, or Acute on Chronic? @ -Acute Uncomplicated (without systemic symptoms) or Complicated (systemic symptoms)? @ -Complicated with lightheadedness and fatigue Side effects of treatment? @ -No Exacerbation, Progression, or Severe Exacerbation? @ -No Poses a threat to life or bodily function? How? (Chest pain, [place], [place], pneumonia, PE, COPD, DKA, ARF, appy, cholecystitis, CVA, Diverticulitis, Homicidal, Suicidal, threat to staff... and all critical care pts) @ -Threat to hematological function Diagnosis/symptom? @ -Hypomagnesemia Acute, or Chronic, or Acute on Chronic? @ -Acute Uncomplicated (without systemic symptoms) or Complicated (systemic symptoms)? @ -Default Side effects of treatment? @ -None Exacerbation, Progression, or Severe Exacerbation] @ -No Poses a threat to life or bodily function? @ -Threat to metabolic function - Lab Data Result diagrams: 05/07/25 16:03 05/07/25 16:03 Lab Results 05/07/25 05/07/25 05/07/25 Range/Units 16:03 16:03 16:03 WBC 1.70 L (4.50-10.00) 10*3/uL RBC 2.36 L (4.40-5.60) 10*6/uL Hgb 7.0 L (13.0-17.0) g/dL Hct 21.1 L (39.6-50.0) % MCV 89.4 (80.0-97.0) fL MCH 29.7 (27.0-32.0) pg MCHC 33.2 (32.0-37.0) g/dL Plt Count 261 (140-440) 10*3/uL MPV 9.4 L (9.5-12.2) fL Immature Gran % (Auto) 0.6 % Immature Gran # 0.01 (0.00-0.04) 10*3/uL Neutrophils # LAMP INSPECTOR PT 13.9 H (10.0-12.5) sec INR 1.3 H (<1.2) APTT 28.3 (22.0-30.0) sec Sodium 137 (137-145) mmol/L Potassium 3.1 L (3.5-5.1) mmol/L Chloride 99 (98-107) mmol/L Carbon Dioxide 29 (22-30) mmol/L Anion Gap 9 mmol/L BUN 19 (9-20) mg/dL Creatinine 1.37 H (0.66-1.25) mg/dL Est GFR (CKD-EPI)AfAm 61 (>60 ml/min/1.73 sqM) Est GFR (CKD-EPI)NonAf 52 (>60 ml/min/1.73 sqM) Glucose 161 H (74-99) mg/dL Calcium 8.1 L (8.4-10.2) mg/dL Magnesium 0.8 L* (1.6-2.3) mg/dL Total Bilirubin 0.6 (0.2-1.3) mg/dL AST 14 L (17-59) U/L ALT 9 (4-49) U/L Alkaline Phosphatase 66 (38-126) U/L Total Protein 6.2 L (6.3-8.2) g/dL Albumin 3.4 L (3.5-5.0) g/dL Stool Occult Blood (Negative) 05/07/25 Range/Units 16:03 WBC (4.50-10.00) 10*3/uL RBC (4.40-5.60) 10*6/uL Hgb (13.0-17.0) g/dL Hct (39.6-50.0) % MCV (80.0-97.0) fL MCH (27.0-32.0) pg MCHC (32.0-37.0) g/dL Plt Count (140-440) 10*3/uL MPV (9.5-12.2) fL Immature Gran % (Auto) % Immature Gran # (0.00-0.04) 10*3/uL Neutrophils # PT (10.0-12.5) sec INR (<1.2) APTT (22.0-30.0) sec Sodium (137-145) mmol/L Potassium (3.5-5.1) mmol/L Chloride (98-107) mmol/L Carbon Dioxide (22-30) mmol/L Anion Gap mmol/L BUN (9-20) mg/dL Creatinine (0.66-1.25) mg/dL Est GFR (CKD-EPI)AfAm (>60 ml/min/1.73 sqM) Est GFR (CKD-EPI)NonAf (>60 ml/min/1.73 sqM) Glucose (74-99) mg/dL Calcium (8.4-10.2) mg/dL Magnesium (1.6-2.3) mg/dL Total Bilirubin (0.2-1.3) mg/dL AST (17-59) U/L ALT (4-49) U/L Alkaline Phosphatase (38-126) U/L Total Protein (6.3-8.2) g/dL Albumin (3.5-5.0) g/dL Stool Occult Blood Positive (Negative) Disposition Clinical Impression: Anemia, Hypomagnesemia Disposition: ADMITTED IP TO THIS HOSP Is patient prescribed a controlled substance at d/c from ED?: No Referrals: Jose Parker MD [Primary Care Provider] - 1-2 days Time of Disposition: 17:17
[2025-05-07 16:12] LABS: HCT 21.1 % (39.6-50.0); MCH 29.7 pg (27.0-32.0); MCHC 33.2 g/dL (32.0-37.0); MCV 89.4 fL (80.0-97.0); Mean Platelet Volume 9.4 fL (9.5-12.2); Platelet Count 261 10*3/uL (140-440); RBC 2.36 10*6/uL (4.40-5.60); RDW 19.8 % (11.5-14.5)
[2025-05-07 16:26] LABS: INR 1.3 (<1.2); Partial Thromboplastin Time 28.3 sec (22.0-30.0); Prothrombin Time 13.9 sec (10.0-12.5)
[2025-05-07 16:45] LABS: ALT 9 U/L (4-49); AST 14 U/L (17-59); African American GFR (CKD) 61 (>60 ml/min/1.73 sqM); Albumin 3.4 g/dL (3.5-5.0); Alkaline Phosphatase 66 U/L (38-126); Anion Gap 9 mmol/L; Blood Urea Nitrogen 19 mg/dL (9-20); Calcium 8.1 mg/dL (8.4-10.2); Carbon Dioxide 29 mmol/L (22-30); Chloride 99 mmol/L (98-107); Glucose 161 mg/dL (74-99); Non-African American GFR(CKD) 52 (>60 ml/min/1.73 sqM); Potassium 3.1 mmol/L (3.5-5.1); Sodium 137 mmol/L (137-145); Total Bilirubin 0.6 mg/dL (0.2-1.3); Total Protein 6.2 g/dL (6.3-8.2)
[2025-05-07 16:52] LABS: Neutrophils % (M) 12 %
[2025-05-07 16:55] LABS: Magnesium 0.8 mg/dL (1.6-2.3)
[2025-05-07] MEDS: MAGNESIUM OXIDE 400 MG TAB PO STA (17:05)
[2025-05-07] MEDS: MAGNESIUM SULFATE-D5W PMX 1 GM in DEXTROSE/WATER 1 100ML.BAG IVPB SCH (17:05)
[2025-05-07 17:08] LABS: Lymphocytes # (M) 1.26 k/uL (1.0-4.8); Monocytes # (M) 0.14 k/uL (0-1.0); Nucleated Red Blood Cells 0 /100 WBC (0-0); Total Cells Counted 100
[2025-05-07 17:09] LABS: Polychromasia Present
[2025-05-07] MEDS ORDERED: NALOXONE 0.4 MG/ML 1 ML VIAL IV PRN (17:17)
[2025-05-07] MEDS ORDERED: ONDANSETRON ODT 4 MG TAB PO PRN (17:18)
[2025-05-07] MEDS: HYDROCORTISONE 1% CREAM 30 GM TUBE TOPICAL SCH (19:33)
[2025-05-07] MEDS: CAPECITABINE PO SCH (19:37)
[2025-05-07] MEDS: MAGNESIUM OXIDE 400 MG TAB PO SCH (21:53)
[2025-05-07] MEDS: metFORMIN 500 MG TAB PO SCH (23:31)
[2025-05-07] MEDS: METOPROLOL TARTRATE 25 MG TAB PO SCH (23:31)
[2025-05-07] MEDS: SACUBITRIL/VALSARTAN 24 MG-26 MG TABLET PO SCH (23:31)
[2025-05-07] MEDS: FUROSEMIDE 40 MG TAB PO SCH (23:32)
[2025-05-08 06:14] LABS: Glucose,Whole Blood 154 mg/dL (70-110)
[2025-05-08 08:28] LABS: Basophils # (A) 0.01 10*3/uL (0.00-0.10); Basophils % (A) 0.6 %; Eosinophils # (A) 0.13 10*3/uL (0.04-0.35); Eosinophils % (A) 7.4 %; HCT 22.4 % (39.6-50.0); HGB 7.4 g/dL (13.0-17.0); Lymphocytes # (A) 1.14 10*3/uL (0.90-5.00); Lymphocytes % (A) 64.8 %; MCH 29.5 pg (27.0-32.0); MCV 89.2 fL (80.0-97.0); Mean Platelet Volume 9.8 fL (9.5-12.2); Monocytes # (A) 0.28 10*3/uL (0.20-1.00); Monocytes % (A) 15.9 %; Neutrophils % (A) 11.3 %; Platelet Count 287 10*3/uL (140-440); RBC 2.51 10*6/uL (4.40-5.60); RDW 19.5 % (11.5-14.5); WBC 1.76 10*3/uL (4.50-10.00)
[2025-05-08 08:33] LABS: ALT 8 U/L (4-49); AST 13 U/L (17-59); African American GFR (CKD) 74 (>60 ml/min/1.73 sqM); Alkaline Phosphatase 64 U/L (38-126); Anion Gap 10 mmol/L; Blood Urea Nitrogen 15 mg/dL (9-20); Calcium 7.9 mg/dL (8.4-10.2); Carbon Dioxide 26 mmol/L (22-30); Chloride 101 mmol/L (98-107); Glucose 142 mg/dL (74-99); Non-African American GFR(CKD) 64 (>60 ml/min/1.73 sqM); Potassium 3.2 mmol/L (3.5-5.1); Sodium 137 mmol/L (137-145); Total Bilirubin 0.8 mg/dL (0.2-1.3); Total Protein 5.7 g/dL (6.3-8.2)
--- NOTE | 2025-05-08 08:53 | P.HPIM ---
History of Present Illness H&P Date: 05/08/25 This is a 70-year-old male who presented to the emergency department with complaints of bleeding. Patient has been having rectal bleeding for the last 2 years, and has a history of rectal cancer diagnosed about a year ago. Patient reportedly was at radiation therapy yesterday and had low blood pressure. Patient's magnesium was found to be extremely low in the emergency department and has been replaced. Labs for this morning pending at time of dictation. Patient reports he is feeling much better this morning and is eager to get home because he has a cat at home. Patient also states he has a radiation appointment this afternoon at 1pm. Further medical history as noted below. Review of Systems Constitutional: Denies chills, Denies fever Cardiovascular: Denies chest pain, Denies dyspnea on exertion Respiratory: Denies cough, Denies dyspnea Gastrointestinal: Denies abdominal pain, Denies nausea, Denies vomiting Musculoskeletal: Denies arm numbness/tingling, Denies leg numbness/tingling Neurological: Denies headaches, Denies weakness Past Medical History Past Medical History: Atrial Fibrillation, Cancer, CVA/TIA, Diabetes Mellitus, Hypertension Additional Past Medical History / Comment(s): RECTAL CANCER. History of Any Multi-Drug Resistant Organisms: C-DIFF Date of last positivie culture/infection: Unknown MDRO Source:: Unknown Past Surgical History: Joint Replacement, Orthopedic Surgery Additional Past Surgical History / Comment(s): eye surgery, knee replacement, broken fx and calcium deposits removed Past Anesthesia/Blood Transfusion Reactions: No Reported Reaction Past Psychological History: No Psychological Hx Reported Smoking Status: Former smoker Past Alcohol Use History: None Reported Additional Past Alcohol Use History / Comment(s): quit about 30 yrs ago Past Drug Use History: None Reported Medications and Allergies Home Medications Medication Instructions Recorded Confirmed Type metFORMIN HCL [Glucophage] 1,000 mg PO BID@0000,1600 12/25/16 05/07/25 History Magnesium Oxide [Mag-Ox] 400 mg PO TID 7 Days #21 tab 02/22/24 05/07/25 Rx Amiodarone [Cordarone] 200 mg PO DAILY@1600 03/07/25 05/07/25 History Capecitabine 500mg 2,500 mg PO DIRECTED 03/07/25 05/07/25 History Hydrocortisone Lotion [Hytone 2.5% 1 applic TOPICAL QID 03/07/25 05/07/25 History Lotion] Metoprolol Tartrate [Lopressor] 25 mg PO BID@0000,1600 03/07/25 05/07/25 History Sacubitril/Valsartan [Entresto 24 1 tab PO BID@0000,1600 03/07/25 05/07/25 History mg-26 mg Tablet] Doxycycline Monohydrate 100 mg PO BID@0000,1600 03/28/25 05/07/25 History Loperamide [Imodium] 2 - 4 mg PO QID PRN 03/28/25 05/07/25 History Furosemide [Lasix] 20 mg PO DAILY@1600 #30 tab 03/30/25 05/07/25 Rx SILVER sulfADIAZINE Cream 1 applic TOPICAL DAILY #1 each 03/30/25 05/07/25 Rx [Silvadene 1% Cream] Apixaban [Eliquis] 5 mg PO BID@0000,1600 05/07/25 05/07/25 History Cholestyramine (with Sugar) 4 gm PO BID PRN 05/07/25 05/07/25 History [Cholestyramine Packet] Furosemide [Lasix] 40 mg PO DAILY@0000 05/07/25 05/07/25 History Ondansetron [Zofran] 4 mg PO Q4H PRN 05/07/25 05/07/25 History Pantoprazole [Protonix] 40 mg PO DAILY@1600 05/07/25 05/07/25 History Vancomycin HCl [Vancocin HCl] 125 mg PO DAILY@1600 05/07/25 05/07/25 History Allergies Allergy/AdvReac Type Severity Reaction Status Date / Time guinea pigs Allergy Itching Uncoded 05/07/25 16:52 Physical Exam Vitals: Vital Signs Temp Pulse Pulse Resp BP BP Pulse Ox 05/08/25 04:45 98.0 F 60 16 105/57 94 L 05/08/25 00:00 98.5 F 67 16 145/65 99 05/07/25 22:55 98.0 F 64 18 116/68 94 L 05/07/25 22:00 66 18 120/60 98 05/07/25 21:43 97.8 F 66 18 102/55 97 05/07/25 21:00 64 18 106/67 95 05/07/25 20:00 61 16 111/67 96 05/07/25 19:30 98.3 F 65 18 105/52 95 05/07/25 18:59 98.3 F 67 18 113/59 05/07/25 18:39 98.4 F 66 16 101/57 95 05/07/25 18:25 98.2 F 63 18 97/54 05/07/25 18:03 97.8 F 63 18 96 05/07/25 16:12 73 16 124/54 99 05/07/25 15:06 98.4 F 64 18 121/64 95 Intake and Output 05/07/25 05/08/25 05/08/25 22:59 06:59 14:59 Intake Total 310 10 Balance 310 10 Intake: IV 10 Invasive Line 1 5 Invasive Line 2 5 Blood Product 310 Rc As-1 Unit 310 [id number] Other: Voiding Method Toilet # Voids 1 Weight 120.202 kg 117.2 kg - Constitutional General appearance: cooperative, no acute distress - EENT Eyes: PERRLA - Neck Neck: no lymphadenopathy, normal ROM, no rigidity - Respiratory Respiratory: bilateral: diminished - Cardiovascular Heart sounds: normal: S1, S2 - Gastrointestinal General gastrointestinal: soft, no tenderness - Integumentary Integumentary: normal, normal turgor - Musculoskeletal Musculoskeletal: generalized weakness - Psychiatric Psychiatric: A&O x's 3 Results CBC & Chem 7: 05/08/25 07:39 05/08/25 07:39 Labs: Abnormal Lab Results - Last 24 Hours (Table) 05/07/25 05/07/25 05/07/25 Range/Units 16:00 16:03 16:03 WBC 1.70 L (4.50-10.00) 10*3/uL RBC 2.36 L (4.40-5.60) 10*6/uL Hgb 7.0 L (13.0-17.0) g/dL Hct 21.1 L (39.6-50.0) % MPV 9.4 L (9.5-12.2) fL Neutrophils # (Manual) 0.20 L* (1.3-7.7) k/uL PT 13.9 H (10.0-12.5) sec INR 1.3 H (<1.2) Potassium (3.5-5.1) mmol/L Creatinine (0.66-1.25) mg/dL Glucose (74-99) mg/dL POC Glucose (mg/dL) (70-110) mg/dL Calcium (8.4-10.2) mg/dL Magnesium (1.6-2.3) mg/dL AST (17-59) U/L Total Protein (6.3-8.2) g/dL Albumin (3.5-5.0) g/dL Crossmatch See Detail 05/07/25 05/08/25 05/08/25 Range/Units 16:03 06:12 07:39 WBC 1.76 L (4.50-10.00) 10*3/uL RBC 2.51 L (4.40-5.60) 10*6/uL Hgb 7.4 L (13.0-17.0) g/dL Hct 22.4 L (39.6-50.0) % MPV (9.5-12.2) fL Neutrophils # (Manual) (1.3-7.7) k/uL PT (10.0-12.5) sec INR (<1.2) Potassium 3.1 L (3.5-5.1) mmol/L Creatinine 1.37 H (0.66-1.25) mg/dL Glucose 161 H (74-99) mg/dL POC Glucose (mg/dL) 154 H (70-110) mg/dL Calcium 8.1 L (8.4-10.2) mg/dL Magnesium 0.8 L* (1.6-2.3) mg/dL AST 14 L (17-59) U/L Total Protein 6.2 L (6.3-8.2) g/dL Albumin 3.4 L (3.5-5.0) g/dL Crossmatch 05/08/25 Range/Units 07:39 WBC (4.50-10.00) 10*3/uL RBC (4.40-5.60) 10*6/uL Hgb (13.0-17.0) g/dL Hct (39.6-50.0) % MPV (9.5-12.2) fL Neutrophils # (Manual) (1.3-7.7) k/uL PT (10.0-12.5) sec INR (<1.2) Potassium 3.2 L (3.5-5.1) mmol/L Creatinine (0.66-1.25) mg/dL Glucose 142 H (74-99) mg/dL POC Glucose (mg/dL) (70-110) mg/dL Calcium 7.9 L (8.4-10.2) mg/dL Magnesium 1.0 L (1.6-2.3) mg/dL AST 13 L (17-59) U/L Total Protein 5.7 L (6.3-8.2) g/dL Albumin 3.0 L (3.5-5.0) g/dL Crossmatch Thrombosis Risk Factor Assmnt - Choose All That Apply Any of the Below Risk Factors Present?: Yes Each Factor Represents 1 point: Swollen legs (current) Each Risk Factor Represents 2 Points: Age 61-74 years, Malignancy Thrombosis Risk Factor Assessment Total Risk Factor Score: 5 Thrombosis Risk Factor Assessment Level: High Risk Assessment and Plan (1) Hypomagnesemia Current Visit: Yes Status: Acute Priority: High Code(s): E83.42 - HYPOMAGN ESEMIA SNOMED Code(s): 112391196 (2) Anemia Current Visit: Yes Status: Chronic Priority: Medium Code(s): D64.9 - ANEMIA, UNSPECIFIED SNOMED Code(s): 235991822 (3) Diabetes Current Visit: No Status: Acute Code(s): E11.9 - TYPE 2 DIABETES MELLITUS WITHOUT COMPLICATIONS SNOMED Code(s): 08937958 (4) History of atrial fibrillation Current Visit: No Status: Acute Code(s): Z86.79 - PERSONAL HISTORY OF OTHER DISEASES OF THE CIRCULATORY SYSTEM SNOMED Code(s): 458226241 (5) Hypertension Current Visit: No Status: Acute Code(s): I10 - ESSENTIAL (PRIMARY) HYPERTENSION SNOMED Code(s): 12853230 (6) Colon adenocarcinoma Current Visit: No Status: Chronic Priority: Medium Code(s): C18.9 - MALIGNANT NEOPLASM OF COLON, UNSPECIFIED SNOMED Code(s): 592675474 Plan: Home medications reconciled. Await lab results from today. Patient seen and evaluated by nurse practitioner, physician in agreement with plan.
[2025-05-08 11:29] LABS: Glucose,Whole Blood 181 mg/dL (70-110)
[2025-05-08 12:04] VITALS: BMI 35.0
[2025-05-08] MEDS: SODIUM FERRIC GLUCONAT-SUCROSE 125 MG in SODIUM CHLORIDE 0.9% 100 ML IVPB SCH (14:26)
[2025-05-08] MEDS: FUROSEMIDE 20 MG TAB PO SCH (16:03)
[2025-05-08] MEDS: AMIODARONE 200 MG TAB PO SCH (16:03)
[2025-05-08 16:38] LABS: Glucose,Whole Blood 164 mg/dL (70-110)
--- NOTE | 2025-05-08 16:51 | P.CONS ---
History of Present Illness - Reason for Consult Consult date: 05/08/25 neutropenia Requesting physician: Jose Parker - Chief Complaint rectal bleeding - History of Present Illness Mr Edwards is a 70 yo male pt of Dr. Benitez with a Hx of rectal carcinoma. Initially present to PCP with c/o BRBPR x 1 year intermittently, progressive for few months prior to presentation. He had new onset constipation. He was referred for GI workup and had a colonoscopy in 03/25/23. A mass was palpated in the distal rectum, close to the anus. There is some bleeding associated with the mass. The colonoscope could only be advanced to the left colon due to poor prep. Presence of the mass was confirmed, and this was biopsied. This revealed invasive grade 2 adenocarcinoma. Staging MRI revealed a T3 tumor that appeared to be abutting the prostate, but not invading it. There was evidence of viet involvement in the mesorectum, and at least 1 extra mesorectal node involvement in the presacral area. The PET scan showed uptake in the primary site and in a few mesorectal nodes. There was also an area of uptake related to the IVC just below the diaphragm. It was not clear if this was a liver lesion. Biomarker testing was negative. MRI of the liver scheduled 2, to evaluate the area of uptake on PET scan, he missed both appts. He was started on FOLFOX on 05/19/23, completing 12 cycles 12/15/23 The patient did not get the MRI of the liver as scheduled because of missing appointments, or rescheduling, he ultimately had it done, showing 2 lesions in the liver, consistent with metastasis, in the dome and the caudate lobe. Vectibix was added with cycle 10 onwards. FOLFOX was stopped after 12 cycles, and Vectibix continued as a single agent. PET scan done after cycle 11 showed diminished uptake in the caudate lobe, and questionable uptake in the lesion in the dome. There was mention of possible uptake in the lower T-spine. He had a treatment delay after cycle 6, because of development of significant cellulitis involving the groin, as well as other infected skin lesions on his lower extremities. He was admitted to the hospital for about 6 days with IV antibiotics. Resumed treatment after completion of his antibiotics and clearance of the infection. He was eventually referred to [facility] to evaluate for surgical resection. He was felt to be a candidate for liver and primary site resection as long as an area of uptake in the thoracic spine was not malignant. Patient had MRI done here that was not felt to be definitive, due to motion artifact. Therefore repeat MRI of the spine was done at [facility] on 01/23/24. This was negative for evidence of malignancy. Seen by colorectal surgery, but during his evaluation was found to be in atrial fibrillation with RVR. According to the physician note, he also admitted to use of methamphetamine. Continued on Vectibix, stated that he would work on quitting methamphetamine use, as well as Suboxone. He was referred to psychiatry, to 2 different offices, but one did not take his insurance, while the other did not provide the requested services. The patient however stated he quit methamphetamines in early 05/15, however he continued on the Suboxone. He was found to have severe aortic stenosis by Cardiology, which would make him high risk for surgery. It was suggested to him that he should follow-up with cardiology at [facility] for an opinion, if he is planning on having surgery. It was also confirmed by colorectal surgery that the patient will need a permanent ostomy. Due to the above, the patient was unsure about proceeding with surgery and did not follow up with [facility] since 05/16/24. He w as started on Xeloda, 1 week on 1 week off, on 04/17/24. He was taking incorrectly-only one pill twice a day, instead of the calculated dose of 5 pills twice a day. He was subsequently cleared by Cardiology, with a diagnosis of increased, but acceptable, risk. PET scan in 10/15 showed no evidence of progression. The patient was supposed to have an appointment with CRS at [facility] on 10/26/24, but apparently did not go to that appointment because he lost his wallet. The patient did go for his appointment in Nov. He had MRI rectal protocol, and CT of the abdomen performed. MRI findings showed stable-appearing lymph nodes, with continued treatment response at the primary site. The CT of the liver showed stable lesions in the dome, and the caudate lobe, but 2 new suspicious lesions. Xeloda decreased to 2000 mg twice a day due to skin toxicity, he subsequently increased it back to 2500 twice a day after his symptoms improved. He was evaluated by Surgical Oncology regarding the radiologic findings and was felt to be having progression. He was therefore not deemed to be a surgical candidate at this time. His regimen was changed to Xeloda/irinotecan/Vectibix 01/2025. He had cycle 1 but was admitted to [facility] for intractable diarrhea, dehydration, ANGELA and electrolyte abnormalities. He was f ound to be C. difficile positive. He improved with treatment and was discharged on 03/09/25. Most recently, he is s/p cycle 3 of Vectibix/irinotecan on 04/26. He was referred to radiation oncology and at his first visit and was complaining of persisting rectal bleeding at which time he was referred to the ER for further evaluation. Rectal bleeding has been an ongoing issue and has been intermittent . However, patient does state over the last 1 month rectal bleeding has increased. Denies blood clots. Upon admission hemoglobin noted at 7.0, and was given 1 unit PRBCs. Repeat hemoglobin today 7.4. Iron studies in clinic on 04/25 noted iron saturation 13% with ferritin 97. IV iron was ordered but has yet to been given. Today WBC 1.76, ANC 200. Patient is afebrile. Does report blood in stool this morning, with no other reported complaints. Patient is anxious to go home Review of Systems 10 point ROS is negative except as stated in the HPI Past Medical History Past Medical History: Atrial Fibrillation, Cancer, CVA/TIA, Diabetes Mellitus, Hypertension Additional Past Medical History / Comment(s): RECTAL CANCER. History of Any Multi-Drug Resistant Organisms: C-DIFF Year Discovered:: Unknown MDRO Source:: Unknown Past Surgical History: Joint Replacement, Orthopedic Surgery Additional Past Surgical History / Comment(s): eye surgery, knee replacement, broken fx and calcium deposits removed Past Anesthesia/Blood Transfusion Reactions: No Reported Reaction Past Psychological History: No Psychological Hx Reported Smoking Status: Former smoker Past Alcohol Use History: None Reported Additional Past Alcohol Use History / Comment(s): quit about 30 yrs ago Past Drug Use History: None Reported Medications and Allergies Home Medications Medication Instructions Recorded Confirmed Type metFORMIN HCL [Glucophage] 1,000 mg PO BID@0000,1600 12/25/16 05/07/25 History Magnesium Oxide [Mag-Ox] 400 mg PO TID 7 Days #21 tab 02/22/24 05/07/25 Rx Amiodarone [Cordarone] 200 mg PO DAILY@1600 03/07/25 05/07/25 History Capecitabine 500mg 2,500 mg PO DIRECTED 03/07/25 05/07/25 History Hydrocortisone Lotion [Hytone 2.5% 1 applic TOPICAL QID 03/07/25 05/07/25 Histor y Lotion] Metoprolol Tartrate [Lopressor] 25 mg PO BID@0000,1600 03/07/25 05/07/25 History Sacubitril/Valsartan [Entresto 24 1 tab PO BID@0000,159903/07/25 05/07/25 History mg-26 mg Tablet] Doxycycline Monohydrate 100 mg PO BID@0000,1600 03/28/25 05/07/25 History Loperamide [Imodium] 2 - 4 mg PO QID PRN 03/28/25 05/07/25 History Furosemide [Lasix] 20 mg PO DAILY@1600 #30 tab 03/30/25 05/07/25 Rx SILVER sulfADIAZINE Cream 1 applic TOPICAL DAILY #1 each 03/30/25 05/07/25 Rx [Silvadene 1% Cream] Apixaban [Eliquis] 5 mg PO BID@0000,1600 05/07/25 05/07/25 History Cholestyramine (with Sugar) 4 gm PO BID PRN 05/07/25 05/07/25 History [Cholestyramine Packet] Furosemide [Lasix] 40 mg PO DAILY@0000 05/07/25 05/07/25 History Ondansetron [Zofran] 4 mg PO Q4H PRN 05/07/25 05/07/25 History Pantoprazole [Protonix] 40 mg PO DAILY@159905/07/25 05/07/25 History Vancomycin HCl [Vancocin HCl] 125 mg PO DAILY@159905/07/25 05/07/25 History Allergies Allergy/AdvReac Type Severity Reaction Status Date / Time guinea pigs Allergy Itching Uncoded 05/07/25 16:52 Physical Exam Vitals: Vital Signs Temp Pulse Pulse Resp BP BP Pulse Ox 05/08/25 11:32 98.2 F 63 14 133/70 95 05/08/25 08:52 98.7 F 71 14 122/65 97 05/08/25 04:45 98.0 F 60 16 105/57 94 L 05/08/25 00:00 98.5 F 67 16 145/65 99 05/07/25 22:55 98.0 F 64 18 116/68 94 L 05/07/25 22:00 66 18 120/60 98 05/07/25 21:43 97.8 F 66 18 102/55 97 05/07/25 21:00 64 18 106/67 95 05/07/25 20:00 61 16 111/67 96 05/07/25 19:30 98.3 F 65 18 105/52 95 05/07/25 18:59 98.3 F 67 18 113/59 05/07/25 18:39 98.4 F 66 16 101/57 95 05/07/25 18:25 98.2 F 63 18 97/54 05/07/25 18:03 97.8 F 63 18 96 05/07/25 16:12 73 16 124/54 99 05/07/25 15:06 98.4 F 64 18 121/64 95 Intake and Output 05/07/25 05/08/25 05/08/25 22:59 06:59 14:59 Intake Total 310 10 Balance 310 10 Intake: IV 10 Invasive Line 1 5 Invasive Line 2 5 Blood Product 310 Rc As-1 Unit 310 [id number] Other: Voiding Method Toilet Toilet # Voids 1 Weight 120.202 kg 117.2 kg 117.2 kg - Constitutional General appearance: no acute distress - EENT Eyes: anicteric sclerae, EOMI ENT: hearing grossly normal - Respiratory breathing is even and unlabored - Cardiovascular skin warm and dry - Gastrointestinal General gastrointestinal: soft, no tenderness - Integumentary Integumentary: no cyanotic, no jaundiced, pale - Neurologic Neurologic: CNII-XII intact - Psychiatric Psychiatric: A&O x's 3 Results CBC & Chem 7: 05/10/25 06:39 05/10/25 06:39 Labs: Abnormal Lab Results - Last 24 Hours (Table) 05/07/25 05/07/25 05/07/25 Range/Units 16:00 16:03 16:03 WBC 1.70 L (4.50-10.00) 10*3/uL RBC 2.36 L (4.40-5.60) 10*6/uL Hgb 7.0 L (13.0-17.0) g/dL Hct 21.1 L (39.6-50.0) % MPV 9.4 L (9.5-12.2) fL Neutrophils # (1.80-7.70) 10*3/uL Neutrophils # (Manual) 0.20 L* (1.3-7.7) k/uL PT 13.9 H (10.0-12.5) sec INR 1.3 H (<1.2) Potassium (3.5-5.1) mmol/L Creatinine (0.66-1.25) mg/dL Glucose (74-99) mg/dL POC Glucose (mg/dL) (70-110) mg/dL Calcium (8.4-10.2) mg/dL Magnesium (1.6-2.3) mg/dL AST (17-59) U/L Total Protein (6.3-8.2) g/dL Albumin (3.5-5.0) g/dL Crossmatch See Detail 05/07/25 05/08/25 05/08/25 Range/Units 16:03 06:12 07:39 WBC 1.76 L (4.50-10.00) 10*3/uL RBC 2.51 L (4.40-5.60) 10*6/uL Hgb 7.4 L (13.0-17.0) g/dL Hct 22.4 L (39.6-50.0) % MPV (9.5-12.2) fL Neutrophils # 0.20 L* (1.80-7.70) 10*3/uL Neutrophils # (Manual) (1.3-7.7) k/uL PT (10.0-12.5) sec INR (<1.2) Potassium 3.1 L (3.5-5.1) mmol/L Creatinine 1.37 H (0.66-1.25) mg/dL Glucose 161 H (74-99) mg/dL POC Glucose (mg/dL) 154 H (70-110) mg/dL Calcium 8.1 L (8.4-10.2) mg/dL Magnesium 0.8 L* (1.6-2.3) mg/dL AST 14 L (17-59) U/L Total Protein 6.2 L (6.3-8.2) g/dL Albumin 3.4 L (3.5-5.0) g/dL Crossmatch 05/08/25 05/08/25 Range/Units 07:39 11:15 WBC (4.50-10.00) 10*3/uL RBC (4.40-5.60) 10*6/uL Hgb (13.0-17.0) g/dL Hct (39.6-50.0) % MPV (9.5-12.2) fL Neutrophils # (1.80-7.70) 10*3/uL Neutrophils # (Manual) (1.3-7.7) k/uL PT (10.0-12.5) sec INR (<1.2) Potassium 3.2 L (3.5-5.1) mmol/L Creatinine (0.66-1.25) mg/dL Glucose 142 H (74-99) mg/dL POC Glucose (mg/dL) 181 H (70-110) mg/dL Calcium 7.9 L (8.4-10.2) mg/dL Magnesium 1.0 L (1.6-2.3) mg/dL AST 13 L (17-59) U/L Total Protein 5.7 L (6.3-8.2) g/dL Albumin 3.0 L (3.5-5.0) g/dL Crossmatch Assessment and Plan (1) Hypomagnesemia Current Visit: Yes Status: Acute Priority: High Code(s): E83.42 - HYPOMAGNESEMIA SNOMED Code(s): 081549801 (2) Anemia Current Visit: Yes Status: Chronic Priority: Medium Code(s): D64.9 - ANEMIA, UNSPECIFIED SNOMED Code(s): 616410456 (3) Acute kidney injury Current Visit: Yes Status: Acute Priority: High Code(s): N17.9 - ACUTE KIDNEY FAILURE, UNSPECIFIED SNOMED Code(s): 25204979 (4) Colorectal carcinoma Current Visit: No Status: Chronic Priority: Medium Code(s): C19 - MALIG NANT NEOPLASM OF RECTOSIGMOID JUNCTION SNOMED Code(s): 4161696511 Plan: Metastatic rectal carcinoma: Presented to the ER for rectal bleeding. This has been ongoing, but has worsened over the last 1 month -Oncology history as dictated in the HPI -Currently on treatment with Xeloda/irinotecan/Vectibix, s/p cycle 3 of Vectibix/irinotecan on 04/26. -He was referred to radiation oncology due to rectal bleeding. Plan to start XRT today. Case discussed with Dr. Bernal -Upon admission hemoglobin noted at 7.0, and was given 1 unit PRBCs. Repeat hemoglobin today 7.4. -Iron studies in clinic on 04/25 noted iron saturation 13% with ferritin 97. IV iron was ordered outpt but has yet to been given. Will start Ferrlicit inpt -Continue to monitor hgb, transfuse for hgb < 7 or if symptomatic Chemo induced neutropenia: -Today WBC 1.76, ANC 200. -Patient is afebrile. No reported infectious symptoms or abdominal pain -Will hold G-CSF at this time, and continue to monitor CBC. May need to consider G-CSF with subsequent cycles, will discuss further with his oncologist, Dr. Benitez Patient seen with [employer] and agree with assessment and plan noted above. In addition, he has hypomagnesemia secondary to panitumumab (vectibix). In addition to IV supplementation inpatient, he can be arranged for supplementation outpatient in the clinic. IV iron can also be continued outpatient. As long as there is no signs of active bleeding, he can be discharged from an oncology perspective. Adin Young MD
[2025-05-08 20:31] LABS: Glucose,Whole Blood 203 mg/dL (70-110)
[2025-05-08] MEDS ORDERED: DEXTROSE 50% SYRINGE 50 ML IVP PRN ×2 (21:38)
[2025-05-09] MEDS: CHOLESTYRAMINE RESIN 4 GM PACKET PO PRN (02:13)
[2025-05-09 05:59] LABS: Glucose,Whole Blood 182 mg/dL (70-110)
[2025-05-09] MEDS: INSULIN LISPRO (HumaLOG) 100 UNIT/ML 10 mL VL SQ SCH (06:10)
[2025-05-09 06:27] LABS: HCT 25.6 % (39.6-50.0); HGB 8.2 g/dL (13.0-17.0); MCH 28.9 pg (27.0-32.0); MCV 90.1 fL (80.0-97.0); Mean Platelet Volume 9.6 fL (9.5-12.2); Platelet Count 379 10*3/uL (140-440); RBC 2.84 10*6/uL (4.40-5.60)
[2025-05-09 06:37] LABS: ALT 9 U/L (4-49); AST 13 U/L (17-59); African American GFR (CKD) >90 (>60 ml/min/1.73 sqM); Albumin 3.3 g/dL (3.5-5.0); Alkaline Phosphatase 66 U/L (38-126); Anion Gap 9 mmol/L; Blood Urea Nitrogen 11 mg/dL (9-20); Carbon Dioxide 31 mmol/L (22-30); Chloride 100 mmol/L (98-107); Glucose 138 mg/dL (74-99); Non-African American GFR(CKD) 79 (>60 ml/min/1.73 sqM); Potassium 3.4 mmol/L (3.5-5.1); Sodium 140 mmol/L (137-145); Total Bilirubin 0.4 mg/dL (0.2-1.3)
[2025-05-09 06:39] LABS: Magnesium 0.9 mg/dL (1.6-2.3)
[2025-05-09] MEDS ORDERED: Potassium Replacement Protocol 1 EACH MISC MISCELLANE PRN ×3 (07:52→15:49)
--- NOTE | 2025-05-09 08:04 | P.PN ---
Subjective Progress Note Date: 05/09/25 Principal diagnosis: The patient is a 70-year-old white male here for rectal cancer. Underlying history of hypomagnesemia anemia element of neutropenia. Now receiving iron. No new complaints. No significant nausea, vomiting or diarrhea seems to be tolerating diet. Objective - Vital Signs Vital signs: Vital Signs Temp 98.2 F 05/09/25 04:00 Pulse 61 05/09/25 04:00 Resp 18 05/09/25 04:00 BP 125/64 05/09/25 04:00 Pulse Ox 96 05/09/25 04:00 FiO2 Intake & Output 05/08/25 05/09/25 05/09/25 18:59 06:59 18:59 Intake Total 444 10 Balance 444 10 Weight 117.2 kg 115.6 kg Intake: IV 10 0.9 10 Oral 444 Other: Voiding Method Toilet Toilet # Voids 5 3 - Constitutional General appearance: Present: average body habitus, cooperative - EENT Eyes: Absent: abnormal pupil - Neck Neck: Absent: lymphadenopathy - Respiratory Respiratory: bilateral: CTA - Cardiovascular Rhythm: regular Heart sounds: normal: S1, S2 Abnormal Heart Sounds: Absent: S3 Gallop - Gastrointestinal General gastrointestinal: Present: soft. Absent: tenderness - Labs CBC & Chem 7: 05/09/25 05:46 05/09/25 05:46 Labs: Abnormal Lab Results - Last 24 Hours (Table) 05/08/25 05/08/25 05/08/25 Range/Units 07:39 07:39 11:15 WBC 1.76 L (4.50-10.00) 10*3/uL RBC 2.51 L (4.40-5.60) 10*6/uL Hgb 7.4 L (13.0-17.0) g/dL Hct 22.4 L (39.6-50.0) % Neutrophils # 0.20 L* (1.80-7.70) 10*3/uL Potassium 3.2 L (3.5-5.1) mmol/L Carbon Dioxide (22-30) mmol/L Glucose 142 H (74-99) mg/dL POC Glucose (mg/dL) 181 H (70-110) mg/dL Calcium 7.9 L (8.4-10.2) mg/dL Magnesium 1.0 L (1.6-2.3) mg/dL AST 13 L (17-59) U/L Total Protein 5.7 L (6.3-8.2) g/dL Albumin 3.0 L (3.5-5.0) g/dL 05/08/25 05/08/25 05/09/25 Range/Units 16:26 20:30 05:46 WBC 2.90 L (4.50-10.00) 10*3/uL RBC 2.84 L (4.40-5.60) 10*6/uL Hgb 8.2 L (13.0-17.0) g/dL Hct 25.6 L (39.6-50.0) % Neutrophils # (1.80-7.70) 10*3/uL Potassium (3.5-5.1) mmol/L Carbon Dioxide (22-30) mmol/L Glucose (74-99) mg/dL POC Glucose (mg/dL) 164 H 203 H (70-110) mg/dL Calcium (8.4-10.2) mg/dL Magnesium (1.6-2.3) mg/dL AST (17-59) U/L Total Protein (6.3-8.2) g/dL Albumin (3.5-5.0) g/dL 05/09/25 05/09/25 Range/Units 05:46 05:57 WBC (4.50-10.00) 10*3/uL RBC (4.40-5.60) 10*6/uL Hgb (13.0-17.0) g/dL Hct (39.6-50.0) % Neutrophils # (1.80-7.70) 10*3/uL Potassium 3.4 L (3.5-5.1) mmol/L Carbon Dioxide 31 H (22-30) mmol/L Glucose 138 H (74-99) mg/dL POC Glucose (mg/dL) 182 H (70-110) mg/dL Calcium 8.0 L (8.4-10.2) mg/dL Magnesium 0.9 L* (1.6-2.3) mg/dL AST 13 L (17-59) U/L Total Protein 6.0 L (6.3-8.2) g/dL Albumin 3.3 L (3.5-5.0) g/dL Assessment and Plan (1) Hypomagnesemia Current Visit: Yes Status: Acute Priority: High Code(s): E83.42 - HYPOMAGNESEMIA SNOMED Code(s): 463942585 (2) Anemia Current Visit: Yes Status: Chronic Priority: Medium Code(s): D64.9 - ANEMIA, UNSPECIFIED SNOMED Code(s): 545082279 (3) CHF (congestive heart failure) Current Visit: No Status: Acute Code(s): I50.9 - HEART FAILURE, UNSPECIFIED SNOMED Code(s): 26669134 (4) History of atrial fibrillation Current Visit: No Status: Acute Code(s): Z86.79 - PERSONAL HISTORY OF OTHER DISEASES OF THE CIRCULATORY SYSTEM SNOMED Code(s): 730832419 (5) Hypertension Current Visit: No Status: Acute Code(s): I10 - ESSENTIAL (PRIMARY) HYPERTE NSION SNOMED Code(s): 31799789 (6) Colon adenocarcinoma Current Visit: No Status: Chronic Priority: Medium Code(s): C18.9 - MALIGNANT NEOPLASM OF COLON, UNSPECIFIED SNOMED Code(s): 564106211 Plan: Continue current regimen of medication. Supplement magnesium. 2 g today. Check CBC CMP magnesium today. Potassium protocol also added. See orders otherwise. [facility] will be covering for and Wednesday.
[2025-05-09] MEDS: MAGNESIUM SULFATE-D5W PMX 1 GM in DEXTROSE/WATER 1 100ML.BAG IVPB SCH ×2 (08:09→16:30)
[2025-05-09 08:51] LABS: Nucleated Red Blood Cells 0 /100 WBC (0-0)
[2025-05-09 08:55] LABS: Neutrophils % (M) 13 %
[2025-05-09 08:56] LABS: Basophils # (M) 0.03 k/uL (0-0.2); Eosinophils # (M) 0.06 k/uL (0-0.7); Lymphocytes # (M) 2.26 k/uL (1.0-4.8); Monocytes # (M) 0.17 k/uL (0-1.0); Neutrophils # (M) 0.38 k/uL (1.3-7.7); Total Cells Counted 100
[2025-05-09] MEDS: POTASSIUM CHLORIDE ER 20 MEQ TAB.ER PO SCH ×2 (09:07→16:29)
[2025-05-09 11:23] LABS: Glucose,Whole Blood 176 mg/dL (70-110)
[2025-05-09 15:20] LABS: African American GFR (CKD) >90 (>60 ml/min/1.73 sqM); Anion Gap 7 mmol/L; Blood Urea Nitrogen 10 mg/dL (9-20); Calcium 7.6 mg/dL (8.4-10.2); Carbon Dioxide 30 mmol/L (22-30); Chloride 101 mmol/L (98-107); Glucose 159 mg/dL (74-99); Magnesium 1.2 mg/dL (1.6-2.3); Non-African American GFR(CKD) 85 (>60 ml/min/1.73 sqM); Potassium 3.3 mmol/L (3.5-5.1); Sodium 138 mmol/L (137-145)
[2025-05-09 16:12] LABS: Glucose,Whole Blood 224 mg/dL (70-110)
[2025-05-09 19:56] LABS: Glucose,Whole Blood 203 mg/dL (70-110)
[2025-05-09] MEDS: ZINC OXIDE PASTE (Z-GUARD) 1 APPLIC TOPICAL PRN (21:06)
[2025-05-09 21:29] LABS: Magnesium 1.6 mg/dL (1.6-2.3)
[2025-05-10 03:54] VITALS: RESP 16
[2025-05-10 05:55] LABS: Glucose,Whole Blood 170 mg/dL (70-110)
[2025-05-10 07:06] LABS: HCT 24.6 % (39.6-50.0); HGB 7.8 g/dL (13.0-17.0); MCH 29.2 pg (27.0-32.0); MCHC 31.7 g/dL (32.0-37.0); MCV 92.1 fL (80.0-97.0); Mean Platelet Volume 9.2 fL (9.5-12.2); Platelet Count 380 10*3/uL (140-440); RBC 2.67 10*6/uL (4.40-5.60); RDW 19.4 % (11.5-14.5); WBC 3.07 10*3/uL (4.50-10.00)
[2025-05-10 07:23] LABS: ALT 8 U/L (4-49); AST 13 U/L (17-59); African American GFR (CKD) 84 (>60 ml/min/1.73 sqM); Albumin 3.1 g/dL (3.5-5.0); Alkaline Phosphatase 63 U/L (38-126); Anion Gap 6 mmol/L; Blood Urea Nitrogen 12 mg/dL (9-20); Calcium 7.8 mg/dL (8.4-10.2); Carbon Dioxide 30 mmol/L (22-30); Chloride 103 mmol/L (98-107); Glucose 161 mg/dL (74-99); Magnesium 1.2 mg/dL (1.6-2.3); Non-African American GFR(CKD) 73 (>60 ml/min/1.73 sqM); Potassium 4.3 mmol/L (3.5-5.1); Sodium 139 mmol/L (137-145); Total Bilirubin 0.4 mg/dL (0.2-1.3); Total Protein 5.8 g/dL (6.3-8.2)
[2025-05-10 07:53] VITALS: TEMP 97.9
[2025-05-10] MEDS ORDERED: Magnesium Replacement Protocol 1 EACH MISC MISCELLANE PRN (08:44)
[2025-05-10] MEDS: MAGNESIUM SULFATE-D5W PMX 1 GM in DEXTROSE/WATER 1 100ML.BAG IVPB SCH (11:21)
[2025-05-10 11:52] LABS: Glucose,Whole Blood 182 mg/dL (70-110)
[2025-05-10 14:57] VITALS: BP 108/64; PULSE 73
[2025-05-14] MEDS ORDERED: CAPECITABINE PO SCH (09:00)
== END 2025-05-10 16:32 | disposition home or self-care (01) | DRG 375 ==
LOC: EC 15:05 → 3SCARD 17:45
PROVIDERS: ADMIT Family Medicine; ATTEND Family Medicine
PROC: 30233N1 Transfusion of Nonautologous Red Blood Cells into Peripheral Vein, Percutaneous Approach (ICD-10-PCS; principal; 2025-05-07)
DX: C19 Malignant neoplasm of rectosigmoid junction (principal); C77.2 Secondary and unspecified malignant neoplasm of intra-abdominal lymph nodes; N17.9 Acute kidney failure, unspecified; D70.8 Other neutropenia; L03.314 Cellulitis of groin; D64.9 Anemia, unspecified; E86.0 Dehydration; E11.9 Type 2 diabetes mellitus without complications; I48.91 Unspecified atrial fibrillation; E83.42 Hypomagnesemia; I11.0 Hypertensive heart disease with heart failure; I35.0 Nonrheumatic aortic (valve) stenosis; K62.5 Hemorrhage of anus and rectum; I50.9 Heart failure, unspecified; T45.1X5A Adverse effect of antineoplastic and immunosuppressive drugs, initial encounter; K59.00 Constipation, unspecified; Z79.01 Long term (current) use of anticoagulants; Z79.84 Long term (current) use of oral hypoglycemic drugs; Z79.899 Other long term (current) drug therapy; Z87.891 Personal history of nicotine dependence; Z96.659 Presence of unspecified artificial knee joint; Z86.19 Personal history of other infectious and parasitic diseases
CPT/HCPCS: 36415; 36430; 77295; 77300; 77334; 80048; 80053; 82272; 83036; 83735; 84132; 85025; 85027; 85610; 85730; 86850; 86900; 86901; 86920; 96365; 96366; 99285